=== PATIENT | male | born 1985 | race Caucasian/White ===

== ENCOUNTER 2016-10-21 22:57 | Emergency (ER) | payer OTHER ==
[~2016-10-21] VITALS: Ht 193 cm; Wt 176.5 kg
[~2016-10-21 22:57] MED LIST: GLIP10TA3 PO; IBUP-1050 PO; INSDGIPEN SQ; LISI-461 PO; METF1TAB53 PO; OXYC-57 PO
[2016-10-21 22:59] VITALS: TEMP 36.7; Ht 193 cm; Wt 176.5 kg
[2016-10-21] MEDS ORDERED: LIDOCAINE/EPINEPHRINE 1% 20 ML VIAL INFIL ONE (23:30)
[2016-10-22 00:13] VITALS: BP 140/70; PULSE 105; O2SAT 95
[2016-10-22] MEDS ORDERED: PERCOCET HOME PACK PO ONE (00:15)
[2016-10-22] MEDS ORDERED: CLINDAMYCIN HCL 150 MG CAP PO ONE (00:15)
[2016-10-22] MEDS ORDERED: CLIN300C2 PO (00:20)
[2016-10-22] MEDS ORDERED: HYDR-5688 PO (00:20)
--- NOTE | 2016-10-22 00:21 | EMERGENCY ROOM VISIT NOTE ---
ED Visit Note First contact with patient: 23:10 CHIEF COMPLAINT: Infection of the tailbone HISTORY OF PRESENT ILLNESS: This 31-year-old male patient presents to the emergency department ambulatory complaining of pain in the tailbone. The patient reports that he has swelling and redness in the area as well and is concerned he may have an infection. He states his symptoms started 3 days ago and became much worse yesterday. He reports pain when sitting which she rates a 6/10. He denies any history of abscesses in that area, but does state that he has had a prior abscess on his leg. The patient is a diabetic. He denies any fevers/chills. REVIEW OF SYSTEMS: A review of systems was performed with positives and pertinent negatives listed in the history of present illness. All other systems were reviewed and are negative. ALLERGIES: Cephalosporins MEDICATIONS: See med list PMH: Diabetes SOCIAL HISTORY: The patient was locally with family. He is a smoker. PHYSICAL EXAM: Vital Signs: Reviewed Nurse's notes, vital signs stable. GENERAL : This is a 31-year-old male, no acute distress, non toxic in appearance, well- developed well-nourished. SKIN: There is an erythematous indurated area in the right gluteal cleft which measures about to cm in diameter. It is fluctuant but there is no pointing or drainage. There is minimal surrounding cellulitis. Capillary refill less than 2 seconds. EMERGENCY DEPARTMENT COURSE: I examined the patient. Verbal consent was obtained to perform the procedure. After saline and Betadine cleansing and 4 mL of 1% buffered lidocaine with epinephrine anesthesia, the abscess was incised with a number 11 scalpel blade. A large amount of purulent material was released with more expressed by pressure. A swab was obtained for culture. The abscess cavity was further probed with a needle motorcoach driver and the deep pocket expressed. The abscess cavity was then copiously irrigated with sterile saline under pressure. The area was then packed with bacitracin soaked packing. The area was cleaned with sterile saline and dressed with bacitracin and a bulky bandage. The patient tolerated the procedure well. The patient will be placed on clindamycin due to medication interactions with Bactrim. He will return for packing removal. He was given a home pack and prescription of [employer]. The [place] prescription drug monitoring program was queried and no red flags were identified. The patient was discharged home in stable condition. DIAGNOSIS: Pilonidal abscess Problem List Medical Problems: (1) Abdominal pain Status: Resolved (2) Abdominal pain Status: Resolved (3) Abscess of left thigh Status: Resolved (4) Acute bronchitis Status: Resolved (5) Asthma Status: Chronic (6) Back pain Status: Resolved (7) Back strain Status: Resolved (8) Calculus Of Ureter Status: Chronic (9) Cellulitis of left thigh Status: Resolved (10) Cellulitis of thigh Status: Resolved (11) Cellulitis, leg Status: Resolved (12) Depressive Disorder Nec Status: Chronic (13) Diverticulitis Status: Resolved (14) Diverticulitis Status: Resolved (15) Diverticulosis Status: Chronic (16) Flank pain Status: Resolved (17) Foot pain Status: Resolved (18) Headache Status: Resolved (19) Hyperglycemia Status: Chronic (20) Hypertension Status: Chronic (21) Hypertension Status: Chronic (22) Joint pain in the shoulder/clavicle region Status: Resolved (23) Kidney stone on left side Status: Resolved (24) Left ureteral calculus Status: Resolved (25) Leg abscess Status: Resolved (26) Migraine Status: Resolved (27) Migraine Status: Resolved (28) Morbid Obesity Status: Chronic (29) Neck pain on right side Status: Resolved (30) Renal colic Status: Resolved (31) Renal colic on left side Status: Resolved (32) Repetitive strain injury of right foot Status: Resolved (33) Tobacco Use Disorder Status: Chronic Surgical Problems: (1) S/P PICC central line placement Status: Resolved Current/Historical Medications Scheduled Glipizide (Glucotrol), 20 MG PO QAM Insulin Glargine (Lantus Solostar), 25 UNITS SQ QPM Lisinopril (Lisinopril), 20 MG PO DAILY Metformin Hcl (Glucophage Ext Rel), 1,000 MG PO BID Ranitidine (Zantac), 300 MG PO DAILY/PRN Scheduled PRN Ibuprofen (Advil), 200-600 MG PO Q4H PRN for Pain or Fever Allergies Coded Allergies: Cefaclor (Verified Allergy, Unknown, HAD REACTION BABY - DOES NOT REMEMBER EXACT REACTION, 08/05/16) Cephalosporins (Verified Allergy, Unknown, 08/05/16) Vital Signs Date Time Temp Pulse Resp B/P Pulse Ox O2 Delivery O2 Flow Rate FiO2 10/21/16 22:59 36.7 121 20 149/81 96 Room Air Departure Information Impression Primary Impression: Pilonidal abscess Dispostion Home / Self-Care Condition GOOD Prescriptions Hydrocodone/Acetaminophen 5MG/325MG ([place] 5MG/325MG) Tab 1-2 TABLET PO Q4H Y for Pain, #10 TAB For Initial Treatment Prov: Lissa Michael PA-C 10/22/16 Clindamycin Hcl (CLEOCIN) 300 Mg Cap 300 MG PO QID for 7 Days, #28 CAP Prov: Lissa Michael PA-C 10/22/16 Referrals No Doctor, Assigned (PCP) Patient Instructions A Signature Page, [facility] Additional Instructions You were seen in the Emergency Department for Incision and Drainage of pilonidal abscess. You will NEED to return to the Emergency Department to have the packing removed/changed in 48 hours. This packing is NOT dissolvable and WILL need to be removed by a health care provider. Try to leave the packing in place until you return to the Emergency Department. You have been prescribed [place] to be used for pain control. This is a narcotic medication. You cannot drive or consume alcohol while on this medicine. This medicine should only be used for pain that cannot be controlled with over-the- counter pain medicines. You were prescribed clindamycin to be taken as prescribed. This is an antibiotic. All antibiotics have the potential to cause diarrhea. Stop this medication and contact a medical provider if you were to develop any significant adverse side effects including: wheezing, shortness of breath, passing out, vomiting, or a diffuse rash. Always take antibiotics as directed and COMPLETE the ENTIRE course regardless of the improvement of your symptoms. Proper wound care is essential for adequate wound healing and infection prevention. You can shower and clean the wound with soap and water. Do not scour over the wound. Pat dry with a towel. Do not submerse the wound (i.e. bathe or dish wash) until the sutures have been removed. You can use an antibiotic ointment with a dressing over the wound for the next 3-4 days. After this time you may leave the wound dry and open to the air. If crust develops over the wound you can use a Q-tip to apply a 1:1 peroxide:water solution to clean the wound. Look for signs of infection of the wound including: increased pain, swelling, foul discharge, streaking, or increased temperature. If any of these are noticed you should return to the Emergency Department for further assessment and treatment. As with any laceration you may have received nerve damage to the surrounding tissues. This damage may or may not be permanent. For pain control, you can use the following [id number] medicines (if >12 yo): - Regular strength (325mg/tab) Tylenol (acetaminophen) 2 tabs every 4-6 hours as needed. Do not exceed 12 tablets in a 24 hour period. Avoid taking more than 4 grams (4000 mg) of Tylenol per day. This includes any other sources of acetaminophen you may take on a regular basis. - Regular strength (200 mg/tab) Advil (ibuprofen) 1-2 tabs every 4-6 hours as needed. Do not exceed a dose of 3200 mg per day. You may need to follow-up with a general surgeon for definitive removal of your pilonidal cyst. Return to the emergency department if your symptoms worsen despite treatment course outlined above.
--- NOTE | 2016-10-25 15:33 | Pharmacy Progress Note ---
ED Pharmacist Culture FollowUp Date of Service: Oct 25, 2016. Pilonidal abscess cx from 10/22/16 growing 3 organisms, none of which will have sensitivities reported per our lab's policies/procedures. Organisms = 1) CoN staph 2) Diptheroids 3) Peptostreptococcus sp The patient had I&D performed on 10/22. He was discharged on Clindamycin 300mg PO QID x 7 days. He returned to the ED today for removal of packing. He denied pain, swelling, redness or drainage from wound. Packing was removed and he was encouraged to continue with the current abx therapy and to f/u with PCP after abx therapy completed. Current abx therapy likely appropriate, however without sensitivities it is difficult to know for sure. CoN Staph likely covered by clinda in ~75% of cases per local antibiogram. Diptheroids has highly variable susceptibilities and is unpredictable - clinical response needed to guide abx therapy. Peptostreptococcus sp likely covered by clinda. No action to be taken at this time as pt appears to be better from a clinical standpoint based on today's evaluation in the ER.
[2017-04-10] MEDS ORDERED: RANI300T2 PO (16:22)
== END 2016-10-22 00:30 | disposition home or self-care (01) ==
LOC: C.EDB 22:59 → C.EDC 10-22 00:30
DX: L05.01 Pilonidal cyst with abscess (principal); E11.9 Type 2 diabetes mellitus without complications; J45.909 Unspecified asthma, uncomplicated; I10 Essential (primary) hypertension; E66.01 Morbid (severe) obesity due to excess calories; Z79.4 Long term (current) use of insulin; Z79.84 Long term (current) use of oral hypoglycemic drugs; Z79.899 Other long term (current) drug therapy

== ENCOUNTER 2016-10-24 13:46 | Emergency (ER) | payer OTHER ==
[~2016-10-24] VITALS: Ht 193 cm; Wt 176.2 kg
[~2016-10-24 13:46] MED LIST changes: +CLIN300C2 PO; +HYDR-5688 PO; -OXYC-57 PO
[2016-10-24 13:54] VITALS: BP 153/96; PULSE 121; TEMP 36.6; O2SAT 95; Ht 193 cm; Wt 176.2 kg
--- NOTE | 2016-10-24 14:57 | EMERGENCY ROOM VISIT NOTE ---
ED Visit Note First contact with patient: 13:59 CHIEF COMPLAINT: Packing removal. HISTORY OF PRESENT ILLNESS: Mr. Crandall is a 31-year-old male who ambulates into the ED requesting packing removal for a pilonidal abscess he had an I&D procedure performed on 3 days ago. He reports since that time he has been feeling well and feels the abscess has been healing well. He denies pain, swelling, redness, or drainage from the wound. PHYSICAL EXAM: Vital Signs: Date Time Temp Pulse Resp B/P Pulse Ox O2 Delivery O2 Flow Rate FiO2 10/24/16 13:54 36.6 121 18 153/96 95 Room Air General: 31 year-old white male in no acute distress, nontoxic-appearing, afebrile and hemodynamically stable. Gluteal Fold: The incision is clean and dry. There are no signs of infection ( erythema, swelling, tenderness, purulent drainage). There is a small area of erythema over the top of the right and left gluteal region. This area is nontender, not fluctuant or indurated. ED COURSE: Patient is assessed as noted above. Packing was removed. I was not able to express any additional purulent drainage from the wound. Patient was educated about tonight's findings and instructed on his treatment plan; he verbalized understanding and agreement with this plan. DISPOSITION: Patient discharged home in stable condition. CLINICAL IMPRESSION: Packing removal; Well healing abscess. PLAN: Patient was encouraged to continue antibiotics until complete. Patient was encouraged to continue his other medications. Patient was encouraged to continue to watch the area for signs of infection. Patient was encouraged to follow-up with his PCP at the end of his antibiotics for reevaluation. Patient was encouraged return ED for any additional signs of infection or any new/concerning symptoms.
[2017-04-10] MEDS ORDERED: RANI300T2 PO (16:22)
== END 2016-10-24 14:14 | disposition home or self-care (01) ==
LOC: C.EDB 13:48 → C.EDD 14:14
DX: Z09 Encounter for follow-up examination after completed treatment for conditions other than malignant neoplasm (principal); L05.01 Pilonidal cyst with abscess

== ENCOUNTER 2016-11-02 14:00 | Emergency (ER) | payer OTHER ==
[~2016-11-02] VITALS: Ht 193 cm; Wt 161.8 kg
[~2016-11-02 14:00] MED LIST changes: -CLIN300C2 PO; -IBUP-1050 PO
[2016-11-02 14:13] VITALS: BP 186/103; TEMP 36.9; Ht 193 cm; Wt 161.8 kg
[2016-11-02] MEDS ORDERED: OXYC1TAB3 PO (15:14)
[2016-11-02] MEDS ORDERED: AMOX875T PO (15:14)
[2016-11-02] MEDS ORDERED: DOXY100C PO (15:14)
--- NOTE | 2016-11-02 15:15 | Pharmacy Progress Note ---
ED Pharmacist Culture FollowUp Date of Service: Nov 02, 2016. Assessment Patient returned to ER today for worsening pilondial abscess. The patient had I &D performed on 10/22. He was discharged on Clindamycin 300mg PO QID x 7 days. Pilonidal abscess cx from 10/22/16 growing 3 organisms, none of which will have sensitivities reported per our lab's policies/procedures. Organisms = 1) coag-negative Staph 2) Diptheroids 3) Peptostreptococcus sp. Failure of clindamycin likely due to inadequate coverage of coag-negative Staph (25% treatment failure per local antibiogram). May also be due to Peptostreptococcos sp resistance. Recommend doxycycline (86% coverage of coag-negative Staph), plus Augmentin ( very likely to cover Peptostreptococcus, ~50% coverage of coag-negative Staph). Selected beta-lactam/beta-lactamase inhibitor combination despite likely sensitivity of Peptostreptococcus to beta-lactam alone 2nd polymicrobial infection with risk of at least one of the isolated pathogens to produce a beta- lactamase. Patient with listed allergy to cephalosporins (reaction as a baby). Has received multiple doses of Zosyn per EMR history - OK to proceed cautiously with Augmentin despite allergy Recommend slightly longer duration of therapy 2nd treatment failure with no sensitivities to guide therapy decisions. Recommend Doxycycline 100 mg po BID x10 days Augmentin 875/125 mg po BID x10 days T[address] Machine [address] Forms patient to monitor for drug allergy reaction .
--- NOTE | 2016-11-02 15:22 | EMERGENCY ROOM VISIT NOTE ---
History First contact with patient: 14:32 Chief Complaint: INFECTION Stated Complaint: INFECTION Nursing Triage Summary: Dmitri on biggbone drained, was referred to surgeon for appt on nov 15. "Was pretty much healed up and then last night it became hard, swollen, and red. It burst last night when I was sleeping and the surgeons office told me to come here." History of Present Illness The patient is a 31 year old male who presents to the Emergency Room with complaints of persistent drainage and infection of a pilonidal cyst that was drained here approximately 10 days ago. The patient reports that he had an I&D procedure performed, and was treated with clindamycin antibiotics because of a history of cephalosporin allergy. The patient reports that his symptoms continued to improve until 2 days ago when he started to notice swelling, pain and redness to the area. He reports that the wound drained again last night. He reports bloody and purulent drainage. He is scheduled to see general surgeon on 11/15/2016. He call the office, but they could not get him in sooner, and told him to come to the emergency department for further evaluation. The patient rates his discomfort a 9 out of 10. He has run out of his pain medications from his last visit. He did recently complete all clindamycin antibiotics. Review of Systems 10 system review was performed and was negative except for pertinent positives and negatives as indicated in history of present illness Past Medical/Surgical History Medical Problems: (1) Abdominal pain (2) Abdominal pain (3) Abscess of left thigh (4) Acute bronchitis (5) Asthma (6) Back pain (7) Back strain (8) Calculus Of Ureter (9) Cellulitis of left thigh (10) Cellulitis of thigh (11) Cellulitis, leg (12) Depressive Disorder Nec (13) Diverticulitis (14) Diverticulitis (15) Diverticulosis (16) Flank pain (17) Foot pain (18) Headache (19) Hyperglycemia (20) Hypertension (21) Hypertension (22) Joint pain in the shoulder/clavicle region (23) Kidney stone on left side (24) Left ureteral calculus (25) Leg abscess (26) Migraine (27) Migraine (28) Morbid Obesity (29) Neck pain on right side (30) No significant active problems (31) Renal colic (32) Renal colic on left side (33) Repetitive strain injury of right foot (34) Tobacco Use Disorder Surgical Problems: (1) S/P PICC central line placement Family History FH: diabetes mellitus FH: hypertension FH: kidney disease Social History Smoking Status: Current Every Day Smoker Alcohol Use: none Marital Status: Housing Status: lives with family Occupation Status: employed Current/Historical Medications Scheduled Amoxicillin & Pot Clavulanate (Augmentin 875-125 mg), 1 TAB PO BID Doxycycline Hyclate (Vibramycin), 100 MG PO BID Glipizide (Glucotrol), 20 MG PO QAM Insulin Glargine (Lantus Solostar), 25 UNITS SQ QPM Lisinopril (Lisinopril), 20 MG PO DAILY Metformin Hcl (Glucophage Ext Rel), 1,000 MG PO BID Ranitidine (Zantac), 300 MG PO DAILY/PRN Scheduled PRN Oxycodone Ir (Roxicodone Ir), 1-2 TAB PO Q4H PRN for Pain Allergies Coded Allergies: Cefaclor (Verified Allergy, Unknown, HAD REACTION BABY - DOES NOT REMEMBER EXACT REACTION, 10/24/16) Cephalosporins (Verified Allergy, Unknown, 10/24/16) Physical Exam Vital Signs Date Time Temp Pulse Resp B/P Pulse Ox O2 Delivery O2 Flow Rate FiO2 11/02/16 14:13 36.9 113 18 186/103 97 Room Air Physical Exam CONSTITUTIONAL: Morbidly obese male, alert and oriented X 3 with positive affect. Patient does not appear acutely ill or toxic. HEENT: Normocephalic, atraumatic. Pupils equal, round and reactive. NECK: Full active range of motion without discomfort. GASTROINTESTINAL: Bowel sounds present in all quadrants. Soft and nontender to palpation. MUSCULOSKELETAL: Full range of motion of all joints without discomfort. INTEGUMENTARY: Examination shows an opened I&D site at the pilonidal region. He has otherwise generalized underlying induration without any further purulent drainage. NEUROLOGIC: No focal neurologic deficits noted. Medical Decision & Procedures ED Course Patient history and physical exam were performed. Nurse's notes were reviewed. Vital signs were reviewed and were normal, except that the patient is hypertensive. He is afebrile. I speak without clinical pharmacist, who performed a history and saw that the patient has received Zosyn IV in the past without any adverse reaction. She has suggested that the patient be treated with Augmentin and doxycycline. The patient was provided prescriptions for both , along with OxyIR 5 mg for pain. No drinking or driving while taking OxyIR. The patient was instructed to continue with warm soaks, and follow-up with his surgeon for further management. Certainly return to the emergency department for any significantly worsening swelling, pain or developing fever. The patient voiced understanding of all discharge instructions, and rated his pain a 6 out of 10 at the time of discharge. Medical Decision Impression Primary Impression: Pilonidal abscess Departure Information Dispostion Home / Self-Care Prescriptions Oxycodone Ir (Roxicodone Ir) 5 Mg Tab 1-2 TAB PO Q4H Y for Pain, #15 TAB For Initial Treatment Prov: Tomi Buckner PA 11/02/16 Amoxicillin & Pot Clavulanate (Augmentin 875-125 mg) 1 Tab Tab 1 TAB PO BID, #20 TAB Prov: Tomi Buckner PA 11/02/16 Doxycycline Hyclate (VIBRAMYCIN) 100 Mg Cap 100 MG PO BID for 10 Days, #20 CAP Prov: Tomi Buckner PA 11/02/16 Forms HOME CARE DOCUMENTATION FORM, IMPORTANT VISIT INFORMATION Patient Instructions My [facility] Additional Instructions Complete all doxycycline and Augmentin antibiotics as prescribed. Keep wound covered with an antibiotic ointment and dressing. Also suggest performing warm soaks to help promote drainage. Ibuprofen 800 mg and/or Tylenol 1000 mg every 8 hours. You may also alternate these medications for more effective pain relief: Ibuprofen --4 HRS--> Tylenol --4 HRS--> ibuprofen --4 HRS--> Tylenol .... OxyIR if needed for worse pain. Do not drink or drive while taking OxyIR. Continue follow-up with your general surgeon for further reevaluation and management. Return to the emergency department for any progressively worsening infection.
[2016-11-02 15:30] VITALS: PULSE 86; O2SAT 97
[2017-04-10] MEDS ORDERED: RANI300T2 PO (16:22)
== END 2016-11-02 15:30 | disposition home or self-care (01) ==
LOC: C.EDB 14:02 → C.EDD 15:30
DX: L05.91 Pilonidal cyst without abscess (principal); I10 Essential (primary) hypertension; F17.200 Nicotine dependence, unspecified, uncomplicated

== ENCOUNTER 2016-11-26 01:12 | Emergency (ER) | payer OTHER ==
[~2016-11-26] VITALS: Ht 193 cm; Wt 175.0 kg
[~2016-11-26 01:12] MED LIST changes: -HYDR-5688 PO; +OXYC1TAB3 PO
[2016-11-26 01:18] VITALS: Ht 193 cm; Wt 175.0 kg
[2016-11-26] MEDS ORDERED: DOXYCYCLINE HYCLATE 100 MG CAP PO STA ×2 (01:47→01:58)
[2016-11-26] MEDS ORDERED: AMOX875T PO (01:50)
[2016-11-26] MEDS ORDERED: DOXY100C PO (01:50)
[2016-11-26] MEDS ORDERED: NORCO 5/325MG HOME PACK PO ONE (02:00)
[2016-11-26] MEDS ORDERED: AMOXICILLIN/CLAVULANATE TAB 875 MG TAB PO ONE ×2 (02:00)
[2016-11-26 02:03] VITALS: BP 148/114; PULSE 99; TEMP 36.5; O2SAT 96
--- NOTE | 2016-11-26 07:26 | EMERGENCY ROOM VISIT NOTE ---
History First contact with patient: 01:27 Chief Complaint: WOUND INFECTION Stated Complaint: ABCESS Nursing Triage Summary: pt has geovany on [facility], seen on nov 15 and it was ok and told that if it got worse to come in here to have it drained. has had it drained 2 times prior History of Present Illness The patient is a 31 year old male who presents to the Emergency Room with complaints of a pilonidal abscess that began worsening over the past 2 days. The patient has a history of ongoing issues with a pilonidal abscess. He has had 2 in the past month, and did follow with a general surgeon about one week ago. The patient was asymptomatic at the time of his surgical evaluation, and because of this elected to defer any definitive measures. The patient noticed that he was having difficulty with sitting yesterday, and now he is with significant increase in pain. He is diabetic. The patient has not had fever or chills. He does not have a history of inflammatory bowel disease. He has not had difficulty using the bathroom but does rate his pain a 9/10. Review of Systems More than 10 systems were reviewed and otherwise negative with the exception of history of present illness. Past Medical/Surgical History Medical Problems: (1) Abdominal pain (2) Abdominal pain (3) Abscess of left thigh (4) Acute bronchitis (5) Asthma (6) Back pain (7) Back strain (8) Calculus Of Ureter (9) Cellulitis of left thigh (10) Cellulitis of thigh (11) Cellulitis, leg (12) Depressive Disorder Nec (13) Diverticulitis (14) Diverticulitis (15) Diverticulosis (16) Flank pain (17) Foot pain (18) Headache (19) Hyperglycemia (20) Hypertension (21) Hypertension (22) Joint pain in the shoulder/clavicle region (23) Kidney stone on left side (24) Left ureteral calculus (25) Leg abscess (26) Migraine (27) Migraine (28) Morbid Obesity (29) Neck pain on right side (30) No significant active problems (31) Renal colic (32) Renal colic on left side (33) Repetitive strain injury of right foot (34) Tobacco Use Disorder Surgical Problems: (1) S/P PICC central line placement Family History FH: diabetes mellitus FH: hypertension FH: kidney disease Social History Smoking Status: Current Every Day Smoker Alcohol Use: none Marital Status: Housing Status: lives with family Occupation Status: employed Current/Historical Medications Scheduled Amoxicillin & Pot Clavulanate (Augmentin 875-125 mg), 1 TAB PO BID Doxycycline Hyclate (Vibramycin), 100 MG PO BID Glipizide (Glucotrol), 20 MG PO QAM Insulin Glargine (Lantus Solostar), 25 UNITS SQ QPM Lisinopril (Lisinopril), 20 MG PO DAILY Metformin Hcl (Glucophage Ext Rel), 1,000 MG PO BID Ranitidine (Zantac), 300 MG PO DAILY/PRN Scheduled PRN Oxycodone Ir (Roxicodone Ir), 1-2 TAB PO Q4H PRN for Pain Allergies Coded Allergies: Cefaclor (Verified Allergy, Unknown, HAD REACTION BABY - DOES NOT REMEMBER EXACT REACTION, 11/26/16) Cephalosporins (Verified Allergy, Unknown, 11/26/16) Physical Exam Vital Signs Date Time Temp Pulse Resp B/P Pulse Ox O2 Delivery O2 Flow Rate FiO2 11/26/16 02:03 36.5 99 18 148/114 96 11/26/16 01:18 36.5 104 18 160/88 96 Room Air Pain Rating (0-10): 0 Physical Exam VITALS: Vitals are noted on the nurse's note and reviewed by myself. Vital signs stable. GENERAL: Well-developed, well-nourished, white male, who is mildly uncomfortable laying in his emergency department bed. Patient is cooperative with the examination. HEAD: Normocephalic atraumatic. HEART: Regular rate and rhythm without murmurs gallops or rubs. LUNGS: Clear to auscultation bilaterally without wheezes, rales or rhonchi. No retractions or accessory muscle use. RECTAL: The patient is with a 3 x 3 cm abscess consistent with a pilonidal abscess at the superior aspect of the gluteal cleft. This area is quite fluctuant without significant surrounding erythema or edema. This area is very tender on light palpation. Medical Decision & Procedures Medications Administered Medications (Trade) Dose Ordered Sig/Tip Route Start Time Stop Time Status Last Admin Dose Admin Doxycycline Hyclate (Vibramycin Cap) 100 mg NOW STAT PO 11/26/16 01:47 11/26/16 01:49 DC 11/26/16 01:56 100 MG Amoxicillin/ Clavulanate Potassium (Augmentin Tab) 875 mg NOW ONCE PO 11/26/16 02:00 11/26/16 02:01 DC 11/26/16 01:56 875 MG Acetaminophen/ Hydrocodone Bitart (Rudyard 5/325mg Home Pack) 1 homepack UD ONCE PO 11/26/16 02:00 11/26/16 02:01 DC 11/26/16 01:57 1 HOMEPACK Doxycycline Hyclate (Vibramycin Cap) 100 mg NOW STAT PO 11/26/16 01:58 11/26/16 01:59 DC 11/26/16 02:02 100 MG Amoxicillin/ Clavulanate Potassium (Augmentin Tab) 875 mg NOW ONCE PO 11/26/16 02:00 11/26/16 02:01 DC 11/26/16 02:03 875 MG Procedure I examined the patient. Verbal consent was obtained to perform the procedure. After saline and Betadine cleansing ethyl chloride anesthesia, the abscess was incised with a number 11 scalpel blade. A large amount of purulent material was released with more expressed by pressure. A swab was obtained for culture. The abscess cavity was further probed with a needle utility driver and the deep pocket expressed. The abscess cavity was then copiously irrigated with sterile saline under pressure. The area was then packed with bacitracin soaked packing. The area was cleaned with sterile saline and dressed with bacitracin and a bulky bandage. The patient tolerated the procedure well. ED Course Physical exam and history were performed. Nursing notes and EMR were reviewed. Patient appears to have a pilonidal abscess. He has had several of these over the past month. I discussed options of care with the patient, and we elected to perform incision and drainage as above. The patient tolerated the procedure well. His wound was packed and he will need to follow-up with his PCP or back in the ER in 48 hours for recheck. I did review his past wound cultures, and we 'll start him on Augmentin and doxycycline as this seems to have improved his symptoms in the past. The patient is a good candidate for surgical intervention as he has had several of these recur. I recommended that he contact his surgeon to make these arrangements. The patient was otherwise invited back to the ER with any new, worsening, or concerning symptoms. The chart was completed utilizing Dragon Speech Voice Recognition Software. Grammatical errors, random word insertions, pronoun errors, and incomplete sentences are an occasional consequence of this system due to software limitations, ambient noise, and hardware issues. Any formal questions or concerns about the content, text, or information contained within the body of this dictation should be directly addressed to the provider for clarification. . Medical Decision Differential diagnosis: Etiologies such as cellulitis, abscess, MRSA infection, DVT, necrotizing fasciitis, dermatitis, drug eruption, as well as others were entertained.. Impression Primary Impression: Pilonidal abscess Departure Information Dispostion Home / Self-Care Condition GOOD Prescriptions Amoxicillin & Pot Clavulanate (Augmentin 875-125 mg) 1 Tab Tab 1 TAB PO BID for 10 Days, #20 TAB Prov: Dalton Love PA-C 11/26/16 Doxycycline Hyclate (VIBRAMYCIN) 100 Mg Cap 100 MG PO BID for 10 Days, #20 CAP Prov: Dalton Love PA-C 11/26/16 Forms HOME CARE DOCUMENTATION FORM, IMPORTANT VISIT INFORMATION Patient Instructions [facility] Additional Instructions You were seen and evaluated today on an emergency basis only. This is not a substitute for, or an effort to provide, complete comprehensive medical care. It is not possible to recognize and treat all injuries or illnesses in a single emergency department visit. For this reason it is recommended that you followup with your primary care physician in 48 hours for packing removal. Please contact your surgeon. Doxycycline 100 mg twice daily for the next 10 days. For baseline pain relief you may alternate ibuprofen and acetaminophen every 4 hours for pain control. Take 600 mg ibuprofen (Advil) and then 4 hours later take 1000 mg acetaminophen (Tylenol). Do not take more than 3000 mg acetaminophen in a single day. Rudyard (hydrocodone/acetaminophen) 5/325 mg (homepack) ONE tab every 6 hours as needed for worsening breakthrough pain. Do not drink or drive on Rudyard. This medication will likely make you tired. Do not take Rudyard and Tylenol at the same time as both contain acetaminophen. Rudyard may cause constipation. You may wish to take an [id number] stool softener like Colace if this occurs. Amoxicillin Clavulanate (Augmentin) 875mg: Take one pill twice daily for 10 days for your infection. All antibiotics can cause diarrhea. If this occurs and you feel worse or it does not resolve in 1-2 days follow up with your doctor or return to the Emergency Department as this could be signs of serious underlying problems. Any medication can cause an allergic reaction, stop the pills immediately and return to the ER for rash, hives, breathing difficulties, or swelling. You are welcome to return to the emergency department anytime with new, worsening, or concerning symptoms.
[2017-04-10] MEDS ORDERED: RANI300T2 PO (16:22)
== END 2016-11-26 02:04 | disposition home or self-care (01) ==
LOC: C.EDB 01:14 → C.EDC 02:04
DX: L05.01 Pilonidal cyst with abscess (principal); I10 Essential (primary) hypertension; J45.909 Unspecified asthma, uncomplicated; F17.200 Nicotine dependence, unspecified, uncomplicated; F32.9 Major depressive disorder, single episode, unspecified

== ENCOUNTER 2016-11-27 23:39 | Emergency (ER) | payer OTHER ==
[~2016-11-27] VITALS: Ht 193 cm; Wt 180.2 kg
[~2016-11-27 23:39] MED LIST changes: +AMOX875T PO; +DOXY100C PO
[2016-11-27 23:47] VITALS: TEMP 36.9; Ht 193 cm; Wt 180.2 kg
[2016-11-28 00:12] VITALS: BP 147/89; PULSE 110; O2SAT 95
--- NOTE | 2016-12-01 22:47 | EMERGENCY ROOM VISIT NOTE ---
History First contact with patient: 23:56 Chief Complaint: PACKING REMOVAL Stated Complaint: PACKING CHECK/REMOVAL Nursing Triage Summary: pt had packing placed 48 hours ago to wound in coccyx. pt here for wound eval and packing removal/change. History of Present Illness The patient is a 31 year old male who presents to the Emergency Room for a wound recheck. The patient was seen about 2 days ago for incision and drainage of a pilonidal abscess which was performed by myself. Packing was placed at that visit and culture was performed. 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 He states that his discomfort has improved, and he is feeling better. He does not have further complaints at this time and rates his discomfort a 2/10. Review of Systems More than 10 systems were reviewed and otherwise negative with the exception of history of present illness. Past Medical/Surgical History Medical Problems: (1) Abdominal pain (2) Abdominal pain (3) Abscess of left thigh (4) Acute bronchitis (5) Asthma (6) Back pain (7) Back strain (8) Calculus Of Ureter (9) Cellulitis of left thigh (10) Cellulitis of thigh (11) Cellulitis, leg (12) Depressive Disorder Nec (13) Diverticulitis (14) Diverticulitis (15) Diverticulosis (16) Flank pain (17) Foot pain (18) Headache (19) Hyperglycemia (20) Hypertension (21) Hypertension (22) Joint pain in the shoulder/clavicle region (23) Kidney stone on left side (24) Left ureteral calculus (25) Leg abscess (26) Migraine (27) Migraine (28) Morbid Obesity (29) Neck pain on right side (30) No significant active problems (31) Renal colic (32) Renal colic on left side (33) Repetitive strain injury of right foot (34) Tobacco Use Disorder Surgical Problems: (1) S/P PICC central line placement Family History FH: diabetes mellitus FH: hypertension FH: kidney disease Social History Smoking Status: Current Every Day Smoker Alcohol Use: none Marital Status: Housing Status: lives with family Occupation Status: employed Current/Historical Medications Scheduled Amoxicillin & Pot Clavulanate (Augmentin 875-125 mg), 1 TAB PO BID Doxycycline Hyclate (Vibramycin), 100 MG PO BID Glipizide (Glucotrol), 20 MG PO QAM Insulin Glargine (Lantus Solostar), 25 UNITS SQ QPM Lisinopril (Lisinopril), 20 MG PO DAILY Metformin Hcl (Glucophage Ext Rel), 1,000 MG PO BID Ranitidine (Zantac), 300 MG PO DAILY/PRN Scheduled PRN Oxycodone Ir (Roxicodone Ir), 1-2 TAB PO Q4H PRN for Pain Allergies Coded Allergies: Cefaclor (Verified Allergy, Unknown, HAD REACTION BABY - DOES NOT REMEMBER EXACT REACTION, 11/28/16) Cephalosporins (Verified Allergy, Unknown, 11/28/16) Physical Exam Vital Signs Date Time Temp Pulse Resp B/P Pulse Ox O2 Delivery O2 Flow Rate FiO2 11/28/16 00:12 110 20 147/89 95 11/27/16 23:47 36.9 113 20 150/87 97 Pain Rating (0-10): 0 Physical Exam VITALS: Vitals are noted on the nurse's note and reviewed by myself. Vital signs stable. GENERAL: Well-developed, well-nourished, obese white male, who is in no acute distress and resting comfortably. Patient is cooperative with the examination. HEAD: Normocephalic atraumatic. HEART: Regular rate and rhythm without murmurs gallops or rubs. LUNGS: Clear to auscultation bilaterally without wheezes, rales or rhonchi. No retractions or accessory muscle use. SKIN: The skin was with a well-healing pilonidal abscess. No surrounding erythema noted. No fluctuance noted. Packing had already fallen out without intervention. Medical Decision & Procedures ED Course Physical exam and history were performed. Nursing notes and EMR were reviewed. Patient appears to have a well-healing pilonidal abscess. Evidently he is waiting for a callback from his surgeon. After the drainage and initiation of antibiotics the patient is feeling well. I did check the culture, and no specific sensitivities were performed. The patient will remain on his current antibiotics. He was otherwise invited back to the ER with any new, worsening, or concerning symptoms. The chart was completed utilizing [employer] Voice Recognition Software. Grammatical errors, random word insertions, pronoun errors, and incomplete sentences are an occasional consequence of this system due to software limitations, ambient noise, and hardware issues. Any formal questions or concerns about the content, text, or information contained within the body of this dictation should be directly addressed to the provider for clarification. . Medical Decision Differential diagnosis: Etiologies such as cellulitis, abscess, MRSA infection, DVT, necrotizing fasciitis, dermatitis, drug eruption, as well as others were entertained.. Impression Primary Impression: Encounter for wound re-check Departure Information Dispostion Home / Self-Care Condition GOOD Referrals Doreen Clark M.D. (PCP) No Doctor, Assigned Forms HOME CARE DOCUMENTATION FORM, IMPORTANT VISIT INFORMATION Patient Instructions [facility] Additional Instructions You were seen and evaluated today on an emergency basis only. This is not a substitute for, or an effort to provide, complete comprehensive medical care. It is not possible to recognize and treat all injuries or illnesses in a single emergency department visit. For this reason it is recommended that you followup with your surgeon as soon as possible for definitive care. Continue your antibiotics as prescribed You are welcome to return to the emergency department anytime with new, worsening, or concerning symptoms.
[2017-04-10] MEDS ORDERED: RANI300T2 PO (16:22)
== END 2016-11-28 00:10 | disposition home or self-care (01) ==
LOC: C.EDB 23:40 → C.EDC 11-28 00:10
DX: Z48.00 Encounter for change or removal of nonsurgical wound dressing (principal); L05.01 Pilonidal cyst with abscess; F32.9 Major depressive disorder, single episode, unspecified; I10 Essential (primary) hypertension; F17.200 Nicotine dependence, unspecified, uncomplicated; Z79.4 Long term (current) use of insulin

== ENCOUNTER 2016-12-02 21:40 | Emergency (ER) | payer OTHER ==
[~2016-12-02] VITALS: Ht 193 cm; Wt 181.5 kg
[2016-12-02 21:41] VITALS: Ht 193 cm; Wt 181.5 kg
[2016-12-02] MEDS ORDERED: KETOROLAC TROMETHAMINE 30 MG/ML VIAL IV STA (21:50)
[2016-12-02] MEDS ORDERED: ONDANSETRON INJ 2 MG/ML 2 ML VIAL IV STA (21:50)
[2016-12-02] MEDS ORDERED: MoRPHine SULFATE 4 MG/ML 1 ML CARP\\VIAL IV STA (21:50)
[2016-12-02] MEDS ORDERED: SODIUM CHLORIDE 0.9% 1000ML 1,000 ML IV STA ×3 (21:50→23:37)
[2016-12-02 22:09] VITALS: O2SAT 95
[2016-12-02 22:26] LABS: URINE APPEARANCE CLEAR (CLEAR); URINE BILIRUBIN NEG (NEG); URINE COLOR YELLOW; URINE NITRITE NEG (NEG); UROBILINOGEN NEG (NEG); ZZUR CULT IF INDIC CLEAN CATCH NO
[2016-12-02 22:30] LABS: MANUAL MICROSCOPIC REQUIRED? NO; REVIEW REQ? NO
[2016-12-02 22:36] LABS: BASO % 0.3 %; BASO ABS # 0.02 K/uL (0-0.2); COMPLETE YES; EOS % 1.3 %; HEMATOCRIT 43.5 % (42-52); IG% 0.1 %; LYMPH % 26.8 %; MEAN CELL VOLUME 87.3 fL (80-100); MEAN CORPUSCULAR HEMOGLOBIN 29.7 pg (25-34); MEAN PLATELET VOLUME 12.4 fL (7.4-10.4); MONO % 7.4 %; NEUT % 64.1 %; PLATELET COUNT 178 K/uL (130-400); RED BLOOD COUNT 4.98 M/uL (4.7-6.1); WHITE BLOOD COUNT 7.83 K/uL (4.8-10.8)
[2016-12-02 23:20] LABS: CALCIUM 8.5 mg/dl (8.5-10.1); CREATININE 1.1 mg/dl (0.60-1.40)
[2016-12-02 23:21] LABS: ALB/GLOB RATIO 0.7 (0.9-2); BETA-HYDROXYBUTYRATE 2.29 mg/dL (0.2-2.81); BUN/CREATININE RATIO 13.1 (10-20); POTASSIUM 4.2 mmol/L (3.5-5.1)
--- NOTE | 2016-12-02 23:27 | DIAGNOSTIC IMAGING REPORT ---
ABDOMEN AND PELVIS CT WITHOUT CONTRAST CT DOSE: 2390.57 mGy.cm HISTORY: right flank pain TECHNIQUE: Multiaxial CT images of the abdomen and pelvis were performed without the use of intravenous and oral contrast according to the standard department stone protocol. COMPARISON STUDY: Abdomen and pelvis CT 06/19/2016. FINDINGS: The lung bases are clear. No pneumoperitoneum. No pneumatosis. Hepatomegaly demonstrating fatty change. The gallbladder is decompressed but likely unremarkable. The unenhanced pancreas, spleen, and adrenal glands are unremarkable. No renal stones or hydronephrosis. No retroperitoneal lymphadenopathy. Normal bladder. Suboptimal evaluation for bowel pathology due to the lack of intravenous and oral contrast. However, there is no definite bowel wall thickening or obstruction. Normal appendix. A few colonic diverticula. IMPRESSION: 1. No renal stones or hydronephrosis. 2. Normal appendix. 3. Colonic diverticulosis. 4. No definite bowel wall thickening or obstruction. 5. Hepatomegaly with associated steatosis. Electronically signed by: Jermaine Bustos M.D. 12/02/2016 11:25 PM Dictated Date/Time: 12/02/2016 11:16 PM
[2016-12-02] MEDS ORDERED: NovoLIN-R INSULIN PER UNIT CHARGE IV STA (23:37)
[2016-12-03 00:11] LABS: VEN BLD GAS O2 SATURATION < 60.0 %; VEN BLOOD GAS BASE EXCESS 1.7 mmol/L; VENOUS BLOOD GAS PCO2 47 mmHg (38.0-50.0); VENOUS BLOOD GAS PO2 29 mmHg
[2016-12-03] MEDS ORDERED: NovoLIN-R INSULIN PER UNIT CHARGE IV STA (00:31)
[2016-12-03 02:27] VITALS: BP 146/94; PULSE 96; TEMP 36.6; O2SAT 95
--- NOTE | 2016-12-03 05:02 | EMERGENCY ROOM VISIT NOTE ---
History First contact with patient: 21:47 Chief Complaint: KIDNEY STONE Stated Complaint: KIDNEY STONES History of Present Illness The patient is a 31 year old male who presents to the Emergency Room with complaints of right flank pain for the past few hours it as aching, ranging in severity currently 8 out of 10. Patient had kidney stones before and states symptoms feel similar. Patient denies chest pain, dyspnea, fever, chills, vomiting, diarrhea, penile pain, testicular pain, epigastric pain. He is tolerate by mouth fluids and food. He has not taken his evening blood pressure or diabetes medicines. Review of Systems See HPI for pertinent positives & negatives. A total of 10 systems reviewed and were otherwise negative. Past Medical/Surgical History Medical Problems: (1) Abdominal pain (2) Abdominal pain (3) Abscess of left thigh (4) Acute bronchitis (5) Asthma (6) Back pain (7) Back strain (8) Calculus Of Ureter (9) Cellulitis of left thigh (10) Cellulitis of thigh (11) Cellulitis, leg (12) Depressive Disorder Nec (13) Diverticulitis (14) Diverticulitis (15) Diverticulosis (16) Flank pain (17) Foot pain (18) Headache (19) Hyperglycemia (20) Hypertension (21) Hypertension (22) Joint pain in the shoulder/clavicle region (23) Kidney stone on left side (24) Left ureteral calculus (25) Leg abscess (26) Migraine (27) Migraine (28) Morbid Obesity (29) Neck pain on right side (30) No significant active problems (31) Renal colic (32) Renal colic on left side (33) Repetitive strain injury of right foot (34) Tobacco Use Disorder Surgical Problems: (1) S/P PICC central line placement Family History FH: diabetes mellitus FH: hypertension FH: kidney disease Social History Smoking Status: Current Every Day Smoker Alcohol Use: none Marital Status: Housing Status: lives with family Occupation Status: employed Current/Historical Medications Scheduled Glipizide (Glucotrol), 20 MG PO QAM Insulin Glargine (Lantus Solostar), 25 UNITS SQ QPM Lisinopril (Lisinopril), 20 MG PO DAILY Metformin Hcl (Glucophage Ext Rel), 1,000 MG PO BID Ranitidine (Zantac), 300 MG PO DAILY/PRN Allergies Coded Allergies: Cefaclor (Verified Allergy, Unknown, HAD REACTION BABY - DOES NOT REMEMBER EXACT REACTION, 12/02/16) Cephalosporins (Verified Allergy, Unknown, 12/02/16) Physical Exam Vital Signs Date Time Temp Pulse Resp B/P Pulse Ox O2 Delivery O2 Flow Rate FiO2 12/03/16 02:27 36.6 96 20 146/94 95 12/03/16 02:26 96 20 146/94 95 Room Air 12/03/16 02:04 101 20 146/96 95 Room Air 12/03/16 01:39 101 20 155/107 95 Room Air 12/03/16 01:03 107 20 170/101 94 Room Air 12/03/16 00:08 109 20 176/101 94 Room Air 12/02/16 22:59 107 20 169/107 94 Room Air 12/02/16 22:09 95 Room Air 12/02/16 22:09 95 Room Air 12/02/16 21:41 36.6 124 20 161/90 95 Room Air Pain Rating (0-10): 2.0 Physical Exam VITALS: Vitals are noted on the nurse's note and reviewed by myself. Vital signs hypertensive GENERAL: White male, in no acute distress, nondiaphoretic, well-developed well- nourished. SKIN: The skin was without rashes, erythema, edema, or bruising. There is no tenting of the skin. Capillary reflex less than 2 seconds. HEAD: Normocephalic atraumatic. EARS: External auditory canals clear, tympanic membranes pearly munoz without erythema or effusion bilaterally. EYES: Pupils equal round and reactive to light and accommodation. Conjunctivae without injection, sclerae without icterus. Extraocular movements intact. NOSE: Patent, turbinates without inflammation or discharge. MOUTH: Mucous membranes moist. Pharynx without erythema or exudate. Uvula midline. Airway patent. Tongue does not deviate. NECK: Supple without nuchal rigidity. No lymphadenopathy. No thyromegaly. Cervical spine is nontender. No JVD. HEART: Regular rate and rhythm without murmurs gallops or rubs. LUNGS: Clear to auscultation bilaterally without wheezes, rales or rhonchi. No dullness to percussion. No retractions or accessory muscle use. ABDOMEN: Positive bowel sounds x 4. Normal tympanic percussion. Soft, protuberant, obese, nontender, without masses or organomegaly. Max sign negative. No guarding or rebound tenderness. No CVA tenderness MUSCULOSKELETAL: No muscle atrophy, erythema, noted. NEURO: Patient was alert and oriented to person place and time. Normal sensation to light and sharp touch. No focal neurological deficits. Medical Decision & Procedures Laboratory Results 12/02/16 22:09 Red Blood Count 4.98, Mean Corpuscular Volume 87.3, Mean Corpuscular Hemoglobin 29.7, Mean Corpuscular Hemoglobin Concent 34.0, Mean Platelet Volume 12.4, Neutrophils (%) (Auto) 64.1, Lymphocytes (%) (Auto) 26.8, Monocytes (%) (Auto) 7.4, Eosinophils (%) (Auto) 1.3, Basophils (%) (Auto) 0.3, Neutrophils # (Auto) 5.02, Lymphocytes # (Auto) 2.10, Monocytes # (Auto) 0.58, Eosinophils # (Auto) 0.10, Basophils # (Auto) 0.02 12/02/16 22:09 Test 12/02/16 22:09 12/03/16 00:01 12/03/16 02:02 White Blood Count 7.83 K/uL (4.8-10.8) Red Blood Count 4.98 M/uL (4.7-6.1) Hemoglobin 14.8 g/dL (14.0-18.0) Hematocrit 43.5 % (42-52) Mean Corpuscular Volume 87.3 fL (80-100) Mean Corpuscular Hemoglobin 29.7 pg (25-34) Mean Corpuscular Hemoglobin Concent 34.0 g/dl (32-36) Platelet Count 178 K/uL (130-400) Mean Platelet Volume 12.4 fL (7.4-10.4) Neutrophils (%) (Auto) 64.1 % Lymphocytes (%) (Auto) 26.8 % Monocytes (%) (Auto) 7.4 % Eosinophils (%) (Auto) 1.3 % Basophils (%) (Auto) 0.3 % Neutrophils # (Auto) 5.02 K/uL (1.4-6.5) Lymphocytes # (Auto) 2.10 K/uL (1.2-3.4) Monocytes # (Auto) 0.58 K/uL (0.11-0.59) Eosinophils # (Auto) 0.10 K/uL (0-0.5) Basophils # (Auto) 0.02 K/uL (0-0.2) RDW Standard Deviation 40.1 fL (36.4-46.3) RDW Coefficient of Variation 12.6 % (11.5-14.5) Immature Granulocyte % (Auto) 0.1 % Immature Granulocyte # (Auto) 0.01 K/uL (0.00-0.02) Urine Color YELLOW Urine Appearance CLEAR (CLEAR) Urine pH 6.0 (4.5-7.5) Urine Specific [place] 1.040 (1.000-1.030) Urine Protein NEG (NEG) Urine Glucose (UA) 3+ (NEG) Urine Ketones TRACE (NEG) Urine Occult Blood NEG (NEG) Urine Nitrite NEG (NEG) Urine Bilirubin NEG (NEG) Urine Urobilinogen NEG (NEG) Urine Leukocyte Esterase NEG (NEG) Anion Gap 17.0 mmol/L (3-11) Est Creatinine Clear Calc Drug Dose 174.7 ml/min Estimated GFR () 104.6 Estimated GFR (Non- 90.2 BUN/Creatinine Ratio 13.1 (10-20) Calcium Level 8.5 mg/dl (8.5-10.1) Total Bilirubin 0.4 mg/dl (0.2-1) Direct Bilirubin 0.1 mg/dl (0-0.2) Aspartate Amino Transf (AST/SGOT) 32 U/L (15-37) Alanine Aminotransferase (ALT/SGPT) 74 U/L (12-78) Alkaline Phosphatase 102 U/L (45-117) Total Protein 7.5 gm/dl (6.4-8.2) Albumin 3.1 gm/dl (3.4-5.0) Globulin 4.4 gm/dl (2.5-4.0) Albumin/Globulin Ratio 0.7 (0.9-2) Lipase 891 U/L (73-393) Beta-Hydroxybutyric Acid 2.29 mg/dL (0.2-2.81) Venous Blood pH 7.38 (7.36-7.41) Venous Blood Partial Pressure CO2 47 mmHg (38.0-50.0) Venous Blood Partial Pressure O2 29 mmHg Venous Blood HCO3 27 mmol/L Venous Blood Oxygen Saturation < 60.0 % Venous Blood Base Excess 1.7 mmol/L Bedside Glucose 283 mg/dl (70-99) Medications Administered Medications (Trade) Dose Ordered Sig/Tip Route Start Time Stop Time Status Last Admin Dose Admin Ketorolac Tromethamine (Toradol Inj) 30 mg NOW STAT IV 12/02/16 21:50 12/02/16 21:52 DC 12/02/16 22:14 30 MG Morphine Sulfate (MoRPHine SULFATE INJ) 4 mg NOW STAT IV 12/02/16 21:50 12/02/16 21:52 DC 12/02/16 22:15 4 MG Ondansetron HCl 4 mg 4 mg NOW STAT IV 12/02/16 21:50 12/02/16 21:52 DC 12/02/16 22:12 4 MG Sodium Chloride 1,000 ml @ 999 mls/hr Q1H1M STAT IV 12/02/16 21:50 12/02/16 22:50 DC 12/02/16 22:11 999 MLS/HR Sodium Chloride (Nss 1000ml) 1,000 ml @ 125 mls/hr Q8H STAT IV 12/02/16 21:50 12/03/16 02:41 DC 12/02/16 22:12 125 MLS/HR Insulin Human Regular 10 units 10 units NOW STAT IV 12/02/16 23:37 12/02/16 23:39 DC 12/02/16 23:59 10 UNITS Sodium Chloride (Nss 1000ml) 1,000 ml @ 999 mls/hr Q1H1M STAT IV 12/02/16 23:37 12/03/16 00:37 DC 12/02/16 23:57 999 MLS/HR Insulin Human Regular (novoLIN-R U-100 PER UNIT) 10 units NOW STAT IV 12/03/16 00:31 12/03/16 00:32 DC 12/03/16 00:54 10 UNITS ED Course Prior records/ancillary studies reviewed. Triage Nursing notes reviewed. The patient's history was concerning for right flank pain. Differential diagnosis: Etiologies such as appendicitis, diverticulitis, PUD, biliary pathology, UTI, pancreatitis, obstruction, mesenteric ischemia, aortic pathology, infections, inflammatory bowel disease, renal colic, as well as others were entertained. Physical examination findings: As above. ER treatment provided: Morphine, Zofran, IV fluids, insulin On reassessment the patient felt better. Diagnostics interpreted by me: The labs revealed hyperglycemia without DKA Imaging studies: ABDOMEN AND PELVIS CT WITHOUT CONTRAST CT DOSE: 2390.57 mGy.cm HISTORY: right flank pain TECHNIQUE: Multiaxial CT images of the abdomen and pelvis were performed without the use of intravenous and oral contrast according to the standard department stone protocol. COMPARISON STUDY: Abdomen and pelvis CT 06/19/2016. FINDINGS: The lung bases are clear. No pneumoperitoneum. No pneumatosis. Hepatomegaly demonstrating fatty change. The gallbladder is decompressed but likely unremarkable. The unenhanced pancreas, spleen, and adrenal glands are unremarkable. No renal stones or hydronephrosis. No retroperitoneal lymphadenopathy. Normal bladder. Suboptimal evaluation for bowel pathology due to the lack of intravenous and oral contrast. However, there is no definite bowel wall thickening or obstruction. Normal appendix. A few colonic diverticula. IMPRESSION: 1. No renal stones or hydronephrosis. 2. Normal appendix. 3. Colonic diverticulosis. 4. No definite bowel wall thickening or obstruction. 5. Hepatomegaly with associated steatosis. Electronically signed by: Jermaine Bustos M.D. Exam and history seems consistent with hyperglycemia with DKA and right flank pain. Patient did not have an acute abdomen on exam. Blood sugar came down. His blood pressure improved also. He was strongly encouraged to closely monitor his blood pressure and blood sugar. He is advised to see his family care doctor on Sunday for further evaluation and workup or here in the ER sooner for chest pain, difficulty breathing, abdominal pain, worsening signs or symptoms or as needed. Patient had a mildly elevated lipase but had no epigastric pain or CT evidence of pancreatitis. Patient did request to leave and I felt this is reasonable. By the evaluation outlined above emergent etiologies such as appendicitis, diverticulitis, PUD, biliary pathology, UTI, pancreatitis, obstruction, mesenteric ischemia, aortic pathology, infections, inflammatory bowel disease, renal colic, as well as others were deemed relatively unlikely. The pt informed about the findings as listed above. All questions were answered and pleased with the treatment. Return instructions were outlined and the patient was discharged in stable condition. Referral: The patient was referred back to their primary care physician for follow-up in 2 to 3 days for a recheck of the current condition. case reviewed with my Attending Medical Decision As above Impression Primary Impression: Right flank pain Additional Impression: Diabetes mellitus with hyperglycemia Departure Information Dispostion Home / Self-Care Condition GOOD Forms HOME CARE DOCUMENTATION FORM, Work Instructions, Return To Work: 1 day IMPORTANT VISIT INFORMATION Patient Instructions Hyperglycemia, My [facility] [employer] Additional Instructions Monitor your blood sugars. It was high today. Ibuprofen(Motrin, Advil) may be used for fever or pain. Use 600mg every six hours as needed. Take with food. Avoid using more than 2400mg in a 24 hour period. Do not use 2400mg per day for more than three consecutive days without physician direction. Prolonged inappropriate use can lead to stomach upset or ulcers. (AND/OR) Acetaminophen(Tylenol) may be used for fever or pain. Use 1000mg every six hours as needed. Avoid using more than 3000mg in a 24 hour period. Rest and drink plenty of fluids as tolerated. Continue current medications. Avoid strenuous activities and anything that worsens your pain. Resume normal activities once your symptoms resolve. Return to the ER immediately for worsening or persistent flank pain, abdominal pain, vomiting, fevers, chest pains, difficulty breathing, worsening of your condition, or as needed. Follow up with your primary physician in 2-3 days for a recheck of your current condition. Work Instructions Return To Work: 1 day Problem Qualifiers
[2017-04-10] MEDS ORDERED: RANI300T2 PO (16:22)
== END 2016-12-03 02:28 | disposition home or self-care (01) ==
LOC: C.EDB 21:40 → C.EDC 12-03 02:28
DX: R10.30 Lower abdominal pain, unspecified (principal); E11.65 Type 2 diabetes mellitus with hyperglycemia; Z87.442 Personal history of urinary calculi; J45.909 Unspecified asthma, uncomplicated; F32.9 Major depressive disorder, single episode, unspecified; I10 Essential (primary) hypertension; E66.01 Morbid (severe) obesity due to excess calories; Z68.42 Body mass index [BMI] 45.0-49.9, adult; F17.210 Nicotine dependence, cigarettes, uncomplicated; Z79.899 Other long term (current) drug therapy; Z79.4 Long term (current) use of insulin

== ENCOUNTER → 2016-12-11 | Outpatient (CLI) | payer OTHER ==
[~2016-12-11] MED LIST changes: +ATOR10TA88 PO; +CLIN300C2 PO; +CYCL10TA6 PO; +DICY20TA35 PO; +DOXY100C76 PO; +HYDR-5688 PO; +IBUP-1050 PO; +INSU1.2I SC; +LEVO1TAB33 PO; +LIRA18IN SQ; +LISI-725 PO; +LPT/20 PO; +METF1TAB85 PO; +OMEP40CA41 PO; +ONDA4TAB10 SL; +PRED10TA PO; +RANI300T2 PO
[2016-12-11 13:48] LABS: ESTIMATED AVERAGE GLUCOSE 263 mg/dl; HA1C FLAG Normal (Normal)
== END | disposition home or self-care (01) ==
LOC: C.LABPVFM 10:34
PROVIDERS: ATTEND Family Medicine
DX: E11.65 Type 2 diabetes mellitus with hyperglycemia (principal); E78.1 Pure hyperglyceridemia; R74.8 Abnormal levels of other serum enzymes

== ENCOUNTER → 2016-12-18 | Outpatient (CLI) | payer OTHER | END | disposition home or self-care (01) | LOC: C.LABPVFM 14:09 | PROVIDERS: ATTEND Nurse Practitioner Family | DX: L05.01 Pilonidal cyst with abscess (principal) ==

== ENCOUNTER 2016-12-31 21:14 | Emergency (ER) | payer OTHER ==
[~2016-12-31] VITALS: Ht 193 cm; Wt 180.1 kg
[~2016-12-31 21:14] MED LIST changes: -AMOX875T PO; -ATOR10TA88 PO; -CLIN300C2 PO; -CYCL10TA6 PO; -DICY20TA35 PO; -DOXY100C PO; -DOXY100C76 PO; -HYDR-5688 PO; -IBUP-1050 PO; -INSU1.2I SC; -LEVO1TAB33 PO; -LIRA18IN SQ; -LISI-725 PO; -LPT/20 PO; -METF1TAB85 PO; -OMEP40CA41 PO; -ONDA4TAB10 SL; -OXYC1TAB3 PO; -PRED10TA PO; -RANI300T2 PO
[2016-12-31 21:19] VITALS: TEMP 36.4; Ht 193 cm; Wt 180.1 kg
[2016-12-31] MEDS ORDERED: ATOR10TA88 PO (22:36)
[2016-12-31] MEDS ORDERED: XYLOCAINE 1%/SOD BICARB 20 ML VIAL INFIL ONE (23:30)
[2017-01-01] MEDS ORDERED: AMOXICIL/CLAVU 875MG HOME PACK PO ONE
[2017-01-01] MEDS ORDERED: OXYCODONE IR HOME PACK PO ONE
[2017-01-01] MEDS ORDERED: AMOX875T PO (00:01)
[2017-01-01] MEDS ORDERED: OXYC1TAB3 PO (00:01)
[2017-01-01 00:16] VITALS: BP 149/83; PULSE 91; O2SAT 98
--- NOTE | 2017-01-01 05:30 | EMERGENCY ROOM VISIT NOTE ---
ED Visit Note First contact with patient: 23:13 CHIEF COMPLAINT: Infection of the tailbone HISTORY OF PRESENT ILLNESS: This 31-year-old patient presents to the emergency department after they noticed a hard, red, tender area tailbone. It is slowly getting larger, more painful and tender. No fever, chills, or loss of appetite. There has been no drainage from the area. There was no injury to the area preceding the infection. They rate the pain as throbbing and 5/10. Tetanus shot is up to date. They have tried prior I&D to the area. The patient is diabetic. The patient has history of subcutaneous abscesses. Patient has seen Dr. Murcia in the past REVIEW OF SYSTEMS: A review of systems was performed with positives and pertinent negatives listed in the history of present illness. All other systems were reviewed and are negative. ALLERGIES: Cephalosporins MEDICATIONS: Reviewed PMH: Medical Problems: (1) Abdominal pain Status: Resolved (2) Abdominal pain Status: Resolved (3) Abscess of left thigh Status: Resolved (4) Acute bronchitis Status: Resolved (5) Asthma Status: Chronic (6) Back pain Status: Resolved (7) Back strain Status: Resolved (8) Calculus Of Ureter Status: Chronic (9) Cellulitis of left thigh Status: Resolved (10) Cellulitis of thigh Status: Resolved (11) Cellulitis, leg Status: Resolved (12) Depressive Disorder Nec Status: Chronic (13) Diverticulitis Status: Resolved (14) Diverticulitis Status: Resolved (15) Diverticulosis Status: Chronic (16) Flank pain Status: Resolved (17) Foot pain Status: Resolved (18) Headache Status: Resolved (19) Hyperglycemia Status: Chronic (20) Hypertension Status: Chronic (21) Hypertension Status: Chronic (22) Joint pain in the shoulder/clavicle region Status: Resolved (23) Kidney stone on left side Status: Resolved (24) Left ureteral calculus Status: Resolved (25) Leg abscess Status: Resolved (26) Migraine Status: Resolved (27) Migraine Status: Resolved (28) Morbid Obesity Status: Chronic (29) Neck pain on right side Status: Resolved (30) Renal colic Status: Resolved (31) Renal colic on left side Status: Resolved (32) Repetitive strain injury of right foot Status: Resolved (33) Tobacco Use Disorder Status: Chronic Surgical Problems: (1) S/P PICC central line placement Status: Resolved SOCIAL HISTORY: No drug use PHYSICAL EXAM: Vital Signs: Reviewed Nurse's notes, vital signs pretensive. GENERAL: Positive male, no acute distress, non toxic in appearance, well- developed well-nourished. SKIN: There is an erythematous indurated area overlying the pilonidal tract concerning for abscess which measures about 4 cm in diameter. It is fluctuant but there is no pointing or drainage. There is a zone of inflammation around it but no lymphangitis. Capillary refill less than 2 seconds. MUSCULOSKELETAL: There is no limitation of the range of motion of the legs. EMERGENCY DEPARTMENT COURSE: I examined the patient. After saline and Betadine cleansing and 8 mL of 1% buffered lidocaine anesthesia, the abscess was incised with a number 11 scalpel blade. A large amount of purulent material was released with more expressed by pressure. A swab was obtained for culture. The abscess cavity was further probed with a needle transporter driver and the deep pocket expressed. The abscess cavity was then copiously irrigated with sterile saline under pressure. The area was then packed with bacitracin soaked packing. The area was cleaned with sterile saline and dressed with bacitracin and a bulky bandage. The patient tolerated the procedure well. The patient was discharged home in stable condition. DIAGNOSIS: Pilonidal abscess DISCHARGE INSTRUCTIONS & TREATMENT: as below Problem List Medical Problems: (1) Abdominal pain Status: Resolved (2) Abdominal pain Status: Resolved (3) Abscess of left thigh Status: Resolved (4) Acute bronchitis Status: Resolved (5) Asthma Status: Chronic (6) Back pain Status: Resolved (7) Back strain Status: Resolved (8) Calculus Of Ureter Status: Chronic (9) Cellulitis of left thigh Status: Resolved (10) Cellulitis of thigh Status: Resolved (11) Cellulitis, leg Status: Resolved (12) Depressive Disorder Nec Status: Chronic (13) Diverticulitis Status: Resolved (14) Diverticulitis Status: Resolved (15) Diverticulosis Status: Chronic (16) Flank pain Status: Resolved (17) Foot pain Status: Resolved (18) Headache Status: Resolved (19) Hyperglycemia Status: Chronic (20) Hypertension Status: Chronic (21) Hypertension Status: Chronic (22) Joint pain in the shoulder/clavicle region Status: Resolved (23) Kidney stone on left side Status: Resolved (24) Left ureteral calculus Status: Resolved (25) Leg abscess Status: Resolved (26) Migraine Status: Resolved (27) Migraine Status: Resolved (28) Morbid Obesity Status: Chronic (29) Neck pain on right side Status: Resolved (30) Renal colic Status: Resolved (31) Renal colic on left side Status: Resolved (32) Repetitive strain injury of right foot Status: Resolved (33) Tobacco Use Disorder Status: Chronic Surgical Problems: (1) S/P PICC central line placement Status: Resolved Current/Historical Medications Scheduled Amoxicillin & Pot Clavulanate (Augmentin 875-125 mg), 1 TAB PO BID Atorvastatin (Lipitor), 10 MG PO DAILY Glipizide (Glucotrol), 20 MG PO QAM Insulin Glargine (Lantus Solostar), 35 UNITS SQ QPM Lisinopril (Lisinopril), 20 MG PO DAILY Metformin Hcl (Glucophage Ext Rel), 1,000 MG PO BID Scheduled PRN Oxycodone Immediate Rel Tab (Roxicodone Ir), 1-2 TAB PO Q4H PRN for Severe Pain Ranitidine (Zantac), 300 MG PO DAILY PRN for HEARTBURN/INDIGESTION Allergies Coded Allergies: Cefaclor (Verified Allergy, Unknown, HAD REACTION BABY - DOES NOT REMEMBER EXACT REACTION, 12/31/16) Cephalosporins (Verified Allergy, Unknown, 12/31/16) Vital Signs Date Time Temp Pulse Resp B/P Pulse Ox O2 Delivery O2 Flow Rate FiO2 01/01/17 00:16 91 20 149/83 98 12/31/16 23:35 95 18 149/83 97 Room Air 12/31/16 21:19 36.4 111 18 163/105 94 Room Air Medications Administered Medications (Trade) Dose Ordered Sig/Tip Route Start Time Stop Time Status Last Admin Dose Admin Amoxicillin/ Clavulanate Potassium (Augmentin 875MG Home Pack) 1 homepack UD ONCE PO 01/01/17 00:00 01/01/17 00:01 DC 01/01/17 00:16 1 HOMEPACK Oxycodone HCl (Roxicodone Immediate Rel 5MG Home Pack) 1 homepack UD ONCE PO 01/01/17 00:00 01/01/17 00:01 DC 01/01/17 00:16 1 HOMEPACK Departure Information Impression Primary Impression: Pilonidal abscess Dispostion Home / Self-Care Condition GOOD Prescriptions Oxycodone Immediate Rel Tab (ROXICODONE IR) 5 Mg Tab 1-2 TAB PO Q4H Y for Severe Pain, #10 TAB Prov: Ladonna Ness PA-C 01/01/17 Amoxicillin & Pot Clavulanate (Augmentin 875-125 mg) 1 Tab Tab 1 TAB PO BID for 9 Days, #18 TAB Prov: Ladonna Ness .SOWMYA 01/01/17 Forms WORK / SCHOOL INSTRUCTIONS, HOME CARE DOCUMENTATION FORM, IMPORTANT VISIT INFORMATION Patient Instructions My [facility], ED Abscess IandD Additional Instructions DO NOT drive, drink alcohol, operate machinery, or perform dangerous activities today. You were given medications in the ER that can affect your ability to safely function or operate a vehicle. Oxycodone (OxyIR) 5mg: Take 1-2 pills every four hours for breakthrough pain. Avoid alcohol, operating machinery or dangerous equipment, working on ladders or roofs, DRIVING, or situations where being under the influence may be dangerous. It is recommended to use an [id number] stool softener such as Colace, 100mg twice daily while taking this medication to avoid constipation. Amoxicillin Clavulanate (Augmentin) 875mg: Take one pill twice daily for 10 days for your infection. All antibiotics can cause diarrhea. If this occurs and you feel worse or it does not resolve in 1-2 days follow up with your doctor or return to the Emergency Department as this could be signs of serious underlying problems. Any medication can cause an allergic reaction, stop the pills immediately and return to the ER for rash, hives, breathing difficulties, or swelling. Ibuprofen(Motrin, Advil) may be used for fever or pain. Use 600mg every six hours as needed. Take with food. Avoid using more than 2400mg in a 24 hour period. Do not use 2400mg per day for more than three consecutive days without physician direction. Prolonged inappropriate use can lead to stomach upset or ulcers. (AND/OR) Acetaminophen(Tylenol) may be used for fever or pain. Use 1000mg every six hours as needed. Avoid using more than 3000mg in a 24 hour period. Frequently remove the outer dressing as needed. Leave in a dressing in place. Recommend seeing surgery for pilonidal cyst removal. Rest and drink plenty of fluids. Continue current medications. Return to the ER for severe pain, persistent fevers, spreading redness, or any worsening of your condition. Follow up with your primary physician within 2-3 days for a recheck of the current condition and wound repacking.
--- NOTE | 2017-01-01 15:21 | Pharmacy Progress Note ---
ED Pharmacist Progress Note Date of Service: Jan 01, 2017. Patient called stating Rx for pain medication was not received at [facility] because the pharmacy does not have e-prescribing set-up for C2 Rx's. Rx was for Oxycodone IR 5mg tabs 1-2 tabs Q 4 hrs prn severe pain # 10 was e- prescribed by Charis JOSHAU. I contacted [facility] to confirm the Rx was not received there. I spoke with pharmacy staff who confirmed the Rx was not received on their end. I explained situation to Leoncio JOSHUA who agreed to provide a written Rx for same dose/directions. The written Rx was placed in an envelope in the central command office. I notified the patient he will need to return to the hospital for the written Rx.
[2017-04-10] MEDS ORDERED: RANI300T2 PO (16:22)
== END 2017-01-01 00:17 | disposition home or self-care (01) ==
LOC: C.EDB 21:15 → C.EDD 01-01 00:17
DX: L05.01 Pilonidal cyst with abscess (principal); E66.01 Morbid (severe) obesity due to excess calories; I10 Essential (primary) hypertension; R73.9 Hyperglycemia, unspecified

== ENCOUNTER 2017-01-07 10:54 | Emergency (ER) | payer OTHER ==
[~2017-01-07] VITALS: Ht 193 cm; Wt 177.0 kg
[~2017-01-07 10:54] MED LIST changes: +AMOX875T PO; +ATOR10TA88 PO; +OXYC1TAB3 PO
[2017-01-07 11:01] VITALS: TEMP 36.4; Ht 193 cm; Wt 177.0 kg
[2017-01-07 11:53] VITALS: BP 179/110; PULSE 98; O2SAT 96
--- NOTE | 2017-01-07 12:49 | EMERGENCY ROOM VISIT NOTE ---
ED Visit Note First contact with patient: 11:07 CHIEF COMPLAINT: Packing removal Patient is a 31-year-old white male who returns the emergency department for packing removal of a pilonidal cyst abscess that was drained here one week ago. He reports the wound was packed here, then he had a recheck at his doctor's office on Sunday, the , at which point he had the abscess cavity repacked. He states that he tried to remove the packing on his own but he could not find it, and thus presented to the emergency department for evaluation. He states that the area is no longer painful. Drainage has been minimal. He reports he still has a few days of antibiotics left. REVIEW OF SYSTEMS: Review of systems as per HPI. All other systems reviewed were negative. At least 6 systems reviewed. PMH: Reviewed and unchanged from prior visit. SOCIAL HISTORY: Patient lives at home. PHYSICAL EXAM: Vital Signs: Reviewed Nurse's notes. Examination of the gluteal cleft show the prior I&D site, with granulation tissue present. There is no packing present. There is no erythema, swelling, or tenderness. EMERGENCY DEPARTMENT COURSE: The patient was reassured. The area appears to be healing well and infection is resolving. There is no packing, and may have become inadvertently dislodged during bathing or dressing changes. He was encouraged to finish the antibiotics as previously prescribed. He does report that he is in the process of being evaluated by general surgery for definitive care. Patient was discharged home in good condition. Problem List Medical Problems: (1) Abdominal pain Status: Resolved (2) Abdominal pain Status: Resolved (3) Abscess of left thigh Status: Resolved (4) Acute bronchitis Status: Resolved (5) Asthma Status: Chronic (6) Back pain Status: Resolved (7) Back strain Status: Resolved (8) Calculus Of Ureter Status: Chronic (9) Cellulitis of left thigh Status: Resolved (10) Cellulitis of thigh Status: Resolved (11) Cellulitis, leg Status: Resolved (12) Depressive Disorder Nec Status: Chronic (13) Diverticulitis Status: Resolved (14) Diverticulitis Status: Resolved (15) Diverticulosis Status: Chronic (16) Flank pain Status: Resolved (17) Foot pain Status: Resolved (18) Headache Status: Resolved (19) Hyperglycemia Status: Chronic (20) Hypertension Status: Chronic (21) Hypertension Status: Chronic (22) Joint pain in the shoulder/clavicle region Status: Resolved (23) Kidney stone on left side Status: Resolved (24) Left ureteral calculus Status: Resolved (25) Leg abscess Status: Resolved (26) Migraine Status: Resolved (27) Migraine Status: Resolved (28) Morbid Obesity Status: Chronic (29) Neck pain on right side Status: Resolved (30) Renal colic Status: Resolved (31) Renal colic on left side Status: Resolved (32) Repetitive strain injury of right foot Status: Resolved (33) Tobacco Use Disorder Status: Chronic Surgical Problems: (1) S/P PICC central line placement Status: Resolved Current/Historical Medications Scheduled Amoxicillin & Pot Clavulanate (Augmentin 875-125 mg), 1 TAB PO BID Atorvastatin (Lipitor), 10 MG PO DAILY Glipizide (Glucotrol), 20 MG PO QAM Insulin Glargine (Lantus Solostar), 35 UNITS SQ QPM Lisinopril (Lisinopril), 20 MG PO DAILY Metformin Hcl (Glucophage Ext Rel), 1,000 MG PO BID Scheduled PRN Oxycodone Immediate Rel Tab (Roxicodone Ir), 1-2 TAB PO Q4H PRN for Severe Pain Ranitidine (Zantac), 300 MG PO DAILY PRN for HEARTBURN/INDIGESTION Allergies Coded Allergies: Cefaclor (Verified Allergy, Unknown, HAD REACTION BABY - DOES NOT REMEMBER EXACT REACTION, 01/07/17) Cephalosporins (Verified Allergy, Unknown, 01/07/17) Vital Signs Date Time Temp Pulse Resp B/P Pulse Ox O2 Delivery O2 Flow Rate FiO2 01/07/17 11:53 98 16 179/110 96 01/07/17 11:01 36.4 112 16 152/96 94 Room Air Departure Information Impression Primary Impression: Encounter for wound re-check Dispostion Home / Self-Care Condition GOOD Patient Instructions My [facility] Additional Instructions Follow up with your surgeon as scheduled. Return to the ED as needed.
[2017-04-10] MEDS ORDERED: RANI300T2 PO (16:22)
== END 2017-01-07 11:53 | disposition home or self-care (01) ==
LOC: C.EDB 10:55 → C.EDD 11:53
DX: Z09 Encounter for follow-up examination after completed treatment for conditions other than malignant neoplasm (principal); L05.01 Pilonidal cyst with abscess; J45.909 Unspecified asthma, uncomplicated; F32.9 Major depressive disorder, single episode, unspecified; I10 Essential (primary) hypertension; Z87.442 Personal history of urinary calculi; E66.01 Morbid (severe) obesity due to excess calories; Z68.42 Body mass index [BMI] 45.0-49.9, adult; F17.200 Nicotine dependence, unspecified, uncomplicated; Z79.899 Other long term (current) drug therapy; Z79.4 Long term (current) use of insulin

== ENCOUNTER → 2017-01-23 | Outpatient (CLI) | payer OTHER ==
[~2017-01-23] MED LIST changes: -AMOX875T PO; +ATOR10TA82 PO; -ATOR10TA88 PO; +CLIN300C2 PO; +CYCL10TA6 PO; +DICY20TA35 PO; +DOXY100C PO; +DOXY100C76 PO; +HYDR-5688 PO; +IBUP-1050 PO; +INSU1.2I SC; +LEVO1TAB33 PO; +LIRA18IN SQ; +LISI-725 PO; +LPT/20 PO; +METF1TAB85 PO; +OMEP40CA41 PO; +ONDA4TAB10 SL; +PRED10TA PO; +PRLSR20 PO; +RANI300T2 PO; +TRAM-10 PO
[2017-01-23 13:35] LABS: URINE EPITHELIAL CELL AUTO 0-5 /lpf (0-5); ZZInitiateTest Complete
[2017-01-23 13:38] LABS: MANUAL MICROSCOPIC REQUIRED? NO; REVIEW REQ? NO
== END | disposition home or self-care (01) ==
LOC: C.LABPVFM 16:17
PROVIDERS: ATTEND Family Medicine
DX: R10.9 Unspecified abdominal pain (principal)

== ENCOUNTER 2017-02-02 09:19 | Emergency (ER) | payer OTHER ==
[~2017-02-02] VITALS: Ht 193 cm; Wt 172.4 kg
[~2017-02-02 09:19] MED LIST changes: -CLIN300C2 PO; -CYCL10TA6 PO; -DICY20TA35 PO; -DOXY100C PO; -DOXY100C76 PO; -HYDR-5688 PO; -IBUP-1050 PO; -INSU1.2I SC; -LEVO1TAB33 PO; -LIRA18IN SQ; -LISI-725 PO; -LPT/20 PO; -METF1TAB85 PO; -OMEP40CA41 PO; -ONDA4TAB10 SL; -PRED10TA PO; -PRLSR20 PO; -RANI300T2 PO; -TRAM-10 PO
[2017-02-02 09:22] VITALS: TEMP 36.8; Ht 193 cm; Wt 172.4 kg
[2017-02-02] MEDS ORDERED: ONDANSETRON INJ 2 MG/ML 2 ML VIAL IV STA (09:39)
[2017-02-02] MEDS ORDERED: SODIUM CHLORIDE 0.9% 1000ML 1,000 ML IV STA ×2 (09:39)
--- NOTE | 2017-02-02 09:43 | EMERGENCY ROOM VISIT NOTE ---
History Report prepared by Madhu: Zoë Mccarthy Under the Supervision of: Dr. Joseph Hoyos M.D. First contact with patient: 09:33 Chief Complaint: VOMITING Stated Complaint: BLOOD IN VOMIT Nursing Triage Summary: Triage note: pt reports yesterday he felt nauseaed and "fatigued like somethign was wrong." pt reports today he vomitted x 1 "and there was blood in it." History of Present Illness The patient is a 31 year old male who presents to the Emergency Room with complaints of persistent vomiting that began today. The patient states that yesterday he was feeling fatigued, achy, and nauseous. He states that when he woke this morning he noticed blood to his emesis. The patient additionally notes that yesterday he had diarrhea, and still notes some today. The patient states that he called his PCP today and was instructed to come to the emergency department for further evaluation. He denies any sick contacts with similar symptoms. The patient stats that he got a flu shot this year. He notes a decrease in appetite yesterday. The patient notes abdominal pain that he describes as a cramping pain. The patient denies any abdominal surgeries, but notes that he has had a kidney stent placed in the past for kidney stones. He notes that he takes Zantac for heart burn 2-3 times per week. He denies being on any blood thinners. The patient denies using any Advil or Aleve on a regular basis. Source of History: patient Onset: today Position: other (global) Quality: other (vomiting) Timing: other (persistent) Associated Symptoms: + abdominal pain (cramping), + fatigue, + nausea Note: Associated Symptoms: decrease in appetite, achy Review of Systems See HPI for pertinent positives & negatives. A total of 10 systems reviewed and were otherwise negative. Past Medical & Surgical Medical Problems: (1) Abdominal pain (2) Abdominal pain (3) Abscess of left thigh (4) Acute bronchitis (5) Asthma (6) Back pain (7) Back strain (8) Calculus Of Ureter (9) Cellulitis of left thigh (10) Cellulitis of thigh (11) Cellulitis, leg (12) Depressive Disorder Nec (13) Diverticulitis (14) Diverticulitis (15) Diverticulosis (16) Flank pain (17) Foot pain (18) Headache (19) Hyperglycemia (20) Hypertension (21) Hypertension (22) Joint pain in the shoulder/clavicle region (23) Kidney stone on left side (24) Left ureteral calculus (25) Leg abscess (26) Migraine (27) Migraine (28) Morbid Obesity (29) Neck pain on right side (30) No significant active problems (31) Renal colic (32) Renal colic on left side (33) Repetitive strain injury of right foot (34) Tobacco Use Disorder Surgical Problems: (1) S/P PICC central line placement Family History FH: diabetes mellitus FH: hypertension FH: kidney disease Social History Smoking Status: Current Every Day Smoker Alcohol Use: none Marital Status: Housing Status: lives with family Occupation Status: employed Current/Historical Medications Scheduled Atorvastatin (Lipitor), 10 MG PO DAILY Glipizide (Glucotrol), 20 MG PO QAM Insulin Glargine (Lantus Solostar), 35 UNITS SQ QPM Lisinopril (Lisinopril), 20 MG PO DAILY Metformin Hcl (Glucophage Ext Rel), 1,000 MG PO BID Ondasetron Odt (Zofran Odt), 4-8 MG SL Q6H Scheduled PRN Dicyclomine Hcl (Bentyl), 20 MG PO Q6 PRN for Pain Ranitidine (Zantac), 300 MG PO DAILY PRN for HEARTBURN/INDIGESTION Allergies Coded Allergies: Cefaclor (Verified Allergy, Unknown, HAD REACTION BABY - DOES NOT REMEMBER EXACT REACTION, 02/02/17) Cephalosporins (Verified Allergy, Unknown, 02/02/17) Physical Exam Vital Signs Date Time Temp Pulse Resp B/P Pulse Ox O2 Delivery O2 Flow Rate FiO2 02/02/17 12:35 88 16 145/86 98 02/02/17 11:20 96 16 135/82 97 Room Air 02/02/17 09:22 36.8 102 18 159/96 97 Room Air Physical Exam GENERAL: Patient is in no acute distress. HEENT: No acute trauma, normocephalic atraumatic, mucous membranes moist, no nasal congestion, no scleral icterus. NECK: No stridor, no adenopathy, no meningismus, trachea is midline. LUNGS: Clear to auscultation bilaterally, no wheeze, no rhonchi, breath sounds equal. HEART: Without murmurs gallops or rubs, regular rate and rhythm. ABDOMEN: Soft, nontender, bowel sounds positive, no hernias, no peritonitis. EXTREMITIES: No cyanosis or edema, full range of motion of all the joints without pain or difficulty, no signs for acute trauma. NEUROLOGIC: Oriented x 3, no acute motor or sensory deficits, no focal weakness. SKIN: No rash, no jaundice, no diaphoresis. Medical Decision & Procedures ER Provider Diagnostic Interpretation: X-ray results as stated below per interpretation by me and the radiologist: ABDOMEN 2VIEW W/PA CHEST RTN CLINICAL HISTORY: Abdominal pain and vomiting COMPARISON STUDY: KUB dated 10/12/2015, CT scan dated 12/02/2016 FINDINGS: The erect chest reveals no free intraperitoneal air. There is no focal pulmonary consolidation.] Supine views the abdomen reveal no abnormally dilated loops of large or small bowel. There are no transition zones indicate bowel obstruction. IMPRESSION: No evidence of bowel obstruction. No evidence of free air. Electronically signed by: Indra Haley M.D. 02/02/2017 11:06 AM Dictated Date/Time: 02/02/2017 11:05 AM Laboratory Results 02/02/17 10:00 Red Blood Count 5.15, Mean Corpuscular Volume 86.6, Mean Corpuscular Hemoglobin 29.3, Mean Corpuscular Hemoglobin Concent 33.9, Mean Platelet Volume 11.6, Neutrophils (%) (Auto) 64.2, Lymphocytes (%) (Auto) 27.3, Monocytes (%) (Auto) 6.4, Eosinophils (%) (Auto) 1.7, Basophils (%) (Auto) 0.3, Neutrophils # (Auto) 4.62, Lymphocytes # (Auto) 1.96, Monocytes # (Auto) 0.46, Eosinophils # (Auto) 0.12, Basophils # (Auto) 0.02 02/02/17 10:00 Test 02/02/17 10:00 02/02/17 11:28 White Blood Count 7.19 K/uL (4.8-10.8) Red Blood Count 5.15 M/uL (4.7-6.1) Hemoglobin 15.1 g/dL (14.0-18.0) Hematocrit 44.6 % (42-52) Mean Corpuscular Volume 86.6 fL (80-100) Mean Corpuscular Hemoglobin 29.3 pg (25-34) Mean Corpuscular Hemoglobin Concent 33.9 g/dl (32-36) Platelet Count 213 K/uL (130-400) Mean Platelet Volume 11.6 fL (7.4-10.4) Neutrophils (%) (Auto) 64.2 % Lymphocytes (%) (Auto) 27.3 % Monocytes (%) (Auto) 6.4 % Eosinophils (%) (Auto) 1.7 % Basophils (%) (Auto) 0.3 % Neutrophils # (Auto) 4.62 K/uL (1.4-6.5) Lymphocytes # (Auto) 1.96 K/uL (1.2-3.4) Monocytes # (Auto) 0.46 K/uL (0.11-0.59) Eosinophils # (Auto) 0.12 K/uL (0-0.5) Basophils # (Auto) 0.02 K/uL (0-0.2) RDW Standard Deviation 39.5 fL (36.4-46.3) RDW Coefficient of Variation 12.4 % (11.5-14.5) Immature Granulocyte % (Auto) 0.1 % Immature Granulocyte # (Auto) 0.01 K/uL (0.00-0.02) Anion Gap 12.0 mmol/L (3-11) Est Creatinine Clear Calc Drug Dose 222.1 ml/min Estimated GFR () 137.1 Estimated GFR (Non- 118.3 BUN/Creatinine Ratio 13.2 (10-20) Calcium Level 9.0 mg/dl (8.5-10.1) Total Bilirubin 0.5 mg/dl (0.2-1) Aspartate Amino Transf (AST/SGOT) 22 U/L (15-37) Alanine Aminotransferase (ALT/SGPT) 54 U/L (12-78) Alkaline Phosphatase 101 U/L (45-117) Total Protein 7.4 gm/dl (6.4-8.2) Albumin 3.4 gm/dl (3.4-5.0) Globulin 4.0 gm/dl (2.5-4.0) Albumin/Globulin Ratio 0.9 (0.9-2) Lipase 209 U/L (73-393) Beta-Hydroxybutyric Acid 3.94 mg/dL (0.2-2.81) Chemistry Specimen Hemolysis Bedside Glucose 250 mg/dl (70-99) Laboratory results reviewed by me. Medications Administered Medications (Trade) Dose Ordered Sig/Tip Route Start Time Stop Time Status Last Admin Dose Admin Ondansetron HCl 4 mg 4 mg NOW STAT IV 02/02/17 09:39 02/02/17 09:41 DC 02/02/17 10:34 4 MG Sodium Chloride 1,000 ml @ 200 mls/hr Q5H STAT IV 02/02/17 09:39 02/02/17 12:43 DC 02/02/17 11:52 200 MLS/HR Sodium Chloride (Nss 1000ml) 1,000 ml @ 999 mls/hr Q1H1M STAT IV 02/02/17 09:39 02/02/17 10:39 DC 02/02/17 10:34 999 MLS/HR Insulin Human Regular (novoLIN-R U-100 PER UNIT) 10 units NOW STAT IV 02/02/17 10:15 02/02/17 10:16 DC 02/02/17 10:35 10 UNITS Dicyclomine HCl (Bentyl Inj) 20 mg NOW ONCE IM 02/02/17 12:30 02/02/17 12:31 DC 02/02/17 12:31 20 MG ED Course 0934: The patient was evaluated in room B6. A complete history and physical exam was performed. 0939: Ordered Sodium Chloride 1000 ml @ 999 mls/hr IV, Sodium Chloride 1000 ml @ 200 mls/hr IV, Zofran Inj 4 mg IV. 1015: Ordered Insulin Human Regular 10 units IV. 1215: I reevaluated the patient and he is feeling better. I discussed the exam findings with him and I discussed the treatment plan. He verbalized complete understanding and agreement. He is ready to go home. 1230: Ordered Bentyl Inj 20 mg IM. Medical Decision The patient is a 31 year old male who presents to the ED with complaints of vomiting. Differential diagnoses considered include food borne illness, viral illness, esophageal tear, gastritis or ulcer, anemia, electrolyte imbalance, dehydration. There is no leukocytosis or worrisome anemia. Renal panel testing shows hyperglycemia with a sugar over 300. No renal failure. No hepatitis. Obstruction series shows no pneumonia, free air or bowel obstruction. The patient received IV saline, IV Zofran, IM Bentyl. He was given IV insulin. Sugar is now in the mid 200s which is a typical value for him. The patient is doing well. He is not toxic. His illness is likely viral. He does use Zantac and he will continue to use this. I will add some Bentyl for abdominal cramping. Zofran for nausea. Hydration and a bland diet were suggested. If worsening, he can return. Of note, the somewhat bloody vomitus was likely just from the vomiting itself. Impression Primary Impression: Nausea, vomiting, and diarrhea Additional Impression: Hyperglycemia Scribe Attestation The scribe's documentation has been prepared under my direction and personally reviewed by me in its entirety. I confirm that the note above accurately reflects all work, treatment, procedures, and medical decision making performed by me. Departure Information Dispostion Home / Self-Care Prescriptions Dicyclomine Hcl (BENTYL) 20 Mg Tab 20 MG PO Q6 Y for Pain, #15 TAB Prov: Joseph Hoyos M.D. 02/02/17 Ondasetron Odt (ZOFRAN ODT) 4 Mg Tab 4-8 MG SL Q6H for Nausea, #10 TAB Prov: Joseph Hoyos M.D. 02/02/17 Referrals Shantelle Sharpe (PCP) Forms HOME CARE DOCUMENTATION FORM, IMPORTANT VISIT INFORMATION, Work Instructions Patient Instructions My [facility] Additional Instructions bland diet---crackers, soup, toast, fluids keep a watch on your blood sugar bentyl 1 tab every 6 hours for cramps zofran 1-2 tab every 6 hours for nausea tylenol for aches and fever return for fever, vomiting, or worsening symptoms Problem Qualifiers
[2017-02-02 10:05] LABS: BASO % 0.3 %; BASO ABS # 0.02 K/uL (0-0.2); COMPLETE YES; EOS % 1.7 %; HEMATOCRIT 44.6 % (42-52); IG% 0.1 %; LYMPH % 27.3 %; LYMPH ABS # 1.96 K/uL (1.2-3.4); MEAN CELL VOLUME 86.6 fL (80-100); MEAN CORPUSCULAR HEMOGLOBIN 29.3 pg (25-34); MEAN CORPUSCULAR HGB CONC 33.9 g/dl (32-36); MEAN PLATELET VOLUME 11.6 fL (7.4-10.4); MONO % 6.4 %; NEUT % 64.2 %; PLATELET COUNT 213 K/uL (130-400); RED BLOOD COUNT 5.15 M/uL (4.7-6.1); WHITE BLOOD COUNT 7.19 K/uL (4.8-10.8)
[2017-02-02] MEDS ORDERED: NovoLIN-R INSULIN PER UNIT CHARGE IV STA (10:15)
[2017-02-02 10:34] LABS: ALB/GLOB RATIO 0.9 (0.9-2); BUN/CREATININE RATIO 13.2 (10-20); CREATININE 0.84 mg/dl (0.60-1.40); POTASSIUM 4.2 mmol/L (3.5-5.1)
[2017-02-02 10:48] LABS: BETA-HYDROXYBUTYRATE 3.94 mg/dL (0.2-2.81)
--- NOTE | 2017-02-02 11:08 | DIAGNOSTIC IMAGING REPORT ---
ABDOMEN 2VIEW W/PA CHEST RTN CLINICAL HISTORY: Abdominal pain and vomiting COMPARISON STUDY: KUB dated 10/12/2015, CT scan dated 12/02/2016 FINDINGS: The erect chest reveals no free intraperitoneal air. There is no focal pulmonary consolidation.] Supine views the abdomen reveal no abnormally dilated loops of large or small bowel. There are no transition zones indicate bowel obstruction. IMPRESSION: No evidence of bowel obstruction. No evidence of free air. Electronically signed by: Indra Haley M.D. 02/02/2017 11:06 AM Dictated Date/Time: 02/02/2017 11:05 AM
[2017-02-02] MEDS ORDERED: ONDA4TAB10 SL (12:21)
[2017-02-02] MEDS ORDERED: DICY20TA35 PO (12:21)
[2017-02-02] MEDS ORDERED: DICYCLOMINE HCL 10 MG/ML 2 ML AMP IM ONE (12:30)
[2017-02-02 12:35] VITALS: BP 145/86; PULSE 88; O2SAT 98
[2017-04-10] MEDS ORDERED: RANI300T2 PO (16:22)
== END 2017-02-02 12:36 | disposition home or self-care (01) ==
LOC: C.EDB 09:21
DX: R11.2 Nausea with vomiting, unspecified (principal); R19.7 Diarrhea, unspecified; R73.9 Hyperglycemia, unspecified; Z87.442 Personal history of urinary calculi; Z79.4 Long term (current) use of insulin; Z79.899 Other long term (current) drug therapy; J45.909 Unspecified asthma, uncomplicated; F32.9 Major depressive disorder, single episode, unspecified; I10 Essential (primary) hypertension; E66.01 Morbid (severe) obesity due to excess calories; Z68.42 Body mass index [BMI] 45.0-49.9, adult; F17.210 Nicotine dependence, cigarettes, uncomplicated; Z83.3 Family history of diabetes mellitus; Z82.49 Family history of ischemic heart disease and other diseases of the circulatory system

== ENCOUNTER 2017-02-12 00:26 | Emergency (ER) | payer OTHER ==
[~2017-02-12] VITALS: Ht 193 cm; Wt 171.5 kg
[~2017-02-12 00:26] MED LIST changes: +DICY20TA35 PO; +ONDA4TAB10 SL; -OXYC1TAB3 PO
[2017-02-12 00:30] VITALS: BP 160/95; PULSE 108; TEMP 36.6; O2SAT 95; Ht 193 cm; Wt 171.5 kg
--- NOTE | 2017-02-12 00:44 | EMERGENCY ROOM VISIT NOTE ---
History Report prepared by Madhu: Benoit Barker Under the Supervision of: Dr. Joseph Hoyos M.D. First contact with patient: 00:37 Chief Complaint: INFECTION Stated Complaint: INFECTION IN UPPER THIGH History of Present Illness The patient is a 32 year old male who presents to the Emergency Room with complaints of an infection on his right upper thigh that began 3 days ago. He thinks that it may be an ingrow hair, but it started hurting yesterday. He has had something similar on his other leg in the past that required a lancing procedure. He has type 2 diabetes. He states that his sugars have not been above 300 for awhile. His normal sugar levels are between 200 and 300. Source of History: patient Onset: three days ago Position: leg (right) Symptom Intensity: mild Quality: other (Infection) Timing: worsening Note: He has some leg pain. He denies any other abnormal symptoms. Review of Systems See HPI for pertinent positives & negatives. A total of 6 systems reviewed and were otherwise negative. Past Medical & Surgical Medical Problems: (1) Abdominal pain (2) Abdominal pain (3) Abscess of left thigh (4) Acute bronchitis (5) Asthma (6) Back pain (7) Back strain (8) Calculus Of Ureter (9) Cellulitis of left thigh (10) Cellulitis of thigh (11) Cellulitis, leg (12) Depressive Disorder Nec (13) Diverticulitis (14) Diverticulitis (15) Diverticulosis (16) Flank pain (17) Foot pain (18) Headache (19) Hyperglycemia (20) Hypertension (21) Hypertension (22) Joint pain in the shoulder/clavicle region (23) Kidney stone on left side (24) Left ureteral calculus (25) Leg abscess (26) Migraine (27) Migraine (28) Morbid Obesity (29) Neck pain on right side (30) No significant active problems (31) Renal colic (32) Renal colic on left side (33) Repetitive strain injury of right foot (34) Tobacco Use Disorder Surgical Problems: (1) S/P PICC central line placement Family History FH: diabetes mellitus FH: hypertension FH: kidney disease Social History Smoking Status: Current Every Day Smoker Alcohol Use: none Marital Status: Housing Status: lives with family Occupation Status: employed Current/Historical Medications Scheduled Atorvastatin (Lipitor), 10 MG PO DAILY Clindamycin Hcl (Cleocin), 300 MG PO TID Glipizide (Glucotrol), 20 MG PO QAM Insulin Glargine (Lantus Solostar), 35 UNITS SQ QPM Lisinopril (Lisinopril), 20 MG PO DAILY Metformin Hcl (Glucophage Ext Rel), 1,000 MG PO BID Ondasetron Odt (Zofran Odt), 4-8 MG SL Q6H Scheduled PRN Dicyclomine Hcl (Bentyl), 20 MG PO Q6 PRN for Pain Ranitidine (Zantac), 300 MG PO DAILY PRN for HEARTBURN/INDIGESTION Allergies Coded Allergies: Cefaclor (Verified Allergy, Unknown, HAD REACTION BABY - DOES NOT REMEMBER EXACT REACTION, 02/12/17) Cephalosporins (Verified Allergy, Unknown, 02/12/17) Physical Exam Vital Signs Date Time Temp Pulse Resp B/P Pulse Ox O2 Delivery O2 Flow Rate FiO2 02/12/17 00:30 36.6 108 18 160/95 95 Room Air Physical Exam GENERAL: Patient is lying on the stretcher in no acute distress. NEURO: Awake, alert, and oriented x3. No focal motor deficits. SKIN: There is a 2 cm right inner proximal thigh erythematous raised lesion, firm to touch, no true fluctuance, no drainage. Medical Decision & Procedures Medications Administered Medications (Trade) Dose Ordered Sig/Tip Route Start Time Stop Time Status Last Admin Dose Admin Clindamycin HCl (Cleocin Cap) 300 mg ONE ONCE PO 02/12/17 00:45 02/12/17 00:47 DC 02/12/17 00:57 300 MG Procedure Incision & Drainage Indication: Abscess. Location: Right, inner, proximal thigh Verbal consent was obtained after the risks and benefits were explained, including but not limited to bleeding, scarring, infection, pain, and bone/joint /nerve damage. At this time, the risks of the procedure are less than the risks of NOT performing the procedure. A time out was taken and the correct patient and site identified. The skin was prepped with alcohol and sterile technique was employed. The abscess cavity was entered with an 18 gauge needle and blood with scant amount of white material expressed. Debridement was not performed. Detailed wound care instructions and signs and symptoms of worsening infection reviewed with the patient. No complications and the patient tolerated the procedure well. ED Course 0037: The patient was evaluated in room B2. A complete history and physical exam was performed. 0040: I performed an incision/drainage procedure at this time. Please see the procedure note for further detail. 0045: Ordered Cleocin Cap 300 mg PO 0100: Reevaluated the patient. Discussed results and discharge instructions: He verbalized understanding and agreement. The patient is ready for discharge. Medical Decision Differential diagnosis includes but is not limited to abscess, ingrown hair, and cellulitis. The patient presents with a potential abscess in the right inner proximal thigh. He has had similar lesions. He has not had a fever, his sugars have not been out of the norm. On exam, there was no true fluctuance for which scalpel opening was needed. I did employ sterile technique and used an 18- gauge needle to enter the potential abscess cavity. A very small amount of white material and some blood was expressed. A culture was sent. A dressing was applied. The patient is being discharged on clindamycin 3 times a day for a week. He was given a dose here orally. The culture is pending. The patient was encouraged to return for fever or worsening redness. Impression Primary Impression: Abscess of right thigh Scribe Attestation The scribe's documentation has been prepared under my direction and personally reviewed by me in its entirety. I confirm that the note above accurately reflects all work, treatment, procedures, and medical decision making performed by me. Departure Information Dispostion Home / Self-Care Prescriptions Clindamycin Hcl (CLEOCIN) 300 Mg Cap 300 MG PO TID for 7 Days, #21 CAP Prov: Joseph Hoyos M.D. 02/12/17 Referrals No Doctor, Assigned (PCP) Doreen Clark M.D. Forms HOME CARE DOCUMENTATION FORM, IMPORTANT VISIT INFORMATION, WORK / SCHOOL INSTRUCTIONS Patient Instructions My [facility] [employer] Additional Instructions clindamycin 3x per day for 1 week clean with soap and water 2x per day return for fever or worsening symptoms, wosening redness keep covered to prevent rubbing
[2017-02-12] MEDS ORDERED: CLINDAMYCIN HCL 150 MG CAP PO ONE (00:45)
[2017-02-12] MEDS ORDERED: CLIN300C2 PO (00:52)
--- NOTE | 2017-02-14 15:42 | Pharmacy Progress Note ---
ED Pharmacist Culture FollowUp Date of Service: February 14, 2017. Patient's R upper thigh abscess cx is growing Grp B strep and corynebacterium sp. I&D of abscess was performed in the ER and he was discharged on Clindamycin 300mg PO TID x 7 days. The Grp B strep is resistant to clindamycin. Reviewed case w/ Dr Neves. Will d/c clindamycin and begin Amoxicillin 500mg PO TID x 7 days. Of note, the patient has a h/o cephalosporin allergy, rxn unknown as it happened while he was a child. He has however tolerated Augmentin in Nov 2016. Attempted to contact the patient w/ the phone # provided: [phone]; however there was no answer. I did leave a message asking him to return my call.
[2017-04-10] MEDS ORDERED: RANI300T2 PO (16:22)
== END 2017-02-12 01:00 | disposition home or self-care (01) ==
LOC: C.EDB 00:27
DX: L02.415 Cutaneous abscess of right lower limb (principal); E11.9 Type 2 diabetes mellitus without complications; J45.909 Unspecified asthma, uncomplicated; F32.9 Major depressive disorder, single episode, unspecified; I10 Essential (primary) hypertension; Z87.442 Personal history of urinary calculi; E66.01 Morbid (severe) obesity due to excess calories; F17.210 Nicotine dependence, cigarettes, uncomplicated; Z68.42 Body mass index [BMI] 45.0-49.9, adult; Z83.3 Family history of diabetes mellitus; Z82.49 Family history of ischemic heart disease and other diseases of the circulatory system; Z84.1 Family history of disorders of kidney and ureter; Z79.4 Long term (current) use of insulin; Z79.899 Other long term (current) drug therapy

== ENCOUNTER 2017-04-10 19:26 | Emergency (ER) | payer OTHER ==
[~2017-04-10] VITALS: Ht 193 cm; Wt 174.0 kg
[~2017-04-10 19:26] MED LIST changes: -DICY20TA35 PO; +RANI300T2 PO
[2017-04-10 19:38] VITALS: TEMP 36.8; Ht 193 cm; Wt 174.0 kg
[2017-04-10] MEDS ORDERED: METF1TAB85 PO (20:09)
[2017-04-10] MEDS ORDERED: LISI-725 PO (20:10)
[2017-04-10] MEDS ORDERED: DOXY100C76 PO (20:10)
[2017-04-10] MEDS ORDERED: IBUP-1050 PO (20:10)
[2017-04-10] MEDS ORDERED: LPT/20 PO (20:10)
[2017-04-10] MEDS ORDERED: INSU1.2I SC (20:13)
[2017-04-10] MEDS ORDERED: LIRA18IN SQ (20:13)
[2017-04-10 20:14] LABS: BASO % 0.2 %; BASO ABS # 0.03 K/uL (0-0.2); COMPLETE YES; EOS % 1.5 %; HEMATOCRIT 43.9 % (42-52); IG% 0.3 %; LYMPH % 28.1 %; LYMPH ABS # 3.62 K/uL (1.2-3.4); MEAN CELL VOLUME 85.9 fL (80-100); MEAN CORPUSCULAR HEMOGLOBIN 29.4 pg (25-34); MEAN CORPUSCULAR HGB CONC 34.2 g/dl (32-36); MEAN PLATELET VOLUME 11.7 fL (7.4-10.4); MONO % 4.8 %; NEUT % 65.1 %; PLATELET COUNT 220 K/uL (130-400); RED BLOOD COUNT 5.11 M/uL (4.7-6.1); WHITE BLOOD COUNT 12.86 K/uL (4.8-10.8)
[2017-04-10] MEDS ORDERED: PRED10TA PO (20:17)
[2017-04-10 20:39] LABS: ALB/GLOB RATIO 0.8 (0.9-2); BUN/CREATININE RATIO 16.5 (10-20); CALCIUM 8.7 mg/dl (8.5-10.1); CREATININE 0.94 mg/dl (0.60-1.40); POTASSIUM 3.7 mmol/L (3.5-5.1)
[2017-04-10] MEDS ORDERED: ONDANSETRON 8 MG/54 ML D5W IV STA (21:23)
[2017-04-10] MEDS ORDERED: MoRPHine SULFATE 10 MG/ML CARP/VIAL IV STA (21:23)
[2017-04-10 21:57] LABS: URINE APPEARANCE CLEAR (CLEAR); URINE BILIRUBIN NEG (NEG); URINE COLOR YELLOW; URINE NITRITE NEG (NEG); URINE SPECIFIC GRAVITY 1.039 (1.000-1.030); UROBILINOGEN NEG (NEG); ZZUR CULT IF INDIC CLEAN CATCH NO
[2017-04-10 22:02] LABS: MANUAL MICROSCOPIC REQUIRED? NO; REVIEW REQ? NO
[2017-04-10] MEDS ORDERED: OPTIRAY 320 IV PRN (22:45)
[2017-04-10] MEDS ORDERED: SODIUM CHLORIDE 0.9% 1000ML 1,000 ML IV STA (22:50)
--- NOTE | 2017-04-10 22:55 | DIAGNOSTIC IMAGING REPORT ---
ABDOMEN AND PELVIS CT WITH IV AND ORAL CONTRAST CT DOSE: 2501.88 mGy.cm HISTORY: Pain left abd pain, hx of complicated diverticulitis TECHNIQUE: Multiaxial CT images of the abdomen and pelvis were performed following the use of intravenous and oral contrast. COMPARISON STUDY: 12/02/2016 FINDINGS: Lung bases are clear. Liver spleen and pancreas are unremarkable. The kidneys are negative for hydronephrosis. There is unchanging right renal cortical cyst. Mild chronic sigmoid diverticulosis. No evidence for acute diverticulitis. Nonobstructive bowel pattern IMPRESSION: 1. Mild chronic sigmoid diverticulosis. 2. No evidence for acute diverticulitis. 3. Study is otherwise negative Electronically signed by: Peter Thomason M.D. 04/10/2017 10:54 PM Dictated Date/Time: 04/10/2017 10:51 PM
[2017-04-10] MEDS ORDERED: DICYCLOMINE HCL 20 MG TAB PO STA (23:11)
[2017-04-10] MEDS ORDERED: KETOROLAC TROMETHAMINE 30 MG/ML VIAL IV STA (23:11)
[2017-04-10] MEDS ORDERED: DICYCLOMINE HCL 10 MG CAP ONE ×2 (23:23)
--- NOTE | 2017-04-10 23:24 | EMERGENCY ROOM VISIT NOTE ---
History Report prepared by Madhu: Alka Klein Under the Supervision of: Dr. Shantelle Wiley D.O. First contact with patient: 19:48 Chief Complaint: ABDOMINAL PAIN Stated Complaint: LEFT ABDOMINAL PAIN Nursing Triage Summary: pt reports pain in L abdomen that radiates into back , reports hx of diverticulitis, denies NV History of Present Illness The patient is a 32 year old male who presents to the Emergency Room with complaints of worsening left abdominal pain starting 1899 yesterday. The pain goes from his upper abdomen to the lower abdomen on the left side. The pain radiates into his side, but not into his back. At onset the pain was a 2/10 in severity. Currently he rates his discomfort as a 7/10 in severity. The pain worsens with movement. He reports some nausea, difficulty having bowel movements , and occasional black stool. None recently, no tiff blood. He denies any fever, chills, vomiting, urinary symptoms, or right sided abdominal pain. He has a history of diverticulitis several years ago which required a 21 day hospital admission. His symptoms feel similar to his previous diverticulitis. They did a colonoscopy and determined he did not require surgery. He admits to smoking. He recently had bronchitis. He has a history of diabetes and abscesses. He has a history of heartburn which occurs about 1 time every 2 weeks. He recently has been eating healthily and losing weight which has decreased the frequency of his heartburn. Source of History: patient Onset: 1899 yesterday Position: abdomen (right sided) Symptom Intensity: 7/10 Timing: worsening Modifying Factors (Worsening): movement Associated Symptoms: + nausea, + melena, No fevers, No chills, No vomiting, No urinary symptoms Note: Pt reports difficulty having bowel movement. Pt denies right sided abdominal pain. Review of Systems See HPI for pertinent positives & negatives. A total of 10 systems reviewed and were otherwise negative. Past Medical & Surgical Medical Problems: (1) Abdominal pain (2) Abdominal pain (3) Abscess of left thigh (4) Acute bronchitis (5) Asthma (6) Back pain (7) Back strain (8) Calculus Of Ureter (9) Cellulitis of left thigh (10) Cellulitis of thigh (11) Cellulitis, leg (12) Depressive Disorder Nec (13) Diverticulitis (14) Diverticulitis (15) Diverticulosis (16) Flank pain (17) Foot pain (18) Headache (19) Hyperglycemia (20) Hypertension (21) Hypertension (22) Joint pain in the shoulder/clavicle region (23) Kidney stone on left side (24) Left ureteral calculus (25) Leg abscess (26) Migraine (27) Migraine (28) Morbid Obesity (29) Neck pain on right side (30) No significant active problems (31) Renal colic (32) Renal colic on left side (33) Repetitive strain injury of right foot (34) Tobacco Use Disorder Surgical Problems: (1) S/P PICC central line placement Family History FH: diabetes mellitus FH: hypertension FH: kidney disease Social History Smoking Status: Current Every Day Smoker Alcohol Use: none Marital Status: Housing Status: lives with family Occupation Status: employed Current/Historical Medications Scheduled Atorvastatin (Atorvastatin Calcium), 20 MG PO HS Dicyclomine Hcl (Bentyl), 20 MG PO Q8 Doxycycline Monohydrate (Monodox), 100 MG PO BID Insulin Glargine (Toujeo Solostar), 70 UNITS SC HS Liraglutide (Victoza), 1.8 MG SC HS Lisinopril (Zestril), 20 MG PO DAILY Metformin Hcl (Metformin Hcl Er), 1,000 MG PO QPM Prednisone Tab (Prednisone), 10 MG PO UD Scheduled PRN Hydrocodone/Acetaminophen 5MG/325MG ([place] 5MG/325MG), 1 TABLET PO Q6 PRN for Pain Ibuprofen (Advil), 200 MG PO TID PRN for Pain or Fever Ranitidine (Zantac), 300 MG PO BID PRN for Heartburn Allergies Coded Allergies: Cefaclor (Verified Allergy, Unknown, HAD REACTION BABY - DOES NOT REMEMBER EXACT REACTION, 02/14/17) has tolerated Augmentin in 2017 Cephalosporins (Verified Allergy, Unknown, rxn as baby; has tolerated Augmentin 2017, 02/14/17) Physical Exam Vital Signs Date Time Temp Pulse Resp B/P (MAP) Pulse Ox O2 Delivery O2 Flow Rate FiO2 04/11/17 00:36 93 19 143/72 96 Room Air 04/10/17 23:30 100 20 142/77 97 Room Air 04/10/17 21:32 109 20 150/112 96 Room Air 04/10/17 19:38 36.8 121 18 126/83 95 Room Air Physical Exam GENERAL: alert, well appearing, well nourished, no distress, non-toxic EYE EXAM: normal conjunctiva, PERRL and EOM's grossly intact OROPHARYNX: evidence of chewing tobacco, no exudate, no erythema, lips, buccal mucosa, and tongue normal and mucous membranes are moist NECK: supple, no nuchal rigidity, no adenopathy, non-tender LUNGS: Slight scattered expiratory wheezes, no rhonchi or rales. Normal chest wall mechanics HEART: no murmurs, S1 normal and S2 normal ABDOMEN: abdomen soft, tenderness to the left lateral abdomen into the left flank, normo-active bowel sounds, no masses, no rebound or guarding. RECTAL: no stool in vault, heme negative on guaiac testing, , no obvious fissues or hemorrhoids, witnessed by nurse Margareth BACK: Back is symmetrical on inspection and there is no deformity, no midline tenderness, no CVA tenderness. SKIN: no rashes and no bruising UPPER EXTREMITIES: upper extremities are grossly normal. LOWER EXTREMITIES: No pitting edema. NEURO EXAM: Normal sensorium, cranial nerves II-XII grossly intact, normal speech, no gross weakness of arms, no gross weakness of legs. Medical Decision & Procedures ER Provider Diagnostic Interpretation: Radiology results have been interpreted by the radiologist and reviewed by me. ABDOMEN AND PELVIS CT WITH IV AND ORAL CONTRAST CT DOSE: 2501.88 mGy.cm HISTORY: Pain left abd pain, hx of complicated diverticulitis TECHNIQUE: Multiaxial CT images of the abdomen and pelvis were performed following the use of intravenous and oral contrast. COMPARISON STUDY: 12/02/2016 FINDINGS: Lung bases are clear. Liver spleen and pancreas are unremarkable. The kidneys are negative for hydronephrosis. There is unchanging right renal cortical cyst. Mild chronic sigmoid diverticulosis. No evidence for acute diverticulitis. Nonobstructive bowel pattern IMPRESSION: 1. Mild chronic sigmoid diverticulosis. 2. No evidence for acute diverticulitis. 3. Study is otherwise negative Electronically signed by: Peter Thomason M.D. 04/10/2017 10:54 PM Dictated Date/Time: 04/10/2017 10:51 PM Laboratory Results 04/10/17 20:00 Red Blood Count 5.11, Mean Corpuscular Volume 85.9, Mean Corpuscular Hemoglobin 29.4, Mean Corpuscular Hemoglobin Concent 34.2, Mean Platelet Volume 11.7, Neutrophils (%) (Auto) 65.1, Lymphocytes (%) (Auto) 28.1, Monocytes (%) (Auto) 4.8, Eosinophils (%) (Auto) 1.5, Basophils (%) (Auto) 0.2, Neutrophils # (Auto) 8.36, Lymphocytes # (Auto) 3.62, Monocytes # (Auto) 0.62, Eosinophils # (Auto) 0.19, Basophils # (Auto) 0.03 04/10/17 20:00 Test 04/10/17 20:00 04/10/17 20:13 04/10/17 21:22 04/11/17 00:00 White Blood Count 12.86 K/uL (4.8-10.8) Red Blood Count 5.11 M/uL (4.7-6.1) Hemoglobin 15.0 g/dL (14.0-18.0) Hematocrit 43.9 % (42-52) Mean Corpuscular Volume 85.9 fL (80-100) Mean Corpuscular Hemoglobin 29.4 pg (25-34) Mean Corpuscular Hemoglobin Concent 34.2 g/dl (32-36) Platelet Count 220 K/uL (130-400) Mean Platelet Volume 11.7 fL (7.4-10.4) Neutrophils (%) (Auto) 65.1 % Lymphocytes (%) (Auto) 28.1 % Monocytes (%) (Auto) 4.8 % Eosinophils (%) (Auto) 1.5 % Basophils (%) (Auto) 0.2 % Neutrophils # (Auto) 8.36 K/uL (1.4-6.5) Lymphocytes # (Auto) 3.62 K/uL (1.2-3.4) Monocytes # (Auto) 0.62 K/uL (0.11-0.59) Eosinophils # (Auto) 0.19 K/uL (0-0.5) Basophils # (Auto) 0.03 K/uL (0-0.2) RDW Standard Deviation 39.2 fL (36.4-46.3) RDW Coefficient of Variation 12.4 % (11.5-14.5) Immature Granulocyte % (Auto) 0.3 % Immature Granulocyte # (Auto) 0.04 K/uL (0.00-0.02) Anion Gap 10.0 mmol/L (3-11) Est Creatinine Clear Calc Drug Dose 197.7 ml/min Estimated GFR () 125.6 Estimated GFR (Non- 108.4 BUN/Creatinine Ratio 16.5 (10-20) Calcium Level 8.7 mg/dl (8.5-10.1) Total Bilirubin 0.2 mg/dl (0.2-1) Aspartate Amino Transf (AST/SGOT) 20 U/L (15-37) Alanine Aminotransferase (ALT/SGPT) 42 U/L (12-78) Alkaline Phosphatase 81 U/L (45-117) Total Protein 7.1 gm/dl (6.4-8.2) Albumin 3.1 gm/dl (3.4-5.0) Globulin 4.0 gm/dl (2.5-4.0) Albumin/Globulin Ratio 0.8 (0.9-2) Lipase 321 U/L (73-393) Chemistry Specimen Hemolysis Lactic Acid Level 3.1 mmol/L (0.4-2.0) Urine Color YELLOW Urine Appearance CLEAR (CLEAR) Urine pH 6.0 (4.5-7.5) Urine Specific [place] 1.039 (1.000-1.030) Urine Protein NEG (NEG) Urine Glucose (UA) 3+ (NEG) Urine Ketones 1+ (NEG) Urine Occult Blood NEG (NEG) Urine Nitrite NEG (NEG) Urine Bilirubin NEG (NEG) Urine Urobilinogen NEG (NEG) Urine Leukocyte Esterase NEG (NEG) Bedside Glucose 169 mg/dl (70-99) Test 04/11/17 00:05 Bedside Lactic Acid Venous 2.12 mmol/L (0.90-1.70) Laboratory results per my review. Medications Administered Medications (Trade) Dose Ordered Sig/Tip Route Start Time Stop Time Status Last Admin Dose Admin Morphine Sulfate (MoRPHine SULFATE INJ) 6 mg NOW STAT IV 04/10/17 21:23 04/10/17 21:24 DC 04/10/17 21:34 6 MG Ondansetron HCl (Zofran 8mg Iv) 8 mg NOW STAT IV 04/10/17 21:23 04/10/17 21:24 DC 04/10/17 21:34 8 MG Sodium Chloride 1,000 ml @ 999 mls/hr Q1H1M STAT IV 04/10/17 22:50 04/10/17 23:50 DC 04/10/17 22:59 999 MLS/HR Ketorolac Tromethamine (Toradol Inj) 30 mg NOW STAT IV 04/10/17 23:11 04/10/17 23:13 DC 04/10/17 23:26 30 MG Dicyclomine HCl (Bentyl Cap) 10 mg STK-MED ONCE .ROUTE 04/10/17 23:23 04/10/17 23:24 DC 04/10/17 23:26 10 MG Dicyclomine HCl (Bentyl Cap) 10 mg STK-MED ONCE .ROUTE 04/10/17 23:23 04/10/17 23:24 DC 04/10/17 23:26 10 MG Acetaminophen/ Hydrocodone Bitart ([place] 5/325 Tab) 1 tab NOW STAT PO 04/11/17 00:10 04/11/17 00:11 DC 04/11/17 00:10 1 TAB ED Course 1950: The patient was evaluated in room C10. A complete history and physical exam was performed. 2123: Zofran 8 mg IV, Morphine Sulfate 6 mg IV. 2250: NSS 1000 ml @ 999 mls/hr IV. 2311: Bentyl tab 20 mg PO, Toradol Inj 30 mg IV. 2315: Upon reevaluation, the patient is feeling better. I discussed the findings and the treatment plan with the patient. He verbalizes agreement and understanding. He was discharged home. Medical Decision Differential diagnosis: Etiologies such as appendicitis, diverticulitis, PUD, biliary pathology, UTI, pancreatitis, obstruction, volvulus, perforation, mesenteric ischemia, aortic pathology, infections, inflammatory bowel disease, renal colic, as well as others were entertained. Medication Reconciliation: I attest that I have personally reviewed the patient' s current medication list. Blood pressure screening: Patient was found to have an elevated blood pressure and was referred to their primary doctor for recheck and further treatment. No clear etiology of pain, discussed with pt possible viral syndrome, colonic spasm, gastroparesis. Discussed with pt f/u with PCP, continued glucose monitoring, sx to watch/return for, he verbalized understanding and was agreeable with plan. Lactate and hyperglycemia improved following tx, likely related to dehydration. Mild leukocytosis discussed with pt, may be reactive vs early inflammatory/infectious process. Doubt bacteremia/sepsis. Impression Primary Impression: Left sided abdominal pain Additional Impression: Hyperglycemia Scribe Attestation The scribe's documentation has been prepared under my direction and personally reviewed by me in its entirety. I confirm that the note above accurately reflects all work, treatment, procedures, and medical decision making performed by me. Departure Information Dispostion Home / Self-Care Prescriptions Hydrocodone/Acetaminophen 5MG/325MG ([place] 5MG/325MG) Tab 1 TABLET PO Q6 Y for Pain, #7 TAB PRN PAIN Prov: Shantelle Wiley, DO 04/11/17 Dicyclomine Hcl (BENTYL) 20 Mg Tab 20 MG PO Q8 for Pain, #20 TAB Prov: Shantelle Wiley, DO 04/11/17 Referrals Doreen Clark M.D. (PCP) Patient Instructions My [facility] Additional Instructions Please continue regular medications as prescribed and adhere to a diabetic diet. Please check your blood sugar frequently. Please make sure you're drinking plenty of water and stay well-hydrated. Please call and follow up with her family doctor regarding her pain and have them recheck you. If you develop any worsening pain, develop vomiting, fevers, black or bloody stools, or you have any other new or concerning symptoms, please return to the emergency room. Problem Qualifiers
[2017-04-11] MEDS ORDERED: HYDROCODONE/ACETAMOPHEN 5/325MG TAB PO STA (00:10)
[2017-04-11] MEDS ORDERED: DICY20TA35 PO (00:13)
[2017-04-11] MEDS ORDERED: HYDR-5688 PO (00:13)
[2017-04-11 00:36] VITALS: BP 143/72; PULSE 93; O2SAT 96
[2017-04-12] MEDS ORDERED: LEVO1TAB33 PO (15:09)
[2017-04-12] MEDS ORDERED: OMEP40CA41 PO (16:33)
== END 2017-04-11 00:48 | disposition home or self-care (01) ==
LOC: C.EDB 19:27 → C.EDC 04-11 00:48
DX: R10.84 Generalized abdominal pain (principal); E11.65 Type 2 diabetes mellitus with hyperglycemia; J45.909 Unspecified asthma, uncomplicated; I10 Essential (primary) hypertension; F17.200 Nicotine dependence, unspecified, uncomplicated; Z87.442 Personal history of urinary calculi; Z98.890 Other specified postprocedural states; Z83.3 Family history of diabetes mellitus; Z82.49 Family history of ischemic heart disease and other diseases of the circulatory system; Z79.4 Long term (current) use of insulin; Z79.84 Long term (current) use of oral hypoglycemic drugs; Z79.899 Other long term (current) drug therapy

== ENCOUNTER → 2017-04-11 | Outpatient (CLI) | payer OTHER ==
[~2017-04-11] MED LIST changes: -ATOR10TA82 PO; +CYCL10TA6 PO; +DICY20TA35 PO; +DOXY100C PO; +DOXY100C76 PO; -GLIP10TA3 PO; +HYDR-5688 PO; +IBUP-1050 PO; -INSDGIPEN SQ; +INSU1.2I SC; +LEVO1TAB33 PO; +LIRA18IN SQ; -LISI-461 PO; +LISI-725 PO; +LPT/20 PO; -METF1TAB53 PO; +METF1TAB85 PO; +OMEP40CA41 PO; -ONDA4TAB10 SL; +PRED10TA PO
[2017-04-11 18:29] LABS: ALT/SGPT 42 U/L (12-78); AST/SGOT 19 U/L (15-37); BLOOD UREA NITROGEN 10 mg/dl (7-18); BUN/CREATININE RATIO 13.7 (10-20); CALCIUM 8.8 mg/dl (8.5-10.1); CARBON DIOXIDE 26 mmol/L (21-32); CHLORIDE 107 mmol/L (98-107); CHOLESTEROL 141 mg/dl (0-200); CREATININE 0.73 mg/dl (0.60-1.40); GLUCOSE 173 mg/dl (70-99); SODIUM 139 mmol/L (136-145); TRIGLYCERIDES 373 mg/dl (0-150); VERY LOW DENSITY LIPOPROT CALC 75 mg/dl
[2017-04-11 18:41] LABS: ALB/GLOB RATIO 0.8 (0.9-2); ALKALINE PHOSPHATASE 79 U/L (45-117); CHOLESTEROL/HDL RATIO 4.4; HDL CHOLESTEROL 32 mg/dl; LDL CHOLESTEROL CALCULATED 34 mg/dl
[2017-04-12 06:58] LABS: ESTIMATED AVERAGE GLUCOSE 237 mg/dl; HA1C FLAG Normal (Normal)
== END | disposition home or self-care (01) ==
LOC: C.LABPVFM 13:02
PROVIDERS: ATTEND Family Medicine
DX: E11.65 Type 2 diabetes mellitus with hyperglycemia (principal); R74.8 Abnormal levels of other serum enzymes; E78.00 Pure hypercholesterolemia, unspecified

== ENCOUNTER 2017-04-12 14:04 | Emergency (ER) | payer OTHER ==
[~2017-04-12] VITALS: Ht 190.5 cm; Wt 174.4 kg
[~2017-04-12 14:04] MED LIST changes: -CYCL10TA6 PO; -DOXY100C PO; -LEVO1TAB33 PO; -OMEP40CA41 PO
[2017-04-12 14:07] VITALS: Ht 190.5 cm; Wt 174.4 kg
[2017-04-12] MEDS ORDERED: SODIUM CHLORIDE 0.9% 1000ML 1,000 ML IV STA ×2 (14:35→16:03)
[2017-04-12] MEDS ORDERED: FAMOTIDINE 20MG/102 ML D5W IV STA (14:35)
[2017-04-12] MEDS ORDERED: ONDANSETRON INJ 2 MG/ML 2 ML VIAL IV STA (14:35)
[2017-04-12] MEDS ORDERED: PANTOprazole INJ 40 MG in SYRINGE 0 ML IV ONE (14:45)
[2017-04-12 14:49] LABS: BASO % 0.2 %; BASO ABS # 0.02 K/uL (0-0.2); COMPLETE YES; EOS % 1.8 %; HEMATOCRIT 40.2 % (42-52); IG% 0.2 %; LYMPH % 20.7 %; LYMPH ABS # 1.84 K/uL (1.2-3.4); MEAN CELL VOLUME 86.3 fL (80-100); MEAN CORPUSCULAR HEMOGLOBIN 29.6 pg (25-34); MEAN CORPUSCULAR HGB CONC 34.3 g/dl (32-36); MEAN PLATELET VOLUME 11.5 fL (7.4-10.4); MONO % 6.5 %; NEUT % 70.6 %; PLATELET COUNT 177 K/uL (130-400); RED BLOOD COUNT 4.66 M/uL (4.7-6.1); WHITE BLOOD COUNT 8.89 K/uL (4.8-10.8)
[2017-04-12] MEDS: FENTANYL CITRATE INJ 50 MCG/1 ML 2 ML VIAL IV PRN ×2 (14:55→16:42)
[2017-04-12 15:03] LABS: INR 0.9 (0.9-1.1)
[2017-04-12] MEDS ORDERED: LEVO1TAB33 PO (15:09)
[2017-04-12 15:18] LABS: ALKALINE PHOSPHATASE 73 U/L (45-117); ALT/SGPT 43 U/L (12-78); AST/SGOT 18 U/L (15-37); BLOOD UREA NITROGEN 9 mg/dl (7-18); BUN/CREATININE RATIO 10.6 (10-20); CALCIUM 8.3 mg/dl (8.5-10.1); CARBON DIOXIDE 23 mmol/L (21-32); CHLORIDE 105 mmol/L (98-107); CREATININE 0.85 mg/dl (0.60-1.40); GLUCOSE 369 mg/dl (70-99); POTASSIUM 4.1 mmol/L (3.5-5.1); SODIUM 136 mmol/L (136-145)
[2017-04-12 15:37] LABS: BETA-HYDROXYBUTYRATE 1.31 mg/dL (0.2-2.81)
[2017-04-12 15:55] LABS: URINE APPEARANCE CLEAR (CLEAR); URINE BILIRUBIN NEG (NEG); URINE COLOR YELLOW; URINE NITRITE NEG (NEG); URINE SPECIFIC GRAVITY 1.038 (1.000-1.030); UROBILINOGEN NEG (NEG)
[2017-04-12 15:56] LABS: MANUAL MICROSCOPIC REQUIRED? NO; REVIEW REQ? NO
--- NOTE | 2017-04-12 15:57 | DIAGNOSTIC IMAGING REPORT ---
Right upper quadrant ultrasound GALLBLADDER-ABD LIMITED CLINICAL HISTORY: ABDOMINAL PAIN/GI pain. Nausea. TECHNIQUE: Ultrasound COMPARISON STUDY: 10/12/2015 FINDINGS: Fatty infiltration of liver. Normal gallbladder. Pancreas poorly seen due to overlying bowel content. Common bile duct 5 mm. Right kidney is negative for hydronephrosis or mass. IMPRESSION: Fatty infiltration of liver. Otherwise negative study Electronically signed by: Peter Thomason M.D. 04/12/2017 3:56 PM Dictated Date/Time: 04/12/2017 3:54 PM
--- NOTE | 2017-04-12 16:18 | DIAGNOSTIC IMAGING REPORT ---
CHEST AND ABDOMEN 2 VIEWS HISTORY: Generalized abdominal pain. COMPARISON: Chest and abdominal series 02/02/2017. FINDINGS: The lungs are clear. The cardiomediastinal silhouette is within normal limits. There is no pneumoperitoneum or pneumatosis. The bowel gas pattern is unremarkable. No evidence for bowel obstruction. No renal or ureteral calculi. Mild dextroscoliosis of the lumbar spine. IMPRESSION: No acute cardiopulmonary process. No evidence for bowel obstruction. Electronically signed by: Jermaine Bustos M.D. 04/12/2017 4:17 PM Dictated Date/Time: 04/12/2017 4:15 PM
[2017-04-12] MEDS ORDERED: OMEP40CA41 PO (16:33)
[2017-04-12] MEDS ORDERED: OXYCODONE IR HOME PACK PO ONE (17:30)
[2017-04-12 17:45] VITALS: BP 138/94; PULSE 100; TEMP 36.5; O2SAT 98
--- NOTE | 2017-04-12 17:49 | EMERGENCY ROOM VISIT NOTE ---
History Report prepared by Madhu: [place] Under the Supervision of: Dr. Robert Neves D.O. First contact with patient: 14:30 Chief Complaint: ABDOMINAL PAIN Stated Complaint: LEFT ABD. PAIN History of Present Illness The patient is a 32 year old male who presents to the Emergency Room with complaints of constant abdominal pain starting a few days ago. The patient currently rates his pain as a 7/10 in severity. The patient states that he was at the ED a few days ago for the same pain. He states after he was discharged that he went to his PCP who ordered blood work. The patient reports that when his PCP got the results back that his Lipase was elevated compared to his time when he was in the ED. He states that he was told to come to the ED. The patient states that when his pain is at its worst he is nauseous. The patient denies chest pain, shortness of breath, and vomiting. He notes a history of diverticulitis and being diabetic. Source of History: patient Onset: few days ago Position: abdomen Symptom Intensity: 7/10 Timing: constant Associated Symptoms: + nausea, No chest pain, No SOB, No vomiting Review of Systems See HPI for pertinent positives & negatives. A total of 10 systems reviewed and were otherwise negative. Past Medical & Surgical Medical Problems: (1) Abdominal pain (2) Abdominal pain (3) Abscess of left thigh (4) Acute bronchitis (5) Asthma (6) Back pain (7) Back strain (8) Calculus Of Ureter (9) Cellulitis of left thigh (10) Cellulitis of thigh (11) Cellulitis, leg (12) Depressive Disorder Nec (13) Diverticulitis (14) Diverticulitis (15) Diverticulosis (16) Flank pain (17) Foot pain (18) Headache (19) Hyperglycemia (20) Hypertension (21) Hypertension (22) Joint pain in the shoulder/clavicle region (23) Kidney stone on left side (24) Left ureteral calculus (25) Leg abscess (26) Migraine (27) Migraine (28) Morbid Obesity (29) Neck pain on right side (30) No significant active problems (31) Renal colic (32) Renal colic on left side (33) Repetitive strain injury of right foot (34) Tobacco Use Disorder Surgical Problems: (1) S/P PICC central line placement Family History FH: diabetes mellitus FH: hypertension FH: kidney disease Social History Smoking Status: Current Every Day Smoker Alcohol Use: none Marital Status: Housing Status: lives with family Occupation Status: employed Current/Historical Medications Scheduled Atorvastatin (Atorvastatin Calcium), 20 MG PO HS Dicyclomine Hcl (Bentyl), 20 MG PO Q8 Insulin Glargine (Toujeo Solostar), 70 UNITS SC HS Levofloxacin (Levaquin), 500 MG PO HS Liraglutide (Victoza), 1.8 MG SC HS Lisinopril (Zestril), 20 MG PO HS Metformin Hcl (Metformin Hcl Er), 1,000 MG PO BID Omeprazole (Prilosec), 1 CAP PO DAILY Scheduled PRN Hydrocodone/Acetaminophen 5MG/325MG ([place] 5MG/325MG), 1 TABLET PO Q6 PRN for Pain Ibuprofen (Advil), 200 MG PO TID PRN for Pain or Fever Ranitidine (Zantac), 300 MG PO BID PRN for Heartburn Allergies Coded Allergies: Cefaclor (Verified Allergy, Unknown, HAD REACTION BABY - DOES NOT REMEMBER EXACT REACTION, 04/12/17) has tolerated Augmentin in 2017 Cephalosporins (Verified Allergy, Unknown, rxn as baby; has tolerated Augmentin 2017, 04/12/17) Physical Exam Vital Signs Date Time Temp Pulse Resp B/P (MAP) Pulse Ox O2 Delivery O2 Flow Rate FiO2 04/12/17 17:45 36.5 100 16 138/94 98 Room Air 04/12/17 16:43 97 16 154/100 98 04/12/17 14:07 36.5 113 18 136/85 95 Room Air Physical Exam GENERAL: Patient is awake, alert, and in no acute distress. Patient is resting comfortably and showing no signs of anxiety EYES: The conjunctivae are clear. The pupils are round and reactive. EARS, NOSE, MOUTH AND THROAT: The nose is without any evidence of any deformity. Mucous membranes are moist tongue is midline NECK: The neck is nontender and supple. RESPIRATORY: Normal respiratory effort is noted there is no evidence of wheezing rhonchi or rales CARDIOVASCULAR: Regular rate and rhythm noted there no murmurs rubs or gallops normal S1 normal S2 GASTROINTESTINAL: The abdomen is mildly distended, but soft. Left upper and lower quadrant tenderness, no guarding or rigidity. Bowel sounds are present in all quadrants. PELVIS: The Pelvis is stable. No tenderness to palpation is noted. BACK: No midline tenderness or or step-off noted range of motion in flexion extension as well as rotation no signs of muscle spasm noted MUSCULOSKELETAL/EXTREMITIES: There is no evidence of gross deformity full range of motion is noted in the hips and shoulders SKIN: There is no obvious evidence of any rash. There are no petechiae, pallor or cyanosis noted. NEUROLOGIC: Patient is awake alert and oriented x3 strength is symmetric patellar reflexes are 2+ bilaterally Medical Decision & Procedures ER Provider Diagnostic Interpretation: Radiology results as stated below per my review and radiologist interpretation: Right upper quadrant ultrasound GALLBLADDER-ABD LIMITED CLINICAL HISTORY: ABDOMINAL PAIN/GI pain. Nausea. TECHNIQUE: Ultrasound COMPARISON STUDY: 10/12/2015 FINDINGS: Fatty infiltration of liver. Normal gallbladder. Pancreas poorly seen due to overlying bowel content. Common bile duct 5 mm. Right kidney is negative for hydronephrosis or mass. IMPRESSION: Fatty infiltration of liver. Otherwise negative study Electronically signed by: Peter Thomason M.D. 04/12/2017 3:56 PM Dictated Date/Time: 04/12/2017 3:54 PM CHEST AND ABDOMEN 2 VIEWS HISTORY: Generalized abdominal pain. COMPARISON: Chest and abdominal series 02/02/2017. FINDINGS: The lungs are clear. The cardiomediastinal silhouette is within normal limits. There is no pneumoperitoneum or pneumatosis. The bowel gas pattern is unremarkable. No evidence for bowel obstruction. No renal or ureteral calculi. Mild dextroscoliosis of the lumbar spine. IMPRESSION: No acute cardiopulmonary process. No evidence for bowel obstruction. Electronically signed by: Jermaine Bustos M.D. 04/12/2017 4:17 PM Dictated Date/Time: 04/12/2017 4:15 PM Laboratory Results 04/12/17 14:36 Red Blood Count 4.66, Mean Corpuscular Volume 86.3, Mean Corpuscular Hemoglobin 29.6, Mean Corpuscular Hemoglobin Concent 34.3, Mean Platelet Volume 11.5, Neutrophils (%) (Auto) 70.6, Lymphocytes (%) (Auto) 20.7, Monocytes (%) (Auto) 6.5, Eosinophils (%) (Auto) 1.8, Basophils (%) (Auto) 0.2, Neutrophils # (Auto) 6.27, Lymphocytes # (Auto) 1.84, Monocytes # (Auto) 0.58, Eosinophils # (Auto) 0.16, Basophils # (Auto) 0.02 04/12/17 14:36 Test 04/12/17 14:36 04/12/17 15:27 White Blood Count 8.89 K/uL (4.8-10.8) Red Blood Count 4.66 M/uL (4.7-6.1) Hemoglobin 13.8 g/dL (14.0-18.0) Hematocrit 40.2 % (42-52) Mean Corpuscular Volume 86.3 fL (80-100) Mean Corpuscular Hemoglobin 29.6 pg (25-34) Mean Corpuscular Hemoglobin Concent 34.3 g/dl (32-36) Platelet Count 177 K/uL (130-400) Mean Platelet Volume 11.5 fL (7.4-10.4) Neutrophils (%) (Auto) 70.6 % Lymphocytes (%) (Auto) 20.7 % Monocytes (%) (Auto) 6.5 % Eosinophils (%) (Auto) 1.8 % Basophils (%) (Auto) 0.2 % Neutrophils # (Auto) 6.27 K/uL (1.4-6.5) Lymphocytes # (Auto) 1.84 K/uL (1.2-3.4) Monocytes # (Auto) 0.58 K/uL (0.11-0.59) Eosinophils # (Auto) 0.16 K/uL (0-0.5) Basophils # (Auto) 0.02 K/uL (0-0.2) RDW Standard Deviation 38.5 fL (36.4-46.3) RDW Coefficient of Variation 12.3 % (11.5-14.5) Immature Granulocyte % (Auto) 0.2 % Immature Granulocyte # (Auto) 0.02 K/uL (0.00-0.02) Prothrombin Time 10.0 SECONDS (9.0-12.0) Prothromb Time International Ratio 0.9 (0.9-1.1) Activated Partial Thromboplast Time 26.2 SECONDS (21.0-31.0) Partial Thromboplastin Ratio 1.0 Anion Gap 8.0 mmol/L (3-11) Est Creatinine Clear Calc Drug Dose 216.5 ml/min Estimated GFR () 135.5 Estimated GFR (Non- 116.9 BUN/Creatinine Ratio 10.6 (10-20) Calcium Level 8.3 mg/dl (8.5-10.1) Total Bilirubin 0.2 mg/dl (0.2-1) Direct Bilirubin mg/dl (0-0.2) Aspartate Amino Transf (AST/SGOT) 18 U/L (15-37) Alanine Aminotransferase (ALT/SGPT) 43 U/L (12-78) Alkaline Phosphatase 73 U/L (45-117) Total Creatine Kinase 57 U/L (39-308) Creatine Kinase MB < 0.5 ng/ml (0.5-3.6) Creatine Kinase MB Ratio (0-3.0) Troponin I < 0.015 ng/ml (0-0.045) Total Protein 6.4 gm/dl (6.4-8.2) Albumin 2.8 gm/dl (3.4-5.0) Lipase 240 U/L (73-393) Beta-Hydroxybutyric Acid 1.31 mg/dL (0.2-2.81) Chemistry Specimen Hemolysis Urine Color YELLOW Urine Appearance CLEAR (CLEAR) Urine pH 7.0 (4.5-7.5) Urine Specific [place] 1.038 (1.000-1.030) Urine Protein NEG (NEG) Urine Glucose (UA) 3+ (NEG) Urine Ketones TRACE (NEG) Urine Occult Blood NEG (NEG) Urine Nitrite NEG (NEG) Urine Bilirubin NEG (NEG) Urine Urobilinogen NEG (NEG) Urine Leukocyte Esterase NEG (NEG) Laboratory results per my review. Medications Administered Medications (Trade) Dose Ordered Sig/Tip Route Start Time Stop Time Status Last Admin Dose Admin Fentanyl Citrate (Fentanyl Inj) 100 mcg Q20M PRN IV 04/12/17 14:45 04/26/17 14:44 04/12/17 14:55 100 MCG Sodium Chloride 1,000 ml @ 999 mls/hr Q1H1M STAT IV 04/12/17 14:35 04/12/17 15:35 DC 04/12/17 14:55 999 MLS/HR Ondansetron HCl (Zofran Inj) 4 mg NOW STAT IV 04/12/17 14:35 04/12/17 14:37 DC 04/12/17 14:55 4 MG Pantoprazole Sodium 40 mg/ Syringe 10 ml @ 5 mls/min NOW ONCE IV 04/12/17 14:45 04/12/17 14:46 DC 04/12/17 14:56 5 MLS/MIN Famotidine (Pepcid 20mg/100 ml) 20 mg ONE STAT IV 04/12/17 14:35 04/12/17 14:37 DC 04/12/17 14:56 20 MG Sodium Chloride 1,000 ml @ 999 mls/hr Q1H1M STAT IV 04/12/17 16:03 04/12/17 17:03 DC 04/12/17 16:43 999 MLS/HR Oxycodone HCl (Roxicodone Immediate Rel 5MG Home Pack) 1 homepack UD ONCE PO 04/12/17 17:30 04/12/17 17:31 DC 04/12/17 17:32 1 HOMEPACK ECG Indication: abdominal pain Rate (beats per minute): 107 Rhythm: sinus tachycardia Findings: no ectopy, other (No acute ST abnormalities) Comparison ECG Date: 01/28/2016 Change: no significant change ED Course 1430: The patient was evaluated in room B5. A complete history and physical examination were performed. 1435: Ordered Famotidine 20 mg IV, Zofran Inj 4 mg IV, NSS 1000 ml @ 999 mls/hr IV. 1445: Ordered Pantoprazole Sodium 40 mg/ Syringe 10 ml @ 5 mls/ min IV, Fentanyl Inj 100 mcg PRN IV pain. 1603: Ordered NSS 1000 ml @ 999 mls/hr IV. 1656: Upon reevaluation, the patient is resting comfortably. I discussed the results and treatment plan with him. The patient verbalized agreement of the treatment plan. The patient was discharged home. 1730: Ordered Oxycodone HCl 1 homepack PO. Medical Decision Medication Reconciliation: I attest that I have personally reviewed the patient' s current medications list. Patient was found to have a slightly elevated blood pressure due to circumstances. I do not believe that the patient requires hypertension monitoring. Differential diagnosis: Etiologies such as appendicitis, diverticulitis, PUD, biliary pathology, UTI, pancreatitis, obstruction, mesenteric ischemia, aortic pathology, infections, inflammatory bowel disease, renal colic, as well as others were entertained. The patient is a 32-year-old male who presented to the emergency department for an evaluation of abdominal pain. The patient had seen our emergency department recently and had a complete workup including a CT the abdomen and pelvis. I reviewed the patient's previous laboratory and radiographic studies. He had laboratory studies obtained by his primary care physician which revealed an elevated lipase of he was sent back to the emergency department. He did not have epigastric pain or back pain. A repeat of the patient's laboratory studies revealed normalization of his lipase. He was treated with IV fluids in the emergency department. He was also given IV pain medication. On subsequent reevaluation he was feeling much better. He was encouraged to rest and avoid any strenuous activity. He was encouraged to continue all medications as prescribed and follow-up with his primary care physician as soon as possible. He was also encouraged return to emergency department immediately if symptoms change worsen or the need arises. Impression Primary Impression: Abdominal pain Additional Impressions: Pancreatitis Hypoglycemia Scribe Attestation The scribe's documentation has been prepared under my direction and personally reviewed by me in its entirety. I confirm that the note above accurately reflects all work, treatment, procedures, and medical decision making performed by me. Departure Information Dispostion Home / Self-Care Prescriptions Omeprazole (PRILOSEC) 40 Mg Cap 1 CAP PO DAILY for 30 Days, #30 CAP Prov: Robert Neves, DO 04/12/17 Referrals No Doctor, Assigned (PCP) Forms HOME CARE DOCUMENTATION FORM, IMPORTANT VISIT INFORMATION Patient Instructions My [facility] Additional Instructions Follow-up with your family for reevaluation. Drink plenty clear liquids. Continue all medications as prescribed. Avoid any alcoholic beverages. I would recommend a bland diet avoiding any fatty spicy or fried foods. Problem Qualifiers Primary Impression: Abdominal pain Abdominal location: left upper quadrant Qualified Codes: R10.12 - Left upper quadrant pain Additional Impressions: Pancreatitis Chronicity: acute Pancreatitis type: unspecified pancreatitis type Acute pancreatitis complication: unspecified Qualified Codes: K85.90 - Acute pancreatitis without necrosis or infection, unspecified
== END 2017-04-12 17:47 | disposition home or self-care (01) ==
LOC: C.EDB 14:05
DX: R10.12 Left upper quadrant pain (principal); K85.90 Acute pancreatitis without necrosis or infection, unspecified; E16.2 Hypoglycemia, unspecified; J45.909 Unspecified asthma, uncomplicated; K57.92 Diverticulitis of intestine, part unspecified, without perforation or abscess without bleeding; R73.9 Hyperglycemia, unspecified; I10 Essential (primary) hypertension; E66.01 Morbid (severe) obesity due to excess calories; Z83.3 Family history of diabetes mellitus; Z82.49 Family history of ischemic heart disease and other diseases of the circulatory system; F17.200 Nicotine dependence, unspecified, uncomplicated; Z79.4 Long term (current) use of insulin

== ENCOUNTER → 2017-04-18 | Outpatient (CLI) | payer OTHER ==
[~2017-04-18] MED LIST changes: +CYCL10TA6 PO; +DOXY100C PO; -DOXY100C76 PO; +LEVO1TAB33 PO; +OMEP40CA41 PO; -PRED10TA PO
== END | disposition home or self-care (01) ==
LOC: C.LABPVFM 15:16
PROVIDERS: ATTEND Family Medicine
DX: L02.419 Cutaneous abscess of limb, unspecified (principal)

== ENCOUNTER 2017-04-30 10:24 | Emergency (ER) | payer OTHER ==
[~2017-04-30] VITALS: Ht 193 cm; Wt 175.6 kg
[~2017-04-30 10:24] MED LIST changes: -CYCL10TA6 PO; -DICY20TA35 PO; -DOXY100C PO
[2017-04-30 10:26] VITALS: BP 163/111; PULSE 122; TEMP 36.5; O2SAT 95; Ht 193 cm; Wt 175.6 kg
[2017-04-30] MEDS ORDERED: DOXYCYCLINE HYCLATE 100 MG CAP PO ONE (10:45)
[2017-04-30] MEDS ORDERED: DOXY100C PO (10:49)
--- NOTE | 2017-04-30 11:25 | EMERGENCY ROOM VISIT NOTE ---
History Report prepared by Madhu: [place] Under the Supervision of: Dr. Joseph Hoyos M.D. First contact with patient: 10:33 Chief Complaint: WOUND INFECTION Stated Complaint: CYST ON RT LEG Nursing Triage Summary: pt c/o cyst on back of right thigh started 2 days ago called pcp told to come to ed, they could not get him in . pt reports size of golf ball History of Present Illness The patient is a 32 year old male who presents to the Emergency Room with complaints of a worsening posterior right thigh infection beginning two days ago. He states "I have a cyst". He states that he frequently gets similar cysts with the most recent cyst occurring about two months ago. The patient states that the cyst is roughly the size of a golf-ball. He has a history of type II diabetes. Source of History: patient Onset: Two days ago Position: leg (right posterior thigh) Quality: other (infection ) Timing: worsening Review of Systems See HPI for pertinent positives & negatives. A total of 6 systems reviewed and were otherwise negative. Past Medical & Surgical Medical Problems: (1) Abdominal pain (2) Abdominal pain (3) Abscess of left thigh (4) Acute bronchitis (5) Asthma (6) Back pain (7) Back strain (8) Calculus Of Ureter (9) Cellulitis of left thigh (10) Cellulitis of thigh (11) Cellulitis, leg (12) Depressive Disorder Nec (13) Diverticulitis (14) Diverticulitis (15) Diverticulosis (16) Flank pain (17) Foot pain (18) Headache (19) Hyperglycemia (20) Hypertension (21) Hypertension (22) Joint pain in the shoulder/clavicle region (23) Kidney stone on left side (24) Left ureteral calculus (25) Leg abscess (26) Migraine (27) Migraine (28) Morbid Obesity (29) Neck pain on right side (30) No significant active problems (31) Renal colic (32) Renal colic on left side (33) Repetitive strain injury of right foot (34) Tobacco Use Disorder Surgical Problems: (1) S/P PICC central line placement Family History FH: diabetes mellitus FH: hypertension FH: kidney disease Social History Smoking Status: Current Every Day Smoker Alcohol Use: none Marital Status: Housing Status: lives with family Occupation Status: employed Current/Historical Medications Scheduled Atorvastatin (Atorvastatin Calcium), 20 MG PO HS Doxycycline Hyclate (Vibramycin), 100 MG PO BID Insulin Glargine (Toujeo Solostar), 70 UNITS SC HS Liraglutide (Victoza), 1.8 MG SC HS Lisinopril (Zestril), 20 MG PO HS Metformin Hcl (Metformin Hcl Er), 1,000 MG PO BID Omeprazole (Prilosec), 1 CAP PO DAILY Scheduled PRN Ibuprofen (Advil), 200 MG PO TID PRN for Pain or Fever Allergies Coded Allergies: Cefaclor (Verified Allergy, Unknown, HAD REACTION BABY - DOES NOT REMEMBER EXACT REACTION, 04/12/17) has tolerated Augmentin in 2017 Cephalosporins (Verified Allergy, Unknown, rxn as baby; has tolerated Augmentin 2017, 04/12/17) Physical Exam Vital Signs Date Time Temp Pulse Resp B/P (MAP) Pulse Ox O2 Delivery O2 Flow Rate FiO2 04/30/17 10:26 36.5 122 22 163/111 95 Room Air Physical Exam GENERAL: Awake, in no distress, sitting on stretcher. NEURO: Awake and alert. Oriented x3. No focal motor deficits. SKIN: Firm, erythematous, somewhat tender and raised 1 cm lesion to the right proximal medial thigh posteriorly. Minimal surrounding cellulitis. No palpable abscess. Induration present. Medical Decision & Procedures Medications Administered Medications (Trade) Dose Ordered Sig/Tip Route Start Time Stop Time Status Last Admin Dose Admin Doxycycline Hyclate (Vibramycin Cap) 100 mg ONE ONCE PO 04/30/17 10:45 04/30/17 10:46 DC 04/30/17 10:58 100 MG Procedure Incision & Drainage Indication: Infection Location: right posterior proximal thigh Size: 1 cm Verbal consent was obtained after the risks and benefits were explained, including but not limited to bleeding, scarring, infection, pain, and bone/joint /nerve damage. At this time, the risks of the procedure are less than the risks of NOT performing the procedure. A time out was taken and the correct patient and site identified. A sterile field set. The cavity was entered with a 18 gauge needle and bloody material expressed. No pus-like discharge was visualized. The wound was explored for foreign bodies and none found. Debridement was not performed. A sterile dressing was applied. Detailed wound care instructions and signs and symptoms of worsening infection reviewed with the patient. No complications and the patient tolerated the procedure well. ED Course 1033: The patient was evaluated in room A12B. A complete history and physical exam was performed. 1036: I conducted the incision and drainage of the patient;s infection. See the procedure note for details. 1045: Ordered Vibramycin Cap 100 mg PO. 1050: Reevaluated the patient. Discussed results and discharge instructions: he verbalized understanding and agreement. The patient is ready for discharge. Medical Decision The patient is a 32 year old male who presents to the ED with complaints of posterior right thigh infection. Differential diagnoses considered include abscess, cellulitis, and MRSA. The patient presents with 2 days of irritation, redness and swelling to the right posterior thigh. He has had areas of cellulitis and abscess formation before. On exam, there is a right posterior thigh lesion. It is erythematous, indurated and firm. No drainable abscess felt. I did unroof a very small area that seemed to be coming to a head-there was no puslike drainage. A dressing was applied. The patient has done well on oral antibiotics in the past. He has shown resistance to clindamycin. He has done well with doxycycline. The patient was given oral doxycycline, a prescription was written. He will follow with his doctor and return here for worsening swelling, fever or increasing infection. Impression Primary Impression: Cellulitis of right thigh Scribe Attestation The scribe's documentation has been prepared under my direction and personally reviewed by me in its entirety. I confirm that the note above accurately reflects all work, treatment, procedures, and medical decision making performed by me. Departure Information Dispostion Home / Self-Care Prescriptions Doxycycline Hyclate (VIBRAMYCIN) 100 Mg Cap 100 MG PO BID for 10 Days, #20 CAP Prov: Joseph Hoyos M.D. 04/30/17 Referrals No Doctor, Assigned (PCP) Forms HOME CARE DOCUMENTATION FORM, IMPORTANT VISIT INFORMATION, WORK / SCHOOL INSTRUCTIONS Patient Instructions My [facility] Additional Instructions doxycycline 2x per day for 10 days follow with [facility] this week return for fever or worsening symptoms, return for the need for drainage clean with soap and water 2x per day and keep it covered
== END 2017-04-30 10:59 | disposition home or self-care (01) ==
LOC: C.EDB 10:27 → C.EDA 10:59
DX: L03.115 Cellulitis of right lower limb (principal); J45.909 Unspecified asthma, uncomplicated; K57.92 Diverticulitis of intestine, part unspecified, without perforation or abscess without bleeding; R73.9 Hyperglycemia, unspecified; I10 Essential (primary) hypertension; E66.01 Morbid (severe) obesity due to excess calories; Z83.3 Family history of diabetes mellitus; Z82.49 Family history of ischemic heart disease and other diseases of the circulatory system; F17.200 Nicotine dependence, unspecified, uncomplicated; Z79.4 Long term (current) use of insulin

== ENCOUNTER 2017-05-06 01:32 | Emergency (ER) | payer OTHER ==
[~2017-05-06] VITALS: Ht 193 cm; Wt 176.0 kg
[~2017-05-06 01:32] MED LIST changes: +DOXY100C PO; -HYDR-5688 PO; -LEVO1TAB33 PO; -RANI300T2 PO
[2017-05-06 01:35] VITALS: BP 176/97; PULSE 120; TEMP 36.8; O2SAT 95; Ht 193 cm; Wt 176.0 kg
[2017-05-06] MEDS ORDERED: OMEP40CA41 PO (02:28)
[2017-05-06] MEDS ORDERED: DOXY100C PO (02:31)
--- NOTE | 2017-05-06 22:52 | EMERGENCY ROOM VISIT NOTE ---
History First contact with patient: :58 Chief Complaint: WOUND INFECTION Stated Complaint: CYST ON UPPER RIGHT THIGH Nursing Triage Summary: Pt reports he was treated here on Sunday for cyst on right thigh. Pt reports the cyst has doubled in size and is more painful. History of Present Illness The patient is a 32 year old male who presents to the Emergency Room with complaints of painful cyst on his right posterior thigh. The patient was seen here earlier this week with his complaint for incision and drainage was attempted. Incision and drainage was not successful at that time as the infection had not). The patient was placed on doxycycline, and he has reportedly been taking the medication as prescribed. The patient states that for the first 2 days he did have improvement of his discomfort while on the doxycycline. Over the past one to 2 days ago his pain has worsened and it feels more soft. The patient does not have fever or chills. He is a well- known diabetic who is uncontrolled. He rates his discomfort an 8/10. Review of Systems More than 10 systems were reviewed and otherwise negative with the exception of history of present illness. Past Medical/Surgical History Medical Problems: (1) Abdominal pain (2) Abdominal pain (3) Abscess of left thigh (4) Acute bronchitis (5) Asthma (6) Back pain (7) Back strain (8) Calculus Of Ureter (9) Cellulitis of left thigh (10) Cellulitis of thigh (11) Cellulitis, leg (12) Depressive Disorder Nec (13) Diverticulitis (14) Diverticulitis (15) Diverticulosis (16) Flank pain (17) Foot pain (18) Headache (19) Hyperglycemia (20) Hypertension (21) Hypertension (22) Joint pain in the shoulder/clavicle region (23) Kidney stone on left side (24) Left ureteral calculus (25) Leg abscess (26) Migraine (27) Migraine (28) Morbid Obesity (29) Neck pain on right side (30) No significant active problems (31) Renal colic (32) Renal colic on left side (33) Repetitive strain injury of right foot (34) Tobacco Use Disorder Surgical Problems: (1) S/P PICC central line placement Family History FH: diabetes mellitus FH: hypertension FH: kidney disease Social History Smoking Status: Current Every Day Smoker Alcohol Use: none Marital Status: Housing Status: lives with family Occupation Status: employed Current/Historical Medications Scheduled Atorvastatin (Atorvastatin Calcium), 20 MG PO HS Doxycycline Hyclate (Vibramycin), 100 MG PO BID Insulin Glargine (Toujeo Solostar), 70 UNITS SC HS Liraglutide (Victoza), 1.8 MG SQ HS Lisinopril (Zestril), 20 MG PO HS Metformin Hcl (Metformin Hcl Er), 1,000 MG PO BID Omeprazole (Prilosec), 40 MG PO DAILY Scheduled PRN Ibuprofen (Advil), 200 MG PO TID PRN for Pain or Fever Physical Exam Vital Signs Date Time Temp Pulse Resp B/P (MAP) Pulse Ox O2 Delivery O2 Flow Rate FiO2 05/06/17 01:35 36.8 120 24 176/97 95 Room Air Pain Rating (0-10): 8.0 Physical Exam VITALS: Vitals are noted on the nurse's note and reviewed by myself. Vital signs stable. GENERAL: Well-developed, well-nourished, white male, who is in no acute distress and resting comfortably. Patient is cooperative with the examination. HEART: Regular rate and rhythm without murmurs gallops or rubs. LUNGS: Clear to auscultation bilaterally without wheezes, rales or rhonchi. No retractions or accessory muscle use. SKIN: The skin was with a fairly large abscess appreciated along the posterior medial proximal right thigh. There is fluctuance inferiorly. This area is tender on palpation. Medical Decision & Procedures Procedure I examined the patient. Verbal consent was obtained to perform the procedure. After saline and Betadine cleansing, ethyl chloride anesthesia, the abscess was incised with a number 11 scalpel blade. A large amount of purulent material was released with more expressed by pressure. A swab was obtained for culture. 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 The abscess cavity was then copiously irrigated with sterile saline under pressure. The area was then packed with bacitracin soaked packing. The area was cleaned with sterile saline and dressed with bacitracin and a bulky bandage. The patient tolerated the procedure well. ED Course Physical exam and history were performed. Nursing notes, EMR, and Medication List were personally reviewed. Patient appears to have an abscess of his right posterior thigh. He is on antibiotics currently. His infection was fluctuant and incision and drainage was performed with good results. Culture was sent to the lab. The patient is to continue the doxycycline as previously prescribed. He is to follow-up with his primary care physician or back in the emergency department a 48 hours for recheck of his condition. He is otherwise welcome back to ER with any new, worsening, or concerning symptoms. The chart was completed utilizing [employer]. Speech Voice Recognition Software. Grammatical errors, random word insertions, pronoun errors, and incomplete sentences are an occasional consequence of this system due to software limitations, ambient noise, and hardware issues. Any formal questions or concerns about the content, text, or information contained within the body of this dictation should be directly addressed to the provider for clarification. Medical Decision Differential diagnosis: Etiologies such as cellulitis, abscess, MRSA infection, DVT, necrotizing fasciitis, dermatitis, drug eruption, as well as others were entertained.. Impression Primary Impression: Abscess of right leg Departure Information Dispostion Home / Self-Care Condition GOOD Forms HOME CARE DOCUMENTATION FORM, IMPORTANT VISIT INFORMATION Patient Instructions My [facility] Additional Instructions You were seen and evaluated today on an emergency basis only. This is not a substitute for, or an effort to provide, complete comprehensive medical care. It is not possible to recognize and treat all injuries or illnesses in a single emergency department visit. For this reason it is recommended that you followup with your primary care physician or back in the emergency department in the next 2-3 days for recheck of your condition. Continue antibiotics as prescribed. You are welcome to return to the emergency department anytime with new, worsening, or concerning symptoms.
== END 2017-05-06 02:35 | disposition home or self-care (01) ==
LOC: C.EDB 01:33 → C.EDA 02:35
DX: L02.415 Cutaneous abscess of right lower limb (principal); F32.9 Major depressive disorder, single episode, unspecified; I10 Essential (primary) hypertension; Z87.442 Personal history of urinary calculi; E66.01 Morbid (severe) obesity due to excess calories; Z68.42 Body mass index [BMI] 45.0-49.9, adult; F17.210 Nicotine dependence, cigarettes, uncomplicated; Z83.3 Family history of diabetes mellitus; Z82.49 Family history of ischemic heart disease and other diseases of the circulatory system; Z84.1 Family history of disorders of kidney and ureter; Z79.4 Long term (current) use of insulin; Z79.899 Other long term (current) drug therapy

== ENCOUNTER 2017-05-20 16:11 | Emergency (ER) | payer OTHER ==
[~2017-05-20] VITALS: Ht 193 cm; Wt 174.4 kg
[2017-05-20 16:22] VITALS: TEMP 36.7
[2017-05-20] MEDS ORDERED: SODIUM CHLORIDE 0.9% 1000ML 1,000 ML IV STA ×3 (16:38→17:31)
[2017-05-20 16:51] VITALS: O2SAT 96; Ht 193 cm; Wt 174.4 kg
[2017-05-20 17:09] LABS: PROTHROMBIN TIME (PATIENT) 10.2 SECONDS (9.0-12.0)
[2017-05-20 17:18] LABS: BASO % 0.3 %; BASO ABS # 0.03 K/uL (0-0.2); COMPLETE YES; EOS % 1.2 %; HEMATOCRIT 41.5 % (42-52); IG% 0.1 %; LYMPH % 16.7 %; LYMPH ABS # 1.61 K/uL (1.2-3.4); MEAN CELL VOLUME 86.3 fL (80-100); MEAN CORPUSCULAR HEMOGLOBIN 29.5 pg (25-34); MEAN CORPUSCULAR HGB CONC 34.2 g/dl (32-36); MONO % 7.4 %; NEUT % 74.3 %; PLATELET COUNT 229 K/uL (130-400); RED BLOOD COUNT 4.81 M/uL (4.7-6.1); WHITE BLOOD COUNT 9.63 K/uL (4.8-10.8)
[2017-05-20 17:29] LABS: ALT/SGPT 37 U/L (12-78); AST/SGOT 20 U/L (15-37); BETA-HYDROXYBUTYRATE 1.38 mg/dL (0.2-2.81); BLOOD UREA NITROGEN 13 mg/dl (7-18); BUN/CREATININE RATIO 11.8 (10-20); CALCIUM 8.6 mg/dl (8.5-10.1); CARBON DIOXIDE 23 mmol/L (21-32); CHLORIDE 102 mmol/L (98-107); GLUCOSE 354 mg/dl (70-99); MAGNESIUM 1.8 mg/dl (1.8-2.4); POTASSIUM 3.9 mmol/L (3.5-5.1); SODIUM 136 mmol/L (136-145)
[2017-05-20 17:31] LABS: ALKALINE PHOSPHATASE 85 U/L (45-117); THYROID STIMULATING HORMONE 0.498 uIu/ml (0.300-4.500)
[2017-05-20] MEDS ORDERED: NovoLIN-R INSULIN PER UNIT CHARGE IV STA ×2 (17:31→19:40)
--- NOTE | 2017-05-20 17:48 | DIAGNOSTIC IMAGING REPORT ---
CHEST ONE VIEW PORTABLE HISTORY: EVALUATE WEAKNESS COMPARISON: Chest 04/12/2017. FINDINGS: The lungs are clear. Cardiac silhouette is normal in size. No pleural effusions. No pneumothorax. IMPRESSION: No acute process. Electronically signed by: Jermaine Bustos M.D. 05/20/2017 5:47 PM Dictated Date/Time: 05/20/2017 5:46 PM
[2017-05-20 19:23] LABS: URINE APPEARANCE CLEAR (CLEAR); URINE BILIRUBIN NEG (NEG); URINE COLOR YELLOW; URINE NITRITE NEG (NEG); URINE PH 5.5 (4.5-7.5); URINE SPECIFIC GRAVITY 1.036 (1.000-1.030); UROBILINOGEN NEG (NEG)
[2017-05-20 19:26] LABS: MANUAL MICROSCOPIC REQUIRED? NO; REVIEW REQ? NO
[2017-05-20 20:25] VITALS: BP 152/78; PULSE 101; O2SAT 96
--- NOTE | 2017-05-20 20:31 | EMERGENCY ROOM VISIT NOTE ---
History Report prepared by Madhu: Vinod Aquino Under the Supervision of: Dr. Jerrod Garcia M.D. First contact with patient: 16:33 Chief Complaint: HYPERGLYCEMIA Stated Complaint: HIGH BLOOD SUGAR History of Present Illness The patient is a 32 year old male diabetic who presents to the Emergency Room with complaints of persistent hyperglycemia that started this morning. He says that his sugars were good for a while, but went on vacation recently and ran out of his medications (Metformin, Toujeo, and Victoza), and was not able to take his medications for a couple days. The patient notes that he started taking his medications again last night. He says that he woke up this morning, and his sugars were at 250. The patient states that he was at work earlier today , and started feeling lightheaded when getting up or moving around, as well as weak and a bit short of breath on exertion. The patient adds that he has had an increased urinary frequency recently and has been feeling more thirsty than normal. He states that he had a headache yesterday, but not today. The patient says that his sugars normally run around 120-150, and they are managed here by Jonatan Escobedo. Pt denies LOC, headache (today), fevers, chills, diaphoresis, visual changes, neck pain, chest pain, nausea, vomiting, abdominal pain, back pain, melena, hematochezia, numbness, lymphadenopathy, rash, or other complaints. Source of History: patient Onset: This morning Position: other (global - hyperglycemia) Symptom Intensity: sugars at 250 Timing: other (persistent) Associated Symptoms: + SOB (on exertion), + urinary symptoms, + weakness Note: Associated symptoms: Lightheadedness. Increased thirst. Review of Systems See HPI for pertinent positives and negatives. A total of ten systems were reviewed and were otherwise negative. Past Medical & Surgical Medical Problems: (1) Abdominal pain (2) Abdominal pain (3) Abscess of left thigh (4) Acute bronchitis (5) Asthma (6) Back pain (7) Back strain (8) Calculus Of Ureter (9) Cellulitis of left thigh (10) Cellulitis of thigh (11) Cellulitis, leg (12) Depressive Disorder Nec (13) Diverticulitis (14) Diverticulitis (15) Diverticulosis (16) Flank pain (17) Foot pain (18) Headache (19) Hyperglycemia (20) Hypertension (21) Hypertension (22) Joint pain in the shoulder/clavicle region (23) Kidney stone on left side (24) Left ureteral calculus (25) Leg abscess (26) Migraine (27) Migraine (28) Morbid Obesity (29) Neck pain on right side (30) No significant active problems (31) Renal colic (32) Renal colic on left side (33) Repetitive strain injury of right foot (34) Tobacco Use Disorder Surgical Problems: (1) S/P PICC central line placement Family History FH: diabetes mellitus FH: hypertension FH: kidney disease Social History Smoking Status: Current Every Day Smoker Alcohol Use: none Marital Status: Housing Status: lives with family Occupation Status: employed Current/Historical Medications Scheduled Atorvastatin (Atorvastatin Calcium), 20 MG PO HS Insulin Glargine (Toujeo Solostar), 70 UNITS SC HS Liraglutide (Victoza), 1.8 MG SQ HS Lisinopril (Zestril), 20 MG PO HS Metformin Hcl (Metformin Hcl Er), 1,000 MG PO BID Omeprazole (Prilosec), 40 MG PO DAILY Scheduled PRN Ibuprofen (Advil), 200 MG PO TID PRN for Pain or Fever Allergies Coded Allergies: Cefaclor (Verified Allergy, Unknown, HAD REACTION BABY - DOES NOT REMEMBER EXACT REACTION, 05/20/17) has tolerated Augmentin in 2017 Cephalosporins (Verified Allergy, Unknown, rxn as baby; has tolerated Augmentin 2017, 05/20/17) Physical Exam Vital Signs Date Time Temp Pulse Resp B/P (MAP) Pulse Ox O2 Delivery O2 Flow Rate FiO2 05/20/17 18:10 99 18 108/75 96 Room Air 05/20/17 17:20 106 05/20/17 16:52 107 25 132/83 95 Room Air 05/20/17 16:51 96 Room Air 05/20/17 16:22 36.7 112 20 148/83 95 Room Air Physical Exam GENERAL: Awake, alert, well-appearing, in no distress HENT: Normocephalic, atraumatic. Oropharynx unremarkable. EYES: Normal conjunctiva. Sclera non-icteric. NECK: Supple. No nuchal rigidity. FROM. No JVD. RESPIRATORY: Clear to auscultation. CARDIAC: Regular rate, normal rhythm. Extremities warm and well perfused. Pulses equal. ABDOMEN: Soft, non-distended. No tenderness to palpation. No rebound or guarding. No masses. RECTAL: Deferred. MUSCULOSKELETAL: Chest examination reveals no tenderness. The back is symmetrical on inspection without obvious abnormality. There is no CVA tenderness to palpation. No joint edema. LOWER EXTREMITIES: Calves are equal size bilaterally and non-tender. No edema. No discoloration. NEURO: Normal sensorium. No sensory or motor deficits noted. SKIN: No rash or jaundice noted. Medical Decision & Procedures ER Provider Diagnostic Interpretation: X-ray: Per my interpretation, radiologist review. CHEST ONE VIEW PORTABLE HISTORY: EVALUATE WEAKNESS COMPARISON: Chest 04/12/2017. FINDINGS: The lungs are clear. Cardiac silhouette is normal in size. No pleural effusions. No pneumothorax. IMPRESSION: No acute process. Electronically signed by: Jermaine Bustos M.D. 05/20/2017 5:47 PM Dictated Date/Time: 05/20/2017 5:46 PM Laboratory Results 05/20/17 16:45 Red Blood Count 4.81, Mean Corpuscular Volume 86.3, Mean Corpuscular Hemoglobin 29.5, Mean Corpuscular Hemoglobin Concent 34.2, Mean Platelet Volume 12.0, Neutrophils (%) (Auto) 74.3, Lymphocytes (%) (Auto) 16.7, Monocytes (%) (Auto) 7.4, Eosinophils (%) (Auto) 1.2, Basophils (%) (Auto) 0.3, Neutrophils # (Auto) 7.15, Lymphocytes # (Auto) 1.61, Monocytes # (Auto) 0.71, Eosinophils # (Auto) 0.12, Basophils # (Auto) 0.03 05/20/17 16:45 Test 05/20/17 16:45 05/20/17 19:05 05/20/17 19:26 White Blood Count 9.63 K/uL (4.8-10.8) Red Blood Count 4.81 M/uL (4.7-6.1) Hemoglobin 14.2 g/dL (14.0-18.0) Hematocrit 41.5 % (42-52) Mean Corpuscular Volume 86.3 fL (80-100) Mean Corpuscular Hemoglobin 29.5 pg (25-34) Mean Corpuscular Hemoglobin Concent 34.2 g/dl (32-36) Platelet Count 229 K/uL (130-400) Mean Platelet Volume 12.0 fL (7.4-10.4) Neutrophils (%) (Auto) 74.3 % Lymphocytes (%) (Auto) 16.7 % Monocytes (%) (Auto) 7.4 % Eosinophils (%) (Auto) 1.2 % Basophils (%) (Auto) 0.3 % Neutrophils # (Auto) 7.15 K/uL (1.4-6.5) Lymphocytes # (Auto) 1.61 K/uL (1.2-3.4) Monocytes # (Auto) 0.71 K/uL (0.11-0.59) Eosinophils # (Auto) 0.12 K/uL (0-0.5) Basophils # (Auto) 0.03 K/uL (0-0.2) RDW Standard Deviation 39.1 fL (36.4-46.3) RDW Coefficient of Variation 12.4 % (11.5-14.5) Immature Granulocyte % (Auto) 0.1 % Immature Granulocyte # (Auto) 0.01 K/uL (0.00-0.02) Prothrombin Time 10.2 SECONDS (9.0-12.0) Prothromb Time International Ratio 1.0 (0.9-1.1) Activated Partial Thromboplast Time 26.1 SECONDS (21.0-31.0) Partial Thromboplastin Ratio 1.0 Anion Gap 11.0 mmol/L (3-11) Est Creatinine Clear Calc Drug Dose 169.2 ml/min Estimated GFR () 103.9 Estimated GFR (Non- 89.6 BUN/Creatinine Ratio 11.8 (10-20) Calcium Level 8.6 mg/dl (8.5-10.1) Magnesium Level 1.8 mg/dl (1.8-2.4) Total Bilirubin 0.3 mg/dl (0.2-1) Direct Bilirubin < 0.1 mg/dl (0-0.2) Aspartate Amino Transf (AST/SGOT) 20 U/L (15-37) Alanine Aminotransferase (ALT/SGPT) 37 U/L (12-78) Alkaline Phosphatase 85 U/L (45-117) Troponin I < 0.015 ng/ml (0-0.045) Total Protein 7.0 gm/dl (6.4-8.2) Albumin 3.1 gm/dl (3.4-5.0) Lipase 273 U/L (73-393) Beta-Hydroxybutyric Acid 1.38 mg/dL (0.2-2.81) Thyroid Stimulating Hormone (TSH) 0.498 uIu/ml (0.300-4.500) Urine Color YELLOW Urine Appearance CLEAR (CLEAR) Urine pH 5.5 (4.5-7.5) Urine Specific Greig 1.036 (1.000-1.030) Urine Protein NEG (NEG) Urine Glucose (UA) 3+ (NEG) Urine Ketones TRACE (NEG) Urine Occult Blood NEG (NEG) Urine Nitrite NEG (NEG) Urine Bilirubin NEG (NEG) Urine Urobilinogen NEG (NEG) Urine Leukocyte Esterase NEG (NEG) Bedside Glucose 236 mg/dl (70-99) Laboratory results reviewed by me Medications Administered Medications (Trade) Dose Ordered Sig/Tip Route Start Time Stop Time Status Last Admin Dose Admin Sodium Chloride 1,000 ml @ 125 mls/hr Q8H STAT IV 05/20/17 16:38 05/21/17 00:37 05/20/17 16:55 125 MLS/HR Sodium Chloride 1,000 ml @ 999 mls/hr Q1H1M STAT IV 05/20/17 16:38 05/20/17 17:38 DC 05/20/17 16:55 999 MLS/HR Sodium Chloride 1,000 ml @ 999 mls/hr Q1H1M STAT IV 05/20/17 17:31 05/20/17 18:31 DC 05/20/17 17:44 999 MLS/HR Insulin Human Regular (novoLIN-R U-100 PER UNIT) 10 units NOW STAT IV 05/20/17 17:31 05/20/17 17:32 DC 05/20/17 17:45 10 UNITS Insulin Human Regular (novoLIN-R U-100 PER UNIT) 4 units NOW STAT IV 05/20/17 19:40 05/20/17 19:41 DC 05/20/17 19:40 4 UNITS ECG Indication: weakness Rate (beats per minute): 108 Rhythm: sinus tachycardia Findings: no acute ischemic change, no ectopy, other (incomplete RBBB) ED Course 1633: The patient was evaluated in room A4B. A complete history and physical exam was performed. 1637: Ordered NSS 1000 ml @ 999 mls/hr IV, NSS 1000 ml @ 125 mls/hr IV. 1730: Ordered Novolin-R U-100 PER UNIT 10 units IV. 1734: I reevaluated and updated the patient. 1939: The patient's repeat blood sugar was 236. Ordered Novolin-R U-100 PER UNIT 4 units IV. 1948: I reevaluated the patient and he is feeling better. Discussed results and discharge instructions: he verbalized understanding and agreement. The patient is ready for discharge. Medical Decision Triage Nursing notes reviewed. The patient's presentation and history were concerning for hyperglycemia. Etiologies such as metabolic, infection, hypo/hyperglycemia, electrolyte abnormalities, cardiac sources, intracerebral event, toxicologic, neurologic, as well as others were entertained. The patient was examined. ECG non-ischemic. He was hydrated. The patient was found to be hyperglycemic but not in DKA. His electronic for unremarkable. He was given 10 units of IV insulin. He received a total of 2 L normal saline. His blood sugar began to drop. His glucose plateaued around 230. He was given a second dose of insulin IV, 4 units. The patient is very well. I believe that he ran out of his medication and his blood sugar was out of control. He noted increased urination and I believe was slightly volume depleted. He is doing well at this time and will continue his current regimen. He'll follow-up as an outpatient. If he worsens in any way he will be back. I gave my usual and customary discussion regarding this issue. By the evaluation outlined above other emergent etiologies such as those listed in the differential, as well as others, were deemed relatively unlikely. The patient was educated about the findings as listed above. All questions were answered and the patient was pleased with the treatment. Return instructions were outlined and the patient was discharged in stable condition. The patient was referred to his PCP this week for follow-up for a recheck of the current condition. Medication Reconcilliation Current Medication List: was personally reviewed by me Blood Pressure Screening Patient's blood pressure: Elevated blood pressure Blood pressure disposition: Referred to PCP Impression Primary Impression: Diabetes mellitus with hyperglycemia Scribe Attestation The scribe's documentation has been prepared under my direction and personally reviewed by me in its entirety. I confirm that the note above accurately reflects all work, treatment, procedures, and medical decision making performed by me. Departure Information Dispostion Home / Self-Care Referrals Doreen Clark M.D. (PCP) Patient Instructions My [facility] Additional Instructions Continue current medications as prescribed. Rest and drink plenty of fluids. Monitor blood sugar at least 4 times a day for the next week. Follow-up with your primary clinic this week. Return to the ER for chest pain, abdominal pain, vomiting, persistently elevated blood sugars over 300, headache, passing out, difficulty breathing, fevers, numbness, tingling, worsening of your condition, or as needed.
== END 2017-05-20 20:25 | disposition home or self-care (01) ==
LOC: C.EDB 16:12 → C.EDA 20:25
DX: E11.65 Type 2 diabetes mellitus with hyperglycemia (principal); J45.909 Unspecified asthma, uncomplicated; Z87.442 Personal history of urinary calculi; F32.9 Major depressive disorder, single episode, unspecified; K57.92 Diverticulitis of intestine, part unspecified, without perforation or abscess without bleeding; K57.90 Diverticulosis of intestine, part unspecified, without perforation or abscess without bleeding; I10 Essential (primary) hypertension; G43.909 Migraine, unspecified, not intractable, without status migrainosus; E66.01 Morbid (severe) obesity due to excess calories; Z83.3 Family history of diabetes mellitus; Z82.49 Family history of ischemic heart disease and other diseases of the circulatory system; Z84.1 Family history of disorders of kidney and ureter; F17.210 Nicotine dependence, cigarettes, uncomplicated; Z79.899 Other long term (current) drug therapy

== ENCOUNTER 2017-05-23 14:44 | Emergency (ER) | payer OTHER ==
[~2017-05-23] VITALS: Ht 193 cm; Wt 169.0 kg
[~2017-05-23 14:44] MED LIST changes: -DOXY100C PO
[2017-05-23 14:48] VITALS: TEMP 36.7; Ht 193 cm; Wt 169.0 kg
[2017-05-23] MEDS ORDERED: KETOROLAC TROMETHAMINE 60 MG/2 ML VIAL IM STA (15:26)
[2017-05-23] MEDS ORDERED: HYDR-5688 PO (15:32)
[2017-05-23] MEDS ORDERED: CYCL10TA6 PO (15:32)
--- NOTE | 2017-05-23 15:32 | EMERGENCY ROOM VISIT NOTE ---
ED Visit Note First contact with patient: 14:56 CHIEF COMPLAINT: Left low back pain after a lifting injury last night HISTORY OF PRESENT ILLNESS: Patient is a 32-year-old white male who presents the emergency department for evaluation of left low back pain after lifting injury yesterday. He was moving his mattress/bed frame. He lifted and twisted to the left common states that he felt the acute onset of pain in the left low back, along with spine. He states that he thought the pain would go away so he went to bed, but the pain has persisted today. He took ibuprofen, took a hot shower and tried stretching the area. He states the pain is still located in the left low back, radiates down into his buttocks and the posterior aspect of his thigh and slightly up his spine. It is worse with movement, and he has difficulty finding comfortable positions including sitting, standing or laying. He denies any prior history of back issues. He denies any numbness, tickling or weakness or paresthesias into the lower extremities. No bowel or bladder incontinence. No direct trauma to the back. He rates his pain an 8/10. REVIEW OF SYSTEMS: Review of systems as per HPI. All other systems reviewed were negative. 10 systems reviewed. PMH: Electronic medical records are reviewed and summarized as above/below. See Problem List. SOCIAL HISTORY: Patient lives at home with his and children. PHYSICAL EXAM: Vital Signs: Reviewed Nurse's notes. CONSTITUTIONAL: Patient is a morbidly obsese 32-year-old male who is awake and alert and laying supine on the gurney in mild distress due to their back pain. There is significant discomfort with position changes. CARDIOVASCULAR: Regular rate and rhythm. Peripheral pulses easily palpable. RESPIRATORY: Breath sounds equal and clear to auscultation. Full and equal chest expansion without accessory muscle use or retractions. ABDOMEN: Bowel sounds are present. Abdomen is soft, nontender and nondistended. INTEGUMENTARY: No lesions or rash, normal skin turgor. LYMPH: No lymphadenopathy. SPINE: Examination of the patient's back does not demonstrate any ecchymosis, abrasions or outward signs of trauma. No erythema, increased warmth or induration. Patient has midline discomfort to palpation over the low lumbar spine, primarily on the left. There is no pain over the SI joint or the sciatic notch. He has increased pain with range of motion including flexion. EXTREMITIES: Leg lengths are symmetrical. Negative logroll bilaterally. Normal strength including dorsi-flexion and plantar flexion of the great toes and ankles and flexion and extension of the knees and flexion of the hips. Negative bilateral straight leg raise testing. Lower extremity DTRs are equal and symmetrical bilaterally. Distal pulses are easily palpable. Sensation light touch is intact over the lower extremities bilaterally. EMERGENCY DEPARTMENT COURSE: The patient was seen and assessed as above. Old records were reviewed. He had driven himself to the emergency department. He does not have any direct trauma to the back to suspect fracture and therefore was not felt that radiographs were indicated. He has pain after a lifting injury and I suspect muscle or ligamentous etiology. He does not have any physical exam findings to indicate acute cord compression or cauda equina syndrome. Patient was medicated with Toradol 60mg IM. He'll be placed on a short course of Flexeril and [place], in addition to ibuprofen and heat. He was encouraged to follow-up with his PCP if his symptoms are not improving. Patient rated his pain an 8/10 at discharge. Patient was reviewed in the [facility] Prescription Drug Monitoring Program, and there were no red flags noted. Medication reconciliation: I attest that I have personally reviewed the patient' s current medication list. Blood pressure screening: Patient was found to have a slightly elevated blood pressure likely due to a combination of underlying hypertension and due to circumstances. He is actively being followed by his PCP for his hypertension. Problem List Medical Problems: (1) Abdominal pain Status: Resolved (2) Abdominal pain Status: Resolved (3) Abscess Status: Resolved (4) Abscess of left thigh Status: Resolved (5) Abscess of right leg Status: Resolved (6) Abscess of right leg Status: Resolved (7) Abscess of right thigh Status: Resolved (8) Acute bronchitis Status: Resolved (9) Asthma Status: Chronic (10) Back pain Status: Resolved (11) Back strain Status: Resolved (12) Calculus Of Ureter Status: Chronic (13) Cellulitis of left thigh Status: Resolved (14) Cellulitis of right thigh Status: Resolved (15) Cellulitis of right thigh Status: Resolved (16) Cellulitis of thigh Status: Resolved (17) Cellulitis, leg Status: Resolved (18) Dental caries Status: Resolved (19) Depressive Disorder Nec Status: Chronic (20) Diabetes mellitus with hyperglycemia Status: Chronic (21) Diverticulitis Status: Resolved (22) Diverticulitis Status: Resolved (23) Diverticulosis Status: Chronic (24) Encounter for wound re-check Status: Resolved (25) Flank pain Status: Resolved (26) Foot pain Status: Resolved (27) Headache Status: Resolved (28) Hyperglycemia Status: Chronic (29) Hypertension Status: Chronic (30) Hypertension Status: Chronic (31) Joint pain in the shoulder/clavicle region Status: Resolved (32) Kidney stone on left side Status: Resolved (33) Left ureteral calculus Status: Resolved (34) Leg abscess Status: Resolved (35) Migraine Status: Resolved (36) Migraine Status: Resolved (37) Morbid Obesity Status: Chronic (38) Neck pain on right side Status: Resolved (39) Pilonidal abscess Status: Resolved (40) Renal colic Status: Resolved (41) Renal colic on left side Status: Resolved (42) Repetitive strain injury of right foot Status: Resolved (43) Right flank pain Status: Resolved (44) Tobacco Use Disorder Status: Chronic (45) Tooth pain with chewing Status: Resolved Surgical Problems: (1) S/P PICC central line placement Status: Resolved Current/Historical Medications Scheduled Atorvastatin (Atorvastatin Calcium), 20 MG PO HS Insulin Glargine (Toujeo Solostar), 70 UNITS SC HS Liraglutide (Victoza), 1.8 MG SQ HS Lisinopril (Zestril), 20 MG PO HS Metformin Hcl (Metformin Hcl Er), 1,000 MG PO BID Omeprazole (Prilosec), 40 MG PO DAILY Scheduled PRN Cyclobenzaprine Hcl (Flexeril), 10 MG PO TID PRN for Muscle Spasms Hydrocodone/Acetaminophen 5MG/325MG ([place] 5MG/325MG), 1-2 TABLETS PO Q4 PRN for Pain Ibuprofen (Advil), 200 MG PO TID PRN for Pain or Fever Allergies Coded Allergies: Cefaclor (Verified Allergy, Unknown, HAD REACTION BABY - DOES NOT REMEMBER EXACT REACTION, 05/23/17) has tolerated Augmentin in 2017 Cephalosporins (Verified Allergy, Unknown, rxn as baby; has tolerated Augmentin 2017, 05/23/17) Vital Signs Date Time Temp Pulse Resp B/P (MAP) Pulse Ox O2 Delivery O2 Flow Rate FiO2 05/23/17 15:41 119 18 171/126 97 05/23/17 14:48 36.7 117 16 148/98 95 Room Air Medications Administered Medications (Trade) Dose Ordered Sig/Tip Route Start Time Stop Time Status Last Admin Dose Admin Ketorolac Tromethamine (Toradol Inj) 60 mg NOW STAT IM 05/23/17 15:26 05/23/17 15:27 DC 05/23/17 15:37 60 MG Departure Information Impression Primary Impression: Acute lumbar myofascial strain Prescriptions Cyclobenzaprine Hcl (FLEXERIL) 10 Mg Tab 10 MG PO TID Y for Muscle Spasms, #30 TAB Prov: Cecelia Santos PA 05/23/17 Hydrocodone/Acetaminophen 5MG/325MG ([place] 5MG/325MG) Tab 1-2 TABLETS PO Q4 Y for Pain, #20 TAB For Initial Treatment Prov: Cecelia Santos PA 05/23/17 Referrals Doreen Clark M.D. (PCP) Patient Instructions [facility] Additional Instructions Hydrocodone/Acetaminophen ([place]) 5/325 mg: Take 1-2 pills every four hours for breakthrough pain. Avoid alcohol, operating machinery or dangerous equipment, working on ladders or roofs, DRIVING, or situations where being under the influence may be dangerous. It is recommended to use an [id number] stool softener such as Colace, 100mg twice daily while taking this medication to avoid constipation. Cyclobenzaprine (Flexeril) 10 mg: Take 1 pills 3 times daily as needed for muscle spasms.. Avoid alcohol, operating machinery or dangerous equipment, working on ladders or roofs, DRIVING, or situations where being under the influence may be dangerous. Ibuprofen(Motrin, Advil) may be used for fever or pain. Use 600mg every six hours as needed. Take with food. Avoid using more than 2400mg in a 24 hour period. Do not use 2400mg per day for more than three consecutive days without physician direction. Prolonged inappropriate use can lead to stomach upset or ulcers. This medication can be taken if you need to drive, work, or perform activities which may be dangerous when taking narcotic pain medication. Rest and avoid heavy lifting until your symptoms resolve and then gradually return to full activity. A good rule of thumb is if it hurts your back to perform a certain activity, then it should be avoided until you are healthy again. A heating pad, warm compresses, or a hot shower may help with tight muscles and can be done several times a day as needed. Continue current medications. Return to the ER immediately for any numbness, tingling, severe pain, loss of control of your bowels or bladder, inability to walk, or as needed. Follow up with your primary care physician within 3-5 days for a recheck of your current condition. Problem Qualifiers Primary Impression: Acute lumbar myofascial strain Encounter type: initial encounter Qualified Codes: S39.012A - Strain of muscle, fascia and tendon of lower back, initial encounter
[2017-05-23 15:41] VITALS: BP 171/126; PULSE 119; O2SAT 97
== END 2017-05-23 15:42 | disposition home or self-care (01) ==
LOC: C.EDB 14:45 → C.EDD 15:42
DX: S39.012A Strain of muscle, fascia and tendon of lower back, initial encounter (principal); X50.0XXA Overexertion from strenuous movement or load, initial encounter; E66.01 Morbid (severe) obesity due to excess calories; Z68.42 Body mass index [BMI] 45.0-49.9, adult; J45.909 Unspecified asthma, uncomplicated; Z87.442 Personal history of urinary calculi; F32.9 Major depressive disorder, single episode, unspecified; E11.9 Type 2 diabetes mellitus without complications; I10 Essential (primary) hypertension; Z72.0 Tobacco use; Z79.899 Other long term (current) drug therapy

== ENCOUNTER 2017-06-29 06:21 | Day surgery (SDC) | payer OTHER ==
[2017-06-05 15:07] VITALS: BMI 46.0
[~2017-06-29] VITALS: Ht 193 cm; Wt 175.0 kg
[~2017-06-29 06:21] MED LIST changes: +LACTATED RINGER'S 1000ML 1,000 ML IV SCH; -OMEP40CA41 PO
[2017-06-29 06:45] VITALS: BP 143/84; PULSE 93; TEMP 36.6; O2SAT 97; Ht 193 cm; Wt 175.0 kg
[2017-06-29] MEDS ORDERED: ONDANSETRON INJ 2 MG/ML 2 ML VIAL IV PRN ×2 (06:45→09:00)
[2017-06-29] MEDS ORDERED: ATROPINE SULFATE 0.1 MG/ML 5ML SYR IV PRN (06:45)
[2017-06-29] MEDS ORDERED: EpHEDrine SULFATE INJ 50 MG/ML AMP IV PRN (06:45)
[2017-06-29] MEDS ORDERED: FENTANYL CITRATE INJ 50 MCG/1 ML 2 ML VIAL IV PRN (06:45)
[2017-06-29] MEDS ORDERED: LACTATED RINGER'S 1000ML 1,000 ML IV ONE (07:00)
[2017-06-29] MEDS ORDERED: MIDAZOLAM HCL 1 MG/ML 2ML VIAL ONE (07:20)
[2017-06-29] MEDS ORDERED: FENTANYL CITRATE INJ 50 MCG/1 ML 2 ML VIAL ONE (07:21)
[2017-06-29] MEDS ORDERED: SUCCINYLCHOLINE CHLORIDE 20 MG/ML 10 ML VIAL IV ONE (07:47)
[2017-06-29] MEDS ORDERED: PROPOFOL IV EMULSION 10 MG/ML 20 ML VIAL IV ONE ×2 (07:47→08:26)
[2017-06-29] MEDS ORDERED: LIDOCAINE HCL 2% 2 ML VIAL (20MG/ML) ONE (07:47)
--- NOTE | 2017-06-29 07:53 | Endo History and Physical ---
History & Physical Date of Service: Jun 29, 2017. Chief Complaint: HISTORY OF PANCREATITIS Referring Physician: History of Present Illness 32-year-old male with a history of diabetes presenting for evaluation of acute pancreatitis. The patient had intermittent abdominal discomfort and was found to have an elevation of his lipase about 3 months ago. The enzyme elevation has since normalized. He presents today for upper endoscopy for further evaluation. Past Medical History Diabetes, Fractures, Asthma, Gastrointestinal Disorder, Reflux Past Surgical History Hx Cardiac Surgery: No Hx Internal Defibrillator: No Hx Pacemaker: No Hx Abdominal Surgery: No Hx Post-Op Nausea and Vomiting: No Hx Cancer Surgery: No Hx Thoracic Surgery: No Hx Orthopedic: Yes (RIGHT CLOSED REDUCTION OF ANKLE) Hx Urinary Tract Surgery: Yes (LITHOTRIPSY WITH STENT PLACEMENT (2011); REMOVAL OF STENT (2011)) Social History Smoking Status: Current Every Day Smoker Hx Substance Use: No Hx Alcohol Use: No Allergies Coded Allergies: Cefaclor (Verified Allergy, Unknown, HAD REACTION BABY - DOES NOT REMEMBER EXACT REACTION, 06/29/17) has tolerated Augmentin in 2017 Cephalosporins (Verified Allergy, Unknown, rxn as baby; has tolerated Augmentin 2017, 06/29/17) PT STATES HE HAS ONLY EVER HAD RXN TO [facility], NO OTHER HISTORY OF RXN'S TO OTHER MEDS Current Medications Reported Home Medications Medications Dose Route/Sig Max Daily Dose Days Date Category Toujeo Solostar (Insulin Glargine) 300 Unit/Ml Inj 70 Units SC HS 04/10/17 Reported Victoza (Liraglutide) 18 Mg/3 Ml Inj 1.8 Mg SQ HS 04/10/17 Reported Advil (Ibuprofen) 200 Mg Tab 200 Mg PO TID PRN 04/10/17 Reported Atorvastatin Calcium (Atorvastatin) 20 Mg Tab 20 Mg PO HS 04/10/17 Reported Zestril (Lisinopril) 20 Mg Tab 20 Mg PO HS 04/10/17 Reported Metformin Hcl Er (Metformin Hcl) 500 Mg Tab 1,000 Mg PO BID 04/10/17 Reported Vital Signs Weight (Kilograms): 175.00 Height (Feet): 6 Height (Inches): 4 Date Time Temp Pulse Resp B/P (MAP) Pulse Ox O2 Delivery O2 Flow Rate FiO2 06/29/17 06:45 36.6 93 18 143/84 (103) 97 Room Air Physical Exam General Appearance: no apparent distress Respiratory/Chest: Auscultation: breath sounds normal Cardiovascular: Heart Auscultation: RRR Abdomen: Inspection & Palpation: soft, non-distended Assessment and Plan 32-year-old male with a history of pancreatitis. We will proceed with upper endoscopy and endoscopic ultrasound to evaluate for evidence of colelithiasis. The patient could potentially have autoimmune pancreatitis however he is only had 1 episode and I'm reluctant to offer a pancreatic biopsy without positive autoimmune markers. We have discussed the risks and benefits of endoscopic ultrasound to include bleeding, infection, perforation and pancreatitis.
[2017-06-29] MEDS ORDERED: ONDANSETRON INJ 2 MG/ML 2 ML VIAL ONE (08:27)
[2017-06-29] MEDS ORDERED: ROCURONIUM BROMIDE 10 MG/ML 5 ML VIAL IV ONE (08:27)
[2017-06-29] MEDS ORDERED: DEXAMETHASONE SOD INJ 4 MG/ML VIAL ONE (08:27)
--- NOTE | 2017-06-29 09:02 | [facility] Post Operative Brief Note ---
Immediate Operative Summary Operative Date Jun 29, 2017. Pre-Operative Diagnosis pancreatitis Post-Operative Diagnosis Mild gastritis Normal gallbladder Normal common bile duct Several pancreatic cysts Procedure(s) Performed Upper Endoscopic Ultrasonography Surgeon Dr. Chow Commissions Specialist Surgeon(s) none Estimated Blood Loss 0 ml Findings Mild gastritis Normal gallbladder Normal common bile duct Several pancreatic cyst Specimens 1) gastric biopsies Drains none Anesthesia general Complication(s) None Disposition Recovery Room / PACU
--- NOTE | 2017-06-29 09:04 | Discharge Instructions ---
Endoscopy Patient Instructions Date / Procedure(s) Performed Jun 29, 2017. EGD, Other (endoscopic ultrasound) Allergy Information Coded Allergies: Cefaclor (Verified Allergy, Unknown, HAD REACTION BABY - DOES NOT REMEMBER EXACT REACTION, 06/29/17) has tolerated Augmentin in 2017 Cephalosporins (Verified Allergy, Unknown, rxn as baby; has tolerated Augmentin 2017, 06/29/17) PT STATES HE HAS ONLY EVER HAD RXN TO [facility], NO OTHER HISTORY OF RXN'S TO OTHER MEDS Discharge Date / Findings Jun 29, 2017. Normal gallbladder and bile duct Fatty infiltration of the liver Several small pancreatic cysts (likely pseudocysts) Medication Instructions Reported Home Medications Medications Dose Route/Sig Max Daily Dose Days Date Category Toujeo Solostar (Insulin Glargine) 300 Unit/Ml Inj 70 Units SC HS 04/10/17 Reported Victoza (Liraglutide) 18 Mg/3 Ml Inj 1.8 Mg SQ HS 04/10/17 Reported Advil (Ibuprofen) 200 Mg Tab 200 Mg PO TID PRN 04/10/17 Reported Atorvastatin Calcium (Atorvastatin) 20 Mg Tab 20 Mg PO HS 04/10/17 Reported Zestril (Lisinopril) 20 Mg Tab 20 Mg PO HS 04/10/17 Reported Metformin Hcl Er (Metformin Hcl) 500 Mg Tab 1,000 Mg PO BID 04/10/17 Reported Provider Instructions Activity Restrictions - No exercising or heavy lifting for 24 hours. - Do not drink alcohol the day of the procedure. - Do not drive a car or operate machinery until the day after the procedure. - Do not make any important decisions or sign important papers in 24 hours after the procedure. Following Day: - Return to full activity which may include returning to work/school. Diet Start your diet with liquids and light foods (jello, soup, juice, toast). Then eat your usual diet if not nauseated. Treatment For Common After Affects For mild abdominal pain, bloating, or excessive gas: - Rest - Eat lightly - Lie on right side Follow-Up Information Follow-up with ms. Holguin as scheduled MRI of pancreas in about 6 months the would Anesthesia Information What You Should Know You have had a procedure that required some medicine to reduce anxiety and discomfort. This treatment is called moderate sedation. After receiving the treatment, you may be sleepy, but you will be able to breathe on your own. The effects of the treatment may last for several hours. Follow these instructions along with Activity/Diet recommendations noted above: * Do NOT do anything where dizziness or clumsiness would be dangerous. * Rest quietly at home today, then you can be up and about tomorrow. * Have a responsible person stay with you the rest of today. * You may have had an I.V. today. If so, you may take the dressing off later today. Recommendations Call your doctor if: * Trouble breathing * Continuous vomiting for more than 24 hours * Temperature above 101 degrees * Severe abdominal pain or bloating * Pain not relieved by pain medicine ordered * There is increased drainage or redness from any incision * A large amount of rectal bleeding greater than 2-3 tablespoons. (If you had a polyp/s removed or have hemorrhoids, a small amount of blood - from the rectum is to be expected.) * You have any unanswered questions or concerns. IN THE EVENT OF A SERIOUS EMERGENCY, GO TO THE NEAREST EMERGENCY ROOM Your discharge instructions were prepared by provider Ion Chow. Patient Instructions Signature Page Annalee Crandall Patient (or Guardian) Signature/Date: I have read and understand the instructions given to me by my caregivers. Caregiver/RN/Doctor Signature/Date: The above-named patient and/or guardian has received patient instructions on this date. + Original Patient Signature Page (only) stays with chart. Please make copy for patient.
[2017-06-29] MEDS ORDERED: LABETALOL HCL IV 5 MG/ML 20ML IV ONE (09:15)
[2017-06-29] MEDS ORDERED: NURSING VERBAL MED ORDER ONE (09:30)
--- NOTE | 2017-06-29 09:37 | GI REPORT ---
Procedure Date: 06/29/2017 8:11 AM Procedure: Upper GI endoscopy Indications: Epigastric abdominal pain Medicines: General Anesthesia Complications: No immediate complications. Estimated blood loss: Minimal. Estimated Blood Loss: Estimated blood loss was minimal. Procedure: Pre-Anesthesia Assessment: - Prior to the procedure, a History and Physical was performed, and patient medications, allergies and sensitivities were reviewed. The patient's tolerance of previous anesthesia was reviewed. - The risks and benefits of the procedure and the sedation options and risks were discussed with the patient. All questions were answered and informed consent was obtained. - Patient identification and proposed procedure were verified prior to the procedure by the physician, the nurse and the darkroom technician. The procedure was verified in the procedure room. - Pre-procedure physical examination revealed no contraindications to sedation. - ASA Grade Assessment: III - A patient with severe systemic disease. - After reviewing the risks and benefits, the patient was deemed in satisfactory condition to undergo the procedure. - The anesthesia plan was to use general anesthesia. - Immediately prior to administration of medications, the patient was re-assessed for adequacy to receive sedatives. - The heart rate, respiratory rate, oxygen saturations, blood pressure, adequacy of pulmonary ventilation, and response to care were monitored throughout the procedure. - The physical status of the patient was re-assessed after the procedure. After obtaining informed consent, the endoscope was passed under direct vision. Throughout the procedure, the patient's blood pressure, pulse, and oxygen saturations were monitored continuously. The Scope was introduced through the mouth, and advanced to the second part of duodenum. The upper GI endoscopy was accomplished without difficulty. The patient tolerated the procedure well. Findings: The examined esophagus was normal. The Z-line was regular and was found 42 cm from the incisors. Diffuse mild inflammation characterized by erythema and granularity was found in the gastric antrum. Biopsies were taken with a cold forceps. Estimated blood loss was minimal. The cardia, gastric fundus and gastric body were normal. The examined duodenum was normal. Biopsies for histology were taken with a cold forceps for for evaluation of celiac disease. Estimated blood loss was minimal. Impression: - Normal esophagus. - Z-line regular, 42 cm from the incisors. - Chronic gastritis. Biopsied. - Normal cardia, gastric fundus and gastric body. - Normal examined duodenum. Biopsied. Recommendation: - Perform an upper endoscopic ultrasound (UEUS) today. - Await pathology results. - Return to referring physician as previously scheduled. Ion Chow D.O. Ion Chow, 06/29/2017 8:22:29 AM This report has been signed electronically. Note Initiated On: 06/29/2017 8:11 AM I attest to the content of the Intraoperative Record and orders documented therein, exceptions below
--- NOTE | 2017-06-29 09:37 | GI REPORT ---
Procedure Date: 06/29/2017 8:22 AM Procedure: Upper EUS Indications: Acute pancreatitis Medicines: General Anesthesia Complications: No immediate complications. Estimated blood loss: Minimal. Estimated Blood Loss: Estimated blood loss was minimal. Procedure: Pre-Anesthesia Assessment: - Prior to the procedure, a History and Physical was performed, and patient medications, allergies and sensitivities were reviewed. The patient's tolerance of previous anesthesia was reviewed. - The risks and benefits of the procedure and the sedation options and risks were discussed with the patient. All questions were answered and informed consent was obtained. - Patient identification and proposed procedure were verified prior to the procedure by the physician, the nurse and the front office supervisor. The procedure was verified in the procedure room. - Pre-procedure physical examination revealed no contraindications to sedation. - ASA Grade Assessment: III - A patient with severe systemic disease. - After reviewing the risks and benefits, the patient was deemed in satisfactory condition to undergo the procedure. - The anesthesia plan was to use general anesthesia. - Immediately prior to administration of medications, the patient was re-assessed for adequacy to receive sedatives. - The heart rate, respiratory rate, oxygen saturations, blood pressure, adequacy of pulmonary ventilation, and response to care were monitored throughout the procedure. - The physical status of the patient was re-assessed after the procedure. After obtaining informed consent, the endoscope was passed under direct vision. Throughout the procedure, the patient's blood pressure, pulse, and oxygen saturations were monitored continuously. The Endosonoscope was introduced through the mouth, and advanced to the second part of duodenum. The upper EUS was accomplished without difficulty. The patient tolerated the procedure well. Findings: Endosonographic Finding : There was no sign of significant endosonographic abnormality in the ampulla. No masses were identified. There was no sign of significant endosonographic abnormality in the gallbladder. No stones and no biliary sludge were identified. There was no sign of significant endosonographic abnormality in the common bile duct. The maximum diameter of the duct was 5.9 mm. No stones, no biliary sludge and ducts of normal caliber were identified. There was abnormal echogenicity in the visualized portion of the liver. This area was hyperechoic. No lymphadenopathy seen. There was no sign of significant endosonographic abnormality in the left adrenal gland. No adrenal gland enlargement was identified. There was no sign of significant endosonographic abnormality in the pancreatic head, in the pancreatic neck and in the main pancreatic duct. The pancreatic duct measured up to 3 mm in diameter. The pancreatic duct was thin in caliber. Hypoechoic lesions suggestive of three cysts were identified in the pancreatic body. The largest lesion measured 9 mm by 7 mm in maximal cross-sectional diameter (two others measured 4x4 and 4x2). There was no associated mass. These appeared too small for aspiration. A hypoechoic lesion suggestive of a cyst was identified in the pancreatic tail. It does not communicate with the pancreatic duct. The lesion measured 5 mm by 5 mm in maximal cross-sectional diameter. There was a single compartment without septae. The outer wall of the lesion was not seen. There was no associated mass. There was no internal debris within the fluid-filled cavity. This appeared too small for aspiration. Impression: - Normal ampulla. - Normal gallbladder. - Normal common bile duct. - There was abnormal echogenicity in the visualized portion of the liver. This was hyperechoic. Tissue has not been obtained. However, the endosonographic appearance is suggestive of fatty infiltration. - Normal left adrenal. - There was no sign of significant pathology in the pancreatic head, in the pancreatic neck and in the main pancreatic duct. - Three cystic lesions were seen in the pancreatic body. - A cystic lesion was seen in the pancreatic tail. Recommendation: - Discharge patient to home (ambulatory). - Advance diet as tolerated today. - Given the patient's age, the pancreatic cysts are likely pseudocysts. I would suggest that we do imaging follow-up in about 6 months. If there is enlargement of the cysts we could repeat endoscopic ultrasound at that time for aspiration to further clarify the etiology. - Perform magnetic resonance imaging (MRI) with gadolinium in 6 months. Ion Chow D.O. Ion Chow DO 06/29/2017 8:48:54 AM This report has been signed electronically. Note Initiated On: 06/29/2017 8:22 AM I attest to the content of the Intraoperative Record and orders documented therein, exceptions below
--- NOTE | 2017-06-29 09:43 | Anesthesiology Progress Note ---
Anesthesia Post Op Note Date & Time Jun 29, 2017 at 09:43 Vital Signs Pain Intensity: 0 Vital Signs Past 12 Hours Date Time Temp Pulse Resp B/P (MAP) Pulse Ox O2 Delivery O2 Flow Rate FiO2 06/29/17 09:25 87 16 115/63 92 Room Air 06/29/17 09:15 87 16 127/57 94 Room Air 06/29/17 09:05 90 16 175/98 96 Oxymask 10 06/29/17 08:55 92 16 145/100 99 Oxymask 10 06/29/17 08:48 36.3 90 16 167/99 99 Oxyhood 10 06/29/17 06:45 36.6 93 18 143/84 (103) 97 Room Air Notes Mental Status: alert / awake / arousable, participated in evaluation Pt Amnestic to Procedure: Yes Nausea / Vomiting: adequately controlled Pain: adequately controlled Airway Patency, RR, SpO2: stable & adequate BP & HR: stable & adequate Hydration State: stable & adequate Anesthetic Complications: no major complications apparent
[2017-06-29 10:05] VITALS: BP 168/77; PULSE 90; TEMP 36.5; O2SAT 96
[2017-06-29 10:35] VITALS: BP 168/77; PULSE 90; TEMP 36.5; O2SAT 96
[2017-06-29 11:15] VITALS: BP 143/70; PULSE 87; TEMP 37; O2SAT 96
--- NOTE | 2017-06-29 11:20 | DIAGNOSTIC IMAGING REPORT ---
RIGHT ART DOP DUPLEX LW EXT UNI CLINICAL HISTORY: R calf discomfort Right pain. Edema. Claudication. TECHNIQUE: Arterial Doppler COMPARISON STUDY: None FINDINGS: Vascular flow characteristics are unremarkable. Waveforms are triphasic throughout. No abnormal velocity increase or decrease. Posterior tibial ankle brachial index is 1.05. Dorsalis pedis index is 1.03 IMPRESSION: Normal study The above report was generated using voice recognition software. It may contain grammatical, syntax or spelling errors. Electronically signed by: Peter Thomason M.D. 06/29/2017 11:19 AM Dictated Date/Time: 06/29/2017 11:17 AM
--- NOTE | 2017-06-29 11:54 | Anesthesiology Progress Note ---
Anesthesia Progress Note Date of Service Jun 29, 2017. Progress Notes Pt noted R calf pain/strain when returning to [facility]. I spoke with the pt, and he denied radiation of the pain or numbness in his R foot. The calf was mildly tender to palpation. There was no gross abnormality noticeable. A RLE doppler was ordered, and there was no blood clot appreciated. I spoke with the patient after his doppler, and he stated that his R calf was feeling much better after he was able to ambulate. I instructed the patient to return to the hospital if the R calf pain worsened. He was understanding. The pt was otherwise stable to be discharged home.
== END 2017-06-29 11:53 | disposition home or self-care (01) ==
LOC: C.ACU 06:21
PROVIDERS: ATTEND Internal Medicine Gastroenterology
DX: K29.50 Unspecified chronic gastritis without bleeding (principal); R10.13 Epigastric pain; E11.9 Type 2 diabetes mellitus without complications; F17.210 Nicotine dependence, cigarettes, uncomplicated; Z79.4 Long term (current) use of insulin; Z79.899 Other long term (current) drug therapy; Z87.19 Personal history of other diseases of the digestive system

== ENCOUNTER 2017-09-02 23:29 | Emergency (ER) | payer OTHER ==
[~2017-09-02] VITALS: Ht 193 cm; Wt 171.8 kg
[~2017-09-02 23:29] MED LIST changes: -LACTATED RINGER'S 1000ML 1,000 ML IV SCH
[2017-09-02 23:34] VITALS: TEMP 36.5; Ht 193 cm; Wt 171.8 kg
[2017-09-02] MEDS ORDERED: METOCLOPRAMIDE HCL INJ 5 MG/ML 2 ML VIAL IV STA (23:49)
[2017-09-02] MEDS ORDERED: KETOROLAC TROMETHAMINE 30 MG/ML VIAL IV STA (23:49)
[2017-09-02] MEDS ORDERED: DiphenhydrAMINE HCL 50 MG/ML VIAL IV STA (23:49)
--- NOTE | 2017-09-02 23:49 | EMERGENCY ROOM VISIT NOTE ---
History Report prepared by Madhu: Venkatesh Austin Under the Supervision of: Dr. Ada De Souza D.O. First contact with patient: 23:36 Chief Complaint: HEADACHE Stated Complaint: MIGRAINE, NAUSEA History of Present Illness The patient is a 32 year old male who presents to the Emergency Room with complaints of a worsening migraine headache that began yesterday at 1900, 28.5 hours prior to arrival. The patient states that he took Ibuprofen and went to sleep after his migraine began. When he woke up this morning his symptoms were still present and began to gradually worsen throughout the day. The patient described the headache today as "pounding." He vomited once this morning, and once while working today. He left work early secondary to his pain and currently he has associated photophobia. The patient denies any associated fevers or chills. He has a history of migraines, but has not had an episode in the past 6-8 months. He notes being diabetic and being hypertensive at baseline. He does take medication for these chronic conditions. 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 A total of 10 systems reviewed and were otherwise negative. Past Medical & Surgical Medical Problems: (1) Abdominal pain (2) Abdominal pain (3) Abscess (4) Abscess of left thigh (5) Abscess of right leg (6) Abscess of right leg (7) Abscess of right thigh (8) Acute bronchitis (9) Asthma (10) Back pain (11) Back strain (12) Calculus Of Ureter (13) Cellulitis of left thigh (14) Cellulitis of right thigh (15) Cellulitis of right thigh (16) Cellulitis of thigh (17) Cellulitis, leg (18) Dental caries (19) Depressive Disorder Nec (20) Diabetes mellitus with hyperglycemia (21) Diverticulitis (22) Diverticulitis (23) Diverticulosis (24) Encounter for wound re-check (25) Flank pain (26) Foot pain (27) Headache (28) Hyperglycemia (29) Hypertension (30) Hypertension (31) Joint pain in the shoulder/clavicle region (32) Kidney stone on left side (33) Left ureteral calculus (34) Leg abscess (35) Migraine (36) Migraine (37) Morbid Obesity (38) Neck pain on right side (39) No significant active problems (40) Pilonidal abscess (41) Renal colic (42) Renal colic on left side (43) Repetitive strain injury of right foot (44) Right flank pain (45) Tobacco Use Disorder (46) Tooth pain with chewing Surgical Problems: (1) S/P PICC central line placement Family History FH: diabetes mellitus FH: hypertension FH: kidney disease Social History Smoking Status: Current Every Day Smoker Alcohol Use: none Marital Status: Housing Status: lives with family Occupation Status: employed Current/Historical Medications Scheduled Atorvastatin (Atorvastatin Calcium), 20 MG PO HS Insulin Glargine (Toujeo Solostar), 70 UNITS SC HS Liraglutide (Victoza), 1.8 MG SQ HS Lisinopril (Zestril), 20 MG PO HS Metformin Hcl (Metformin Hcl Er), 1,000 MG PO BID Omeprazole (Prilosec), 20 MG PO DAILY Scheduled PRN Ibuprofen (Advil), 200 MG PO TID PRN for Pain or Fever Allergies Coded Allergies: Cefaclor (Verified Allergy, Unknown, HAD REACTION BABY - DOES NOT REMEMBER EXACT REACTION, 09/03/17) has tolerated Augmentin in 2017 Cephalosporins (Verified Allergy, Unknown, rxn as baby; has tolerated Augmentin 2017, 09/03/17) PT STATES HE HAS ONLY EVER HAD RXN TO [facility], NO OTHER HISTORY OF RXN'S TO OTHER MEDS Physical Exam Vital Signs Date Time Temp Pulse Resp B/P (MAP) Pulse Ox O2 Delivery O2 Flow Rate FiO2 09/03/17 01:09 110 22 158/89 96 09/02/17 23:34 36.5 121 18 166/107 95 Room Air Physical Exam HEENT: Head - normocephalic and atraumatic Pupils are equal, round, and reactive to light. Extraocular eye muscles are intact, and sclera are anicteric. Nose - moist nasal mucosa without discharge. Mouth - moist buccal mucosa. Oropharynx is nonerythematous and there is no tonsillar exudate or edema noted. Neck: Supple; no JVD, nuchal rigidity, cervical lymphadenopathy. Heart: Regular rate and rhythm. There is a normal S1 and S2 with no murmurs, clicks, or gallops appreciated. Lungs: Clear to auscultation bilaterally with no rales or rhonchi. There are bilateral expiratory wheezing. Abdomen: Soft, completely nontender, nondistended, with good bowel sounds. There are no palpable pulsatile masses or hepatosplenomegaly. There is no guarding, rigidity, or rebound noted. Extremities: No evidence of cyanosis, clubbing, or edema. There are easily palpable peripheral pulses. Skin: warm and dry with good turgor and no rashes. Neuro: Nonfocal Medical Decision & Procedures Medications Administered Medications (Trade) Dose Ordered Sig/Tip Route Start Time Stop Time Status Last Admin Dose Admin Ketorolac Tromethamine (Toradol Inj) 30 mg NOW STAT IV 09/02/17 23:49 09/02/17 23:52 DC 09/02/17 23:57 30 MG Metoclopramide HCl (Reglan Inj) 10 mg NOW STAT IV 09/02/17 23:49 09/02/17 23:52 DC 09/02/17 23:57 10 MG Diphenhydramine HCl (Benadryl Inj) 50 mg NOW STAT IV 09/02/17 23:49 09/02/17 23:52 DC 09/02/17 23:56 50 MG Dexamethasone Sodium Phosphate (Dexamethasone Inj Pf) 10 mg NOW ONCE IV 09/03/17 00:00 09/03/17 00:01 DC 09/02/17 23:56 10 MG Ketorolac Tromethamine (Toradol Inj) 30 mg NOW STAT IV 09/03/17 00:39 09/03/17 00:41 DC 09/03/17 00:59 30 MG Procedure Medications Ordered: Benadryl, Reglan, Toradol, Dexamethasone, Toradol. ED Course 2339: Past medical records reviewed. The patient was evaluated in room B10. A complete history and physical exam was performed. 2349: Ordered Benadryl 50 mg IV, Reglan 10 mg IV, Toradol 30 mg IV. 0000: Ordered Dexamethasone Sodium Phosphate 10 mg IV. 0037: I reevaluated the patient at this time. He is feeling better and notes that his migraine is "mostly gone." I will order more Toradol. 0039: Ordered Toradol 30 mg IV. 0117: Upon reevaluation, the patient was feeling improved. I discussed findings and results with him. He verbalized agreement of the treatment plan. The patient was discharged home. Medical Decision The patient is a 32 year old male who presents to the Emergency Department for a migraine headache. Differential Diagnosis includes; dehydration, migraine, tension headache, and viral illness. The patient does have a history of migraines. Typically he gets 1 or 2 migraines a year. They seem to be less frequent as of lately. The patient had moderate relief of his symptoms with the above IV medications. I've encouraged the patient to keep himself well-hydrated and go home to sleep. He should follow-up with his PCP if the migraines are becoming more frequent. Because the patient had IV Benadryl, he was encouraged not to drive. He did have her friend pick him up. Medication Reconcilliation Current Medication List: was personally reviewed by me Blood Pressure Screening Patient's blood pressure: Elevated blood pressure Pt notes hx of Hypertension, will follow with PCP. Impression Primary Impression: Migraine Scribe Attestation The scribe's documentation has been prepared under my direction and personally reviewed by me in its entirety. I confirm that the note above accurately reflects all work, treatment, procedures, and medical decision making performed by me. Departure Information Dispostion Home / Self-Care Referrals Doreen Clark M.D. (PCP) Forms HOME CARE DOCUMENTATION FORM, IMPORTANT VISIT INFORMATION Patient Instructions My [facility] Additional Instructions Rest. take plenty of clear liquids Return to the ER if symptoms worsen. Problem Qualifiers Primary Impression: Migraine Migraine type: unspecified Status migrainosus presence: without status migrainosus Intractability: not intractable Qualified Codes: G43.909 - Migraine, unspecified, not intractable, without status migrainosus
[2017-09-03] MEDS ORDERED: DEXAMETHASONE **PF** INJ 10 MG/ML VIAL IV ONE
[2017-09-03] MEDS ORDERED: PRLSR20 PO (00:16)
[2017-09-03] MEDS ORDERED: KETOROLAC TROMETHAMINE 30 MG/ML VIAL IV STA (00:39)
[2017-09-03 01:09] VITALS: BP 158/89; PULSE 110; O2SAT 96
== END 2017-09-03 01:10 | disposition home or self-care (01) ==
LOC: C.EDB 23:31
DX: G43.909 Migraine, unspecified, not intractable, without status migrainosus (principal); E11.9 Type 2 diabetes mellitus without complications; I10 Essential (primary) hypertension; K57.90 Diverticulosis of intestine, part unspecified, without perforation or abscess without bleeding; F17.200 Nicotine dependence, unspecified, uncomplicated; Z79.4 Long term (current) use of insulin; Z79.84 Long term (current) use of oral hypoglycemic drugs; Z83.3 Family history of diabetes mellitus; Z82.49 Family history of ischemic heart disease and other diseases of the circulatory system; Z84.1 Family history of disorders of kidney and ureter

== ENCOUNTER 2017-09-19 15:16 | Emergency (ER) | payer OTHER ==
[~2017-09-19] VITALS: Ht 193 cm; Wt 170.0 kg
[~2017-09-19 15:16] MED LIST changes: +PRLSR20 PO
[2017-09-19 15:19] VITALS: TEMP 36.5; Ht 193 cm; Wt 170.0 kg
[2017-09-19] MEDS ORDERED: MoRPHine SULFATE 4 MG/ML 1 ML CARP\\VIAL IV STA (15:34)
[2017-09-19] MEDS ORDERED: KETOROLAC TROMETHAMINE 30 MG/ML VIAL IV STA (15:34)
[2017-09-19] MEDS ORDERED: ONDANSETRON INJ 2 MG/ML 2 ML VIAL IV STA (15:34)
[2017-09-19] MEDS ORDERED: SODIUM CHLORIDE 0.9% 1000ML 1,000 ML IV STA (15:34)
[2017-09-19 15:45] LABS: BASO % 0.4 %; BASO ABS # 0.03 K/uL (0-0.2); COMPLETE YES; EOS % 1.8 %; HEMATOCRIT 46.6 % (42-52); IG% 0.1 %; LYMPH % 30.6 %; LYMPH ABS # 2.61 K/uL (1.2-3.4); MEAN CELL VOLUME 85.5 fL (80-100); MEAN CORPUSCULAR HEMOGLOBIN 29.5 pg (25-34); MEAN CORPUSCULAR HGB CONC 34.5 g/dl (32-36); MEAN PLATELET VOLUME 11.8 fL (7.4-10.4); MONO % 4.5 %; NEUT % 62.6 %; PLATELET COUNT 211 K/uL (130-400); RED BLOOD COUNT 5.45 M/uL (4.7-6.1); WHITE BLOOD COUNT 8.53 K/uL (4.8-10.8)
[2017-09-19] MEDS ORDERED: OMEP40CA41 PO (15:58)
[2017-09-19 16:26] LABS: ALT/SGPT 56 U/L (12-78); AST/SGOT 29 U/L (15-37); BLOOD UREA NITROGEN 14 mg/dl (7-18); BUN/CREATININE RATIO 16.3 (10-20); CALCIUM 9.3 mg/dl (8.5-10.1); CARBON DIOXIDE 24 mmol/L (21-32); CHLORIDE 103 mmol/L (98-107); CREATININE 0.84 mg/dl (0.60-1.40); GLUCOSE 274 mg/dl (70-99); POTASSIUM 4.5 mmol/L (3.5-5.1); SODIUM 134 mmol/L (136-145)
[2017-09-19 16:34] LABS: ALKALINE PHOSPHATASE 101 U/L (45-117)
--- NOTE | 2017-09-19 16:34 | DIAGNOSTIC IMAGING REPORT ---
CT SCAN OF THE ABDOMEN AND PELVIS WITHOUT IV CONTRAST CLINICAL HISTORY: Left flank pain. COMPARISON STUDY: Abdominal CT dated 04/10/2017. TECHNIQUE: CT scan of the abdomen and pelvis is performed from the lung bases to the proximal femora. Images are reviewed in the axial, sagittal, and coronal planes. IV contrast was not administered for this examination as per the referring clinician. A dose lowering technique was utilized adhering to the principles of ALARA. The examination is degraded by large body habitus, and by streak artifact from the body wall abutting the CT gantry. The patient was scanned twice in an effort to improve image quality. CT DOSE: 4078.30 mGy.cm FINDINGS: Lung bases: The heart is normal in size and without pericardial effusion. The lung bases are clear. There is a tiny hiatal hernia. Liver: The unenhanced liver is enlarged, measuring 23.3 cm in length. The liver demonstrates diffusely diminished attenuation consistent with severe hepatic steatosis. There is no intrahepatic biliary ductal dilatation. Gallbladder: Unremarkable. Spleen: The spleen is enlarged, measuring 15.9 cm in length. Pancreas: There are scattered parenchymal calcifications. The unenhanced pancreas is otherwise grossly unremarkable. Adrenal glands: Unremarkable. Kidneys: The unenhanced kidneys are normal in size and without hydronephrosis. There are no renal calculi identified. There is no evidence of contour deforming renal mass lesion. Abdominal vasculature: The abdominal aorta is normal in course and caliber. Bowel: There is mild colonic diverticulosis without CT evidence of acute diverticulitis. No bowel obstruction is seen. The appendix is well-visualized and normal. Peritoneum: There is no intraperitoneal free air or abdominal ascites. Lymphadenopathy: None. Pelvic viscera: The bladder, prostate, and seminal vesicles are normal as visualized. Skeletal structures: No lytic or blastic lesions are seen. A large posterior disc osteophyte complex is seen at L5-S1. IMPRESSION: 1. There are no acute infectious or inflammatory findings in the abdomen or pelvis. 2. Hepatomegaly and severe hepatic steatosis. 3. Splenomegaly. 4. Mild colonic diverticulosis without CT evidence of acute diverticulitis. Electronically signed by: Joseph Ahmadi M.D. 09/19/2017 4:33 PM Dictated Date/Time: 09/19/2017 4:24 PM
[2017-09-19 17:06] LABS: URINE APPEARANCE CLEAR (CLEAR); URINE BILIRUBIN NEG (NEG); URINE COLOR YELLOW; URINE NITRITE NEG (NEG); UROBILINOGEN NEG (NEG)
[2017-09-19 17:08] LABS: MANUAL MICROSCOPIC REQUIRED? NO; REVIEW REQ? NO
--- NOTE | 2017-09-19 17:50 | EMERGENCY ROOM VISIT NOTE ---
History First contact with patient: 15:21 Chief Complaint: FLANK PAIN Stated Complaint: LEFT SIDE PAIN History of Present Illness The patient is a 32 year old male who presents to the Emergency Room with complaints of left flank and left lower quadrant abdominal pain. The patient reports that he has had intermittent discomfort for the past week, worsening over the past few days. The patient denies any alleviating or aggravating factors for his pain. The patient reports a prior history of kidney stones, diverticulitis and pancreatitis. He think that this pain is most consistent with pain that he has had with diverticulitis. The patient has not noticed any darkening urine or blood in his urine. He did have vomiting 1 this morning, and diarrhea 3 between 10 AM and 1:30 PM. The patient denies any recent upper respiratory infections. The patient is a type II diabetic, and takes Victoza which has caused pancreatitis in the past. The patient rates his discomfort a 5 out of 10. Review of Systems HEENT: Denies dizziness, visual problems, hearing loss, tinnitus. Denies difficulty swallowing or oral lesions. PULMONARY: Denies cough, shortness of breath, sputum production or hemoptysis. CARDIOVASCULAR: Denies chest pain, palpitations, dyspnea on exertion, orthopnea or peripheral edema. GASTROINTESTINAL: See history of present illness. GENITOURINARY: Denies dysuria, frequency, urgency or nocturia. NEUROLOGIC: Denies history of epilepsy, CVA, TIA or chronic headaches. MUSCULOSKELETAL: Denies history of joint tenderness/swelling. SKIN: Denies rashes or lesions. PSYCHIATRIC: Denies history of depression or mental illness. ENDOCRINE: History of diabetes. Past Medical/Surgical History Medical Problems: (1) Abdominal pain (2) Abdominal pain (3) Abscess (4) Abscess of left thigh (5) Abscess of right leg (6) Abscess of right leg (7) Abscess of right thigh (8) Acute bronchitis (9) Asthma (10) Back pain (11) Back strain (12) Calculus Of Ureter (13) Cellulitis of left thigh (14) Cellulitis of right thigh (15) Cellulitis of right thigh (16) Cellulitis of thigh (17) Cellulitis, leg (18) Dental caries (19) Depressive Disorder Nec (20) Diabetes mellitus with hyperglycemia (21) Diverticulitis (22) Diverticulitis (23) Diverticulosis (24) Encounter for wound re-check (25) Flank pain (26) Foot pain (27) Headache (28) Hyperglycemia (29) Hypertension (30) Hypertension (31) Joint pain in the shoulder/clavicle region (32) Kidney stone on left side (33) Left ureteral calculus (34) Leg abscess (35) Migraine (36) Migraine (37) Morbid Obesity (38) Neck pain on right side (39) No significant active problems (40) Pilonidal abscess (41) Renal colic (42) Renal colic on left side (43) Repetitive strain injury of right foot (44) Right flank pain (45) Tobacco Use Disorder (46) Tooth pain with chewing Surgical Problems: (1) S/P PICC central line placement Family History FH: diabetes mellitus FH: hypertension FH: kidney disease Social History Smoking Status: Current Every Day Smoker Alcohol Use: none Marital Status: Housing Status: lives with family Occupation Status: employed Current/Historical Medications Scheduled Atorvastatin (Atorvastatin Calcium), 20 MG PO HS Insulin Glargine (Toujeo Solostar), 70 UNITS SC HS Liraglutide (Victoza), 1.8 MG SQ HS Lisinopril (Zestril), 20 MG PO HS Metformin Hcl (Metformin Hcl Er), 1,000 MG PO BID Omeprazole (Prilosec), 40 MG PO DAILY Scheduled PRN Ibuprofen (Advil), 200 MG PO TID PRN for Pain or Fever Physical Exam Vital Signs Date Time Temp Pulse Resp B/P (MAP) Pulse Ox O2 Delivery O2 Flow Rate FiO2 09/19/17 16:55 102 18 145/93 95 Room Air 09/19/17 15:19 36.5 123 18 151/94 94 Room Air Physical Exam CONSTITUTIONAL: Healthy and well nourished. Alert and oriented X 3 with positive affect. Patient does not appear in any acute distress on exam. HEENT: Normocephalic, atraumatic. Pupils equal, round and reactive. Ears and nares are clear. No scar icterus or conjunctival injection/pallor. NECK: Full active range of motion without discomfort. RESPIRATORY: Clear to auscultation bilaterally with no wheezing, crackles, rhonchi or stridor. CARDIOVASCULAR: Regular rate and rhythm with no murmurs, rubs or gallops. GASTROINTESTINAL: Bowel sounds present in all quadrants. His emanation shows mild left lower quadrant tenderness to palpation without rigidity, guarding or rebound. Negative CVA tenderness. McBurney's point tenderness. MUSCULOSKELETAL: Full range of motion of all joints without discomfort. INTEGUMENTARY: No rash or other significant dermatologic conditions noted. NEUROLOGIC: No focal neurologic deficits noted. Medical Decision & Procedures ER Provider Diagnostic Interpretation: Noncontrast CT of the abdomen and pelvis does not show any evidence for ureteral calculi, diverticulitis or other acute findings. Radiologist report is as follows: CT SCAN OF THE ABDOMEN AND PELVIS WITHOUT IV CONTRAST CLINICAL HISTORY: Left flank pain. COMPARISON STUDY: Abdominal CT dated 04/10/2017. TECHNIQUE: CT scan of the abdomen and pelvis is performed from the lung bases to the proximal femora. Images are reviewed in the axial, sagittal, and coronal planes. IV contrast was not administered for this examination as per the referring clinician. A dose lowering technique was utilized adhering to the principles of ALARA. The examination is degraded by large body habitus, and by streak artifact from the body wall abutting the CT gantry. The patient was scanned twice in an effort to improve image quality. CT DOSE: 4078.30 mGy.cm FINDINGS: Lung bases: The heart is normal in size and without pericardial effusion. The lung bases are clear. There is a tiny hiatal hernia. Liver: The unenhanced liver is enlarged, measuring 23.3 cm in length. The liver demonstrates diffusely diminished attenuation consistent with severe hepatic steatosis. There is no intrahepatic biliary ductal dilatation. Gallbladder: Unremarkable. Spleen: The spleen is enlarged, measuring 15.9 cm in length. Pancreas: There are scattered parenchymal calcifications. The unenhanced pancreas is otherwise grossly unremarkable. Adrenal glands: Unremarkable. Kidneys: The unenhanced kidneys are normal in size and without hydronephrosis. There are no renal calculi identified. There is no evidence of contour deforming renal mass lesion. Abdominal vasculature: The abdominal aorta is normal in course and caliber. Bowel: There is mild colonic diverticulosis without CT evidence of acute diverticulitis. No bowel obstruction is seen. The appendix is well-visualized and normal. Peritoneum: There is no intraperitoneal free air or abdominal ascites. Lymphadenopathy: None. Pelvic viscera: The bladder, prostate, and seminal vesicles are normal as visualized. Skeletal structures: No lytic or blastic lesions are seen. A large posterior disc osteophyte complex is seen at L5-S1. IMPRESSION: 1. There are no acute infectious or inflammatory findings in the abdomen or pelvis. 2. Hepatomegaly and severe hepatic steatosis. 3. Splenomegaly. 4. Mild colonic diverticulosis without CT evidence of acute diverticulitis. Laboratory Results 09/19/17 15:36 Red Blood Count 5.45, Mean Corpuscular Volume 85.5, Mean Corpuscular Hemoglobin 29.5, Mean Corpuscular Hemoglobin Concent 34.5, Mean Platelet Volume 11.8, Neutrophils (%) (Auto) 62.6, Lymphocytes (%) (Auto) 30.6, Monocytes (%) (Auto) 4.5, Eosinophils (%) (Auto) 1.8, Basophils (%) (Auto) 0.4, Neutrophils # (Auto) 5.35, Lymphocytes # (Auto) 2.61, Monocytes # (Auto) 0.38, Eosinophils # (Auto) 0.15, Basophils # (Auto) 0.03 09/19/17 15:36 Test 09/19/17 15:36 09/19/17 16:40 White Blood Count 8.53 K/uL (4.8-10.8) Red Blood Count 5.45 M/uL (4.7-6.1) Hemoglobin 16.1 g/dL (14.0-18.0) Hematocrit 46.6 % (42-52) Mean Corpuscular Volume 85.5 fL (80-100) Mean Corpuscular Hemoglobin 29.5 pg (25-34) Mean Corpuscular Hemoglobin Concent 34.5 g/dl (32-36) Platelet Count 211 K/uL (130-400) Mean Platelet Volume 11.8 fL (7.4-10.4) Neutrophils (%) (Auto) 62.6 % Lymphocytes (%) (Auto) 30.6 % Monocytes (%) (Auto) 4.5 % Eosinophils (%) (Auto) 1.8 % Basophils (%) (Auto) 0.4 % Neutrophils # (Auto) 5.35 K/uL (1.4-6.5) Lymphocytes # (Auto) 2.61 K/uL (1.2-3.4) Monocytes # (Auto) 0.38 K/uL (0.11-0.59) Eosinophils # (Auto) 0.15 K/uL (0-0.5) Basophils # (Auto) 0.03 K/uL (0-0.2) RDW Standard Deviation 39.8 fL (36.4-46.3) RDW Coefficient of Variation 12.8 % (11.5-14.5) Immature Granulocyte % (Auto) 0.1 % Immature Granulocyte # (Auto) 0.01 K/uL (0.00-0.02) Anion Gap 7.0 mmol/L (3-11) Est Creatinine Clear Calc Drug Dose 218.4 ml/min Estimated GFR () 136.2 Estimated GFR (Non- 117.5 BUN/Creatinine Ratio 16.3 (10-20) Calcium Level 9.3 mg/dl (8.5-10.1) Total Bilirubin 0.3 mg/dl (0.2-1) Direct Bilirubin < 0.1 mg/dl (0-0.2) Aspartate Amino Transf (AST/SGOT) 29 U/L (15-37) Alanine Aminotransferase (ALT/SGPT) 56 U/L (12-78) Alkaline Phosphatase 101 U/L (45-117) Total Protein 7.7 gm/dl (6.4-8.2) Albumin 3.8 gm/dl (3.4-5.0) Lipase 764 U/L (73-393) Urine Color YELLOW Urine Appearance CLEAR (CLEAR) Urine pH 5.0 (4.5-7.5) Urine Specific [place] 1.040 (1.000-1.030) Urine Protein NEG (NEG) Urine Glucose (UA) 3+ (NEG) Urine Ketones TRACE (NEG) Urine Occult Blood NEG (NEG) Urine Nitrite NEG (NEG) Urine Bilirubin NEG (NEG) Urine Urobilinogen NEG (NEG) Urine Leukocyte Esterase NEG (NEG) The above labs were reviewed. Lipase is elevated at 764. The patient otherwise does not have any leukocytosis or other significant electrolyte abnormality. Random glucose is 274. Urinalysis is unremarkable. Medications Administered Medications (Trade) Dose Ordered Sig/Tip Route Start Time Stop Time Status Last Admin Dose Admin Ketorolac Tromethamine (Toradol Inj) 30 mg NOW STAT IV 09/19/17 15:34 09/19/17 15:37 DC 09/19/17 15:49 30 MG Sodium Chloride 1,000 ml @ 999 mls/hr Q1H1M STAT IV 09/19/17 15:34 12/6/17 16:34 DC 09/19/17 15:49 999 MLS/HR Ondansetron HCl (Zofran Inj) 4 mg NOW STAT IV 09/19/17 15:34 09/19/17 15:37 DC 09/19/17 15:49 4 MG Morphine Sulfate (MoRPHine SULFATE INJ) 4 mg NOW STAT IV 09/19/17 15:34 09/19/17 15:37 DC 09/19/17 15:50 4 MG Procedure 1. IV hydration: The patient was administered a normal saline 1 L bolus 2. IV medications: Toradol 30 mg, morphine 4 mg and Zofran 4 mg IVP ED Course Patient history and physical exam were performed. Nurse's notes were reviewed. Vital signs were reviewed, showing an elevated blood pressure of 151/94. The patient is also tachycardic at 123 bpm. Patient is afebrile. The patient does not appear acutely ill or toxic on initial exam. IV access was established, and labs were drawn. The patient was hydrated with normal saline because of his tachycardia and history of kidney stones. He was administered IV analgesics and antiemetics as discussed in the previous Procedure section. Review of labs shows an elevated lipase without any leukocytosis or other significant electrolyte abnormality. I did elect to also order an amylase, CRP and sedimentation rate which was pending at the time of patient discharge. Noncontrast CT of the abdomen and pelvis did not show any acute findings. The patient was advised of his findings, especially his elevated lipase. The patient reports that he has had an elevated lipase in the past. He has had an upper endoscopy and colonoscopy that have been grossly normal. At this point, he was encouraged to contact his expressive therapist for further reevaluation. He was encouraged to take Tylenol as needed for pain. The patient refused any additional prescription analgesics or antiemetics. He was instructed to return to the emergency department for any progressively worsening pain, developing fever, persistent vomiting, rectal bleeding or other concerning symptoms. The patient was happy with plan of care, voiced understanding of all discharge instructions, and denied any significant pain or nausea at the time of discharge. Medical Decision As indicated in the previous section, the patient does not have any workup findings today to suggest acute diverticulitis, bowel obstruction, appendicitis or ureteral calculi. He does have an elevated lipase which could be secondary to chronic pancreatitis. At this point the patient is afebrile and does not have a leukocytosis or physical exam findings to suggest a surgical abdomen. Urinalysis does not suggest infection. Medication Reconcilliation Current Medication List: was personally reviewed by me Blood Pressure Screening Patient's blood pressure: Normal blood pressure Impression Primary Impression: Left flank pain Additional Impression: Acute left lower quadrant pain Departure Information Referrals Doreen Clark M.D. (PCP) Patient Instructions My [facility] Problem Qualifiers
[2017-09-19 17:57] VITALS: BP 157/93; PULSE 107; O2SAT 97
[2017-09-19] MEDS ORDERED: TRAM-10 PO (17:57)
[2017-09-19 18:18] LABS: C-REACTIVE PROTEIN 0.47 mg/dl (0-0.29)
== END 2017-09-19 18:10 | disposition home or self-care (01) ==
LOC: C.EDB 15:17 → C.EDC 18:10
DX: R10.32 Left lower quadrant pain (principal); I10 Essential (primary) hypertension; E11.9 Type 2 diabetes mellitus without complications; K57.90 Diverticulosis of intestine, part unspecified, without perforation or abscess without bleeding; K57.92 Diverticulitis of intestine, part unspecified, without perforation or abscess without bleeding; J45.909 Unspecified asthma, uncomplicated; F32.9 Major depressive disorder, single episode, unspecified; F17.200 Nicotine dependence, unspecified, uncomplicated; Z86.19 Personal history of other infectious and parasitic diseases; Z87.442 Personal history of urinary calculi; Z79.4 Long term (current) use of insulin; Z79.84 Long term (current) use of oral hypoglycemic drugs; Z79.899 Other long term (current) drug therapy; Z83.3 Family history of diabetes mellitus; Z82.49 Family history of ischemic heart disease and other diseases of the circulatory system; Z84.1 Family history of disorders of kidney and ureter

== ENCOUNTER → 2017-09-27 | Outpatient (CLI) | payer OTHER ==
[~2017-09-27] MED LIST changes: +OMEP40CA41 PO; -PRLSR20 PO; +TRAM-10 PO
[2017-09-27 13:17] LABS: ESTIMATED AVERAGE GLUCOSE 272 mg/dl; HA1C FLAG Normal (Normal)
[2017-09-27 14:07] LABS: ALKALINE PHOSPHATASE 91 U/L (45-117); AST/SGOT 15 U/L (15-37); BLOOD UREA NITROGEN 15 mg/dl (7-18); CALCIUM 8.6 mg/dl (8.5-10.1); CARBON DIOXIDE 20 mmol/L (21-32); CHLORIDE 104 mmol/L (98-107); CHOLESTEROL 283 mg/dl (0-200); CREATININE 0.88 mg/dl (0.60-1.40); GLUCOSE 253 mg/dl (70-99); HDL CHOLESTEROL 27 mg/dl; POTASSIUM 4.2 mmol/L (3.5-5.1); SODIUM 135 mmol/L (136-145)
[2017-09-27 14:08] LABS: ALB/GLOB RATIO 0.8 (0.9-2); ALT/SGPT 51 U/L (12-78); BUN/CREATININE RATIO 16.5 (10-20); CHOLESTEROL/HDL RATIO 10.5; TRIGLYCERIDES 1483 mg/dl (0-150)
== END | disposition home or self-care (01) ==
LOC: C.LABPVFM 11:15
PROVIDERS: ATTEND Family Medicine
DX: I10 Essential (primary) hypertension (principal); E11.69 Type 2 diabetes mellitus with other specified complication; R74.8 Abnormal levels of other serum enzymes; E78.1 Pure hyperglyceridemia; E78.00 Pure hypercholesterolemia, unspecified

== ENCOUNTER → 2017-10-10 | Outpatient (CLI) | payer OTHER ==
[~2017-10-10] MED LIST changes: +DICL1GEL34 TOP; +GEMF600T5 PO; +HYDR-5688 PO; +IBUP200C80 PO; +INSU70IN2 SC; +LISI-726 PO; +LPD600 PO; -LPT/20 PO; +LPT20 PO; +METF500T5 PO; +NRN100 PO; +NVLGI/PEN SQ; +NVLGI7030 SC; +SIMV40TA2 PO; +SULF800T23 PO; +VNTHFA/IN INH; +ZCR40 PO
--- NOTE | 2017-10-10 13:47 | DIAGNOSTIC IMAGING REPORT ---
GASTRIC EMPTYING CLINICAL HISTORY: 32 years-old Male presenting with E11.65 Diabetes mellitus type 2, [id number]. TECHNIQUE: Following the oral administration of 1 mCi of technetium 99m sulfur colloid in egg sandwich and 8 ounces of water, static abdominal images are obtained anteriorly and posteriorly at 0 minutes, 1 hour, 2 hour, and 4 hour time intervals. Gastric emptying was calculated utilizing the geometric mean method. COMPARISON: CT of the abdomen and pelvis from 09/19/2017. FINDINGS: There is approximately 32% activity remaining at the 1 hour time interval, 1% remaining at the 2 hour time interval (normal is less than 60%), and 0% activity remaining at the 4 hour time interval (normal is less than 10%). IMPRESSION: Findings are consistent with normal gastric emptying. Electronically signed by: Tommy Grimes M.D. 10/10/2017 1:45 PM Dictated Date/Time: 10/10/2017 1:44 PM
== END | disposition home or self-care (01) ==
LOC: C.NUCL 08:37
PROVIDERS: ATTEND Physician Assistant
DX: E11.65 Type 2 diabetes mellitus with hyperglycemia (principal); R10.11 Right upper quadrant pain; R74.8 Abnormal levels of other serum enzymes; R10.13 Epigastric pain

== ENCOUNTER → 2017-10-11 | Outpatient (CLI) | payer OTHER ==
[~2017-10-11] MED LIST changes: -DICL1GEL34 TOP; -GEMF600T5 PO; -HYDR-5688 PO; -IBUP200C80 PO; -INSU70IN2 SC; -LISI-726 PO; -LPD600 PO; +LPT/20 PO; -LPT20 PO; -METF500T5 PO; -NRN100 PO; -NVLGI/PEN SQ; -NVLGI7030 SC; -SIMV40TA2 PO; +SINCALIDE IV ONE; +SODIUM CHLORIDE 0.9% IV ONE; -SULF800T23 PO; -VNTHFA/IN INH; -ZCR40 PO
--- NOTE | 2017-10-11 15:20 | DIAGNOSTIC IMAGING REPORT ---
HEPATOBILIARY EF IMAGING HISTORY: Pain. Nausea. R10.11 Abdominal pain, RUQ (right upper quadrant)[id number] COMPARISON: None. TECHNIQUE: Immediately following the intravenous administration of 5.0 mCi Tc-99m Choletec, dynamic anterior abdominal imaging pre/post 1.0 mcg of Kinevac was performed. FINDINGS: Uniform hepatic tracer accumulation is shown. Prompt intrahepatic biliary excretion is seen. The gallbladder, common bile duct, and small bowel are all visualized by 10 minutes. This appearance represents the normal sequence of biliary excretion. The gallbladder ejection fraction following administration of Kinevac was 41 % (normal >35%). IMPRESSION: 1. No evidence for cystic duct obstruction. 2. Gallbladder ejection fraction calculated to be 41 %. The above report was generated using voice recognition software. It may contain grammatical, syntax or spelling errors. Electronically signed by: Peter Thomason M.D. 10/11/2017 3:18 PM Dictated Date/Time: 10/11/2017 3:17 PM
== END | disposition home or self-care (01) ==
LOC: C.NUCL 12:43
PROVIDERS: ATTEND Physician Assistant
DX: R10.11 Right upper quadrant pain (principal)

== ENCOUNTER 2017-11-05 00:23 | Emergency (ER) | payer OTHER ==
[~2017-11-05] VITALS: Ht 193 cm; Wt 174.5 kg
[~2017-11-05 00:23] MED LIST changes: -LPT/20 PO; +LPT20 PO; -SINCALIDE IV ONE; -SODIUM CHLORIDE 0.9% IV ONE
[2017-11-05 00:25] VITALS: TEMP 36.8; Ht 193 cm; Wt 174.5 kg
[2017-11-05] MEDS ORDERED: KETOROLAC TROMETHAMINE 60 MG/2 ML VIAL IM STA (00:36)
[2017-11-05] MEDS ORDERED: OXYCODONE IR HOME PACK PO ONE (01:00)
[2017-11-05 01:16] VITALS: BP 158/97; PULSE 73; O2SAT 98
--- NOTE | 2017-11-05 01:34 | EMERGENCY ROOM VISIT NOTE ---
History First contact with patient: 00:30 Chief Complaint: BACK PAIN Stated Complaint: LOWER BACK PAIN History of Present Illness The patient is a 32 year old male who presents to the Emergency Room with complaints of low back pain that radiates down his left leg after lifting something heavy out of his car. Pain described as aching, ranging in severity 7 out of 10 worse with movement and better with rest. Patient denies loss of bowel or bladder control, abdominal pain, chest pain, dyspnea, saddle anesthesia , fever, chills, leg weakness, IV drug abuse. He has a history of back pain. No recent physical therapy. Review of Systems See HPI for pertinent positives & negatives. A total of 10 systems reviewed and were otherwise negative. Past Medical/Surgical History Medical Problems: (1) Abdominal pain (2) Abdominal pain (3) Abscess (4) Abscess of left thigh (5) Abscess of right leg (6) Abscess of right leg (7) Abscess of right thigh (8) Acute bronchitis (9) Asthma (10) Back pain (11) Back strain (12) Calculus Of Ureter (13) Cellulitis of left thigh (14) Cellulitis of right thigh (15) Cellulitis of right thigh (16) Cellulitis of thigh (17) Cellulitis, leg (18) Dental caries (19) Depressive Disorder Nec (20) Diabetes mellitus with hyperglycemia (21) Diverticulitis (22) Diverticulitis (23) Diverticulosis (24) Encounter for wound re-check (25) Flank pain (26) Foot pain (27) Headache (28) Hyperglycemia (29) Hypertension (30) Hypertension (31) Joint pain in the shoulder/clavicle region (32) Kidney stone on left side (33) Left ureteral calculus (34) Leg abscess (35) Migraine (36) Migraine (37) Morbid Obesity (38) Neck pain on right side (39) No significant active problems (40) Pilonidal abscess (41) Renal colic (42) Renal colic on left side (43) Repetitive strain injury of right foot (44) Right flank pain (45) Tobacco Use Disorder (46) Tooth pain with chewing Surgical Problems: (1) S/P PICC central line placement Family History FH: diabetes mellitus FH: hypertension FH: kidney disease Social History Smoking Status: Current Every Day Smoker Alcohol Use: none Marital Status: Housing Status: lives with family Occupation Status: employed Current/Historical Medications Scheduled Atorvastatin (Lipitor), 20 MG PO HS Insulin Glargine (Toujeo Solostar), 70 UNITS SC HS Liraglutide (Victoza), 1.8 MG SQ HS Lisinopril (Zestril), 20 MG PO HS Metformin Hcl (Metformin Hcl Er), 1,000 MG PO BID Omeprazole (Prilosec), 40 MG PO DAILY Scheduled PRN Ibuprofen (Advil), 200 MG PO TID PRN for Pain or Fever Physical Exam Vital Signs Date Time Temp Pulse Resp B/P (MAP) Pulse Ox O2 Delivery O2 Flow Rate FiO2 11/05/17 00:25 36.8 105 18 180/111 93 Room Air Physical Exam VITALS: Vitals are noted on the nurse's note and reviewed by myself. Vital signs hypertensive GENERAL: Pleasant male who appears in pain ambulating without difficulties, in no acute distress, nondiaphoretic, well-developed well-nourished. SKIN: Capillary reflex less than 2 seconds. HEENT: Normocephalic. PERRLA. EOMI. Nares patent. Mucous membranes moist. Neck is supple without nuchal rigidity. HEART: Regular rate and rhythm LUNGS: Clear to auscultation bilaterally without wheezes, rales or rhonchi. No retractions or accessory muscle use. ABDOMEN: Positive bowel sounds x 4. Normal tympanic percussion. Soft, nontender, without masses or organomegaly. Max sign negative. No guarding or rebound tenderness. No CVA tenderness MUSCULOSKELETAL: No gross musculoskeletal defects. No thoracic or lumbar tenderness on exam. Positive straight leg raise on the left. Patient can walk on toes and heels. 5 out of 5 strength lower extremities bilaterally. NEURO: Patient was alert and oriented to person place and time. Normal sensation to light and sharp touch. Deep tendon reflexes 2+ patella bilaterally. No focal neurological deficits. Medical Decision & Procedures Medications Administered Medications (Trade) Dose Ordered Sig/Tip Route Start Time Stop Time Status Last Admin Dose Admin Ketorolac Tromethamine (Toradol Inj) 60 mg NOW STAT IM 11/05/17 00:36 11/05/17 00:37 DC 11/05/17 00:46 60 MG ED Course Prior records/ancillary studies reviewed. Triage Nursing notes reviewed. The patient's history was concerning for back pain. Differential diagnosis: Etiologies such as musculoskeletal, disc herniation, fracture, aortic disease, metastatic disease, cord compression, discitis, infection, renal colic, gastrointestinal, acute exacerbation of chronic back pain, sciatica, cauda equina, as well as others were entertained. Physical findings: As above. No focal neurologic findings noted. ER treatment provided: Toradol On reassessment the patient felt better. Diagnostics interpreted by me: Deferred This appears to be consistent with lumbar radiculopathy. Patient was neurovascularly and neurologically intact. He was able to ambulate without difficulties. He was advised follow-up with family care for referral to physical therapy and to take NSAIDs as needed for pain. He is recommended to do core strengthening activities and to maintain a healthy weight. He is advised to return to the ER immediately for severe pain, inability to walk, worsening signs or symptoms or as needed. The patient's physical examination and detailed history did not reveal any red flags for back pain such as those listed in the differential diagnosis. Therefore advanced diagnostics and consultations were felt to be unwarranted. By the evaluation outlined above emergent etiologies such as fracture, aortic disease, metastatic disease, infection, renal colic, gastrointestinal, cord compression, cauda equina, as well as others were deemed relatively unlikely. The pt informed about the findings as listed above. All questions were answered and pleased with the treatment. Return instructions were outlined and the patient was discharged in stable condition. Referral: The patient was referred back to primary care physician for follow-up in 2 to 3 days for a recheck of the current condition. Medical Decision As above [place] Drug Monitoring Program Search Results: patient reviewed within database, no issues identified Medication Reconcilliation Current Medication List: was personally reviewed by me Blood Pressure Screening Patient's blood pressure: Elevated blood pressure Blood pressure disposition: Referred to PCP Impression Primary Impression: Lumbar radiculopathy Departure Information Dispostion Home / Self-Care Condition GOOD Forms HOME CARE DOCUMENTATION FORM, Work Instructions, Return To Work: 2 days IMPORTANT VISIT INFORMATION Patient Instructions My [facility], ED Sciatica Additional Instructions Your blood pressure is high, review this with the family care doctor. Oxycodone 5 mg: Take 1-2 pills every four hours for breakthrough pain. Avoid alcohol, operating machinery or dangerous equipment, working on ladders or roofs , DRIVING, or situations where being under the influence may be dangerous. It is recommended to use an awxm-aec-[id number] stool softener such as Colace, 100mg twice daily while taking this medication to avoid constipation. Ibuprofen(Motrin, Advil) may be used for fever or pain. Use 600mg every six hours as needed. Take with food. Avoid using more than 2400mg in a 24 hour period. Do not use 2400mg per day for more than three consecutive days without physician direction. Prolonged inappropriate use can lead to stomach upset or ulcers. This medication can be taken if you need to drive, work, or perform activities which may be dangerous when taking narcotic pain medication. (AND/OR) Acetaminophen(Tylenol) may be used for fever or pain. Use 1000mg every six hours as needed. Avoid using more than 3000mg in a 24 hour period. This medication can be taken if you need to drive, work, or perform activities which may be dangerous when taking narcotic pain medication. Rest and avoid heavy lifting until your symptoms resolve and then gradually return to full activity. A good rule of thumb is if it hurts your back to perform a certain activity, then it should be avoided until you are healthy again. A heating pad, warm compresses, or a hot shower may help with tight muscles and can be done several times a day as needed. Continue current medications. Return to the ER immediately for any numbness, tingling, severe pain, loss of control of your bowels or bladder, inability to walk, or as needed. Follow up with your primary care physician within 3-5 days for a recheck of your current condition. Work Instructions Return To Work: 2 days
== END 2017-11-05 01:39 | disposition home or self-care (01) ==
LOC: C.EDB 00:24 → C.EDA 01:39
DX: M54.16 Radiculopathy, lumbar region (principal); E11.9 Type 2 diabetes mellitus without complications; J45.909 Unspecified asthma, uncomplicated; Z79.4 Long term (current) use of insulin; Z79.899 Other long term (current) drug therapy; Z87.19 Personal history of other diseases of the digestive system; Z87.2 Personal history of diseases of the skin and subcutaneous tissue; Z87.448 Personal history of other diseases of urinary system; Z82.49 Family history of ischemic heart disease and other diseases of the circulatory system; Z83.3 Family history of diabetes mellitus; Z84.1 Family history of disorders of kidney and ureter; F17.200 Nicotine dependence, unspecified, uncomplicated

== ENCOUNTER → 2017-11-08 | Outpatient (CLI) | payer OTHER ==
[~2017-11-08] MED LIST changes: -TRAM-10 PO
--- NOTE | 2017-11-08 11:22 | DIAGNOSTIC IMAGING REPORT ---
L-SPINE MIN 4 VIEWS ROUTINE CLINICAL HISTORY: Back pain with radiation. COMPARISON: None FINDINGS: Minimal dextroscoliosis of the lumbar spine is noted. Vertebral body heights are maintained. There is no fracture or suspicious lesion. There is mild disc space narrowing at L5-S1. There is mild multilevel facet arthrosis. IMPRESSION: 1. No lumbar spine fracture. 2. Mild multilevel degenerative disc disease and facet arthrosis of the lumbar spine. 3. Minimal dextroscoliosis of the lumbar spine. Electronically signed by: Nagi Whiteside M.D. 11/08/2017 11:21 AM Dictated Date/Time: 11/08/2017 11:20 AM
== END | disposition home or self-care (01) ==
LOC: C.LABPVFM 10:20
PROVIDERS: ATTEND Family Medicine
DX: M54.9 Dorsalgia, unspecified (principal)

== ENCOUNTER → 2018-01-04 | Outpatient (CLI) | payer OTHER ==
--- NOTE | 2018-01-04 17:29 | DIAGNOSTIC IMAGING REPORT ---
LUMBAR SPINE W/O CONTRAST HISTORY: Back pain BACK PAIN TECHNIQUE: Multiplanar multisequence MRI of the lumbar spine was performed without the use of contrast. COMPARISON: None. FINDINGS: For the purpose of the report the L5-S1 disc space will be located on axial image 23 of 25. Normal signal characteristics the vertebral bodies. Considerable degenerative disc change at L1-L2 and to a lesser extent L5-S1. L1-L2: Mild broad-based disc herniation. Mild impact anterior thecal sac. Neuroforamina are patent bilaterally. L2-L3: Mild osteophytic narrowing right neuroforamina. L3-L4: No significant central canal or neural foraminal narrowing. L4-L5: Moderate left lateral disc herniation narrowing left neuroforamina. This is considered significant L5-S1: Broad-based central disc herniation. Moderate impact anterior thecal sac. Mild narrowing left and to lesser extent right neural foramina. Sagittal images suggest a soft tissue collection posterior to the right aspect of T12 vertebral body. This is not duplicated on any additional sequence. It potentially is artifactual although a specific MRI of the low thoracic region. Gadolinium enhancement is suggested. IMPRESSION: 1. Significant degenerative disc change L1-L2 and to lesser extent L5-S1. 2. Mild broad-based disc herniation L1-L2 3. Broad-based central disc herniation L5-S1 with moderate impact anterior thecal sac. Moderate narrowing of the neuroforamina bilaterally at L5-S1. 4. Mild/moderate osteophytic narrowing of the right neuroforamina at L2-L3. 5. Left lateral disc herniation L4-L5. Significant narrowing of the left neuroforamina.. 6. Artifact versus abnormal soft tissue posterior to the T12 vertebral body based on the sagittal images exclusively. An MRI of the low thoracic region with attention to this area with gadolinium enhancement is suggested as follow-up. The above report was generated using voice recognition software. It may contain grammatical, syntax or spelling errors. Electronically signed by: Peter Thomason M.D. 01/04/2018 5:27 PM Dictated Date/Time: 01/04/2018 5:20 PM
== END | disposition home or self-care (01) ==
PROVIDERS: ATTEND Orthopaedic Surgery Orthopaedic Surgery of the Spine
DX: M54.9 Dorsalgia, unspecified (principal); M51.26 Other intervertebral disc displacement, lumbar region

== ENCOUNTER 2018-02-26 00:14 | Emergency (ER) | payer OTHER ==
[~2018-02-26] VITALS: Ht 193 cm; Wt 170.3 kg
[2018-02-26 00:21] VITALS: TEMP 36.9; Ht 193 cm; Wt 170.3 kg
[2018-02-26] MEDS ORDERED: INSU70IN2 SC (00:45)
--- NOTE | 2018-02-26 02:02 | EMERGENCY ROOM VISIT NOTE ---
History First contact with patient: 00:34 Chief Complaint: PAIN (GENERALIZED) Stated Complaint: TAILBONE PAIN History of Present Illness The patient is a 33 year old male who presents to the Emergency Room with complaints of pain in his tailbone region. The patient reports that he has had pain in the area of the tailbone for the past 3 weeks. It is difficult for him to sit due to the pain. He states the pain is sharp and rates the discomfort as 7/10. He has not taken any medication for his pain. He states that he was initially seen by his PCP and they were not sure what is causing the pain. He does have a history of sciatica. He also has had pilonidal cysts in the past, but states that he has no swelling or redness to suggest this. He denies any numbness or weakness. He denies any radiation of pain into his legs. He has not had an injury to this area. Review of Systems A complete 10 point review of systems was reviewed with the patient with pertinent positives and negatives as per history of present illness. All else were negative. Past Medical/Surgical History Medical Problems: (1) Abdominal pain (2) Abdominal pain (3) Abscess (4) Abscess of left thigh (5) Abscess of right leg (6) Abscess of right leg (7) Abscess of right thigh (8) Acute bronchitis (9) Asthma (10) Back pain (11) Back strain (12) Calculus Of Ureter (13) Cellulitis of left thigh (14) Cellulitis of right thigh (15) Cellulitis of right thigh (16) Cellulitis of thigh (17) Cellulitis, leg (18) Dental caries (19) Depressive Disorder Nec (20) Diabetes mellitus with hyperglycemia (21) Diverticulitis (22) Diverticulitis (23) Diverticulosis (24) Encounter for wound re-check (25) Flank pain (26) Foot pain (27) Headache (28) Hyperglycemia (29) Hypertension (30) Hypertension (31) Joint pain in the shoulder/clavicle region (32) Kidney stone on left side (33) Left ureteral calculus (34) Leg abscess (35) Migraine (36) Migraine (37) Morbid Obesity (38) Neck pain on right side (39) No significant active problems (40) Pilonidal abscess (41) Renal colic (42) Renal colic on left side (43) Repetitive strain injury of right foot (44) Right flank pain (45) Tobacco Use Disorder (46) Tooth pain with chewing Surgical Problems: (1) S/P PICC central line placement Family History FH: diabetes mellitus FH: hypertension FH: kidney disease Social History Smoking Status: Current Every Day Smoker Alcohol Use: none Marital Status: Housing Status: lives with family Occupation Status: employed Current/Historical Medications Scheduled Insulin Glargine (Toujeo Solostar), 70 UNITS SC HS Insulin Isophan/Regular (Novolin 70/30), 0 SC QAM Lisinopril (Zestril), 20 MG PO HS Metformin Hcl (Metformin Hcl Er), 1,000 MG PO DAILY Omeprazole (Prilosec), 40 MG PO DAILY Physical Exam Vital Signs Date Time Temp Pulse Resp B/P (MAP) Pulse Ox O2 Delivery O2 Flow Rate FiO2 02/26/18 02:27 83 18 148/93 96 02/26/18 00:21 36.9 101 20 160/89 95 Room Air Physical Exam VITALS: Vitals are noted on the nurse's note and reviewed by myself. Vital signs stable. GENERAL: This is a 33-year-old male, in no acute distress, nondiaphoretic, well- developed well-nourished. SKIN: There is scarring to the gluteal cleft. There is no significant edema or erythema to suggest a pilonidal abscess. MUSCULOSKELETAL: Tenderness to palpation over the coccyx. NEURO: Patient was alert and oriented to person place and time. Medical Decision & Procedures ER Provider Diagnostic Interpretation: SACRUM/COCCYX: No obvious acute bony abnormalities. Per my interpretation. Medical Decision Differential diagnosis includes fracture, contusion, degenerative disc disease, pilonidal abscess, among others. The patient was evaluated as above. There is no evidence of pilonidal abscess. X-ray was reviewed by myself and does not show any obvious findings. Official radiology read pending. Patient was advised to use warm compresses over the area and take Tylenol Motrin as needed for pain. He was instructed to follow-up closely with his primary care provider for a recheck. He does have some scar tissue in the area from prior pilonidal cyst I&D, unsure if this could be contributing to pain. He may need follow-up with general surgery. He verbalized understanding of my assessment and treatment plan and was discharged home in good condition. Medication Reconcilliation Current Medication List: was personally reviewed by me Blood Pressure Screening Patient's blood pressure: Elevated blood pressure Blood pressure disposition: Elevated BP felt to be situational Impression Primary Impression: Coccygeal pain Departure Information Dispostion Home / Self-Care Condition GOOD Referrals Doreen Clark M.D. (PCP) Patient Instructions My [facility] Additional Instructions For pain control, you can use the following [id number] medicines (if >12 yo): - Regular strength (325mg/tab) Tylenol (acetaminophen) 2 tabs every 4-6 hours as needed. Do not exceed 12 tablets in a 24 hour period. Avoid taking more than 4 grams (4000 mg) of Tylenol per day. This includes any other sources of acetaminophen you may take on a regular basis. - Regular strength (200 mg/tab) Advil (ibuprofen) 1-2 tabs every 4-6 hours as needed. Do not exceed a dose of 3200 mg per day. Apply warm compresses to the tailbone as needed for pain. Contact your primary care provider to schedule follow-up. They may have you follow-up with a general surgeon. Return to the emergency department with worsening pain, fevers, swelling or other new/concerning symptoms.
[2018-02-26 02:27] VITALS: BP 148/93; PULSE 83; O2SAT 96
--- NOTE | 2018-02-26 07:44 | DIAGNOSTIC IMAGING REPORT ---
SACRUM AND COCCYX 3 VIEWS CLINICAL HISTORY: Coccygeal pain. FINDINGS: 3 views of the sacrum and coccyx are correlated with pelvic CT dated 09/19/2017. The skeletal structures are well mineralized. There is no radiographic evidence of sacrococcygeal fracture. Sclerotic degenerative change is noted in the sacroiliac joints. The pubic symphysis and hip joints are normal as imaged. The overlying soft tissues are normal as visualized. IMPRESSION: There is no radiographic evidence of sacrococcygeal fracture. Electronically signed by: Joseph Ahmadi M.D. 02/26/2018 7:43 AM Dictated Date/Time: 02/26/2018 7:42 AM
== END 2018-02-26 02:25 | disposition home or self-care (01) ==
LOC: C.EDB 00:15 → C.EDC 02:25
DX: M53.3 Sacrococcygeal disorders, not elsewhere classified (principal); E11.9 Type 2 diabetes mellitus without complications; J45.909 Unspecified asthma, uncomplicated; F32.9 Major depressive disorder, single episode, unspecified; I10 Essential (primary) hypertension; F17.210 Nicotine dependence, cigarettes, uncomplicated; Z79.4 Long term (current) use of insulin; Z79.899 Other long term (current) drug therapy

== ENCOUNTER → 2018-02-27 | Outpatient (CLI) | payer OTHER ==
[~2018-02-27] MED LIST changes: -IBUP-1050 PO; +INSU70IN2 SC; -LIRA18IN SQ; -LPT20 PO
[2018-02-27 18:21] LABS: ALBUMIN 3.3 gm/dl (3.4-5.0); ALKALINE PHOSPHATASE 104 U/L (45-117); ALT/SGPT 49 U/L (12-78); AST/SGOT 23 U/L (15-37); BLOOD UREA NITROGEN 12 mg/dl (7-18); CALCIUM 8.6 mg/dl (8.5-10.1); CARBON DIOXIDE 25 mmol/L (21-32); CREATININE 0.89 mg/dl (0.60-1.40); GLUCOSE 334 mg/dl (70-99); POTASSIUM 4.2 mmol/L (3.5-5.1); SODIUM 136 mmol/L (136-145); TOTAL PROTEIN 7.8 gm/dl (6.4-8.2)
== END | disposition home or self-care (01) ==
LOC: C.LAB1850 14:47
PROVIDERS: ATTEND Family Medicine
DX: E78.1 Pure hyperglyceridemia (principal); E78.00 Pure hypercholesterolemia, unspecified

== ENCOUNTER 2018-05-22 17:33 | Emergency (ER) | payer OTHER ==
[~2018-05-22] VITALS: Ht 193 cm; Wt 152.8 kg
[~2018-05-22 17:33] MED LIST changes: +GEMF600T5 PO; +IBUP200C80 PO; -INSU1.2I SC; -INSU70IN2 SC; +NVLGI7030 SC; +SIMV40TA2 PO; +VNTHFA/IN INH
[2018-05-22 17:37] VITALS: TEMP 36.7; Ht 193 cm; Wt 152.8 kg
[2018-05-22] MEDS ORDERED: NRN100 PO (18:19)
[2018-05-22] MEDS ORDERED: DICL1GEL34 TOP (18:19)
[2018-05-22] MEDS ORDERED: LPD600 PO (18:19)
[2018-05-22] MEDS ORDERED: ZCR40 PO (18:19)
[2018-05-22] MEDS ORDERED: METF500T5 PO (18:19)
[2018-05-22] MEDS ORDERED: LISI-726 PO (18:19)
--- NOTE | 2018-05-22 18:23 | EMERGENCY ROOM VISIT NOTE ---
History First contact with patient: 17:44 Chief Complaint: FOOT PAIN Stated Complaint: RIGHT FOOT SWELLING AND WARM TO TOUCH History of Present Illness The patient is a 33 year old male who presents to the Emergency Room with complaints of pain in his right foot. The patient reports a history of plantar fasciitis of his right foot. He also has neuropathy. He sees [facility]. He states that today when he woke up, his pain was an 8/10 and his toes were swollen. He states that his pain is normally a 5-6/10 on a daily basis. He has taken ibuprofen and Tylenol without relief. He feels like the foot is slightly warm to touch, but denies redness or fevers. He called the on- call nurse who told him to come here to be evaluated for possible infection. He denies any recent trauma to the foot. Review of Systems A complete 6 point review of systems was reviewed with the patient with pertinent positives and negatives as per history of present illness. All else were negative. Past Medical/Surgical History Medical Problems: (1) Abdominal pain (2) Abdominal pain (3) Abscess (4) Abscess of left thigh (5) Abscess of right leg (6) Abscess of right leg (7) Abscess of right thigh (8) Acute bronchitis (9) Asthma (10) Back pain (11) Back strain (12) Calculus Of Ureter (13) Cellulitis of left thigh (14) Cellulitis of right thigh (15) Cellulitis of right thigh (16) Cellulitis of thigh (17) Cellulitis, leg (18) Dental caries (19) Depressive Disorder Nec (20) Diabetes mellitus with hyperglycemia (21) Diverticulitis (22) Diverticulitis (23) Diverticulosis (24) Encounter for wound re-check (25) Flank pain (26) Foot pain (27) Headache (28) Hyperglycemia (29) Hypertension (30) Hypertension (31) Joint pain in the shoulder/clavicle region (32) Kidney stone on left side (33) Left ureteral calculus (34) Leg abscess (35) Migraine (36) Migraine (37) Morbid Obesity (38) Neck pain on right side (39) No significant active problems (40) Pilonidal abscess (41) Renal colic (42) Renal colic on left side (43) Repetitive strain injury of right foot (44) Right flank pain (45) Tobacco Use Disorder (46) Tooth pain with chewing Surgical Problems: (1) S/P PICC central line placement Family History FH: diabetes mellitus FH: hypertension FH: kidney disease Social History Smoking Status: Current Every Day Smoker Alcohol Use: none Marital Status: Housing Status: lives with family Occupation Status: employed Current/Historical Medications Scheduled Diclofenac Sodium (Topical) (Diclofenac Sodium), 2 GM TOP QID Gabapentin (Gabapentin), 100 MG PO TID Gemfibrozil (Gemfibrozil), 600 MG PO HS Insulin Aspart 70/30 (Novolog Mix 70/30), 60 UNITS SC QAM Insulin Aspart 70/30 (Novolog Mix 70/30), 70 UNITS SC QPM Lisinopril (Lisinopril), 20 MG PO HS Metformin Hcl Er (Glucophage Er), 500 MG PO AMPM Omeprazole (Prilosec), 40 MG PO HS Simvastatin (Simvastatin), 40 MG PO HS Scheduled PRN Albuterol Hfa (Ventolin Hfa), 2 PUFFS INH Q6H PRN for Shortness of Breath Ibuprofen (Ibuprofen), 200 MG PO UD PRN for Pain Physical Exam Vital Signs Date Time Temp Pulse Resp B/P (MAP) Pulse Ox O2 Delivery O2 Flow Rate FiO2 05/22/18 18:40 98 20 150/106 97 05/22/18 17:37 36.7 110 18 150/97 97 Room Air Physical Exam VITALS: Vitals are noted on the nurse's note and reviewed by myself. Vital signs stable. GENERAL: This is a 33-year-old male, in no acute distress, nondiaphoretic, well- developed well-nourished. SKIN: There is no erythema, no warmth or rashes. MUSCULOSKELETAL: The right foot is tender to palpation of the plantar aspect. Full range of motion of the ankle and all toes. Capillary refill within 2 seconds. No erythema or warmth to suggest cellulitic changes. NEURO: Patient was alert and oriented to person place and time. Distal sensation intact. Medical Decision & Procedures Medical Decision Differential diagnosis includes chronic foot pain, cellulitis, septic joint, gout, rheumatoid disorder, among others. The patient was evaluated as above. He is concerned for possible infection or gout. There is no erythema or warmth to suggest infection. He does not have any joint pain to suggest gout. The patient was reassured. He was advised to continue follow-up with orthopedics for his chronic foot pain. He verbalized understanding of my assessment and treatment plan and was discharged home in good condition. Impression Primary Impression: Right foot pain Departure Information Dispostion Home / Self-Care Condition GOOD Referrals Doreen Clark M.D. (PCP) Theodore Kwan D.O. Patient Instructions My [facility] Additional Instructions You have been treated in the Emergency Department for foot pain. For pain control, you can use the following [id number]-ersncfj medicines (if >12 yo): - Regular strength (325mg/tab) Tylenol (acetaminophen) 2 tabs every 4-6 hours as needed. Do not exceed 12 tablets in a 24 hour period. Avoid taking more than 4 grams (4000 mg) of Tylenol per day. This includes any other sources of acetaminophen you may take on a regular basis. - Regular strength (200 mg/tab) Advil (ibuprofen) 1-2 tabs every 4-6 hours as needed. Do not exceed a dose of 3200 mg per day. If this is a recent injury (<24 hrs), ice can be applied to the area of pain for the first 3 days to help decrease pain and inflammation. Follow-up with orthopedics as needed for any persistent pain. Return to the Emergency Department if your current symptoms worsen despite treatment course outlined above, or if you develop any of the following symptoms : intractable pain despite aforementioned treatment course or new onset of numbness or tingling of the foot.
[2018-05-22 18:40] VITALS: BP 150/106; PULSE 98; O2SAT 97
== END 2018-05-22 18:41 | disposition home or self-care (01) ==
LOC: C.EDB 17:34 → C.EDD 18:41
DX: M79.671 Pain in right foot (principal); J45.909 Unspecified asthma, uncomplicated; E11.65 Type 2 diabetes mellitus with hyperglycemia; I10 Essential (primary) hypertension; F17.200 Nicotine dependence, unspecified, uncomplicated; Z79.84 Long term (current) use of oral hypoglycemic drugs; Z79.4 Long term (current) use of insulin; Z79.899 Other long term (current) drug therapy

== ENCOUNTER → 2018-05-31 | Outpatient (CLI) | payer OTHER ==
[~2018-05-31] MED LIST changes: +DICL1GEL34 TOP; -GEMF600T5 PO; -LISI-725 PO; +LISI-726 PO; +LPD600 PO; -METF1TAB85 PO; +METF500T5 PO; +NRN100 PO; -SIMV40TA2 PO; +SULF800T23 PO; +ZCR40 PO
[2018-05-31 14:15] LABS: BASO % 0.4 %; BASO ABS # 0.03 K/uL (0-0.2); EOS % 2.1 %; EOS ABS # 0.17 K/uL (0-0.5); HEMATOCRIT 45.8 % (42-52); HEMOGLOBIN 15.6 g/dL (14.0-18.0); IG# 0.02 K/uL (0.00-0.02); LYMPH % 25.9 %; MEAN CELL VOLUME 83.7 fL (80-100); MEAN CORPUSCULAR HEMOGLOBIN 28.5 pg (25-34); MEAN CORPUSCULAR HGB CONC 34.1 g/dl (32-36); MEAN PLATELET VOLUME 11.9 fL (7.4-10.4); MONO % 7.7 %; MONO ABS # 0.62 K/uL (0.11-0.59); NEUT % 63.7 %; NEUT ABS # 5.16 K/uL (1.4-6.5); PLATELET COUNT 233 K/uL (130-400); RED CELL DISTRIBUTION WIDTH CV 12.7 % (11.5-14.5); RED CELL DISTRIBUTION WIDTH SD 38.1 fL (36.4-46.3)
== END | disposition home or self-care (01) ==
LOC: C.LAB1850 12:36
PROVIDERS: ATTEND Physician Assistant
DX: M77.41 Metatarsalgia, right foot (principal)

== ENCOUNTER 2018-06-06 02:25 | Emergency (ER) | payer OTHER ==
[~2018-06-06] VITALS: Ht 193 cm; Wt 165.0 kg
[~2018-06-06 02:25] MED LIST changes: -SULF800T23 PO
[2018-06-06 02:30] VITALS: TEMP 36.6; Ht 193 cm; Wt 165.0 kg
[2018-06-06] MEDS ORDERED: LIDOCAINE 1% BUFFERED INJ 20 ML VIAL INFIL ONE (02:45)
[2018-06-06 03:05] VITALS: BP 127/102; PULSE 115; O2SAT 96
[2018-06-06] MEDS ORDERED: SULF800T23 PO (03:07)
[2018-06-06] MEDS ORDERED: SEPTRA DS HOME PACK 1 EA VIAL PO ONE (03:15)
--- NOTE | 2018-06-07 01:53 | EMERGENCY ROOM VISIT NOTE ---
History First contact with patient: 02:29 Chief Complaint: WOUND INFECTION Stated Complaint: CYST ON LEFT LEG Nursing Triage Summary: redness and hard lump to posterior L leg. History of Present Illness The patient is a 33 year old male who presents to the Emergency Room with complaints of pain and redness to his left leg. The patient is diabetic and has had multiple abscesses in the past. He believes that he has another one. The patient states that his underwear and shorts rub on the area, which has been increasing in pain over the past 5 or 6 days. The patient has not had fever or chills. He has not taken anything xzah-xuf-ncogzus for his discomfort. His sugars have been reportedly in the mid 100s. He rates his discomfort a 6/10. Review of Systems More than 10 systems were reviewed and otherwise negative with the exception of history of present illness. Past Medical/Surgical History Medical Problems: (1) Abdominal pain (2) Abdominal pain (3) Abscess (4) Abscess of left thigh (5) Abscess of right leg (6) Abscess of right leg (7) Abscess of right thigh (8) Acute bronchitis (9) Asthma (10) Back pain (11) Back strain (12) Calculus Of Ureter (13) Cellulitis of left thigh (14) Cellulitis of right thigh (15) Cellulitis of right thigh (16) Cellulitis of thigh (17) Cellulitis, leg (18) Dental caries (19) Depressive Disorder Nec (20) Diabetes mellitus with hyperglycemia (21) Diverticulitis (22) Diverticulitis (23) Diverticulosis (24) Encounter for wound re-check (25) Flank pain (26) Foot pain (27) Headache (28) Hyperglycemia (29) Hypertension (30) Hypertension (31) Joint pain in the shoulder/clavicle region (32) Kidney stone on left side (33) Left ureteral calculus (34) Leg abscess (35) Migraine (36) Migraine (37) Morbid Obesity (38) Neck pain on right side (39) No significant active problems (40) Pilonidal abscess (41) Renal colic (42) Renal colic on left side (43) Repetitive strain injury of right foot (44) Right flank pain (45) Tobacco Use Disorder (46) Tooth pain with chewing Surgical Problems: (1) S/P PICC central line placement Family History FH: diabetes mellitus FH: hypertension FH: kidney disease Social History Smoking Status: Current Every Day Smoker Alcohol Use: none Marital Status: Housing Status: lives with family Occupation Status: employed Current/Historical Medications Scheduled Diclofenac Sodium (Topical) (Diclofenac Sodium), 2 GM TOP QID Gabapentin (Gabapentin), 100 MG PO TID Gemfibrozil (Gemfibrozil), 600 MG PO HS Insulin Aspart 70/30 (Novolog Mix 70/30), 60 UNITS SC QAM Insulin Aspart 70/30 (Novolog Mix 70/30), 70 UNITS SC QPM Lisinopril (Lisinopril), 20 MG PO HS Metformin Hcl Er (Glucophage Er), 500 MG PO AMPM Omeprazole (Prilosec), 40 MG PO HS Simvastatin (Simvastatin), 40 MG PO HS Sulfa/Trimethoprim (Bactrim Ds 800MG/160MG), 1 TAB PO BID Scheduled PRN Albuterol Hfa (Ventolin Hfa), 2 PUFFS INH Q6H PRN for Shortness of Breath Ibuprofen (Ibuprofen), 200 MG PO UD PRN for Pain Physical Exam Vital Signs Date Time Temp Pulse Resp B/P (MAP) Pulse Ox O2 Delivery O2 Flow Rate FiO2 06/06/18 03:05 115 16 127/102 96 Room Air 06/06/18 02:30 36.6 115 20 143/93 98 Room Air Physical Exam VITALS: Vitals are noted on the nurse's note and reviewed by myself. Vital signs stable. GENERAL: Well-developed, well-nourished, white male, who is in no acute distress and resting comfortably. Patient is cooperative with the examination. HEAD: Normocephalic atraumatic. HEART: Regular rate and rhythm without murmurs gallops or rubs. LUNGS: Clear to auscultation bilaterally without wheezes, rales or rhonchi. No retractions or accessory muscle use. SKIN: The skin was with a 2.0 cm abscess along the medial proximal left lower leg. This is with fluctuance. There is mild erythema surrounding this Medical Decision & Procedures Medications Administered Medications (Trade) Dose Ordered Sig/Tip Route Start Time Stop Time Status Last Admin Dose Admin Trimethoprim/ Sulfamethoxazole (Sulfameth/ Trimeth Ds 800/ 160MG Home Pack) 1 homepack UD ONCE PO 06/06/18 03:15 06/06/18 03:16 DC 06/06/18 03:13 1 HOMEPACK Procedure I examined the patient. Verbal consent was obtained to perform the procedure. After saline and Betadine cleansing and 4 mL of 1% buffered lidocaine anesthesia , the abscess was incised with a number 11 scalpel blade. A large amount of purulent material was released with more expressed by pressure. A swab was obtained for culture. The abscess cavity was further probed with a needle charter coach driver and the deep pocket expressed. The abscess cavity was then copiously irrigated with sterile saline under pressure. The area was then packed with bacitracin soaked packing. The area was cleaned with sterile saline and dressed with bacitracin and a bulky bandage. The patient tolerated the procedure well. ED Course Physical exam and history were performed. Nursing notes, EMR, and Medication List were personally reviewed. Patient appears to have an abscess on his left inner thigh. This was incised and drained as above. Culture was sent. The patient is diabetic and I will start him on a course of Bactrim pending the culture. The patient was given wound care instructions and asked to follow-up in the ER with his primary care physician in the next 2-3 days for recheck. The chart was completed utilizing [employer] Speech Voice Recognition Software. Grammatical errors, random word insertions, pronoun errors, and incomplete sentences are an occasional consequence of this system due to software limitations, ambient noise, and hardware issues. Any formal questions or concerns about the content, text, or information contained within the body of this dictation should be directly addressed to the provider for clarification. . Medical Decision Differential diagnosis: Etiologies such as cellulitis, abscess, MRSA infection, DVT, necrotizing fasciitis, dermatitis, drug eruption, as well as others were entertained.. Impression Primary Impression: Abscess of leg Departure Information Dispostion Home / Self-Care Condition GOOD Prescriptions Sulfa/Trimethoprim (Bactrim Ds 800MG/160MG) Tab 1 TAB PO BID for 9 Days, #18 TAB Prov: Dalton Love PA-C 06/06/18 Forms HOME CARE DOCUMENTATION FORM, IMPORTANT VISIT INFORMATION Patient Instructions My [facility] Additional Instructions You were seen and evaluated today on an emergency basis only. This is not a substitute for, or an effort to provide, complete comprehensive medical care. It is not possible to recognize and treat all injuries or illnesses in a single emergency department visit. For this reason it is recommended that you followup with your primary care physician or back in the emergency department in 2-3 days for recheck. Trimethoprim-Sulfamethoxazole(Bactrim DS): Take one pill twice daily for 10 days for your skin infection. All antibiotics can cause diarrhea. If this occurs and you feel worse or it does not resolve in 1-2 days follow up with your doctor or return to the Emergency Department as this could be signs of serious underlying problems. Any medication can cause an allergic reaction, stop the pills immediately and return to the ER for rash, hives, breathing difficulties, or swelling. You are welcome to return to the emergency department anytime with new, worsening, or concerning symptoms.
== END 2018-06-06 03:14 | disposition home or self-care (01) ==
LOC: C.EDB 02:26 → C.EDA 03:14
DX: L02.416 Cutaneous abscess of left lower limb (principal); E11.65 Type 2 diabetes mellitus with hyperglycemia; E11.628 Type 2 diabetes mellitus with other skin complications; Z79.3 Long term (current) use of hormonal contraceptives; I10 Essential (primary) hypertension; F17.200 Nicotine dependence, unspecified, uncomplicated; Z87.2 Personal history of diseases of the skin and subcutaneous tissue

== ENCOUNTER 2018-12-29 21:50 | Inpatient (IN) ==
[2018-12-29] MEDS ORDERED: SODIUM CHLORIDE 0.9% 1000ML 1,000 ML IV ONE ×2 (22:01→23:15)
[2018-12-29] MEDS ORDERED: PIPERACILLIN/TAZOBACTAM 4.5 GM/120 ML BAG IV ONE (22:01)
[2018-12-29] MEDS ORDERED: PIPERACILL/TAZOBAC CONSULT ACTIVE PRN (22:01)
--- NOTE | 2018-12-29 22:28 | XRay Report ---
XR chest 1V portable CLINICAL HISTORY: Sepsis COMPARISON STUDY: 08/18/2018 FINDINGS: The heart is at the upper limits of normal in size. There is no failure. There is no focal pulmonary consolidation. There are no pleural effusions.[ IMPRESSION: No active disease in the chest. Electronically signed by: Indra Haley M.D. 12/29/2018 10:26 PM
--- NOTE | 2018-12-29 22:37 | Emergency Department Note ---
History of Present Illness General Chief complaint: Groin Pain Stated complaint: INFECTION IN GROIN History of Present Illness Maximum Pain Intensity: 8 This 33-year-old diabetic with poorly controlled glucose presents to the ER complaining of left groin infection is getting progressively worse he was seen here yesterday Location: Left groin Quality: Throbbing Severity: Moderate Duration: Past few days Timing: Started a few days ago Context: Pain got worse and patient came in Modifying factors: better with nothing; worse with palpation Patient is been taking his Augmentin as directed. His blood sugars been over 400. Patient feels slightly achy and nauseous. Patient denies chest pain, dyspnea, abdominal pain, vomiting, diarrhea, back pain, testicular pain, penile pain. He does have a history of cellulitis to this region. No history of FG. Home Medications Home Medications Medication Instructions Recorded Confirmed Type albuterol sulfate [Proventil HFA] 2 inha INH Q6H PRN #8 gm 08/18/18 12/29/18 Rx lisinopril 20 mg PO HS 08/18/18 12/29/18 History metformin 1,000 mg PO QPM 08/18/18 12/29/18 History omeprazole 40 mg PO HS 08/18/18 12/29/18 History simvastatin 40 mg PO HS 08/18/18 12/29/18 History Medical Marijuana 1 applic TOPICAL DAILY 11/30/18 12/29/18 History insulin aspart U-100 [Novolog 0 unit SUBCUT TID 11/30/18 12/29/18 History Flexpen U-100 Insulin] insulin glargine U-300 conc 160 units SUBCUT BID 11/30/18 12/29/18 History [Toujeo Max U-300 SoloStar] amoxicillin-pot clavulanate 1 tab PO BID 14 Days #28 tab 12/28/18 12/29/18 Rx [Augmentin] Allergies Allergy/AdvReac Type Severity Reaction Status Date / Time cefaclor Allergy Unknown HAD Verified 12/29/18 22:39 REACTION BABY - DOES NOT REMEMBER EXACT REACTION Cephalosporins Allergy Unknown rxn as Verified 12/29/18 22:39 baby; has tolerated Augmentin 2016 Past Med/Surg History Medical History Diabetes Diverticulitis (Resolved) Migraine (Resolved) Renal colic (Resolved) Kidney stone on left side (Resolved) Abscess of leg (Acute) Abscess of right leg (Resolved) Cellulitis of right thigh (Resolved) Pilonidal abscess (Resolved) Surgical History History of ankle surgery History of lithotripsy History of renal stent Family History Other Diabetes Hypertension Social History Preferred Language: Kyrgyz Beliefs That Will Affect Care: None Current Living Situation: Family Current Living Situation Comment: AND KIDS Feels Safe at Home: Yes Smoking Status: Current every day smoker Hx Alcohol Use: Yes Hx Substance Use: Yes (marijuana) Review of Systems All systems reviewed & are unremarkable except as noted in HPI & below Physical Exam Vital Signs Vital Signs - 24 hr 12/29/18 21:52 12/29/18 22:01 12/29/18 23:50 Temperature 36.4 C L Temperature Source Oral Sepsis Recent Fever Within 48 Hours No Sepsis Action Taken by Nursing No Action Required Pulse Rate 118 H Pulse Rate [Left Finger] 96 H Pulse Rhythm Regular Pulse Strength Normal Respiratory Rate 18 18 Respiratory Effort / Characteristics Non-Labored Spontaneous Normal for Patient Respiratory Depth Normal Respiratory Pattern Regular Blood Pressure 181/114 H Blood Pressure [Left Arm] 128/69 Blood Pressure Mean 136 Blood Pressure Mean [Left Arm] 88 Blood Pressure Position Sitting Blood Pressure Position [Left Arm] Lying Pulse Oximetry 94 97 Oxygen Delivery Method Room Air Room Air Room Air VITALS: Vitals are noted on the nurse's note and reviewed by myself. Vital signs hypertensive and tachycardic. GENERAL: White male morbidly obese who smells of marijuana and tobacco, in no acute distress, nondiaphoretic, well-developed well-nourished. SKIN: The skin was without rashes, erythema, edema, or bruising. There is no tenting of the skin. Capillary reflex less than 2 seconds. HEAD: Normocephalic atraumatic. EARS: External auditory canals clear, tympanic membranes pearly munoz without erythema or effusion bilaterally. EYES: Pupils equal round and reactive to light and accommodation. Conjunctivae without injection, sclerae without icterus. Extraocular movements intact. NOSE: Patent, turbinates without inflammation or discharge. MOUTH: Mucous membranes moist. Pharynx without erythema or exudate. Uvula midline. Airway patent. Tongue does not deviate. NECK: Supple without nuchal rigidity. No lymphadenopathy. No thyromegaly. Cervical spine is nontender. No JVD. HEART: Regular rate and rhythm without murmurs gallops or rubs. LUNGS: Clear to auscultation bilaterally without wheezes, rales or rhonchi. No retractions or accessory muscle use. ABDOMEN: Positive bowel sounds x 4. Normal tympanic percussion. Soft, protuberant, obese, nontender, without masses or organomegaly. Max sign negative. No guarding or rebound tenderness. No CVA tenderness exam: Left groin region erythematous and edematous concerning for infection, no testicular pain or penile pain. Raised Printer present. Minimal tenderness in the perineum. MUSCULOSKELETAL: No muscle atrophy, erythema, or edema noted. NEURO: Patient was alert and oriented to person place and time. Normal sensation to light and sharp touch. No focal neurological deficits. Course Administered Medications Ioversol (Optiray 320 100ml) 93 ml IV ONCE PRN PRN Reason: Interaction Checking Stop: 01/03/19 00:12 Last Admin: 12/30/18 00:13 Dose: 1 ml Documented by: [id number] Discontinued Medications Sodium Chloride (Nss 1000ml) 1,000 mls @ 999 mls/hr IV .Q1H1M ONE Stop: 12/29/18 23:01 Last Infusion: 12/29/18 23:30 Dose: 0 mls/hr Documented by: [id number] Admin: 12/29/18 22:29 Dose: 999 mls/hr Documented by: [id number] Piperacillin Sod/Tazobactam Sod (Zosyn) 4.5 gm in 120 mls @ 240 mls/hr IV NOW ONE Stop: 12/29/18 22:30 Last Infusion: 12/29/18 23:00 Dose: 0 mls/hr Documented by: [id number] Admin: 12/29/18 22:29 Dose: 240 mls/hr Documented by: [id number] Sodium Chloride (Nss 1000ml) 1,000 mls @ 999 mls/hr IV .Q1H1M ONE Stop: 12/30/18 00:15 Last Infusion: 12/30/18 00:35 Dose: 0 mls/hr Documented by: [id number] Admin: 12/29/18 23:30 Dose: 999 mls/hr Documented by: [id number] Medical Decision Making Medical Records Attestation: I reviewed the patient's medical records. Home Medications Current Medication List: was personally reviewed by me Laboratory Data Attestation: I reviewed the patient's lab results. Result diagrams: 12/29/18 22:15 12/29/18 22:15 Lab Results 12/29/18 12/29/18 12/29/18 Range/Units 22:15 22:15 22:15 WBC 9.64 (4.8-10.8) K/uL RBC 4.91 (4.7-6.1) M/uL Hgb 14.6 (14.0-18.0) g/dL Hct 41.6 L (42-52) % MCV 84.7 (80-100) fL MCH 29.7 (25-34) pg MCHC 35.1 (32-36) g/dL RDW Std Deviation 37.7 (36.4-46.3) fL RDW Coeff of Gricel 12.3 (11.5-14.5) % Plt Count 190 (130-400) K/uL MPV 11.6 H (7.4-10.4) fL Immature Gran % (Auto) 0.2 % Neut % (Auto) 65.8 % Lymph % (Auto) 24.7 % [place] % (Auto) 7.4 % Eos % (Auto) 1.8 % Baso % (Auto) 0.1 % Immature Gran # (Auto) 0.02 (0.00-0.02) K/uL Neut # (Auto) 6.35 (1.4-6.5) K/uL Lymph # (Auto) 2.38 (1.2-3.4) K/uL [place] # (Auto) 0.71 H (0.11-0.59) K/uL Eos # (Auto) 0.17 (0-0.5) K/uL Baso # (Auto) 0.01 (0-0.2) K/uL PT 9.5 (9.0-12.0) Seconds INR 0.9 (0.9-1.1) APTT 24.2 (21.0-31.0) Seconds PTT Ratio 0.9 VBG pH (7.36-7.41) VBG pCO2 (38-50) mmHg VBG pO2 mmHg VBG HCO3 mmol/L VBG O2 Saturation % VBG Base Excess mEq/L Barometric Pressure mm/Hg Sodium 137 (136-145) mmol/L Potassium 4.1 (3.5-5.1) mmol/L Chloride 102 (98-107) mmol/L Carbon Dioxide 22 (21-32) mmol/L Anion Gap 12.0 H (3-11) BUN 13 (7-18) mg/dl Creatinine 0.97 (0.6-1.4) mg/dl Est Cr Clr Drug Dosing 186.2 ml/min Est GFR ( Amer) 120.1 Est GFR (Non-Af Amer) 103.6 BUN/Creatinine Ratio 13.8 (10-20) Glucose 401 H* (70-99) mg/dl POC Lactic Acid John (0.90-1.70) mmol/L Calcium 8.1 L (8.5-10.1) mg/dl Total Bilirubin 0.4 (0.2-1) mg/dl AST 19 (15-37) U/L ALT 51 (12-78) U/L Alkaline Phosphatase 91 (45-117) U/L Total Protein 7.3 (6.4-8.2) gm/dl Albumin 2.9 L (3.4-5.0) gm/dl Globulin 4.4 H (2.5-4.0) gm/dl Albumin/Globulin Ratio 0.7 L (0.9-2) Beta-Hydroxybutyric Acd 2.09 (0.2-2.81) mg/dl Procalcitonin (0-0.5) ng/ml Specimen Hemolysis Urine Color Urine Appearance (Clear) Urine pH (4.5-7.5) Ur Specific [place] (1.000-1.030) Urine Protein (Negative) Urine Glucose (UA) (Negative) Urine Ketones (Negative) Urine Blood (Negative) Urine Nitrite (Negative) Urine Bilirubin (Negative) Urine Urobilinogen (Negative) Ur Leukocyte Esterase (Negative) Urine Opiates Screen (Neg) Ur Methadone, Qual (Neg) Urine Barbiturates (Neg) Ur Phencyclidine (PCP) (Neg) U Amphetamin/Meth Scrn (Neg) MDMA (Ecstasy) Screen (Neg) U Benzodiazepines Scrn (Neg) Ur Cocaine Metabolite (Neg) U Marijuana (THC) Screen (Neg) 12/29/18 12/29/18 12/29/18 Range/Units 22:15 22:22 22:27 WBC (4.8-10.8) K/uL RBC (4.7-6.1) M/uL Hgb (14.0-18.0) g/dL Hct (42-52) % MCV (80-100) fL MCH (25-34) pg MCHC (32-36) g/dL RDW Std Deviation (36.4-46.3) fL RDW Coeff of Gricel (11.5-14.5) % Plt Count (130-400) K/uL MPV (7.4-10.4) fL Immature Gran % (Auto) % Neut % (Auto) % Lymph % (Auto) % [place] % (Auto) % Eos % (Auto) % Baso % (Auto) % Immature Gran # (Auto) (0.00-0.02) K/uL Neut # (Auto) (1.4-6.5) K/uL Lymph # (Auto) (1.2-3.4) K/uL [place] # (Auto) (0.11-0.59) K/uL Eos # (Auto) (0-0.5) K/uL Baso # (Auto) (0-0.2) K/uL PT (9.0-12.0) Seconds INR (0.9-1.1) APTT (21.0-31.0) Seconds PTT Ratio VBG pH 7.39 (7.36-7.41) VBG pCO2 44 (38-50) mmHg VBG pO2 35 mmHg VBG HCO3 27 mmol/L VBG O2 Saturation 71.5 % VBG Base Excess 1.2 mEq/L Barometric Pressure 736.1 mm/Hg Sodium (136-145) mmol/L Potassium (3.5-5.1) mmol/L Chloride (98-107) mmol/L Carbon Dioxide (21-32) mmol/L Anion Gap (3-11) BUN (7-18) mg/dl Creatinine (0.6-1.4) mg/dl Est Cr Clr Drug Dosing ml/min Est GFR ( Amer) Est GFR (Non-Af Amer) BUN/Creatinine Ratio (10-20) Glucose (70-99) mg/dl POC Lactic Acid John 2.78 H (0.90-1.70) mmol/L Calcium (8.5-10.1) mg/dl Total Bilirubin (0.2-1) mg/dl AST (15-37) U/L ALT (12-78) U/L Alkaline Phosphatase (45-117) U/L Total Protein (6.4-8.2) gm/dl Albumin (3.4-5.0) gm/dl Globulin (2.5-4.0) gm/dl Albumin/Globulin Ratio (0.9-2) Beta-Hydroxybutyric Acd (0.2-2.81) mg/dl Procalcitonin < 0.05 (0-0.5) ng/ml Specimen Hemolysis Urine Color Urine Appearance (Clear) Urine pH (4.5-7.5) Ur Specific [place] (1.000-1.030) Urine Protein (Negative) Urine Glucose (UA) (Negative) Urine Ketones (Negative) Urine Blood (Negative) Urine Nitrite (Negative) Urine Bilirubin (Negative) Urine Urobilinogen (Negative) Ur Leukocyte Esterase (Negative) Urine Opiates Screen (Neg) Ur Methadone, Qual (Neg) Urine Barbiturates (Neg) Ur Phencyclidine (PCP) (Neg) U Amphetamin/Meth Scrn (Neg) MDMA (Ecstasy) Screen (Neg) U Benzodiazepines Scrn (Neg) Ur Cocaine Metabolite (Neg) U Marijuana (THC) Screen (Neg) 12/29/18 12/29/18 Range/Units 23:40 23:40 WBC (4.8-10.8) K/uL RBC (4.7-6.1) M/uL Hgb (14.0-18.0) g/dL Hct (42-52) % MCV (80-100) fL MCH (25-34) pg MCHC (32-36) g/dL RDW Std Deviation (36.4-46.3) fL RDW Coeff of Gricel (11.5-14.5) % Plt Count (130-400) K/uL MPV (7.4-10.4) fL Immature Gran % (Auto) % Neut % (Auto) % Lymph % (Auto) % [place] % (Auto) % Eos % (Auto) % Baso % (Auto) % Immature Gran # (Auto) (0.00-0.02) K/uL Neut # (Auto) (1.4-6.5) K/uL Lymph # (Auto) (1.2-3.4) K/uL [place] # (Auto) (0.11-0.59) K/uL Eos # (Auto) (0-0.5) K/uL Baso # (Auto) (0-0.2) K/uL PT (9.0-12.0) Seconds INR (0.9-1.1) APTT (21.0-31.0) Seconds PTT Ratio VBG pH (7.36-7.41) VBG pCO2 (38-50) mmHg VBG pO2 mmHg VBG HCO3 mmol/L VBG O2 Saturation % VBG Base Excess mEq/L Barometric Pressure mm/Hg Sodium (136-145) mmol/L Potassium (3.5-5.1) mmol/L Chloride (98-107) mmol/L Carbon Dioxide (21-32) mmol/L Anion Gap (3-11) BUN (7-18) mg/dl Creatinine (0.6-1.4) mg/dl Est Cr Clr Drug Dosing ml/min Est GFR ( Amer) Est GFR (Non-Af Amer) BUN/Creatinine Ratio (10-20) Glucose (70-99) mg/dl POC Lactic Acid John (0.90-1.70) mmol/L Calcium (8.5-10.1) mg/dl Total Bilirubin (0.2-1) mg/dl AST (15-37) U/L ALT (12-78) U/L Alkaline Phosphatase (45-117) U/L Total Protein (6.4-8.2) gm/dl Albumin (3.4-5.0) gm/dl Globulin (2.5-4.0) gm/dl Albumin/Globulin Ratio (0.9-2) Beta-Hydroxybutyric Acd (0.2-2.81) mg/dl Procalcitonin (0-0.5) ng/ml Specimen Hemolysis Urine Color Yellow Urine Appearance Clear (Clear) Urine pH 6.0 (4.5-7.5) Ur Specific [place] 1.042 H (1.000-1.030) Urine Protein Negative (Negative) Urine Glucose (UA) 3+ H (Negative) Urine Ketones Trace H (Negative) Urine Blood Negative (Negative) Urine Nitrite Negative (Negative) Urine Bilirubin Negative (Negative) Urine Urobilinogen Negative (Negative) Ur Leukocyte Esterase Negative (Negative) Urine Opiates Screen Neg (Neg) Ur Methadone, Qual Neg (Neg) Urine Barbiturates Neg (Neg) Ur Phencyclidine (PCP) Neg (Neg) U Amphetamin/Meth Scrn Neg (Neg) MDMA (Ecstasy) Screen Neg (Neg) U Benzodiazepines Scrn Neg (Neg) Ur Cocaine Metabolite Neg (Neg) U Marijuana (THC) Screen Pos H (Neg) MDM Narrative Prior records reviewed and summarized as above. Triage Nursing notes reviewed. The patient's history was concerning for swelling and redness of the skin. Differential diagnosis: Etiologies such as FG, cellulitis, abscess, MRSA infection, DVT, necrotizing fasciitis, dermatitis, drug eruption, as well as others were entertained.. Physical examination: As above ER treatment provided: Zosyn IV, IV fluids On reassessment the patient felt better. Diagnostics interpreted by me: The labs revealed hyperglycemia without DKA. Elevated lactic acid Hyperglycemia Blood cultures pending Imaging studies: Preliminary Findings Only See Final Report For Complete Findings CT PELVIS: Small nodular lesion or collection the left perineum where marked. Soft tissue edema. No soft tissue gas. Small left hydrocele. Radiologist: Chuck Lan M.D. Ultrasound was reviewed from yesterday Consultation: A consultation was placed with Dr. Hopson, hospitalist. The case was discussed and diagnostics were reviewed. The patient was evaluated in the ER for further treatment. This appears to be groin cellulitis that is progressively getting worse. Patient will be evaluated by medicine for admission. He was seen yesterday and infection has progressed. Blood sugar is high. His lactic acid is high. He was given broad-spectrum antibiotics. No signs of FG. Patient is agreeable to treatment plan of admission. By the evaluation outlined above emergent etiologies such as necrotizing fasciitis, DVT, as well as others were deemed relatively unlikely. The pt informed about the findings as listed above. All questions were answered and pleased with the treatment. Case reviewed with my attending The chart was completed utilizing [employer] voice recognition software. Grammatical errors, random word insertions, pronoun errors, and incomplete sentences are an occassional consequence of this system due to software limitations, ambient noise, and hardware issues. Any formal questions or conc erns about the content, text, or information contained within the body of this dictation should be directly addressed to the physician engineer assistant for clarification. Impression & Plan Cellulitis of groin, left, Diabetes mellitus with hyperglycemia Discharge Plan Visit Data Chief Complaint: Groin Pain Stated Complaint: INFECTION IN GROIN ED Provider: Chuy Solomon ED Midlevel Provider: Ladonna Ness Discharge Problem: Cellulitis of groin, left, Diabetes mellitus with hyperglycemia Patient Disposition: Being Evaluated by Hospitalist Condition: Good Forms Stand Alone Forms: My [facility] [place] Prescriptions Prescriptions: No Action lisinopril 20 mg tablet 20 mg PO HS RF: 0 metformin 500 mg tablet extended release 24 hr 1,000 mg PO QPM RF: 0 omeprazole 40 mg capsule,delayed release(DR/EC) 40 mg PO HS RF: 0 simvastatin 40 mg tablet 40 mg PO HS RF: 0 albuterol sulfate [Proventil HFA] 90 mcg/actuation HFA aerosol inhaler 2 inha INH Q6H PRN (Reason: shortness of breath or wheezing) Qty: 8 RF: 0 Medical Marijuana 1 applic topical DAILY RF: 0 Novolog Flexpen U-100 Insulin 100 unit/mL insulin pen subcut TID RF: 0 Toujeo Max U-300 SoloStar 300 unit/mL (3 mL) insulin pen 160 units subcut BID RF: 0 amoxicillin-pot clavulanate [Augmentin] 875-125 mg tablet 1 tab PO BID 14 Days Qty: 28 RF: 0 Referrals Referrals: Doreen Clark MD [Primary Care Provider] -
[2018-12-29 22:41] LABS: Basophils # (auto) 0.01 K/uL (0-0.2); Basophils % (auto) 0.1 %; Eosinophils # (auto) 0.17 K/uL (0-0.5); Eosinophils % (auto) 1.8 %; Hematocrit (blood only) 41.6 % (42-52); Hemoglobin 14.6 g/dL (14.0-18.0); Immature Granulocytes # (auto) 0.02 K/uL (0.00-0.02); Immature Granulocytes % (auto) 0.2 %; Lymphocytes # (auto) 2.38 K/uL (1.2-3.4); Lymphocytes % (auto) 24.7 %; Mean Corpuscular Hgb Conc 35.1 g/dL (32-36); Mean Corpuscular Volume 84.7 fL (80-100); Mean Platelet Volume 11.6 fL (7.4-10.4); Monocytes # (auto) 0.71 K/uL (0.11-0.59); Monocytes % (auto) 7.4 %; Neutrophils # (auto) 6.35 K/uL (1.4-6.5); Neutrophils % (auto) 65.8 %; Platelet Count 190 K/uL (130-400); RDW Coefficient of Variation 12.3 % (11.5-14.5); RDW Standard Deviation 37.7 fL (36.4-46.3); Red Blood Count 4.91 M/uL (4.7-6.1); White Blood Count 9.64 K/uL (4.8-10.8)
[2018-12-29 22:41] LABS: Base Excess VBG 1.2 mEq/L; Oxygen Saturation VBG 71.5 %; pH VBG 7.39 (7.36-7.41)
[2018-12-29 22:42] LABS: INR 0.9 (0.9-1.1); Partial Thromboplastin Ratio 0.9; Partial Thromboplastin Time 24.2 Seconds (21.0-31.0); Prothrombin Time 9.5 Seconds (9.0-12.0)
[2018-12-29 23:10] LABS: Albumin Globulin Ratio 0.7 (0.9-2); Albumin Level 2.9 gm/dl (3.4-5.0); BUN Creatinine Ratio 13.8 (10-20); Bilirubin,Total 0.4 mg/dl (0.2-1); Calcium 8.1 mg/dl (8.5-10.1); Creatinine Clr Calc Pharmacy 186.2 ml/min; Est GFR (African American) 120.1; Est GFR (Non-African American) 103.6; Globulin 4.4 gm/dl (2.5-4.0); Potassium 4.1 mmol/L (3.5-5.1); Total Protein 7.3 gm/dl (6.4-8.2)
[2018-12-29 23:30] LABS: Beta-Hydroxybutyrate 2.09 mg/dl (0.2-2.81)
[2018-12-29 23:58] LABS: Appearance Urine Clear (Clear); Bilirubin Urine Negative (Negative); Blood Urine Negative (Negative); Color Urine Yellow; Glucose Urine UA 3+ (Negative); Ketones Urine Trace (Negative); Leukocyte Esterase Urine Negative (Negative); Nitrite Urine Negative (Negative); Protein Urine Negative (Negative); Specific Gravity Urine 1.042 (1.000-1.030); Urobilinogen Urine Negative (Negative)
[2018-12-30] MEDS ORDERED: IOVERSOL 100ml IV PRN (00:13)
[2018-12-30 00:16] LABS: Amphetamines+Metham, Urine Neg (Neg); Barbiturates, Urine Neg (Neg); Benzodiazepine, Urine Neg (Neg); Cocaine, Urine Neg (Neg); MDMA (Ecstacy), Urine Neg (Neg); Methadone, Urine Neg (Neg); Opiate, Urine Neg (Neg); Phencyclidine, Urine Neg (Neg)
--- NOTE | 2018-12-30 01:33 | History & Physical Report ---
Date of Service December 30, 2018 Assessment & Plan (1) Abscess or cellulitis of perineum: Presently afebrile, hemodynamically stable. Presented with tachycardia with HR 126 now improved with IVF. CT with possible fluid collection, soft tissue edema, no gas. No evidence of Fornier's * Admit to medical floor * Follow culture results * Broad spectrum antibiotics with Vancomycin, Zosyn and Clindamycin * Urology consultation - appreciate assistance with this case * Tylenol as needed for pain or fever\ Present on Admission?: Yes (2) Tachycardia: HR of 126 on arrival, now 93 s/p IVF. Sinus. * Continue IVF NSS at 125mL/hr x 2 liters Present on Admission?: Yes (3) Diabetes mellitus with hyperglycemia: Patient with Type II DM, on insulin therapy, Toujeo 160u BID and Novolog with meals. Poorly controlled with AIC 10.2 on 09/30/18. Blood sugar presently 401. Trace ketones on UA. No anion gap or acidemia on other labs. * Continue Toujeo 160u BID * ISS coverage * Repeat AIC * Consider diabetes education (4) Hypertension: Blood pressure stable at present. * Continue Lisinopril * COnitnue to monitor (5) Hyperlipidemia: Chronic * Continue Simvastatin F/E/N - NSS at 125mL/hr x 2 liters, monitor electrolytes and replete as needed, CC diet as tolerated Ppx - Lovenox for DVT prophylaxis, Omeprazole Code - Full Dispo -Med surge History of Present Illness Chief Complaint: Perineal pain Primary Care Provider: Doreen Clark MD Mr. Crandall is a 33yo C male with history of poorly controlled DM on insulin therapy presenting with perineal infection. Patient with history of the same and was admitted in August. He was treated with broad spectrum antibiotics. He was evaluated by Urology, no surgical intervention pursued. Thought to have perineal cellulitis rather than abscess. Patient was discharged home to complete a course of Augmentin. He reports that the lesion drained pus for 2-3 days after he returned home. He completed his prescribed antibiotics. He presents today with perineal pain that started on Sunday. Patient started having perineal itching, pain and noted a firm, tender lesion. This increased in size fairly quickly. He was evaluated in the ER yesterday and was discharged on Augmentin with instruction to return if the pain becomes worse or if the lesion increases in size. He reports that the lesion has increased in size and has become more tender since returning from the ER yesterday. He denies fevers/chills/nausea/vomiting/diarrhea or constipation. No additional complaints at this time. Reports compliance with his insulin regimen. He is to followup with Endocrine tomorrow. ER Course: Zosyn, NSS x 2 liters Allergies Allergy/AdvReac Type Severity Reaction Status Date / Time cefaclor Allergy Unknown HAD Verified 12/29/18 22:39 REACTION BABY - DOES NOT REMEMBER EXACT REACTION Cephalosporins Allergy Unknown rxn as Verified 12/29/18 22:39 baby; has tolerated Augmentin 2016 Home Medications Home Medications Medication Instructions Recorded Confirmed Type albuterol sulfate [Proventil HFA] 2 inha INH Q6H PRN #8 gm 08/18/18 12/29/18 Rx lisinopril 20 mg PO HS 08/18/18 12/29/18 History metformin 1,000 mg PO QPM 08/18/18 12/29/18 History omeprazole 40 mg PO HS 08/18/18 12/29/18 History simvastatin 40 mg PO HS 08/18/18 12/29/18 History Medical Marijuana 1 applic TOPICAL DAILY 11/30/18 12/29/18 History insulin aspart U-100 [Novolog 0 unit SUBCUT TID 11/30/18 12/29/18 History Flexpen U-100 Insulin] insulin glargine U-300 conc 160 units SUBCUT BID 11/30/18 12/29/18 History [Toujeo Max U-300 SoloStar] amoxicillin-pot clavulanate 1 tab PO BID 14 Days #28 tab 12/28/18 12/29/18 Rx [Augmentin] Past Med/Surg History Medical History Diabetes Diverticulitis (Resolved) Migraine (Resolved) Renal colic (Resolved) Kidney stone on left side (Resolved) Abscess of leg (Acute) Abscess of right leg (Resolved) Cellulitis of right thigh (Resolved) Pilonidal abscess (Resolved) Surgical History History of ankle surgery History of lithotripsy History of renal stent Family History Other Diabetes Hypertension Social History Preferred Language: Tajik Beliefs That Will Affect Care: None Current Living Situation: Family Current Living Situation Comment: AND KIDS Feels Safe at Home: Yes Smoking Status: Current every day smoker Hx Alcohol Use: Yes Hx Substance Use: Yes (marijuana) Review of Systems All systems reviewed & are unremarkable except as noted in HPI & below Physical Exam Vital Signs (Past 24 Hours): Last Vital Signs Temp 36.4 C L 12/29/18 21:52 Pulse 96 H 12/29/18 23:50 Resp 18 12/29/18 23:50 BP 128/69 12/29/18 23:50 Pulse Ox 97 12/29/18 23:50 Physical Exam: General: patient resting comfortably, NAD, non-toxic in appearance, AA&O x 4 Skin: warm, dry, intact, no rashes or lesions HEENT: NC/AT, PERRL, EOMI, anicteric sclera, conjunctiva without injection, external ear normal to inspection and nontender, nares patent, moist mucus membranes, poor dentition, no oropharyngeal lesions, neck supple, trachea midline, no LAD, no thyromegaly, no JVD Heart: +S1/S2, regular, no m/r/g Lungs: equal air entry bilaterally, no rales/rhonchi/wheezes Abd: +BS, soft, NT/ND, no masses/organomegaly/ascites Ext: warm, 2+ pulses in UE/LE bilaterally, no clubbing/cyanosis or edema, Firm area on perineum, tender to palpation, thickened skin, no appreciable fluctuance or fluid collection, no LAD. Old abscess in right groin. Neuro: nonfocal, patient AA&O x 4, speech intact, no facial droop, moving all extremities on command with equal strength 5/5 Results & Data Diagnostic Findings CT PELVIS: * Small nodular lesion or collection in the left perineum where marked. Soft tissue edema. No soft tissue gas. Small left hydrocele Code Status & VTE Plan Code Status FULL VTE Prophylaxis Plan VTE Prophylaxis will be ordered: Yes (1) Diabetes mellitus with hyperglycemia Diabetes mellitus type: type 2 Diabetes mellitus skilled nursing insulin use: with skilled nursing use Qualified Code(s): E11.65 - Type 2 diabetes mellitus with hyperglycemia; Z79.4 - penitentiary (current) use of insulin (2) Hypertension Hypertension type: essential hypertension Qualified Code(s): I10 - Essential (primary) hypertension (3) Hyperlipidemia Hyperlipidemia type: unspecified Qualified Code(s): E78.5 - Hyperlipidemia, unspecified
[2018-12-30] MEDS ORDERED: ONDANSETRON INJ 2 MG/ML 2 ML VIAL IV PRN (03:55)
[2018-12-30] MEDS ORDERED: GLUCOSE 10 TABS/TUBE PO PRN (03:55)
[2018-12-30] MEDS ORDERED: ACETAMINOPHEN 325 MG TAB PO PRN (03:55)
[2018-12-30] MEDS ORDERED: GLUCOSE 40% GEL 15 GM TUBE PO PRN (03:55)
[2018-12-30] MEDS ORDERED: GLUCAGON FOR INJ 1 MG VIAL SQ PRN (03:55)
[2018-12-30] MEDS ORDERED: PIPERACILL/TAZOBAC CONSULT ACTIVE PRN (03:55)
[2018-12-30] MEDS ORDERED: DEXTROSE 50% 50 ML SYRINGE IV PRN (03:55)
[2018-12-30] MEDS ORDERED: CARBOHYDRATES FOR HYPOGLYCEMIA PO PRN (03:55)
[2018-12-30] MEDS ORDERED: VANCOMYCIN HCL 2,750 MG in SODIUM CHLORIDE 0.9% 500 ML IV ONE (04:00)
[2018-12-30] MEDS: SODIUM CHLORIDE 0.9% 1000ML 1,000 ML IV SCH ×2 (04:27→14:22)
[2018-12-30] MEDS: LISINOPRIL 20 MG TAB PO SCH ×2 (04:35→21:22)
[2018-12-30] MEDS: PANTOprazole 40 MG TAB PO SCH ×2 (04:36→21:22)
[2018-12-30] MEDS: SIMVASTATIN 40 MG TAB PO SCH ×2 (04:36→21:22)
[2018-12-30] MEDS: CLINDAMYCIN 600 MG in DEXTROSE 5% 50 ML IV SCH ×3 (04:39→21:41)
[2018-12-30] MEDS: PIPERACILLIN/TAZOBACTAM 4.5 GM in DEXTROSE 5% 100 ML IV SCH ×3 (04:39→19:40)
[2018-12-30] MEDS ORDERED: VANCOMYCIN CONSULT ACTIVE PRN (07:11)
--- NOTE | 2018-12-30 07:38 | CT Scan Report ---
CT pelvis w/IV con only HISTORY: Left groin infection. TECHNIQUE: Multiaxial CT images of the pelvis are performed following the use of intravenous contrast . COMPARISON STUDY: Abdomen and pelvis CT 08/24/2018. FINDINGS: Subcutaneous edema and mild subcutaneous fat stranding within the left perineum adjacent to the scrotum. This is best seen on image 62 of 83. There is a 1.4 cm small subcutaneous nodular focus at this location which favors phlegmon. No definite peripheral enhancement to suggest an abscess. Mi ldly enlarged left inguinal lymph node which is likely reactive. No perirectal abscess identified. Th e visualized loops of bowel show no wall thickening or obstruction. No suspicious lytic or blastic os seous lesions. IMPRESSION: A small nodular focus within the left perineum adjacent to the scrotum with associated subcutaneous e dagmar and mild subcutaneous fat stranding. This favors phlegmon. No definite abscess at this time. Electronically signed by: Jermaine Bustos M.D. 12/30/2018 7:36 AM
[2018-12-30] MEDS: ENOXAPARIN INJ 40 MG/0.4 ML SYR SQ SCH (08:04)
[2018-12-30] MEDS: INSULIN ASPART 100 UNITS/ML 3 ML PEN SC SCH ×4 (08:06→21:25)
--- NOTE | 2018-12-30 08:49 | Pharmacy Report ---
Pharmacy Abx Dose Short Note - Date of Service December 30, 2018 - Assessment & Plan Assessment * 33 year old M with perineal cellulitis on Zosyn, clindamycin, and vancomycin * WBC wnl, afebrile, hemodynamically stable * SCr 0.97 mg/dL, CrCL >100 mL/min Vancomycin * 16 mg/kg loading dose administered early this AM (max dose 2750 mg received) * Will continue ongoing maintenance near max - 2000 mg IV q8h * Will obtain level prior to 4th dose - of note, if this is significantly subtherapeutic, may need to use alternative agent for MRSA coverage as vancomycin dose cannot be significantly increased due to risk of toxicity Plan * Vancomycin 2000 mg IV q8h * Trough 12/31 @ 0330 Pharmacy will continue to follow and will adjust dose/frequency as necessary. Thank you.
[2018-12-30] MEDS ORDERED: INSULIN GLARGINE 100 UNIT/ML VIAL SC ONE (09:00)
--- NOTE | 2018-12-30 09:26 | Urology Consultation ---
Date of Consultation December 30, 2018 Assessment & Plan (1) Abscess or cellulitis of perineum: L perineal cellulitis, poorly controlled DM. VS stable, afebrile Care discussed with patient and Dr. Vincent. Recommend General surgery evaluation to establish care and monitor for possible rectal source of recurrence of perineal abscesses. No obvious abscess, fluctuance or sign of FG - no indication for I&D or surgical intervention at this time. Continue broad spectrum abx. Thank you for the consultation, will continue to monitor with primary service. History of Present Illness Reason for Consultation: perineal infection Requesting Physician: Dr. Garcia Attending Physician: Dwayne Garcia MD History of Present Illness 33yo M with PMHx poorly controlled diabetes with chronically elevated bsg in 220-320 range was admitted for evaluation of left perineal lesion. Evaluated in ED on 12/28 after lesion "doubled in size" in 24hours, discharged home with augmentin. Presented back to [facility] ED on 12/29 with worsening pain and tenderness to the area. +lactic acid, and tachycardia upon admission - improved with IVF's and broad spectrum abx. CT imaging reviewed - soft tissue edema and mild subcutaneous fat stranding with L perineum adj to scrotum. No obvious abscess, no evidence of FG. BCx pending Hx multiple small abscesses that require antibiotics and lancing. Recently completed course of bactrim for R thigh abscess. Most recent hospitalization in August 2018for similar infection, resolved with IV abx and eventually drained spontaneously. Did not require surgical intervention. Pt was sleeping upon entering room for evaluation, quickly aroused to verbal stimulation. Eating regular diet. Denies fever/chills, n/v. Denies constipation or diarrhea. Denies dysuria or hematuria. Denies difficulty voiding. Rating pain from 8/10 in L perineal abscess. Hx stones - last episode >6 years ago which required URS, LL. Allergies Allergy/AdvReac Type Severity Reaction Status Date / Time cefaclor Allergy Unknown HAD Verified 12/29/18 22:39 REACTION BABY - DOES NOT REMEMBER EXACT REACTION Cephalosporins Allergy Unknown rxn as Verified 12/29/18 22:39 baby; has tolerated Augmentin 2016 Home Medications Home Medications Medication Instructions Recorded Confirmed Type albuterol sulfate [Proventil HFA] 2 inha INH Q6H PRN #8 gm 08/18/18 12/29/18 Rx lisinopril 20 mg PO HS 08/18/18 12/29/18 History metformin 1,000 mg PO QPM 08/18/18 12/29/18 History omeprazole 40 mg PO HS 08/18/18 12/29/18 History simvastatin 40 mg PO HS 08/18/18 12/29/18 History Medical Marijuana 1 applic TOPICAL DAILY 11/30/18 12/29/18 History insulin aspart U-100 [Novolog 0 unit SUBCUT TID 11/30/18 12/29/18 History Flexpen U-100 Insulin] insulin glargine U-300 conc 160 units SUBCUT BID 11/30/18 12/29/18 History [Toujeo Max U-300 SoloStar] amoxicillin-pot clavulanate 1 tab PO BID 14 Days #28 tab 12/28/18 12/29/18 Rx [Augmentin] Patient History Medical History Diabetes Diverticulitis (Resolved) Migraine (Resolved) Renal colic (Resolved) Kidney stone on left side (Resolved) Abscess of leg (Acute) Abscess of right leg (Resolved) Cellulitis of right thigh (Resolved) Pilonidal abscess (Resolved) Surgical History History of ankle surgery History of lithotripsy History of renal stent Family History Other Diabetes Hypertension Social History Preferred Language: O[place]i Communication Ability: Effective Public Address System Installer Required: No Beliefs That Will Affect Care: None Current Living Situation: Family Current Living Situation Comment: AND KIDS Feels Safe at Home: Yes Safety Concerns: Feels Safe At This Time Smoking Status: Current every day smoker Hx Alcohol Use: Yes Hx Substance Use: No Review of Systems Constitutional: + sweats; no fever, no chills and no weakness Eyes: no problem reported Ear, Nose, Mouth, Throat: no ear pain and no tinnitus Respiratory: no cough and no dyspnea Cardiovascular: no chest pain Gastrointestinal: no abdominal pain and no early satiety Genitourinary (Male): no dysuria, no urinary hesitancy, no hematuria, no flank pain and no penile discharge see integrumentary Musculoskeletal: no back pain Integumentary: + lesions; no acne Neurologic: no falls, no paralysis, no numbness and no paresthesia Psychiatric: no behavioral changes and no depression Endocrine: no fatigue Hematologic / Lymphatic: no easy bleeding Allergy / Immunological: no lip swelling and no tongue swelling Physical Exam Vital Signs (Past 24 Hours): Last Vital Signs Temp 36.4 C L 12/30/18 06:55 Pulse 86 12/30/18 06:55 Resp 18 12/30/18 06:55 BP 108/78 12/30/18 06:55 Pulse Ox 97 12/30/18 06:55 Constitutional: + obese; + not well nourished, no acute distress and not ill a ppearing Eyes: no nystagmus ENMT: Ears: no hearing impairment and no external ear abnormality Neck: trachea midline Respiratory: no respiratory distress, no labored breathing and does not use accessory muscles Cardiovascular: Rate/Rhythm: + abnormal rate Heart Sounds: no murmur Chest (Breasts): Chest: + abnormal inspection of chest and no mass Gastrointestinal (Abdomen): Inspection/Auscultation: abdomen not distended and no abdominal edema Musculoskeletal: Head/Neck/Chest: + abnormal head shape and + neck not supple Skin: no rashes, warm and dry + induration; no rashes L perineal lesion - discrete, indurated, warm, tender and erythematous area approximately 1in x 1.5in. No fluctuance or drainage. Neurologic: awake; not confused and not obtunded Motor/Sensory: no tremor Psychiatric: Orientation: alert and oriented x 3 Eye Contact: good eye contact Mood: no depressed mood Thought Process: goal directed thought process Thought Content: no worthlessness Genitourinary: no testicular masses, no penis abnormality Lymphatic: no cervical or axillary lymphadenopathy Results & Data Laboratory Results Laboratory Results - last 48 hr 12/29/18 12/29/18 12/29/18 22:15 22:15 22:15 WBC 9.64 RBC 4.91 Hgb 14.6 Hct 41.6 L MCV 84.7 MCH 29.7 MCHC 35.1 RDW Std Deviation 37.7 RDW Coeff of Gricel 12.3 Plt Count 190 MPV 11.6 H Immature Gran % (Auto) 0.2 Neut % (Auto) 65.8 Lymph % (Auto) 24.7 [place]led[place] % (Auto) 7.4 Eos % (Auto) 1.8 Baso % (Auto) 0.1 Immature Gran # (Auto) 0.02 Neut # (Auto) 6.35 Lymph # (Auto) 2.38 [place] # (Auto) 0.71 H Eos # (Auto) 0.17 Baso # (Auto) 0.01 PT 9.5 INR 0.9 APTT 24.2 PTT Ratio 0.9 VBG pH VBG pCO2 VBG pO2 VBG HCO3 VBG O2 Saturation VBG Base Excess Barometric Pressure Sodium 137 Potassium 4.1 Chloride 102 Carbon Dioxide 22 Anion Gap 12.0 H BUN 13 Creatinine 0.97 Est Cr Clr Drug Dosing 186.2 Est GFR ( Amer) 120.1 Est GFR (Non-Af Amer) 103.6 BUN/Creatinine Ratio 13.8 Glucose 401 H* POC Glucose POC Lactic Acid John Lactate Calcium 8.1 L Total Bilirubin 0.4 AST 19 ALT 51 Alkaline Phosphatase 91 Total Protein 7.3 Albumin 2.9 L Globulin 4.4 H Albumin/Globulin Ratio 0.7 L Beta-Hydroxybutyric Acd 2.09 Procalcitonin Specimen Hemolysis Urine Color Urine Appearance Urine pH Ur Specific [place] Urine Protein Urine Glucose (UA) Urine Ketones Urine Blood Urine Nitrite Urine Bilirubin Urine Urobilinogen Ur Leukocyte Esterase Urine Opiates Screen Ur Methadone, Qual Urine Barbiturates Ur Phencyclidine (PCP) U Amphetamin/Meth Scrn MDMA (Ecstasy) Screen U Benzodiazepines Scrn Ur Cocaine Metabolite U Marijuana (THC) Screen 12/29/18 12/29/18 12/29/18 22:15 22:22 22:27 WBC RBC Hgb Hct MCV MCH MCHC RDW Std Deviation RDW Coeff of Gricel Plt Count MPV Immature Gran % (Auto) Neut % (Auto) Lymph % (Auto) [place] % (Auto) Eos % (Auto) Baso % (Auto) Immature Gran # (Auto) Neut # (Auto) Lymph # (Auto) [place] # (Auto) Eos # (Auto) Baso # (Auto) PT INR APTT PTT Ratio VBG pH 7.39 VBG pCO2 44 VBG pO2 35 VBG HCO3 27 VBG O2 Saturation 71.5 VBG Base Excess 1.2 Barometric Pressure 736.1 Sodium Potassium Chloride Carbon Dioxide Anion Gap BUN Creatinine Est Cr Clr Drug Dosing Est GFR ( Amer) Est GFR (Non-Af Amer) BUN/Creatinine Ratio Glucose POC Glucose POC Lactic Acid John 2.78 H Lactate Calcium Total Bilirubin AST ALT Alkaline Phosphatase Total Protein Albumin Globulin Albumin/Globulin Ratio Beta-Hydroxybutyric Acd Procalcitonin < 0.05 Specimen Hemolysis Urine Color Urine Appearance Urine pH Ur Specific [place] Urine Protein Urine Glucose (UA) Urine Ketones Urine Blood Urine Nitrite Urine Bilirubin Urine Urobilinogen Ur Leukocyte Esterase Urine Opiates Screen Ur Methadone, Qual Urine Barbiturates Ur Phencyclidine (PCP) U Amphetamin/Meth Scrn MDMA (Ecstasy) Screen U Benzodiazepines Scrn Ur Cocaine Metabolite U Marijuana (THC) Screen 12/29/18 12/29/18 12/30/18 23:40 23:40 03:07 WBC RBC Hgb Hct MCV MCH MCHC RDW Std Deviation RDW Coeff of Gricel Plt Count MPV Immature Gran % (Auto) Neut % (Auto) Lymph % (Auto) [place] % (Auto) Eos % (Auto) Baso % (Auto) Immature Gran # (Auto) Neut # (Auto) Lymph # (Auto) [place] # (Auto) Eos # (Auto) Baso # (Auto) PT INR APTT PTT Ratio VBG pH VBG pCO2 VBG pO2 VBG HCO3 VBG O2 Saturation VBG Base Excess Barometric Pressure Sodium Potassium Chloride Carbon Dioxide Anion Gap BUN Creatinine Est Cr Clr Drug Dosing Est GFR ( Amer) Est GFR (Non-Af Amer) BUN/Creatinine Ratio Glucose POC Glucose 237 H POC Lactic Acid John Lactate Calcium Total Bilirubin AST ALT Alkaline Phosphatase Total Protein Albumin Globulin Albumin/Globulin Ratio Beta-Hydroxybutyric Acd Procalcitonin Specimen Hemolysis Urine Color Yellow Urine Appearance Clear Urine pH 6.0 Ur Specific [place] 1.042 H Urine Protein Negative Urine Glucose (UA) 3+ H Urine Ketones Trace H Urine Blood Negative Urine Nitrite Negative Urine Bilirubin Negative Urine Urobilinogen Negative Ur Leukocyte Esterase Negative Urine Opiates Screen Neg Ur Methadone, Qual Neg Urine Barbiturates Neg Ur Phencyclidine (PCP) Neg U Amphetamin/Meth Scrn Neg MDMA (Ecstasy) Screen Neg U Benzodiazepines Scrn Neg Ur Cocaine Metabolite Neg U Marijuana (THC) Screen Pos H 12/30/18 12/30/18 07:32 07:37 WBC RBC Hgb Hct MCV MCH MCHC RDW Std Deviation RDW Coeff of Gricel Plt Count MPV Immature Gran % (Auto) Neut % (Auto) Lymph % (Auto) [place]ledso[place] % (Auto) Eos % (Auto) Baso % (Auto) Immature Gran # (Auto) Neut # (Auto) Lymph # (Auto) [place] # (Auto) Eos # (Auto) Baso # (Auto) PT INR APTT PTT Ratio VBG pH VBG pCO2 VBG pO2 VBG HCO3 VBG O2 Saturation VBG Base Excess Barometric Pressure Sodium Potassium Chloride Carbon Dioxide Anion Gap BUN Creatinine Est Cr Clr Drug Dosing Est GFR ( Amer) Est GFR (Non-Af Amer) BUN/Creatinine Ratio Glucose POC Glucose 215 H POC Lactic Acid John Lactate 1.3 Calcium Total Bilirubin AST ALT Alkaline Phosphatase Total Protein Albumin Globulin Albumin/Globulin Ratio Beta-Hydroxybutyric Acd Procalcitonin Specimen Hemolysis Urine Color Urine Appearance Urine pH Ur Specific [place] Urine Protein Urine Glucose (UA) Urine Ketones Urine Blood Urine Nitrite Urine Bilirubin Urine Urobilinogen Ur Leukocyte Esterase Urine Opiates Screen Ur Methadone, Qual Urine Barbiturates Ur Phencyclidine (PCP) U Amphetamin/Meth Scrn MDMA (Ecstasy) Screen U Benzodiazepines Scrn Ur Cocaine Metabolite U Marijuana (THC) Screen
[2018-12-30 09:55] LABS: Estimated Average Glucose 275 mg/dl; Hemoglobin A1C 11.2 % (4.5-5.6)
--- NOTE | 2018-12-30 10:54 | Hospitalist Progress Note ---
Date of Service December 30, 2018 Assessment & Plan (1) Abscess or cellulitis of perineum: Presently afebrile, hemodynamically stable. Presented with tachycardia with HR 126 now improved with IVF. CT with likely phlegmon. No evidence of Fornier's * Follow culture results * Broad spectrum antibiotics with Vancomycin, Zosyn and Clindamycin * Urology consultation - no need for surgical intervention at this time * Will add [place] 5mg q6h prn for pain control (2) Tachycardia: Resolved * Continue IVF NSS at 125mL/hr x 2 liters (3) Diabetes mellitus with hyperglycemia: Patient with Type II DM, on insulin therapy, Toujeo 160u BID and Novolog with meals. Poorly controlled with AIC 10.2 on 09/30/18. Blood sugar presently 401. Trace ketones on UA. No anion gap or acidemia on other labs. 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 * Continue Lisinopril * COnitnue to monitor (5) Hyperlipidemia: Chronic * Continue Simvastatin (6) DVT prophylaxis: Lovenox full code Subjective Mr. Crandall is having 8/10 pain at infection site. No chills, aches, or fevers. No other complaints. Review of Systems All systems reviewed & are unremarkable except as noted in HPI & below Physical Exam Vital Signs (Past 24 Hours): Last Vital Signs Temp 36.4 C L 12/30/18 06:55 Pulse 86 12/30/18 06:55 Resp 18 12/30/18 06:55 BP 108/78 12/30/18 06:55 Pulse Ox 97 12/30/18 06:55 Physical Exam: General: diaphoretic, no distress Eyes: normal inspection, PERLL Respiratory: chest non tender, clear to auscultation, normal breath sounds, no respiratory distress, no accessory muscle use Cardiac: regular rate and rhythm, no rub or gallop, no murmur, no edema, no jvd GI/: active bowel sounds, no abd pain or tenderness, soft, non distended Extremities: normal range of motion, normal strength, non tender Neuro/Psych: alert and oriented x 3, normal mood and affect Skin: normal color, dry, left scrotal/groin induration and redness, no drainage Results & Data Laboratory Results Abnormal lab results 12/29/18 12/29/18 12/29/18 Range/Units 22:15 22:15 22:22 Hct 41.6 L (42-52) % MPV 11.6 H (7.4-10.4) fL [place] # (Auto) 0.71 H (0.11-0.59) K/uL Anion Gap 12.0 H (3-11) Glucose 401 H* (70-99) mg/dl POC Glucose (70-99) Hemoglobin A1c (4.5-5.6) % POC Lactic Acid John 2.78 H (0.90-1.70) mmol/L Calcium 8.1 L (8.5-10.1) mg/dl Albumin 2.9 L (3.4-5.0) gm/dl Globulin 4.4 H (2.5-4.0) gm/dl Albumin/Globulin Ratio 0.7 L (0.9-2) Ur Specific [place] (1.000-1.030) Urine Glucose (UA) (Negative) Urine Ketones (Negative) U Marijuana (THC) Screen (Neg) 12/29/18 12/29/18 12/30/18 Range/Units 23:40 23:40 03:07 Hct (42-52) % MPV (7.4-10.4) fL [place] # (Auto) (0.11-0.59) K/uL Anion Gap (3-11) Glucose (70-99) mg/dl POC Glucose 237 H (70-99) Hemoglobin A1c (4.5-5.6) % POC Lactic Acid John (0.90-1.70) mmol/L Calcium (8.5-10.1) mg/dl Albumin (3.4-5.0) gm/dl Globulin (2.5-4.0) gm/dl Albumin/Globulin Ratio (0.9-2) Ur Specific [place] 1.042 H (1.000-1.030) Urine Glucose (UA) 3+ H (Negative) Urine Ketones Trace H (Negative) U Marijuana (THC) Screen Pos H (Neg) 12/30/18 12/30/18 Range/Units 07:32 07:34 Hct (42-52) % MPV (7.4-10.4) fL [place] # (Auto) (0.11-0.59) K/uL Anion Gap (3-11) Glucose (70-99) mg/dl POC Glucose 215 H (70-99) Hemoglobin A1c 11.2 H (4.5-5.6) % POC Lactic Acid John (0.90-1.70) mmol/L Calcium (8.5-10.1) mg/dl Albumin (3.4-5.0) gm/dl Globulin (2.5-4.0) gm/dl Albumin/Globulin Ratio (0.9-2) Ur Specific [place] (1.000-1.030) Urine Glucose (UA) (Negative) Urine Ketones (Negative) U Marijuana (THC) Screen (Neg) (1) Hyperlipidemia Hyperlipidemia type: unspecified Qualified Code(s): E78.5 - Hyperlipidemia, unspecified (2) Diabetes mellitus with hyperglycemia 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
[2018-12-30] MEDS: HYDROCODONE/ACETAMOPHEN 5/325MG TAB PO PRN ×2 (11:40→19:20)
[2018-12-30] MEDS: VANCOMYCIN HCL 2,000 MG in SODIUM CHLORIDE 0.9% 500 ML IV SCH ×2 (11:40→19:40)
[2018-12-30] MEDS ORDERED: PHARMACY GLYCEMIC MGMT CONSULT PRN (12:01)
[2018-12-30] MEDS ORDERED: INSULIN ASPART 100 UNITS/ML 3 ML PEN SC ONE (12:30)
--- NOTE | 2018-12-30 13:59 | Pharmacy Report ---
Glycemic Control Consultation - Date of Service December 30, 2018 - Scope Scope: Glycemic Pharmacist consulted by Bethany Tirado on 12/30/18 for glycemic control and to write orders per [facility] inpatient glycemic control protocol - Objective Weight: 168.5 kg Accuchecks BSG (last 24hrs): 12/29/18 12/30/18 12/30/18 22:15 03:07 07:32 Glucose 401 H* POC Glucose 237 H 215 H 12/30/18 11:20 Glucose POC Glucose 227 H Laboratory Data (last 24hrs): 12/29/18 22:15 Potassium 4.1 Carbon Dioxide 22 Anion Gap 12.0 H Creatinine 0.97 Est Cr Clr Drug Dosing 186.2 Beta-Hydroxybutyric Acd 2.09 HbA1c: Hemoglobin A1c 11.2 % (4.5-5.6) H 12/30/18 07:34 - Recent Pertinent Medications Outpatient Anti-diabetic Regimen: * Toujeo 160 units SC BID * Novolog 20-60 units SC TIDM * Metformin 1000 mg po qPM * A1c = 11.2 % on 12/30/18 Risk Factors for Insulin Resistance: * Infection * Diet - Assessment & Plan Assessment & Plan: ASSESSMENT: * 33 yo M admitted 12/29 PM for perineal cellulitis. BSG on admission was 401 mg/dL * Spoke with patient * Reports good adherence to Toujeo 160 units SC BID, but very frequently misses Novolog (often more than one dose). * Reports improvement in HbA1c - prior to this visit he believes it was closer to 13% * Reports symptoms of hypoglycemia at euglycemic blood sugars - symptoms usually start at BSG's in the 130's * Reports no known hypoglycemic events recently * Basal insulin * Patient's Toujeo likely covers a significant amount of his outpatient CHO. While inpatient, will rely more heavily on Novolog to cover CHO and will therefore significantly decrease Lantus dose as compared to home Toujeo dose * Bolus insulin * Will estimate Novolog coverage weight-based severe stress. This may need to be tightened tomorrow. * Higher goal range selected 2nd patient reports of hypoglycemic symptoms with BSG's in the 130's * Overnight checks x2 PLAN FOR INPATIENT GLYCEMIC CONTROL: * Hold outpatient metformin * Basal insulin: Lantus SC BID based on BSG * 40 units for BSG less than 140 mg/dL * 100 units for BSG 140-200 mg/dL * 120 units for BSG greater than 200 mg/dL * Bolus insulin * NovoLog per scale ACHS or Q6hrs while NPO * Goal Range: Low 140 mg/dL - High 170 mg/dL * Correction Factor: 10 mg/dL/unit * Nutritional / Prandial insulin per carb ratio of 1 unit per 3 grams CHO consumed * Please note that the plan above was derived based on current level of insulin resistance and hospital stress. These recommendations are appropriate for inpatient admission only. Plan of care upon discharge will need to be reassessed to avoid potential outpatient hypo/hyperglycemia. Thank you.
[2018-12-30] MEDS ORDERED: INSULIN GLARGINE 100 UNIT/ML VIAL SC SCH (21:00)
[2018-12-30] MEDS: INSULIN GLARGINE 100 UNIT/ML VIAL SC SCH (21:23)
[2018-12-30] MEDS ORDERED: HYDROmorphone INJ 1 MG/ML SYRINGE IV PRN (21:47)
[2018-12-31] MEDS: INSULIN ASPART 100 UNITS/ML 3 ML PEN SC SCH ×5 (00:27→17:20)
[2018-12-31] MEDS ORDERED: VANCOMYCIN TROUGH ONE (03:30)
[2018-12-31 03:37] LABS: Basophils # (auto) 0.03 K/uL (0-0.2); Basophils % (auto) 0.4 %; Eosinophils # (auto) 0.21 K/uL (0-0.5); Eosinophils % (auto) 2.8 %; Hemoglobin 13.3 g/dL (14.0-18.0); Immature Granulocytes # (auto) 0.01 K/uL (0.00-0.02); Immature Granulocytes % (auto) 0.1 %; Lymphocytes # (auto) 1.93 K/uL (1.2-3.4); Lymphocytes % (auto) 26.1 %; Mean Corpuscular Hgb Conc 34.1 g/dL (32-36); Mean Corpuscular Volume 86.9 fL (80-100); Mean Platelet Volume 10.9 fL (7.4-10.4); Monocytes # (auto) 0.61 K/uL (0.11-0.59); Monocytes % (auto) 8.2 %; Neutrophils # (auto) 4.61 K/uL (1.4-6.5); Neutrophils % (auto) 62.4 %; Platelet Count 158 K/uL (130-400); RDW Coefficient of Variation 12.2 % (11.5-14.5); RDW Standard Deviation 39.1 fL (36.4-46.3); Red Blood Count 4.49 M/uL (4.7-6.1)
[2018-12-31 04:09] LABS: Calcium 7.4 mg/dl (8.5-10.1); Creatinine Clr Calc Pharmacy 254.8 ml/min; Est GFR (African American) 144.9; Potassium 3.8 mmol/L (3.5-5.1)
[2018-12-31] MEDS: VANCOMYCIN HCL 2,000 MG in SODIUM CHLORIDE 0.9% 500 ML IV SCH (04:17)
[2018-12-31] MEDS: PIPERACILLIN/TAZOBACTAM 4.5 GM in DEXTROSE 5% 100 ML IV SCH (04:17)
[2018-12-31] MEDS: CLINDAMYCIN 600 MG in DEXTROSE 5% 50 ML IV SCH (05:56)
[2018-12-31] MEDS: ENOXAPARIN INJ 40 MG/0.4 ML SYR SQ SCH (07:53)
[2018-12-31] MEDS: HYDROCODONE/ACETAMOPHEN 5/325MG TAB PO PRN (07:53)
[2018-12-31] MEDS: INSULIN GLARGINE 100 UNIT/ML VIAL SC SCH (07:55)
--- NOTE | 2018-12-31 10:57 | Discharge Summary ---
Date of Service December 31, 2018 Admission HPI Per Admitting Provider Mr. Crandall is a 33yo C male with history of poorly controlled DM on insulin therapy presenting with perineal infection. Patient with history of the same and was admitted in August. He was treated with broad spectrum antibiotics. He was evaluated by Urology, no surgical intervention pursued. Thought to have perineal cellulitis rather than abscess. Patient was discharged home to complete a course of Augmentin. He reports that the lesion drained pus for 2-3 days after he returned home. He completed his prescribed antibiotics. He presents today with perineal pain that started on Sunday. Patient started having perineal itching, pain and noted a firm, tender lesion. This increased in size fairly quickly. He was evaluated in the ER yesterday and was discharged on Augmentin with instruction to return if the pain becomes worse or if the lesion increases in size. He reports that the lesion has increased in size and has become more tender since returning from the ER yesterday. He denies fevers/chills/nausea/vomiting/diarrhea or constipation. No additional complaints at this time. Reports compliance with his insulin regimen. He is to followup with Endocrine tomorrow. ER Course: Zosyn, NSS x 2 liters Principal Diagnosis Perineal abscess Discharge Exam Constitutional WD/WN, vitals as above Respiratory normal respiratory effort, lungs clear to auscultation Cardiovascular RRR, no murmur, no edema Gastrointestinal (Abdomen) normal bowel sounds, soft, nontender, no hepatosplenomegaly Musculoskeletal no cyanosis or clubbing, extremities motor strength 5/5 Skin no rashes, warm and dry pre incision - area was erythematous with induration and draining small amount of blood/pus Neurologic moves all extremities and awake Psychiatric A+Ox3, euthymic affect Discharge Data Allergies Allergy/AdvReac Type Severity Reaction Status Date / Time cefaclor Allergy Unknown HAD Verified 12/29/18 22:39 REACTION BABY - DOES NOT REMEMBER EXACT REACTION Cephalosporins Allergy Unknown rxn as Verified 12/29/18 22:39 baby; has tolerated Augmentin 2016 Consultations 12/30/18 01:31 ED Decision to Admit Stat 12/30/18 03:55 Consult Urology Routine Ordered Studies 12/29/18 22:01 CT pelvis w/IV con only Urgent Hospital Course (1) Abscess or cellulitis of perineum: Presently afebrile, hemodynamically stable. Presented with tachycardia with HR 126 now improved with IVF. CT showed likely phlegmon * ngtd - wound I&D with Dr. King 12/31 - culture sent * Broad spectrum antibiotics with Vancomycin, Zosyn and Clindamycin while inpatient - will send patient home with Bactrim for 10 days - patient reports he had a similar abscess on the right groin and it cleared with Bactrim, likely a staph infection, will cover for MRSA * Urology consultation - no need for surgical intervention at this time * Will add Ware 5mg q6h prn for pain control - will avoid sending home narcotics for pain as iam takes medical marijuana and was positive for THC on his tox screen (2) Tachycardia: Resolved * Given IVF NSS at 125mL/hr x 2 liters (3) Diabetes mellitus with hyperglycemia: Patient with Type II DM, on insulin therapy, Toujeo 160u BID and Novolog with meals. Poorly controlled with AIC 11.2 on 09/30/18. Blood sugar on admission 401. Trace ketones on UA. No anion gap or acidemia on other labs. 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 * Continue Lisinopril * COnitnue to monitor (5) Hyperlipidemia: Chronic * Continue Simvastatin (6) DVT prophylaxis: Lovenox full code Additional note: Nursing noticed patient has apnea while sleeping - would suggest outpatient sleep study Total Time Total Time Spent Total Time Spent (In Minutes): >30 minutes Discharge Plan Discharge Items Patient Disposition: Home - Self-Care Reason For Visit: PERINEAL COLLECTION Discharge Diagnosis: Perineal abscess Condition: Good Discharge Goals: Decrease discomfort Activity: Resume your previous activity Activity Comment: gradually as tolerated Non-emergency contact: Primary Care Provider Call non-emergency contact if: you have any medication questions, your symptoms worsen, your pain is not controlled and you have a fever Follow-up/Referrals: [facility] [place] [facility] [Provider Group] - 01/06/19 7:30 am (Please, follow up at [facility] on SundayJanuary 06 at 7:30 am. This clinic is located at [address] in [place]. If you have any questions, call the office at [phone].) Kings King MD, FACS [Surgeon] - (Call to make an appt in 7-10 if your wound is not healing or in 3-4 weeks to have excision of the cyst) Dhiraj Small MD [Physician] - 01/03/19 10:00 am (Please, follow up at [facility] Endocrinology Office with Dr. Small on SundayJanuary 03 at 10:00 am. *If you need to change this appointment, call the office at [phone].) Doreen Clark MD [Primary Care Provider] - 01/08/19 10:00 am (Please, follow up at [facility] with Dr. Clark on SundayJanuary 08 at 10:00 am. *If you need to change this appointment, call the office at [phone].) Diet: Carb Consistent or DM2 Addtl Provider Instructions: Please hold your metformin until tomorrow to avoid interaction with the CT dye. Your A1c is 11.2 indicating poor control of your diabetes. Please make sure to check your blood sugar four times per day before meals and before bed and keep a log to take with you when you see your provider. Follow your insulin regimen as prescribed. You will follow up with Dr. Small next week. Please make sure to discuss any barriers you are having to successfully following your diabetic regimen. Well controlled blood sugars will encourage wound healing. Please finish your complete antibiotic regimen. Keep the surgical area clean, you can shower but no baths. Follow up with Dr. King in 7-10 days. Prescriptions: New sulfamethoxazole-trimethoprim [Bactrim DS] 800-160 mg tablet 1 tab PO Q12H Qty: 20 RF: 0 Continued lisinopril 20 mg tablet 20 mg PO HS RF: 0 metformin 500 mg tablet extended release 24 hr 1,000 mg PO QPM RF: 0 omeprazole 40 mg capsule,delayed release(DR/EC) 40 mg PO HS RF: 0 simvastatin 40 mg tablet 40 mg PO HS RF: 0 albuterol sulfate [Proventil HFA] 90 mcg/actuation HFA aerosol inhaler 2 inha INH Q6H PRN (Reason: shortness of breath or wheezing) Qty: 8 RF: 0 Medical Marijuana 1 applic topical DAILY RF: 0 Novolog Flexpen U-100 Insulin 100 unit/mL insulin pen subcut TID RF: 0 Toujeo Max U-300 SoloStar 300 unit/mL (3 mL) insulin pen 160 units subcut BID RF: 0 Discontinued amoxicillin-pot clavulanate [Augmentin] 875-125 mg tablet 1 tab PO BID 14 Days Qty: 28 RF: 0 Stand-Alone Forms: [facility] Discharge Orders: Discharge Order (Routine); Ordered 12/31/18 Ordered By: Bethany Tirado Admission Data Admit Date/Time: 12/30/18 02:35 Attending Provider: Dwayne Garcia Admit Provider: Zoë Hopson Primary Care Provider: Doreen Clark Other Providers: Zoë Hopson ; Ayden Pérez ; Isidro Keller ; Kiel Paz I. ; Ric Schmitz ; America Pruitt ; Chuy Vincent II ; Yary Brian ; Peter Frias Service: Medical
[2018-12-31] MEDS ORDERED: SULFAMETHOXAZOLE/TRIMETHOPRIM DS 800/160MG TAB PO SCH (11:00)
[2018-12-31] MEDS ORDERED: LIDOCAINE HCL 1% 20 ML VIAL ONE (14:03)
[2018-12-31] MEDS ORDERED: NURSING DECISION MEDICATION ONE (14:08)
--- NOTE | 2018-12-31 14:18 | Surgery Consultation ---
Date of Consultation December 31, 2018 Assessment & Plan (1) Abscess or cellulitis of perineum: I&D was performed by Dr. King at bedside ok for d/c on po abx f/u 7-10 days, consider eventual excision once acute process has resolved History of Present Illness Attending Physician: Dwayne Garcia MD History of Present Illness 33 y/o diabetic male admitted two days ago for left groin/scrotal cellulitis/abscess. Was seen in ED prior to that and discharged on Augmentin but was not improving. Had similar episode in August but waited longer and required several days of IV abx. Has improved now on IV abx and started draining last night, was seen by urology who recommended general surgery evaluation. Allergies Allergy/AdvReac Type Severity Reaction Status Date / Time cefaclor Allergy Unknown HAD Verified 12/29/18 22:39 REACTION BABY - DOES NOT REMEMBER EXACT REACTION Cephalosporins Allergy Unknown rxn as Verified 12/29/18 22:39 baby; has tolerated Augmentin 2016 Home Medications Home Medications Medication Instructions Recorded Confirmed Type albuterol sulfate [Proventil HFA] 2 inha INH Q6H PRN #8 gm 08/18/18 12/29/18 Rx lisinopril 20 mg PO HS 08/18/18 12/29/18 History metformin 1,000 mg PO QPM 08/18/18 12/29/18 History omeprazole 40 mg PO HS 08/18/18 12/29/18 History simvastatin 40 mg PO HS 08/18/18 12/29/18 History Medical Marijuana 1 applic TOPICAL DAILY 11/30/18 12/29/18 History insulin aspart U-100 [Novolog 0 unit SUBCUT TID 11/30/18 12/29/18 History Flexpen U-100 Insulin] insulin glargine U-300 conc 160 units SUBCUT BID 11/30/18 12/29/18 History [Toujeo Max U-300 SoloStar] amoxicillin-pot clavulanate 1 tab PO BID 14 Days #28 tab 12/28/18 12/29/18 Rx [Augmentin] hydrocodone-acetaminophen [[place]] 1 tab PO Q6H PRN #12 tab 12/31/18 Rx sulfamethoxazole-trimethoprim 1 tab PO Q12H #20 tab 12/31/18 Rx [Bactrim DS] Patient History Medical History Diabetes Diverticulitis (Resolved) Migraine (Resolved) Renal colic (Resolved) Kidney stone on left side (Resolved) Abscess of leg (Acute) Abscess of right leg (Resolved) Cellulitis of right thigh (Resolved) Pilonidal abscess (Resolved) Surgical History History of ankle surgery History of lithotripsy History of renal stent Family History Other Diabetes Hypertension Social History Preferred Language: Greenlandic Communication Ability: Effective Beliefs That Will Affect Care: None Current Living Situation: Family Current Living Situation Comment: AND KIDS Feels Safe at Home: Yes Smoking Status: Current every day smoker Hx Alcohol Use: Yes Hx Substance Use: No Review of Systems Constitutional: no fever and no chills Physical Exam Vital Signs (Past 24 Hours): Last Vital Signs Temp 36.8 C 12/31/18 11:48 Pulse 95 H 12/31/18 11:48 Resp 20 12/31/18 11:48 BP 126/69 12/31/18 11:48 Pulse Ox 95 12/31/18 11:48 Skin: left lower scrotal induration 2 cm, some purulent/bloody drainage
[2018-12-31] MEDS ORDERED: HYDROmorphone INJ 0.5 MG/0.5 ML SYR IV STA (14:20)
--- NOTE | 2018-12-31 14:20 | Operative Report ---
Post Operative Report Pre & Post Diagnosis Lt perineal abscess Procedure incision and drainage Lt perineal abscess- culture Surgeon Kings King MD, FACS [employer] Worker Radha Negrete Estimated Blood Loss 3 Findings Consistent with Post-Op Diagnosis Specimens fluid cultured Description of Procedure Incision and drainage Lt perineal abscess using 1 % plain lidocaine #11 blade scalpel cultured dressing placed I attest to the content of the Intraoperative Record and any orders documented therein. Any exceptions are noted below.
[2018-12-31 15:12] VITALS: PULSE 91; TEMP 98.8; O2SAT 97
--- NOTE | 2018-12-31 16:35 | Urology Progress Note ---
Date of Service December 31, 2018 Assessment & Plan (1) Abscess or cellulitis of perineum: L perineal abscess/cellulitis Pain improved s/p I&D. Follow recommendations and follow-up per General Surgery moving forward. Thank you for the consultation. No further intervention required. Please r econtact us with additional questions, concerns or changes in patient status. Subjective 33yo with L perineal cellulitis/abscess Evaluated by Dr. King and Walt from general surgery today, I&D performed at bedside with good results. Wound culture obtained, no packing necessary. I evaluated patient after procedure, patient appears much more comfortable. Lying on his side. He states pain has significantly improved. Tolerating PO. Voiding spontaneously. No further issues or complaints. Review of Systems All systems reviewed & are unremarkable except as noted in HPI & below Physical Exam Vital Signs (Past 24 Hours): Last Vital Signs Temp 37.1 C 12/31/18 15:12 Pulse 91 H 12/31/18 15:12 Resp 17 12/31/18 15:12 BP 152/92 H 12/31/18 15:12 Pulse Ox 97 12/31/18 15:12 Physical Exam: A&Ox3 RRR abd obese but soft, nontender Results & Data Laboratory Results Laboratory Results - last 48 hr 12/29/18 12/29/18 12/29/18 22:15 22:15 22:15 WBC 9.64 RBC 4.91 Hgb 14.6 Hct 41.6 L MCV 84.7 MCH 29.7 MCHC 35.1 RDW Std Deviation 37.7 RDW Coeff of Gricel 12.3 Plt Count 190 MPV 11.6 H Immature Gran % (Auto) 0.2 Neut % (Auto) 65.8 Lymph % (Auto) 24.7 Kinney % (Auto) 7.4 Eos % (Auto) 1.8 Baso % (Auto) 0.1 Immature Gran # (Auto) 0.02 Neut # (Auto) 6.35 Lymph # (Auto) 2.38 Kinney # (Auto) 0.71 H Eos # (Auto) 0.17 Baso # (Auto) 0.01 PT 9.5 INR 0.9 APTT 24.2 PTT Ratio 0.9 VBG pH VBG pCO2 VBG pO2 VBG HCO3 VBG O2 Saturation VBG Base Excess Barometric Pressure Sodium 137 Potassium 4.1 Chloride 102 Carbon Dioxide 22 Anion Gap 12.0 H BUN 13 Creatinine 0.97 Est Cr Clr Drug Dosing 186.2 Est GFR ( Amer) 120.1 Est GFR (Non-Af Amer) 103.6 BUN/Creatinine Ratio 13.8 Glucose 401 H* POC Glucose Estimat Average Glucose Hemoglobin A1c POC Lactic Acid John Lactate Calcium 8.1 L Total Bilirubin 0.4 AST 19 ALT 51 Alkaline Phosphatase 91 Total Protein 7.3 Albumin 2.9 L Globulin 4.4 H Albumin/Globulin Ratio 0.7 L Beta-Hydroxybutyric Acd 2.09 Procalcitonin Specimen Hemolysis Urine Color Urine Appearance Urine pH Ur Specific [place] Urine Protein Urine Glucose (UA) Urine Ketones Urine Blood Urine Nitrite Urine Bilirubin Urine Urobilinogen Ur Leukocyte Esterase Vancomycin Trough Urine Opiates Screen Ur Methadone, Qual Urine Barbiturates Ur Phencyclidine (PCP) U Amphetamin/Meth Scrn MDMA (Ecstasy) Screen U Benzodiazepines Scrn Ur Cocaine Metabolite U Marijuana (THC) Screen 12/29/18 12/29/18 12/29/18 22:15 22:22 22:27 WBC RBC Hgb Hct MCV MCH MCHC RDW Std Deviation RDW Coeff of Gricel Plt Count MPV Immature Gran % (Auto) Neut % (Auto) Lymph % (Auto) Kinney % (Auto) Eos % (Auto) Baso % (Auto) Immature Gran # (Auto) Neut # (Auto) Lymph # (Auto) Kinney # (Auto) Eos # (Auto) Baso # (Auto) PT INR APTT PTT Ratio VBG pH 7.39 VBG pCO2 44 VBG pO2 35 VBG HCO3 27 VBG O2 Saturation 71.5 VBG Base Excess 1.2 Barometric Pressure 736.1 Sodium Potassium Chloride Carbon Dioxide Anion Gap BUN Creatinine Est Cr Clr Drug Dosing Est GFR ( Amer) Est GFR (Non-Af Amer) BUN/Creatinine Ratio Glucose POC Glucose Estimat Average Glucose Hemoglobin A1c POC Lactic Acid John 2.78 H Lactate Calcium Total Bilirubin AST ALT Alkaline Phosphatase Total Protein Albumin Globulin Albumin/Globulin Ratio Beta-Hydroxybutyric Acd Procalcitonin < 0.05 Specimen Hemolysis Urine Color Urine Appearance Urine pH Ur Specific [place] Urine Protein Urine Glucose (UA) Urine Ketones Urine Blood Urine Nitrite Urine Bilirubin Urine Urobilinogen Ur Leukocyte Esterase Vancomycin Trough Urine Opiates Screen Ur Methadone, Qual Urine Barbiturates Ur Phencyclidine (PCP) U Amphetamin/Meth Scrn MDMA (Ecstasy) Screen U Benzodiazepines Scrn Ur Cocaine Metabolite U Marijuana (THC) Screen 12/29/18 12/29/18 12/30/18 23:40 23:40 03:07 WBC RBC Hgb Hct MCV MCH MCHC RDW Std Deviation RDW Coeff of Gricel Plt Count MPV Immature Gran % (Auto) Neut % (Auto) Lymph % (Auto) Kinney % (Auto) Eos % (Auto) Baso % (Auto) Immature Gran # (Auto) Neut # (Auto) Lymph # (Auto) Kinney # (Auto) Eos # (Auto) Baso # (Auto) PT INR APTT PTT Ratio VBG pH VBG pCO2 VBG pO2 VBG HCO3 VBG O2 Saturation VBG Base Excess Barometric Pressure Sodium Potassium Chloride Carbon Dioxide Anion Gap BUN Creatinine Est Cr Clr Drug Dosing Est GFR ( Amer) Est GFR (Non-Af Amer) BUN/Creatinine Ratio Glucose POC Glucose 237 H Estimat Average Glucose Hemoglobin A1c POC Lactic Acid John Lactate Calcium Total Bilirubin AST ALT Alkaline Phosphatase Total Protein Albumin Globulin Albumin/Globulin Ratio Beta-Hydroxybutyric Acd Procalcitonin Specimen Hemolysis Urine Color Yellow Urine Appearance Clear Urine pH 6.0 Ur Specific [place] 1.042 H Urine Protein Negative Urine Glucose (UA) 3+ H Urine Ketones Trace H Urine Blood Negative Urine Nitrite Negative Urine Bilirubin Negative Urine Urobilinogen Negative Ur Leukocyte Esterase Negative Vancomycin Trough Urine Opiates Screen Neg Ur Methadone, Qual Neg Urine Barbiturates Neg Ur Phencyclidine (PCP) Neg U Amphetamin/Meth Scrn Neg MDMA (Ecstasy) Screen Neg U Benzodiazepines Scrn Neg Ur Cocaine Metabolite Neg U Marijuana (THC) Screen Pos H 12/30/18 12/30/18 12/30/18 07:32 07:34 07:37 WBC RBC Hgb Hct MCV MCH MCHC RDW Std Deviation RDW Coeff of Gricel Plt Count MPV Immature Gran % (Auto) Neut % (Auto) Lymph % (Auto) Kinney % (Auto) Eos % (Auto) Baso % (Auto) Immature Gran # (Auto) Neut # (Auto) Lymph # (Auto) Kinney # (Auto) Eos # (Auto) Baso # (Auto) PT INR APTT PTT Ratio VBG pH VBG pCO2 VBG pO2 VBG HCO3 VBG O2 Saturation VBG Base Excess Barometric Pressure Sodium Potassium Chloride Carbon Dioxide Anion Gap BUN Creatinine Est Cr Clr Drug Dosing Est GFR ( Amer) Est GFR (Non-Af Amer) BUN/Creatinine Ratio Glucose POC Glucose 215 H Estimat Average Glucose 275 Hemoglobin A1c 11.2 H POC Lactic Acid John Lactate 1.3 Calcium Total Bilirubin AST ALT Alkaline Phosphatase Total Protein Albumin Globulin Albumin/Globulin Ratio Beta-Hydroxybutyric Acd Procalcitonin Specimen Hemolysis Urine Color Urine Appearance Urine pH Ur Specific [place] Urine Protein Urine Glucose (UA) Urine Ketones Urine Blood Urine Nitrite Urine Bilirubin Urine Urobilinogen Ur Leukocyte Esterase Vancomycin Trough Urine Opiates Screen Ur Methadone, Qual Urine Barbiturates Ur Phencyclidine (PCP) U Amphetamin/Meth Scrn MDMA (Ecstasy) Screen U Benzodiazepines Scrn Ur Cocaine Metabolite U Marijuana (THC) Screen 12/30/18 12/30/18 12/30/18 11:20 16:31 20:46 WBC RBC Hgb Hct MCV MCH MCHC RDW Std Deviation RDW Coeff of Gricel Plt Count MPV Immature Gran % (Auto) Neut % (Auto) Lymph % (Auto) Kinney % (Auto) Eos % (Auto) Baso % (Auto) Immature Gran # (Auto) Neut # (Auto) Lymph # (Auto) Kinney # (Auto) Eos # (Auto) Baso # (Auto) PT INR APTT PTT Ratio VBG pH VBG pCO2 VBG pO2 VBG HCO3 VBG O2 Saturation VBG Base Excess Barometric Pressure Sodium Potassium Chloride Carbon Dioxide Anion Gap BUN Creatinine Est Cr Clr Drug Dosing Est GFR ( Amer) Est GFR (Non-Af Amer) BUN/Creatinine Ratio Glucose POC Glucose 227 H 192 H 270 H Estimat Average Glucose Hemoglobin A1c POC Lactic Acid John Lactate Calcium Total Bilirubin AST ALT Alkaline Phosphatase Total Protein Albumin Globulin Albumin/Globulin Ratio Beta-Hydroxybutyric Acd Procalcitonin Specimen Hemolysis Urine Color Urine Appearance Urine pH Ur Specific [place] Urine Protein Urine Glucose (UA) Urine Ketones Urine Blood Urine Nitrite Urine Bilirubin Urine Urobilinogen Ur Leukocyte Esterase Vancomycin Trough Urine Opiates Screen Ur Methadone, Qual Urine Barbiturates Ur Phencyclidine (PCP) U Amphetamin/Meth Scrn MDMA (Ecstasy) Screen U Benzodiazepines Scrn Ur Cocaine Metabolite U Marijuana (THC) Screen 12/31/18 12/31/18 12/31/18 00:25 03:23 03:23 WBC 7.40 RBC 4.49 L Hgb 13.3 L Hct 39.0 L MCV 86.9 MCH 29.6 MCHC 34.1 RDW Std Deviation 39.1 RDW Coeff of Gricel 12.2 Plt Count 158 MPV 10.9 H Immature Gran % (Auto) 0.1 Neut % (Auto) 62.4 Lymph % (Auto) 26.1 Kinney % (Auto) 8.2 Eos % (Auto) 2.8 Baso % (Auto) 0.4 Immature Gran # (Auto) 0.01 Neut # (Auto) 4.61 Lymph # (Auto) 1.93 Kinney # (Auto) 0.61 H Eos # (Auto) 0.21 Baso # (Auto) 0.03 PT INR APTT PTT Ratio VBG pH VBG pCO2 VBG pO2 VBG HCO3 VBG O2 Saturation VBG Base Excess Barometric Pressure Sodium 136 Potassium 3.8 Chloride 105 Carbon Dioxide 27 Anion Gap 4.0 BUN 10 Creatinine 0.71 Est Cr Clr Drug Dosing 254.8 Est GFR ( Amer) 144.9 Est GFR (Non-Af Amer) 125.0 BUN/Creatinine Ratio 14.0 Glucose 233 H POC Glucose 183 H Estimat Average Glucose Hemoglobin A1c POC Lactic Acid John Lactate Calcium 7.4 L Total Bilirubin AST ALT Alkaline Phosphatase Total Protein Albumin Globulin Albumin/Globulin Ratio Beta-Hydroxybutyric Acd Procalcitonin Specimen Hemolysis Urine Color Urine Appearance Urine pH Ur Specific [place] Urine Protein Urine Glucose (UA) Urine Ketones Urine Blood Urine Nitrite Urine Bilirubin Urine Urobilinogen Ur Leukocyte Esterase Vancomycin Trough Urine Opiates Screen Ur Methadone, Qual Urine Barbiturates Ur Phencyclidine (PCP) U Amphetamin/Meth Scrn MDMA (Ecstasy) Screen U Benzodiazepines Scrn Ur Cocaine Metabolite U Marijuana (THC) Screen 12/31/18 12/31/18 12/31/18 03:23 04:28 07:17 WBC RBC Hgb Hct MCV MCH MCHC RDW Std Deviation RDW Coeff of Gricel Plt Count MPV Immature Gran % (Auto) Neut % (Auto) Lymph % (Auto) [place] % (Auto) Eos % (Auto) Baso % (Auto) Immature Gran # (Auto) Neut # (Auto) Lymph # (Auto) Kin[place] # (Auto) Eos # (Auto) Baso # (Auto) PT INR APTT PTT Ratio VBG pH VBG pCO2 VBG pO2 VBG HCO3 VBG O2 Saturation VBG Base Excess Barometric Pressure Sodium Potassium Chloride Carbon Dioxide Anion Gap BUN Creatinine Est Cr Clr Drug Dosing Est GFR ( Amer) Est GFR (Non-Af Amer) BUN/Creatinine Ratio Glucose POC Glucose 223 H 196 H Estimat Average Glucose Hemoglobin A1c POC Lactic Acid John Lactate Calcium Total Bilirubin AST ALT Alkaline Phosphatase Total Protein Albumin Globulin Albumin/Globulin Ratio Beta-Hydroxybutyric Acd Procalcitonin Specimen Hemolysis Urine Color Urine Appearance Urine pH Ur Specific [place] Urine Protein Urine Glucose (UA) Urine Ketones Urine Blood Urine Nitrite Urine Bilirubin Urine Urobilinogen Ur Leukocyte Esterase Vancomycin Trough 6.2 Urine Opiates Screen Ur Methadone, Qual Urine Barbiturates Ur Phencyclidine (PCP) U Amphetamin/Meth Scrn MDMA (Ecstasy) Screen U Benzodiazepines Scrn Ur Cocaine Metabolite U Marijuana (THC) Screen 12/31/18 12/31/18 11:26 16:26 WBC RBC Hgb Hct MCV MCH MCHC RDW Std Deviation RDW Coeff of Gricel Plt Count MPV Immature Gran % (Auto) Neut % (Auto) Lymph % (Auto) [place] % (Auto) Eos % (Auto) Baso % (Auto) Immature Gran # (Auto) Neut # (Auto) Lymph # (Auto) Kin[place] # (Auto) Eos # (Auto) Baso # (Auto) PT INR APTT PTT Ratio VBG pH VBG pCO2 VBG pO2 VBG HCO3 VBG O2 Saturation VBG Base Excess Barometric Pressure Sodium Potassium Chloride Carbon Dioxide Anion Gap BUN Creatinine Est Cr Clr Drug Dosing Est GFR ( Amer) Est GFR (Non-Af Amer) BUN/Creatinine Ratio Glucose POC Glucose 203 H 226 H Estimat Average Glucose Hemoglobin A1c POC Lactic Acid John Lactate Calcium Total Bilirubin AST ALT Alkaline Phosphatase Total Protein Albumin Globulin Albumin/Globulin Ratio Beta-Hydroxybutyric Acd Procalcitonin Specimen Hemolysis Urine Color Urine Appearance Urine pH Ur Specific [place] Urine Protein Urine Glucose (UA) Urine Ketones Urine Blood Urine Nitrite Urine Bilirubin Urine Urobilinogen Ur Leukocyte Esterase Vancomycin Trough Urine Opiates Screen Ur Methadone, Qual Urine Barbiturates Ur Phencyclidine (PCP) U Amphetamin/Meth Scrn MDMA (Ecstasy) Screen U Benzodiazepines Scrn Ur Cocaine Metabolite U Marijuana (THC) Screen
[2018-12-31 17:05] VITALS: BP 126/69
[2019-01-01] MEDS ORDERED: INSULIN ASPART 100 UNITS/ML 3 ML PEN SC SCH (02:00)
== END 2018-12-31 18:00 | disposition home or self-care (01) | DRG 581 ==
LOC: ED 21:50 → 2W 12-30 02:35 → SUATTDRO 12-30 02:35 → 2W 12-30 03:14

== ENCOUNTER 2020-02-08 22:46 | Inpatient (IN) ==
[2020-02-08] MEDS ORDERED: SODIUM CHLORIDE 0.9% 1000ML 1,000 ML IV SCH (23:30)
--- NOTE | 2020-02-08 23:32 | Emergency Department Note ---
History of Present Illness General Chief complaint: Infection Stated complaint: INFECTION ON GROIN Time Seen by Provider: 02/08/20 23:03 Source: patient Mode of arrival: ambulatory Limitations: no limitations History of Present Illness Provider complaint: Right groin/scrotal infection Onset (ago): week(s) 3 Location: genitals and right Radiation: non-radiation Severity: moderate Pain Consistency: + constant Maximum Pain Intensity: 8 Current Pain Intensity: 8 Quality: + aching and + dull Relieved By: + none Exacerbated By: + movement Associated symptoms: + denies other symptoms Treatments prior to arrival: none This is a 34-year-old male presenting to the ED complaining of right scrotal and inguinal infection. Patient states he has had multiple infections to his inguinal region and upper thighs previously. States he has needed surgery on several occasions in the past as well. Patient states he is a diabetic and he has noticed that he tends to get these infections when he is not taking his diabetic medications. Patient does admit to a history of intermittent noncompl iance. Patient denies abdominal pain, change in urine or bowel movements, denies fevers or chills. Patient states he first noticed an evolving recurrent infection approximately 3 weeks ago, but states he was not having accompanying pain. Patient states about 1 week ago or so he was able to squeeze the affected area and express drainage and for several days then it seemed slightly improved. Patient now notes that in the last 2 to 3 days the area was becoming larger again, with evolving pain. Patient states the right side of his scrotum does feel painful and swollen with pain extending to the right testicle. Patient states no recurrent drainage. Patient denies any history of MRSA. No known contact with any COVID positive individual. Pt seen during a time of high acuity and national emergency pandemic while wearing PPE. On review of EMR, there are surgical notes from both Dr. Perez as well as Dr. King regarding recent infections. They appeared to be an inguinal/perineal a bscess similar to tonight, and the other was due to a extensive pilonidal cyst. Home Medications Home Medications Medication Instructions Recorded Confirmed Type No Known Home Medications 02/09/20 02/09/20 History Allergies Allergy/AdvReac Type Severity Reaction Status Date / Time cefaclor Allergy Unknown HAD Verified 02/09/20 01:20 REACTION BABY - DOES NOT REMEMBER EXACT REACTION Cephalosporins Allergy Unknown rxn as Verified 02/09/20 01:20 baby; has tolerated Augmentin 2016 Past Med/Surg History Medical History Abscess of right leg (Resolved) H/O WITH DRAINAGE Asthma A CHILD, "NO PROBLEMS NOW" Cellulitis of right thigh (Resolved) COPD (chronic obstructive pulmonary disease) PT DENIES Depression (Acute) Diverticulitis (Resolved) Dyslipidemia (Acute) History of anesthesia reaction WOKE UP DURING THE LITHOTRIPSY ([facility]) Hypertension (Acute) Kidney stone on left side (Resolved) Migraine (Resolved) Morbid obesity Neuropathy BILATERAL FEET Obesity, Class III, BMI 40-49.9 (morbid obesity) (Acute) Otitis media Pancreatic cyst (Acute) Pilonidal abscess (Resolved) Renal colic (Resolved) Sciatica Sinus congestion Tobacco abuse Type 2 diabetes mellitus, with long-term current use of insulin (Acute) Vitamin D deficiency (Acute) Surgical History (Updated 02/03/20 @ 14:01 by LYNDA Adam) History of ankle surgery RIGHT History of colonoscopy (06/2014) History of esophagogastroduodenoscopy (EGD) (06/2017) History of lithotripsy History of renal stent WITH REMOVAL OF STENT S/P surgical removal of pilonidal cyst Social History (Updated 10/22/19 @ 18:14 by Vinod Kraus) Preferred Language: Syriac Communication Ability: Effective Visual Impairment: No Limitations Hearing Ability: Normal [place] Supervisor Required: No Beliefs That Will Affect Care: None marital status: Current Living Situation: Spouse Current Living Situation Comment: [facility] current occupational status: employed Other Information That Helps Us Care for You: No Feels Safe at Home: Yes Safety Concerns: Feels Safe At This Time Smoking Status: Current every day smoker Tobacco Type: cigarettes and smokeless tobacco ; Age Started Using Tobacco: 15 ; packs per day: 0.5 ; Cigarettes Per Day: 1/2 PPD X 15 YEARS ; Do You Dip or Chew Tobacco: Yes ; Second Hand Exposure: No ; Hx Alcohol Use: No Hx Substance Use: Yes substance use type: marijuana Substance Use Type Other:: medicinal Last Used Substance: Hours (ago) Childhood Exposure to Second-Hand Smoke: Yes (mother) Review of Systems See HPI for pertinent positives & negatives. and A total of 10 systems reviewed and were otherwise negative Physical Exam Vital Signs Vital Signs - 24 hr 02/08/20 22:51 02/08/20 23:36 02/09/20 00:00 Temperature 36.7 C Temperature Source Oral Pulse Rate 116 H 103 H 106 H Pulse Rate [Finger] Pulse Rate from SpO2 Sensor 105 H 107 H Respiratory Rate 18 23 24 Respiratory Effort / Characteristics Respiratory Depth Blood Pressure 167/108 H 153/100 H 146/97 H Blood Pressure [Right Arm] Blood Pressure Mean 127 116 111 Blood Pressure Mean [Right Arm] Pulse Oximetry 95 97 93 Oxygen Delivery Method Room Air Room Air Sepsis Recent Fever Within 48 Hours No Sepsis New/Unexplained Change in Mental Status No Sepsis Action Taken by Nursing No Action Required 02/09/20 00:30 02/09/20 01:03 02/09/20 01:06 Temperature Temperature Source Pulse Rate 105 H 101 H Pulse Rate [Finger] 100 H Pulse Rate from SpO2 Sensor 106 H 103 H Respiratory Rate 24 12 20 Respiratory Effort / Characteristics Non-Labored Spontaneous Respiratory Depth Normal Blood Pressure 150/98 H 174/104 H Blood Pressure [Right Arm] 174/104 H Blood Pressure Mean 131 111 Blood Pressure Mean [Right Arm] 127 Pulse Oximetry 94 96 95 Oxygen Delivery Method Room Air Room Air Room Air Sepsis Recent Fever Within 48 Hours Sepsis New/Unexplained Change in Mental Status Sepsis Action Taken by Nursing 02/09/20 02:00 02/09/20 02:30 Temperature Temperature Source Pulse Rate 100 H 105 H Pulse Rate [Finger] Pulse Rate from SpO2 Sensor 100 H 104 H Respiratory Rate 23 25 H Respiratory Effort / Characteristics Respiratory Depth Blood Pressure 161/109 H 161/115 H Blood Pressure [Right Arm] Blood Pressure Mean 120 130 Blood Pressure Mean [Right Arm] Pulse Oximetry 95 97 Oxygen Delivery Method Room Air Room Air Sepsis Recent Fever Within 48 Hours Sepsis New/Unexplained Change in Mental Status Sepsis Action Taken by Nursing GENERAL: alert, well appearing, well nourished, no distress, non-toxic, obese EYE EXAM: normal conjunctiva, PERRL and EOM's grossly intact OROPHARYNX: no exudate, no erythema, lips, buccal mucosa, and tongue normal and mucous membranes are moist NECK: supple, no nuchal rigidity, no adenopathy, non-tender LUNGS: Clear to auscultation. Normal chest wall mechanics, scattered expiratory wheeze, coarse breath sounds HEART: no murmurs, S1 normal and S2 normal ABDOMEN: abdomen soft, non-tender, normo-active bowel sounds, no masses, no rebound or guarding. : Bilaterally descended testicles noted, no inguinal lymphadenopathy, irritation noted to bilateral inguinal region consistent with likely yeast infection, no palpable mass noted to the testicles however tenderness noted along the posterolateral aspect of the right scrotum with a 4 cm area of palpable induration and increased tenderness to palpation, no area of central fluctuance noted, no obvious laceration, or maculopapular lesion, no overlying rash or crepitus no extension noted into the perineum posteriorly, no penile abnormality noted BACK: Back is symmetrical on inspection and there is no deformity, no midline tenderness, no CVA tenderness. SKIN: no rashes and no bruising UPPER EXTREMITIES: upper extremities are grossly normal. FROM, nml pulses b/l. LOWER EXTREMITIES: No pitting edema. FROM, nml pulses b/l. NEURO EXAM: Normal sensorium, cranial nerves II-XII grossly intact, normal speech, no gross weakness of arms, no gross weakness of legs. Gross sensation intact. Course Course 0055: Discussed additional orders including insulin drip and IV antibiotics with pharmacist. Call from lab that patient's blood is too lipemic to run a lactic acid. 0135: Pt updated on results and in agreement with plan. Pt requested pain medication. Pt still borderline tachycardia and hypertensive. 0145: Case discussed with Dr. Hopson. Administered Medications Insulin Human Regular 250 (units/ Sodium Chloride) 250 mls @ 6 mls/hr IV .Q24H [facility]; Protocol Stop: 03/10/20 00:59 Last Titration: 02/09/20 04:49 Dose: 6 units/hr, 6 mls/hr Documented by: [id number] Cosigned by: [id number] Titration: 02/09/20 04:17 Dose: 0 units/hr, 0 mls/hr Documented by: [id number] Cosigned by: [id number] Titration: 02/09/20 03:42 Dose: 10 units/hr, 10 mls/hr Documented by: [id number] Cosigned by: [id number] Titration: 02/09/20 03:24 Dose: 8 units/hr, 8 mls/hr Documented by: [id number] Cosigned by: [id number] Admin: 02/09/20 02:01 Dose: 10 units/hr, 10 mls/hr Documented by: [id number] Cosigned by: [id number] Discontinued Medications Fentanyl Citrate (Fentanyl Citrate) 50 mcg IV Q15M PRN PRN Reason: Pain Stop: 02/23/20 01:44 Last Admin: 02/09/20 02:02 Dose: 50 mcg Documented by: [id number] Sodium Chloride (Nss 1000ml) 1,000 mls @ 200 mls/hr IV .Q5H FELIC[facility] Stop: 03/09/20 23:29 Last Infusion: 02/09/20 02:12 Dose: 0 mls/hr Documented by: [id number] Admin: 02/08/20 23:45 Dose: 200 mls/hr Documented by: [id number] Vancomycin HCl 2,750 mg/ (Sodium Chloride) 555 mls @ 200 mls/hr IV NOW ONE Stop: 02/09/20 03:40 Last Admin: 02/09/20 02:43 Dose: 200 mls/hr Documented by: [id number] Piperacillin Sod/Tazobactam Sod (Zosyn) 4.5 gm in 120 mls @ 240 mls/hr IV NOW ONE Stop: 02/09/20 01:23 Last Infusion: 02/09/20 02:06 Dose: 0 mls/hr Documented by: [id number] Admin: 02/09/20 01:32 Dose: 240 mls/hr Documented by: [id number] Acetaminophen (Ofirmev) 1,000 mg in 100 mls @ 400 mls/hr IV NOW STA Stop: 02/09/20 01:59 Last Infusion: 02/09/20 02:35 Dose: 0 mls/hr Documented by: [id number] Admin: 02/09/20 02:17 Dose: 400 mls/hr Documented by: [id number] Sodium Chloride (1/2 Nss) 1,000 mls @ 125 mls/hr IV .Q8H FELIC[facility]O Stop: 03/10/20 03:54 Last Admin: 02/09/20 04:22 Dose: Not Given Documented by: [id number] Ioversol (Optiray 320 125ml) 125 ml IV ONCE PRN PRN Reason: Interaction Checking Stop: 02/13/20 00:51 Last Admin: 02/09/20 00:52 Dose: 118 ml Documented by: [id number] Miscellaneous (Insulin Protocol Dka Goal Range) 1 ea N/A ONE ONE Stop: 02/09/20 00:55 Last Admin: 02/09/20 02:03 Dose: Not Given Documented by: [id number] Critical Care Time Critical Care Time: Yes Total Critical Care Time: 45 Critical care of 45 min performed to assess and manage high likelihood of life- threatening DKA, involving labs and imaging as well as IV infusions performed with assessment to evaluate scrotal infection and DKA diagnosis with frequent re assessment. This time includes bedside time, treatment discussions with patient/family/consultants, documentation time and excludes procedure time. Medical Decision Making Differential Diagnosis Differential diagnosis includes testicular torsion, mass, infection, hernia, hydrocele, epididymitis, STI, trauma, intra-abdominal process, Sara's, abscess, as well as other pathologies. Medical Records Attestation: I reviewed the patient's medical records. Home Medications Current Medication List: was personally reviewed by me Laboratory Data Attestation: I reviewed the patient's lab results. Result diagrams: 02/08/20 23:30 02/08/20 23:30 Lab Results 02/08/20 02/08/20 02/08/20 Range/Units 23:30 23:30 23:30 WBC 8.94 (4.8-10.8) K/uL RBC 5.19 (4.7-6.1) M/uL Hgb 16.2 (14.0-18.0) g/dL Hct 45.4 (42-52) % MCV 87.5 (80-100) fL MCH 31.2 (25-34) pg MCHC 35.7 (32-36) g/dL RDW Std Deviation 40.2 (36.4-46.3) fL RDW Coeff of Gricel 12.6 (11.5-14.5) % Plt Count 207 (130-400) K/uL MPV 12.0 H (7.4-10.4) fL Immature Gran % (Auto) 0.2 % Neut % (Auto) 65.3 % Lymph % (Auto) 27.0 % [place] % (Auto) 5.7 % Eos % (Auto) 1.6 % Baso % (Auto) 0.2 % Immature Gran # (Auto) 0.02 (0.00-0.02) K/uL Neut # (Auto) 5.84 (1.4-6.5) K/uL Lymph # (Auto) 2.41 (1.2-3.4) K/uL [place] # (Auto) 0.51 (0.11-0.59) K/uL Eos # (Auto) 0.14 (0-0.5) K/uL Baso # (Auto) 0.02 (0-0.2) K/uL PT 9.7 (9.0-12.0) Seconds INR 0.9 (0.9-1.1) Sodium (136-145) mmol/L Potassium (3.5-5.1) mmol/L Chloride (98-107) mmol/L Carbon Dioxide (21-32) mmol/L Anion Gap (3-11) BUN (7-18) mg/dl Creatinine (0.6-1.4) mg/dl Est Cr Clr Drug Dosing ml/min Est GFR ( Amer) Est GFR (Non-Af Amer) BUN/Creatinine Ratio (10-20) Glucose (70-99) mg/dl Lactate Cancelled Calcium (8.5-10.1) mg/dl Phosphorus (2.5-4.9) mg/dl Magnesium (1.8-2.4) mg/dl Total Bilirubin (0.2-1) mg/dl AST (15-37) U/L ALT (12-78) U/L Alkaline Phosphatase (45-117) U/L Total Protein (6.4-8.2) gm/dl Albumin (3.4-5.0) gm/dl Globulin (2.5-4.0) gm/dl Albumin/Globulin Ratio (0.9-2) Lipase (73-393) U/L Beta-Hydroxybutyric Acd (0.2-2.81) mg/dl Procalcitonin (0-0.5) ng/ml Urine Color Urine Appearance (Clear) Urine pH (4.5-7.5) Ur Specific [place] (1.000-1.030) Urine Protein (Negative) Urine Glucose (UA) (Negative) Urine Ketones (Negative) Urine Blood (Negative) Urine Nitrite (Negative) Urine Bilirubin (Negative) Urine Urobilinogen (Negative) Ur Leukocyte Esterase (Negative) 02/08/20 02/08/20 02/09/20 Range/Units 23:30 23:30 00:28 WBC (4.8-10.8) K/uL RBC (4.7-6.1) M/uL Hgb (14.0-18.0) g/dL Hct (42-52) % MCV (80-100) fL MCH (25-34) pg MCHC (32-36) g/dL RDW Std Deviation (36.4-46.3) fL RDW Coeff of Gricel (11.5-14.5) % Plt Count (130-400) K/uL MPV (7.4-10.4) fL Immature Gran % (Auto) % Neut % (Auto) % Lymph % (Auto) % Mcpherson % (Auto) % Eos % (Auto) % Baso % (Auto) % Immature Gran # (Auto) (0.00-0.02) K/uL Neut # (Auto) (1.4-6.5) K/uL Lymph # (Auto) (1.2-3.4) K/uL [place] # (Auto) (0.11-0.59) K/uL Eos # (Auto) (0-0.5) K/uL Baso # (Auto) (0-0.2) K/uL PT (9.0-12.0) Seconds INR (0.9-1.1) Sodium 138 (136-145) mmol/L Potassium 4.6 (3.5-5.1) mmol/L Chloride 96 L (98-107) mmol/L Carbon Dioxide 20 L (21-32) mmol/L Anion Gap 22.0 H (3-11) BUN 10 (7-18) mg/dl Creatinine 0.97 (0.6-1.4) mg/dl Est Cr Clr Drug Dosing 175.5 ml/min Est GFR ( Amer) 119.2 Est GFR (Non-Af Amer) 102.9 BUN/Creatinine Ratio 10.3 (10-20) Glucose 461 H* (70-99) mg/dl Lactate Calcium 7.2 L (8.5-10.1) mg/dl Phosphorus (2.5-4.9) mg/dl Magnesium 1.9 (1.8-2.4) mg/dl Total Bilirubin 0.6 (0.2-1) mg/dl AST 20 (15-37) U/L ALT 36 (12-78) U/L Alkaline Phosphatase 96 (45-117) U/L Total Protein 6.8 (6.4-8.2) gm/dl Albumin 2.8 L (3.4-5.0) gm/dl Globulin 4.0 (2.5-4.0) gm/dl Albumin/Globulin Ratio 0.7 L (0.9-2) Lipase 105 (73-393) U/L Beta-Hydroxybutyric Acd (0.2-2.81) mg/dl Procalcitonin < 0.05 (0-0.5) ng/ml Urine Color Yellow Urine Appearance Clear (Clear) Urine pH 5.5 (4.5-7.5) Ur Specific [place] > 1.045 H (1.000-1.030) Urine Protein Negative (Negative) Urine Glucose (UA) 3+ H (Negative) Urine Ketones Trace H (Negative) Urine Blood Negative (Negative) Urine Nitrite Negative (Negative) Urine Bilirubin Negative (Negative) Urine Urobilinogen Negative (Negative) Ur Leukocyte Esterase Negative (Negative) 02/09/20 Range/Units 01:09 WBC (4.8-10.8) K/uL RBC (4.7-6.1) M/uL Hgb (14.0-18.0) g/dL Hct (42-52) % MCV (80-100) fL MCH (25-34) pg MCHC (32-36) g/dL RDW Std Deviation (36.4-46.3) fL RDW Coeff of Gricel (11.5-14.5) % Plt Count (130-400) K/uL MPV (7.4-10.4) fL Immature Gran % (Auto) % Neut % (Auto) % Lymph % (Auto) % [place] % (Auto) % Eos % (Auto) % Baso % (Auto) % Immature Gran # (Auto) (0.00-0.02) K/uL Neut # (Auto) (1.4-6.5) K/uL Lymph # (Auto) (1.2-3.4) K/uL [place] # (Auto) (0.11-0.59) K/uL Eos # (Auto) (0-0.5) K/uL Baso # (Auto) (0-0.2) K/uL PT (9.0-12.0) Seconds INR (0.9-1.1) Sodium (136-145) mmol/L Potassium (3.5-5.1) mmol/L Chloride (98-107) mmol/L Carbon Dioxide (21-32) mmol/L Anion Gap (3-11) BUN (7-18) mg/dl Creatinine (0.6-1.4) mg/dl Est Cr Clr Drug Dosing ml/min Est GFR ( Amer) Est GFR (Non-Af Amer) BUN/Creatinine Ratio (10-20) Glucose (70-99) mg/dl Lactate Calcium (8.5-10.1) mg/dl Phosphorus 3.1 (2.5-4.9) mg/dl Magnesium (1.8-2.4) mg/dl Total Bilirubin (0.2-1) mg/dl AST (15-37) U/L ALT (12-78) U/L Alkaline Phosphatase (45-117) U/L Total Protein (6.4-8.2) gm/dl Albumin (3.4-5.0) gm/dl Globulin (2.5-4.0) gm/dl Albumin/Globulin Ratio (0.9-2) Lipase (73-393) U/L Beta-Hydroxybutyric Acd 3.11 H (0.2-2.81) mg/dl Procalcitonin (0-0.5) ng/ml Urine Color Urine Appearance (Clear) Urine pH (4.5-7.5) Ur Specific [place] (1.000-1.030) Urine Protein (Negative) Urine Glucose (UA) (Negative) Urine Ketones (Negative) Urine Blood (Negative) Urine Nitrite (Negative) Urine Bilirubin (Negative) Urine Urobilinogen (Negative) Ur Leukocyte Esterase (Negative) Imaging Data Radiologist's Impression: CT abdomen and pelvis with contrast: Comparison: CT abdomen and pelvis 08/24/2018. Liver, gallbladder, pancreas, spleen, adrenal glands, and kidneys are unremarkable. Normal appendix. No bowel obstruction or inflammation. Urinary bladder and prostate are normal. There is a 1.7 x 4.2 cm inflammatory collection in the medial subcutaneous tissues of the right scrotum (series 2, image 28), concerning for phlegmonabscess. No soft tissue gas. The ischio rectal fossa are clear bilaterally. No acute osseous findings. Radiologist: Kylie Eli MD ECG Data Attestation: I personally reviewed and interpreted this ECG as follows: Indication: + tachycardia Rate (beats per minute): 99 Rhythm: + normal sinus ECG Intervals/blocks: + Normal QRS and + Normal QT ECG [place]: + Left axis deviation ECG ST segments: + Nonspecific ST abnormalities Comparison ECG Date: from (08/18/2018) Additional Comments: left axis new compared to prior Blood Pressure Blood Pressure Findings: Elevated blood pressure Blood Pressure Disposition: further management by hospitalist MDM Narrative Patient here well-appearing despite complaints. Patient with a known history of recurrent inguinal/scrotal abscesses as well as a history of noncompliance with his diabetic medication. Patient here did not appear septic. Despite worsening pain from his scrotal infection. Labs drawn and sent, patient sent for CT imaging to rule out Sara's gangrene. Patient noted to be tachycardic and hypertensive. Patient started on IV fluids. After blood work started resulting it was noted that the patient was also in DKA. Patient denied any prior history of DKA. I did discuss my concern for possible infection with the pharmacist prior to choosing antibiotics. Patient started on vancomycin and Zosyn. Insulin drip ordered as well. Patient made aware of all results and was in agreement with plan. No evidence to suggest patient requires urgent surgical intervention at this time. I do feel to reasonable begin with medical management and potentially consult surgery or urology for additional evaluation. Patient's other labs reassuring. Lactic acid could not be performed due to p atient's Lipemia per the lab report. I do not suspect bacteremia/sepsis at this time. An order was placed for continuous cardiac monitoring. The monitor shows a rate of 110 with sinus tachycardia rhythm. Impression & Plan DKA (diabetic ketoacidoses), COPD, mild, Scrotal abscess, Hyperglycemia, Tobacco abuse, Non-compliance, Obesity, Class III, BMI 40-49.9 (morbid obesity) Discharge Plan Visit Data *Final* Discharge Date/Time: 02/09/20 03:21 Chief Complaint: Infection Stated Complaint: INFECTION ON GROIN ED Provider: Shantelle Wiley Discharge Problem: DKA (diabetic ketoacidoses), COPD, mild, Scrotal abscess, Hyperglycemia, Tobacco abuse, Non-compliance, Obesity, Class III, BMI 40-49.9 (morbid obesity) Patient Disposition: Admitted As Inpatient Condition: Fair Discharge Instructions Interventions: ED Discharge Assessment Last Done: 02/09/20 03:21 Discharge Problem: DKA (diabetic ketoacidoses) Qualifiers: Diabetes mellitus type: other specified (including ISMAEL) Diabetes mellitus complication detail: without coma Qualified Code(s): E13.10 - Other specified diabetes mellitus with ketoacidosis without coma
[2020-02-08 23:48] LABS: Basophils # (auto) 0.02 K/uL (0-0.2); Basophils % (auto) 0.2 %; Eosinophils # (auto) 0.14 K/uL (0-0.5); Eosinophils % (auto) 1.6 %; Hematocrit (blood only) 45.4 % (42-52); Hemoglobin 16.2 g/dL (14.0-18.0); Immature Granulocytes # (auto) 0.02 K/uL (0.00-0.02); Immature Granulocytes % (auto) 0.2 %; Lymphocytes # (auto) 2.41 K/uL (1.2-3.4); Mean Corpuscular Hemoglobin 31.2 pg (25-34); Mean Corpuscular Hgb Conc 35.7 g/dL (32-36); Mean Corpuscular Volume 87.5 fL (80-100); Monocytes # (auto) 0.51 K/uL (0.11-0.59); Monocytes % (auto) 5.7 %; Neutrophils # (auto) 5.84 K/uL (1.4-6.5); Neutrophils % (auto) 65.3 %; Platelet Count 207 K/uL (130-400); RDW Coefficient of Variation 12.6 % (11.5-14.5); RDW Standard Deviation 40.2 fL (36.4-46.3); Red Blood Count 5.19 M/uL (4.7-6.1); White Blood Count 8.94 K/uL (4.8-10.8)
[2020-02-09 00:23] LABS: INR 0.9 (0.9-1.1); Prothrombin Time 9.7 Seconds (9.0-12.0)
[2020-02-09 00:36] LABS: Appearance Urine Clear (Clear); Bilirubin Urine Negative (Negative); Blood Urine Negative (Negative); Color Urine Yellow; Glucose Urine UA 3+ (Negative); Ketones Urine Trace (Negative); Leukocyte Esterase Urine Negative (Negative); Nitrite Urine Negative (Negative); Protein Urine Negative (Negative); Specific Gravity Urine > 1.045 (1.000-1.030); Urobilinogen Urine Negative (Negative); pH Urine 5.5 (4.5-7.5)
[2020-02-09 00:38] LABS: Albumin Level 2.8 gm/dl (3.4-5.0); Bilirubin,Total 0.6 mg/dl (0.2-1); Calcium 7.2 mg/dl (8.5-10.1); Creatinine Clr Calc Pharmacy 175.5 ml/min; Est GFR (African American) 119.2; Est GFR (Non-African American) 102.9; Magnesium 1.9 mg/dl (1.8-2.4); Potassium 4.6 mmol/L (3.5-5.1); Total Protein 6.8 gm/dl (6.4-8.2)
[2020-02-09 00:41] LABS: Albumin Globulin Ratio 0.7 (0.9-2); BUN Creatinine Ratio 10.3 (10-20)
[2020-02-09] MEDS ORDERED: OPTIRAY 320 125ml IV PRN (00:52)
[2020-02-09] MEDS ORDERED: PIPERACILLIN/TAZOBACTAM 4.5 GM/120 ML BAG IV ONE (00:54)
[2020-02-09] MEDS ORDERED: GLUCOSE 40% GEL 15 GM TUBE PO PRN (00:54)
[2020-02-09] MEDS ORDERED: VANCOMYCIN HCL 2,750 MG in SODIUM CHLORIDE 0.9% 500 ML IV ONE (00:54)
[2020-02-09] MEDS ORDERED: DEXTROSE 50% 50 ML SYRINGE IV PRN (00:54)
[2020-02-09] MEDS ORDERED: GLUCOSE 10 TABS/TUBE PO PRN (00:54)
[2020-02-09] MEDS ORDERED: ED DKA INSULIN DRIP ONE (00:54)
[2020-02-09] MEDS ORDERED: VANCOMYCIN CONSULT ACTIVE PRN (00:54)
[2020-02-09] MEDS ORDERED: DKA GOAL RANGE 150-250 mg/dl ONE ×2 (00:54→03:55)
[2020-02-09] MEDS ORDERED: CARBOHYDRATES FOR HYPOGLYCEMIA PO PRN (00:54)
[2020-02-09] MEDS ORDERED: PIPERACILL/TAZOBAC CONSULT ACTIVE PRN (00:54)
[2020-02-09] MEDS ORDERED: GLUCAGON FOR INJ 1 MG VIAL SQ PRN (00:54)
[2020-02-09] MEDS ORDERED: fentaNYL citrate 100 MCG/2 ML VIAL IV PRN ×2 (01:45→13:01)
[2020-02-09] MEDS ORDERED: ACETAMINOPHEN 1,000 MG/100 ML VIAL IV STA (01:45)
[2020-02-09] MEDS: INSULIN REGULAR 250 UNITS in SODIUM CHLORIDE 0.9% 247.5 ML IV SCH (02:01)
[2020-02-09 02:07] LABS: Beta-Hydroxybutyrate 3.11 mg/dl (0.2-2.81); Phosphorus 3.1 mg/dl (2.5-4.9)
--- NOTE | 2020-02-09 02:56 | History & Physical Report ---
Date of Service February 09, 2020 Assessment & Plan (1) COPD, mild: Annalee Crandallis a 34 year old man with a pmh of insulin dependent DMII that he has been noncompliant with who presents with DKA and a scrotal abscess DKA Patient with BSG 461 increased gap of 22, and elevated Beta hydroxybutyric acid in setting of noncompliant insulin dependent DMII Started patient on insulin drip goal 150-250 Will check BMP's [id number] until gap is closed and transition to subcutaneous insulin Potassium 4.6 will give 1/2 NSS with 20 meq K at 250 mls /hour Will need complete overhaul on diabetic knowledge, insight is significantly limited he seems resigned to his fate of being poorly controlled and an early ugly demise. A1C pending Will need to restart diabetes medications on discharge and have close follow up with PCP Scrotal Abscess Will refer to general surgery as they drained his previous abscess Started on IV vancomycin and zosyn Afebrile negative pro piotr negative white count CBC in am HTN Will restart lisinopril patient hypertensive 162/110 COPD Tried to educate patient on tobaccos cessation Understanding of ill health effects appears to be precontemplative to making a change F/E/N: 1/2 nSS +20 meq KCl 250 mls/hour DVT PPx: Lovenox Dispo: PCU for DKA management and general surgery evaluation for scrotal abscess, Will need wake up call and further education for his diabetic apathy Full Code (2) Obesity, Class III, BMI 40-49.9 (morbid obesity): (3) Type 2 diabetes mellitus, with long-term current use of insulin: (4) Hypertension: (5) Depression: History of Present Illness Chief Complaint: Scrotal Abscess Hyperglycemia/DKA Primary Care Provider: Doreen Clark MD Annalee Crandall is a 34 year old man with a pat medical history significant for type II DM poorly controlled, currently supposed to be on 160 units of toujeo BID, novolog sliding scale, metformin, canaliflozin and linisopril who is currently not taking any medication or checking any blood sugars and hasn't for at least three months who presents with a scrotal infection that has been symptomatic for the past month. He says he has had a mildly tender scrotal abscess that he has been expressing purulent fluid out of through a small break in the skin. The area is red and swollen. he had a very similar infection about one year ago in this hospital that was drained by general surgery Dr. King. he has been asymptomatic up until the beginning of the month when he developed similar symptoms. He is sexually active with just one partner his and has had no new partners recently. He has been noncompliant with all meds for three months and notes that the last time he developed an abscess he was noncompliant with his insulin. He tells me he has been dealing with polyuria polydipsia but has otherwise been well. He is a smoker and has had a chronic cough for years. This is unchanged. No fever, no chills, no sweats, no rigors, no sick contacts, recently travelled to [place]. On admission to ED patient was hypertensive but rest of vital signs WNL, patients labwork significant for BSG of 460 Na and K within normal limits, anion gap of 22, Elevated hydroxybutyric acid, Corrected Calcium 8.2 albumin 2.8, urinalysis negative apart from glucose. CT scan showing right scrotal phlegmon abscess. Patient is a tobacco smoker, chews tobacco and uses marijuana, does not drink alcohol does not use any other substances. would like to be a full code. Allergies Allergy/AdvReac Type Severity Reaction Status Date / Time cefaclor Allergy Unknown HAD Verified 02/09/20 01:20 REACTION BABY - DOES NOT REMEMBER EXACT REACTION Cephalosporins Allergy Unknown rxn as Verified 02/09/20 01:20 baby; has tolerated Augmentin 2017 Home Medications Home Medications Medication Instructions Recorded Confirmed Type No Known Home Medications 02/09/20 02/09/20 History Past Med/Surg History Medical History Abscess of right leg (Resolved) H/O WITH DRAINAGE Asthma A CHILD, "NO PROBLEMS NOW" Cellulitis of right thigh (Resolved) COPD (chronic obstructive pulmonary disease) PT DENIES Depression (Acute) Diverticulitis (Resolved) Dyslipidemia (Acute) History of anesthesia reaction WOKE UP DURING THE LITHOTRIPSY ([facility]) Hypertension (Acute) Kidney stone on left side (Resolved) Migraine (Resolved) Morbid obesity Neuropathy BILATERAL FEET Obesity, Class III, BMI 40-49.9 (morbid obesity) (Acute) Otitis media Pancreatic cyst (Acute) Pilonidal abscess (Resolved) Renal colic (Resolved) Sciatica Sinus congestion Tobacco abuse Type 2 diabetes mellitus, with long-term current use of insulin (Acute) Vitamin D deficiency (Acute) Surgical History (Updated 02/03/20 @ 14:01 by LYNDA Adam) History of ankle surgery RIGHT History of colonoscopy (06/2014) History of esophagogastroduodenoscopy (EGD) (06/2017) History of lithotripsy History of renal stent WITH REMOVAL OF STENT S/P surgical removal of pilonidal cyst Social History (Updated 10/22/19 @ 18:14 by Vinod Kraus) Preferred Language: Kinyarwanda Communication Ability: Effective Visual Impairment: No Limitations Hearing Ability: Normal 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 Beliefs That Will Affect Care: None marital status: Current Living Situation: Spouse Current Living Situation Comment: [facility] current occupational status: employed Other Information That Helps Us Care for You: No Feels Safe at Home: Yes Safety Concerns: Feels Safe At This Time Smoking Status: Current every day smoker Tobacco Type: cigarettes and smokeless tobacco ; Age Started Using Tobacco: 15 ; packs per day: 0.5 ; Cigarettes Per Day: 1/2 PPD X 15 YEARS ; Do You Dip or Chew Tobacco: Yes ; Second Hand Exposure: No ; Hx Alcohol Use: No Hx Substance Use: Yes substance use type: marijuana Substance Use Type Other:: medicinal Last Used Substance: Hours (ago) Childhood Exposure to Second-Hand Smoke: Yes (mother) Review of Systems Review of Systems: All systems reviewed & are unremarkable except as noted in HPI & below Constitutional: no fever, no chills, no fatigue, no weakness, no weight loss and no weight gain Eyes: no problem reported Ear, Nose, Mouth, Throat: no problem reported Respiratory: + cough (Chronic); no dyspnea, no dyspnea on exertion and no wheezing Cardiovascular: no chest pain, no dyspnea at rest, no dyspnea on exertion, no palpitations and no edema Gastrointestinal: no abdominal pain, no nausea, no vomiting, no constipation and no diarrhea/loose stools Genitourinary: + urinary frequency and + scrotal swelling; no dysuria, no difficulty urinating, no hematuria and no penile discharge Physical Exam Physical Exam: Constitutional: Obese 34 year old man lying comfortably in bed appearing older than stated age Eyes: Anicteric sclerae, EOMMI bilaterally, ENMT: Externally normal Neck: Supple no masses obese neck Respiratory: Slight expiratory wheeze, no increased work of breathing Cardiovascular: No m/r/s/g, regular rate regular rhythm, peripheral pulses intact, no lower limb edema GI: Abdomen soft/non tender, normal bowel sounds, no organomegaly Skin: Multiple tattoos all over trunk/neck, scrotal abscess red swollen tender area on perineal aspect of right scrotal skin. Exquisitely painful, not able to express anything at this time Results & Data Results & Data ([facility]) Vital Signs (Past 12 Hours) Vital Signs Temp Pulse Pulse Resp BP BP Pulse Ox 02/09/20 02:30 105 H 25 H 161/115 H 97 02/09/20 02:00 100 H 23 161/109 H 95 02/09/20 01:06 100 H 20 174/104 H 95 02/09/20 01:03 101 H 12 174/104 H 96 02/09/20 00:30 105 H 24 150/98 H 94 02/09/20 00:00 106 H 24 146/97 H 93 02/08/20 23:36 103 H 23 153/100 H 97 02/08/20 22:51 36.7 C 116 H 18 167/108 H 95 Supervising Physician Co-Signing Physician Notes Patient seen and exmined, chart reviewed, case discussed with Dr. Davis and I agree with his assessment and plan as documented above. Briefly, patient is a 34yo C male with DM, medication noncompliance, presenting with scrotal abscess. Patient has had similar before. Afebrile, tachycardic, NAD Resting comfortably, non-toxic in appearance HEENT - NC/AT, PERRL, EOMI, MMM, Neck supple Heart - +S1/S2, regular, tachy Lungs - Scattered end-expiratory wheezing Abd - +BS, soft, NT/ND Ext - no edema - firm area beneath scrotum, no crepitus/bullae/streaking Labs and images reviewed, Patient with anion gap, hyperglycemia 34yo C male with scrotal fluid collection, DKA -Admit to medical floor -IV antibiotics - Vanc/Zosyn -Insulin gtt, fluids, monitor labs for DKA -Surgical Consultation appreciated -Encourage medicaiton compliance -Remainder of plan as above Resident Activity Tracking Resident Involvement: Resident Care Provided Care Provided: Adult [facility] Medicine (1) Hypertension Hypertension type: essential hypertension Qualified Code(s): I10 - Essential (primary) hypertension
[2020-02-09] MEDS ORDERED: INSULIN REGULAR 250 UNITS in SODIUM CHLORIDE 0.9% 247.5 ML IV SCH (03:55)
[2020-02-09] MEDS ORDERED: POLYETHYLENE (MIRALAX) 17 GM PACK PO PRN (03:55)
[2020-02-09] MEDS ORDERED: SODIUM CHLORIDE 0.45 % 1,000 ML IV SCH (03:55)
[2020-02-09] MEDS ORDERED: ONDANSETRON INJ 2 MG/ML 2 ML VIAL IV PRN ×2 (03:55→13:01)
[2020-02-09] MEDS ORDERED: DC ALL PREVIOUSLY ORDERED DIABETES MEDS ONE (03:55)
[2020-02-09] MEDS ORDERED: INFLUENZA VIRUS QUAD VACCINE 0.5 ML SYR IM ONE (04:11)
[2020-02-09] MEDS ORDERED: INFLUENZA ADMINISTRATION CHARGE ONE (04:11)
[2020-02-09] MEDS ORDERED: PENDING 1/2NSS+20mEq KCL IVF ONE (04:15)
[2020-02-09] MEDS ORDERED: SODIUM CHLOR 0.45% + 20MEQ KCL 20 MEQ/1,000 ML BAG IV SCH (04:15)
[2020-02-09] MEDS ORDERED: PHARMACY GLYCEMIC MGMT CONSULT PRN (04:16)
[2020-02-09] MEDS ORDERED: ACETAMINOPHEN 325 MG TAB PO PRN (04:43)
[2020-02-09] MEDS ORDERED: PENDING D5 1/2NS+20mEq KCL IVF SCH (05:00)
[2020-02-09] MEDS: ACETAMINOPHEN 325 MG TAB PO PRN (05:35)
[2020-02-09 05:36] LABS: Calcium 8.8 mg/dl (8.5-10.1); Creatinine Clr Calc Pharmacy 262.1 ml/min; Est GFR (African American) 149.2; Est GFR (Non-African American) 128.7; Magnesium 1.9 mg/dl (1.8-2.4); Phosphorus 2.9 mg/dl (2.5-4.9)
--- NOTE | 2020-02-09 05:38 | Billing Data ---
Date of Service February 09, 2020 Coding Level of Care Code 97564 Initial Inpt Care Lvl 3
[2020-02-09] MEDS: PIPERACILLIN/TAZOBACTAM 4.5 GM in DEXTROSE 5% 100 ML IV SCH ×3 (05:57→22:39)
[2020-02-09] MEDS: INSULIN ASPART 100 UNITS/ML 3 ML PEN SC SCH ×3 (05:57→18:15)
[2020-02-09 06:05] LABS: Estimated Average Glucose 295 mg/dl; Hemoglobin A1C 11.9 % (4.5-5.6)
[2020-02-09] MEDS: MoRPHine SULFATE 2 MG/ML CARP IV PRN ×3 (06:20→19:50)
[2020-02-09 06:32] LABS: Potassium 3.4 mmol/L (3.5-5.1)
--- NOTE | 2020-02-09 07:19 | CT Scan Report ---
CT abd pelvis IV con only CLINICAL HISTORY: Suspected right inguinal/scrotal abscess. COMPARISON STUDY: December 30, 2018 TECHNIQUE: The patient was scanned in a dynamic helical fashion during intravenous administration of 118 cc of Optiray 320. A dose lowering technique was utilized adhering to the principles of ALARA. CT DOSE: 2648.08 mGy.cm FINDINGS: Lower chest: The heart is normal in size and configuration, without pericardial effusion. The lung ba ses and pleural spaces are clear. Liver: There is hepatic steatosis. No focal hepatic masses are visualized. The portal and hepatic vei ns appear patent. Gallbladder: Unremarkable. Spleen: Normal in size and attenuation. Pancreas: Unremarkable. Adrenal glands: Unremarkable. Kidneys: There is an 8 mm right renal hypodensities statistically representing a cyst. There is a sta ble 2 cm indeterminate focus of diminished enhancement involving the lower pole the left kidney. Bowel: There are no transition zones to indicate bowel obstruction. The appendix appears normal. Ther e is no acute diverticulitis. Peritoneum: There is no intraperitoneal free air or abdominal ascites. Vasculature: The abdominal aorta is normal in course and caliber. Adenopathy: There is a mildly prominent right common femoral lymph node, likely reactive. Pelvic viscera: There is a 37 x 17 mm fluid collection within the right perineum at the level of the superior scrotum with surrounding fat stranding. The findings are consistent with an abscess. Skeletal structures: No destructive lesions are visualized. There is a disc osteophyte complex at the L1-2 and L5-S1 levels. IMPRESSION: 1. No evidence of bowel obstruction. No evidence of free air 2. Normal appendix 3. Stable indeterminate 2 cm lesion involving the lower pole the left kidney 4. 37 x 17 mm fluid collection within the right perineum at the superior scrotal level, consistent wi th an abscess. ACT 112: Negative or not required by law. Electronically signed by: Indra Haley M.D. 02/09/2020 7:17 AM
[2020-02-09] MEDS ORDERED: INSULIN ASPART 100 UNITS/ML 3 ML PEN SC SCH (07:30)
[2020-02-09] MEDS: POTASSIUM CHLORIDE / WTR 10 MEQ/100 ML PLCT IV SCH ×4 (08:36→16:13)
[2020-02-09] MEDS: lisinopriL 10 MG TAB PO SCH (08:38)
[2020-02-09] MEDS: ENOXAPARIN INJ 40 MG/0.4 ML SYR SQ SCH (08:38)
--- NOTE | 2020-02-09 09:24 | Pharmacy Report ---
Glycemic Control Consultation - Date of Service February 09, 2020 - Scope Scope: Glycemic Pharmacist consulted for glycemic control and to write orders per [facility] inpatient glycemic control protocol. - Objective Weight: 153.7 kg Accuchecks BSG (last 24hrs): 02/08/20 02/09/20 02/09/20 23:30 03:11 04:15 Glucose 461 H* POC Glucose 305 H* 207 H 02/09/20 02/09/20 02/09/20 04:22 05:14 06:16 Glucose 213 H POC Glucose 210 H 186 H 02/09/20 02/09/20 02/09/20 07:18 07:52 08:29 Glucose Cancelled POC Glucose 166 H 187 H Laboratory Data (last 24hrs): 02/08/20 02/09/20 02/09/20 23:30 01:09 04:22 Potassium 4.6 3.4 L D Carbon Dioxide 20 L 18 L Anion Gap 22.0 H 21.0 H Creatinine 0.97 0.65 D Est Cr Clr Drug Dosing 175.5 262.1 Beta-Hydroxybutyric Acd 3.11 H 02/09/20 07:52 Potassium Cancelled Carbon Dioxide Cancelled Anion Gap Cancelled Creatinine Cancelled Est Cr Clr Drug Dosing Cancelled Beta-Hydroxybutyric Acd HbA1c: Hemoglobin A1c 11.9 % (4.5-5.6) H 02/09/20 01:09 - Recent Pertinent Medications Outpatient Anti-diabetic Regimen: * Patient reported: * Toujeo 160 units BID * Novolog 100 units TIDM * Metformin 1 g daily * Invokana?? * Patient reports not taking medications or checking BSGs for the past 2-3 months * A1c = 11.9% on 02/09/2020 The patient is currently receiving: * IV insulin infusion at 7.2 units/hr Risk Factors for Insulin Resistance: * Steroids: SoluMedrol 60 mg IV Q12H * Infection: Scrotal Abscess on Vancomycin & Zosyn * IVF: 1/2 NS + 20 mEq KCl at 125 mL/hr * Diet: NPO - Assessment & Plan Assessment & Plan: ASSESSMENT: * 34 yo male admitted secondary to scrotal abscess that has been symptomatic with pus draining from small break in the skin * Patient does have a h/o scrotal abscess previously drained at [facility]; other pertinent PMHx includes obesity, HTN, COPD. * Upon admission found to be in DKA secondary to medication non-compliance * BSG 461, AG 22, Beta-Hydroxybutyric acid 3.11, pH 7.41 * Patient was started on insulin infusion at 10 units/hr * BSGs trending down nicely: 305, 207, 210, 186, 166, 187 * Potassium 4.6 upon admission, down to 3.4 following insulin drip * Increased amount in IV fluids and 4 K-riders * Repeat labs pending - will continue insulin drip until criteria met: * BSG < 200 mg/dL, AG < 12 mEq/L, Bicarbonate >/= 15 mEq/L, pH > 7.3 PLAN FOR INPATIENT GLYCEMIC CONTROL: * Continue IV insulin infusion per DKA protocol * Goal Range 120 - 180 mg/dl * Basal Insulin: * Will give Lantus 50 units with evening meal followed by 50 units BID * Reeders to keep patient on insulin infusion overnight given current rate and patient being NPO. If transitioning is absolutely necessary would recommended no sooner than 2 hours following bedtime (2100) Lantus dose. * Please note that the plan above was derived based on current level of insulin resistance and hospital stress. These recommendations are appropriate for inpatient admission only. Plan of care upon discharge will need to be reassessed to avoid potential outpatient hypo/hyperglycemia. Thank you.
[2020-02-09 09:31] LABS: BUN Creatinine Ratio 12.6 (10-20); Blood Urea Nitrogen 8 mg/dl (7-18); Calcium 8.2 mg/dl (8.5-10.1); Carbon Dioxide 22 mmol/L (21-32); Chloride 107 mmol/L (98-107); Creatinine Clr Calc Pharmacy 283.9 ml/min; Est GFR (African American) > 150.0; Glucose 181 mg/dl (70-99); Magnesium 1.8 mg/dl (1.8-2.4); Phosphorus 3.6 mg/dl (2.5-4.9); Potassium 3.2 mmol/L (3.5-5.1); Sodium 141 mmol/L (136-145)
--- NOTE | 2020-02-09 09:55 | Surgery Consultation ---
Date of Consultation February 09, 2020 Assessment & Plan (1) Scrotal abscess: This patient has a right perineal/scrotal abscess. He will require I&D. I explained that to him. I explained the procedure and the possible complications and answered his questions. He signed a consent form. He has been n.p.o. Diabetic and DKA management as per internal medicine. History of Present Illness Reason for Consultation: Right groin abscess Requesting Physician: Tan Rice DO Attending Physician: Tan Rice DO History of Present Illness I been asked by Dr. Rice to see this 34-year-old male who was admitted with diabetes [id number]. He had DKA. He has a history of insulin-dependent diabetes and has not taken his insulin or his metformin for about 3 months. About a month ago he noted an area in the superior aspect of the scrotum extending into the perineal region that was draining a munoz to dark red-colored fluid. There was erythema and mild discomfort. He had a similar infection on the left side 1 year ago that required surgical intervention. Since the erythema on the right he has not had fever. He has had no nausea or vomiting. There is no generalized abdominal pain. His bowels are moving without melena or hematochezia. He has no dysuria or hematuria. Allergies Allergy/AdvReac Type Severity Reaction Status Date / Time cefaclor Allergy Unknown HAD Verified 02/09/20 01:20 REACTION BABY - DOES NOT REMEMBER EXACT REACTION Cephalosporins Allergy Unknown rxn as Verified 02/09/20 01:20 baby; has tolerated Augmentin 2016 Home Medications Home Medications Medication Instructions Recorded Confirmed Type No Known Home Medications 02/09/20 02/09/20 History Patient History Medical History Abscess of right leg (Resolved) H/O WITH DRAINAGE Asthma A CHILD, "NO PROBLEMS NOW" Cellulitis of right thigh (Resolved) COPD (chronic obstructive pulmonary disease) PT DENIES Depression (Acute) Diverticulitis (Resolved) Dyslipidemia (Acute) History of anesthesia reaction WOKE UP DURING THE LITHOTRIPSY ([facility]) Hypertension (Acute) Kidney stone on left side (Resolved) Migraine (Resolved) Morbid obesity Neuropathy BILATERAL FEET Obesity, Class III, BMI 40-49.9 (morbid obesity) (Acute) Otitis media Pancreatic cyst (Acute) Pilonidal abscess (Resolved) Renal colic (Resolved) Sciatica Sinus congestion Tobacco abuse Type 2 diabetes mellitus, with long-term current use of insulin (Acute) Vitamin D deficiency (Acute) Surgical History (Updated 02/03/20 @ 14:01 by LYNDA Adam) History of ankle surgery RIGHT History of colonoscopy (06/2014) History of esophagogastroduodenoscopy (EGD) (06/2017) History of lithotripsy History of renal stent WITH REMOVAL OF STENT S/P surgical removal of pilonidal cyst Social History (Updated 10/22/19 @ 18:14 by Vinod Kraus) Preferred Language: Belarusian Communication Ability: Effective Visual Impairment: No Limitations Hearing Ability: Normal 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 Beliefs That Will Affect Care: None marital status: Current Living Situation: Spouse Current Living Situation Comment: [facility] current occupational status: employed Other Information That Helps Us Care for You: No Feels Safe at Home: Yes Safety Concerns: Feels Safe At This Time Smoking Status: Current every day smoker Tobacco Type: cigarettes and smokeless tobacco ; Age Started Using Tobacco: 15 ; packs per day: 0.5 ; Cigarettes Per Day: 1/2 PPD X 15 YEARS ; Do You Dip or Chew Tobacco: Yes ; Second Hand Exposure: No ; Hx Alcohol Use: No Hx Substance Use: Yes substance use type: marijuana Substance Use Type Other:: medicinal Last Used Substance: Hours (ago) Childhood Exposure to Second-Hand Smoke: Yes (mother) Physical Exam Constitutional: no acute distress Respiratory: normal respiratory effort, lungs clear to auscultation Cardiovascular: Rate/Rhythm: regular rate and regular rhythm Gastrointestinal (Abdomen): Inspection/Auscultation: normal bowel sounds; abdomen not distended Percussion/Palpation: abdomen soft; abdomen nontender In the perineum but mostly towards the scrotum there is an area of erythema swelling and tenderness. I cannot express any drainage. Skin: no rashes, warm and dry Results & Data Vital Signs (Past 12 Hours) Vital Signs Temp Pulse Pulse Resp BP BP BP 02/09/20 07:41 36.4 C L 77 20 121/67 02/09/20 03:59 36.5 C 102 H 18 155/102 H 02/09/20 03:45 100 H 02/09/20 03:00 99 H 17 163/102 H 02/09/20 02:30 105 H 25 H 161/115 H 02/09/20 02:00 100 H 23 161/109 H 02/09/20 01:06 100 H 20 174/104 H 02/09/20 01:03 101 H 12 174/104 H 02/09/20 00:30 105 H 24 150/98 H 02/09/20 00:00 106 H 24 146/97 H 02/08/20 23:36 103 H 23 153/100 H 02/08/20 22:51 36.7 C 116 H 18 167/108 H Pulse Ox 02/09/20 07:41 96 02/09/20 03:59 96 02/09/20 03:45 02/09/20 03:00 95 02/09/20 02:30 97 02/09/20 02:00 95 02/09/20 01:06 95 02/09/20 01:03 96 02/09/20 00:30 94 02/09/20 00:00 93 02/08/20 23:36 97 02/08/20 22:51 95 Laboratory Results 02/09/20 02/09/20 02/09/20 Range/Units 09:20 08:30 08:29 WBC (4.8-10.8) K/uL RBC (4.7-6.1) M/uL Hgb (14.0-18.0) g/dL Hct (42-52) % MCV (80-100) fL MCH (25-34) pg MCHC (32-36) g/dL RDW Std Deviation (36.4-46.3) fL RDW Coeff of Gricel (11.5-14.5) % Plt Count (130-400) K/uL MPV (7.4-10.4) fL Immature Gran % (Auto) % Neut % (Auto) % Lymph % (Auto) % Dyer % (Auto) % Eos % (Auto) % Baso % (Auto) % Immature Gran # (Auto) (0.00-0.02) K/uL Neut # (Auto) (1.4-6.5) K/uL Lymph # (Auto) (1.2-3.4) K/uL Dyer # (Auto) (0.11-0.59) K/uL Eos # (Auto) (0-0.5) K/uL Baso # (Auto) (0-0.2) K/uL PT (9.0-12.0) Seconds INR (0.9-1.1) VBG pH (7.36-7.41) Sodium 141 (136-145) mmol/L Potassium 3.2 L (3.5-5.1) mmol/L Chloride 107 (98-107) mmol/L Carbon Dioxide 22 (21-32) mmol/L Anion Gap 12.0 H (3-11) BUN 8 (7-18) mg/dl Creatinine 0.60 (0.6-1.4) mg/dl Est Cr Clr Drug Dosing 283.9 ml/min Est GFR ( Amer) > 150.0 Est GFR (Non-Af Amer) 133.0 BUN/Creatinine Ratio 12.6 (10-20) Glucose 181 H (70-99) mg/dl POC Glucose 147 H 187 H (70-99) mg/dl Estimat Average Glucose mg/dl Hemoglobin A1c (4.5-5.6) % Lactate Calcium 8.2 L (8.5-10.1) mg/dl Phosphorus 3.6 (2.5-4.9) mg/dl Magnesium 1.8 (1.8-2.4) mg/dl Total Bilirubin (0.2-1) mg/dl AST (15-37) U/L ALT (12-78) U/L Alkaline Phosphatase (45-117) U/L Total Protein (6.4-8.2) gm/dl Albumin (3.4-5.0) gm/dl Globulin (2.5-4.0) gm/dl Albumin/Globulin Ratio (0.9-2) Lipase (73-393) U/L Beta-Hydroxybutyric Acd (0.2-2.81) mg/dl Procalcitonin (0-0.5) ng/ml Specimen Hemolysis Urine Color Urine Appearance (Clear) Urine pH (4.5-7.5) Ur Specific Rainbow (1.000-1.030) Urine Protein (Negative) Urine Glucose (UA) (Negative) Urine Ketones (Negative) Urine Blood (Negative) Urine Nitrite (Negative) Urine Bilirubin (Negative) Urine Urobilinogen (Negative) Ur Leukocyte Esterase (Negative) 02/09/20 02/09/2002/08/20 Range/Units 08:05 07:52 07:18 WBC (4.8-10.8) K/uL RBC (4.7-6.1) M/uL Hgb (14.0-18.0) g/dL Hct (42-52) % MCV (80-100) fL MCH (25-34) pg MCHC (32-36) g/dL RDW Std Deviation (36.4-46.3) fL RDW Coeff of Gricel (11.5-14.5) % Plt Count (130-400) K/uL MPV (7.4-10.4) fL Immature Gran % (Auto) % Neut % (Auto) % Lymph % (Auto) % Dyer % (Auto) % Eos % (Auto) % Baso % (Auto) % Immature Gran # (Auto) (0.00-0.02) K/uL Neut # (Auto) (1.4-6.5) K/uL Lymph # (Auto) (1.2-3.4) K/uL Dyer # (Auto) (0.11-0.59) K/uL Eos # (Auto) (0-0.5) K/uL Baso # (Auto) (0-0.2) K/uL PT (9.0-12.0) Seconds INR (0.9-1.1) VBG pH 7.38 (7.36-7.41) Sodium Cancelled (136-145) mmol/L Potassium Cancelled (3.5-5.1) mmol/L Chloride Cancelled (98-107) mmol/L Carbon Dioxide Cancelled (21-32) mmol/L Anion Gap Cancelled (3-11) BUN Cancelled (7-18) mg/dl Creatinine Cancelled (0.6-1.4) mg/dl Est Cr Clr Drug Dosing Cancelled ml/min Est GFR ( Amer) Cancelled Est GFR (Non-Af Amer) Cancelled BUN/Creatinine Ratio Cancelled (10-20) Glucose Cancelled (70-99) mg/dl POC Glucose 166 H (70-99) mg/dl Estimat Average Glucose mg/dl Hemoglobin A1c (4.5-5.6) % Lactate Calcium Cancelled (8.5-10.1) mg/dl Phosphorus Cancelled (2.5-4.9) mg/dl Magnesium Cancelled (1.8-2.4) mg/dl Total Bilirubin (0.2-1) mg/dl AST (15-37) U/L ALT (12-78) U/L Alkaline Phosphatase (45-117) U/L Total Protein (6.4-8.2) gm/dl Albumin (3.4-5.0) gm/dl Globulin (2.5-4.0) gm/dl Albumin/Globulin Ratio (0.9-2) Lipase (73-393) U/L Beta-Hydroxybutyric Acd (0.2-2.81) mg/dl Procalcitonin (0-0.5) ng/ml Specimen Hemolysis Urine Color Urine Appearance (Clear) Urine pH (4.5-7.5) Ur Specific Rainbow (1.000-1.030) Urine Protein (Negative) Urine Glucose (UA) (Negative) Urine Ketones (Negative) Urine Blood (Negative) Urine Nitrite (Negative) Urine Bilirubin (Negative) Urine Urobilinogen (Negative) Ur Leukocyte Esterase (Negative) 02/09/20 02/09/20 02/09/20 Range/Units 06:16 05:14 04:22 WBC (4.8-10.8) K/uL RBC (4.7-6.1) M/uL Hgb (14.0-18.0) g/dL Hct (42-52) % MCV (80-100) fL MCH (25-34) pg MCHC (32-36) g/dL RDW Std Deviation (36.4-46.3) fL RDW Coeff of Gricel (11.5-14.5) % Plt Count (130-400) K/uL MPV (7.4-10.4) fL Immature Gran % (Auto) % Neut % (Auto) % Lymph % (Auto) % Dyer % (Auto) % Eos % (Auto) % Baso % (Auto) % Immature Gran # (Auto) (0.00-0.02) K/uL Neut # (Auto) (1.4-6.5) K/uL Lymph # (Auto) (1.2-3.4) K/uL Dyer # (Auto) (0.11-0.59) K/uL Eos # (Auto) (0-0.5) K/uL Baso # (Auto) (0-0.2) K/uL PT (9.0-12.0) Seconds INR (0.9-1.1) VBG pH 7.41 (7.36-7.41) Sodium (136-145) mmol/L Potassium (3.5-5.1) mmol/L Chloride (98-107) mmol/L Carbon Dioxide (21-32) mmol/L Anion Gap (3-11) BUN (7-18) mg/dl Creatinine (0.6-1.4) mg/dl Est Cr Clr Drug Dosing ml/min Est GFR ( Amer) Est GFR (Non-Af Amer) BUN/Creatinine Ratio (10-20) Glucose (70-99) mg/dl POC Glucose 186 H 210 H (70-99) mg/dl Estimat Average Glucose mg/dl Hemoglobin A1c (4.5-5.6) % Lactate Calcium (8.5-10.1) mg/dl Phosphorus (2.5-4.9) mg/dl Magnesium (1.8-2.4) mg/dl Total Bilirubin (0.2-1) mg/dl AST (15-37) U/L ALT (12-78) U/L Alkaline Phosphatase (45-117) U/L Total Protein (6.4-8.2) gm/dl Albumin (3.4-5.0) gm/dl Globulin (2.5-4.0) gm/dl Albumin/Globulin Ratio (0.9-2) Lipase (73-393) U/L Beta-Hydroxybutyric Acd (0.2-2.81) mg/dl Procalcitonin (0-0.5) ng/ml Specimen Hemolysis Urine Color Urine Appearance (Clear) Urine pH (4.5-7.5) Ur Specific Rainbow (1.000-1.030) Urine Protein (Negative) Urine Glucose (UA) (Negative) Urine Ketones (Negative) Urine Blood (Negative) Urine Nitrite (Negative) Urine Bilirubin (Negative) Urine Urobilinogen (Negative) Ur Leukocyte Esterase (Negative) 02/09/20 02/09/20 02/09/20 Range/Units 04:22 04:15 03:11 WBC (4.8-10.8) K/uL RBC (4.7-6.1) M/uL Hgb (14.0-18.0) g/dL Hct (42-52) % MCV (80-100) fL MCH (25-34) pg MCHC (32-36) g/dL RDW Std Deviation (36.4-46.3) fL RDW Coeff of Gricel (11.5-14.5) % Plt Count (130-400) K/uL MPV (7.4-10.4) fL Immature Gran % (Auto) % Neut % (Auto) % Lymph % (Auto) % Dyer % (Auto) % Eos % (Auto) % Baso % (Auto) % Immature Gran # (Auto) (0.00-0.02) K/uL Neut # (Auto) (1.4-6.5) K/uL Lymph # (Auto) (1.2-3.4) K/uL Dyer # (Auto) (0.11-0.59) K/uL Eos # (Auto) (0-0.5) K/uL Baso # (Auto) (0-0.2) K/uL PT (9.0-12.0) Seconds INR (0.9-1.1) VBG pH (7.36-7.41) Sodium 141 (136-145) mmol/L Potassium 3.4 L D (3.5-5.1) mmol/L Chloride 102 (98-107) mmol/L Carbon Dioxide 18 L (21-32) mmol/L Anion Gap 21.0 H (3-11) BUN 10 (7-18) mg/dl Creatinine 0.65 D (0.6-1.4) mg/dl Est Cr Clr Drug Dosing 262.1 ml/min Est GFR ( Amer) 149.2 Est GFR (Non-Af Amer) 128.7 BUN/Creatinine Ratio 15.0 (10-20) Glucose 213 H (70-99) mg/dl POC Glucose 207 H 305 H* (70-99) mg/dl Estimat Average Glucose mg/dl Hemoglobin A1c (4.5-5.6) % Lactate Calcium 8.8 D (8.5-10.1) mg/dl Phosphorus 2.9 (2.5-4.9) mg/dl Magnesium 1.9 (1.8-2.4) mg/dl Total Bilirubin (0.2-1) mg/dl AST (15-37) U/L ALT (12-78) U/L Alkaline Phosphatase (45-117) U/L Total Protein (6.4-8.2) gm/dl Albumin (3.4-5.0) gm/dl Globulin (2.5-4.0) gm/dl Albumin/Globulin Ratio (0.9-2) Lipase (73-393) U/L Beta-Hydroxybutyric Acd (0.2-2.81) mg/dl Procalcitonin (0-0.5) ng/ml Specimen Hemolysis Urine Color Urine Appearance (Clear) Urine pH (4.5-7.5) Ur Specific Rainbow (1.000-1.030) Urine Protein (Negative) Urine Glucose (UA) (Negative) Urine Ketones (Negative) Urine Blood (Negative) Urine Nitrite (Negative) Urine Bilirubin (Negative) Urine Urobilinogen (Negative) Ur Leukocyte Esterase (Negative) 02/09/20 02/09/20 02/09/20 Range/Units 01:09 01:09 00:28 WBC (4.8-10.8) K/uL RBC (4.7-6.1) M/uL Hgb (14.0-18.0) g/dL Hct (42-52) % MCV (80-100) fL MCH (25-34) pg MCHC (32-36) g/dL RDW Std Deviation (36.4-46.3) fL RDW Coeff of Gricel (11.5-14.5) % Plt Count (130-400) K/uL MPV (7.4-10.4) fL Immature Gran % (Auto) % Neut % (Auto) % Lymph % (Auto) % Dyer % (Auto) % Eos % (Auto) % Baso % (Auto) % Immature Gran # (Auto) (0.00-0.02) K/uL Neut # (Auto) (1.4-6.5) K/uL Lymph # (Auto) (1.2-3.4) K/uL Dyer # (Auto) (0.11-0.59) K/uL Eos # (Auto) (0-0.5) K/uL Baso # (Auto) (0-0.2) K/uL PT (9.0-12.0) Seconds INR (0.9-1.1) VBG pH (7.36-7.41) Sodium (136-145) mmol/L Potassium (3.5-5.1) mmol/L Chloride (98-107) mmol/L Carbon Dioxide (21-32) mmol/L Anion Gap (3-11) BUN (7-18) mg/dl Creatinine (0.6-1.4) mg/dl Est Cr Clr Drug Dosing ml/min Est GFR ( Amer) Est GFR (Non-Af Amer) BUN/Creatinine Ratio (10-20) Glucose (70-99) mg/dl POC Glucose (70-99) mg/dl Estimat Average Glucose 295 mg/dl Hemoglobin A1c 11.9 H (4.5-5.6) % Lactate Calcium (8.5-10.1) mg/dl Phosphorus 3.1 (2.5-4.9) mg/dl Magnesium (1.8-2.4) mg/dl Total Bilirubin (0.2-1) mg/dl AST (15-37) U/L ALT (12-78) U/L Alkaline Phosphatase (45-117) U/L Total Protein (6.4-8.2) gm/dl Albumin (3.4-5.0) gm/dl Globulin (2.5-4.0) gm/dl Albumin/Globulin Ratio (0.9-2) Lipase (73-393) U/L Beta-Hydroxybutyric Acd 3.11 H (0.2-2.81) mg/dl Procalcitonin (0-0.5) ng/ml Specimen Hemolysis Urine Color Yellow Urine Appearance Clear (Clear) Urine pH 5.5 (4.5-7.5) Ur Specific Rainbow > 1.045 H (1.000-1.030) Urine Protein Negative (Negative) Urine Glucose (UA) 3+ H (Negative) Urine Ketones Trace H (Negative) Urine Blood Negative (Negative) Urine Nitrite Negative (Negative) Urine Bilirubin Negative (Negative) Urine Urobilinogen Negative (Negative) Ur Leukocyte Esterase Negative (Negative) 02/08/20 02/08/20 02/08/20 Range/Units 23:30 23:30 23:30 WBC (4.8-10.8) K/uL RBC (4.7-6.1) M/uL Hgb (14.0-18.0) g/dL Hct (42-52) % MCV (80-100) fL MCH (25-34) pg MCHC (32-36) g/dL RDW Std Deviation (36.4-46.3) fL RDW Coeff of Gricel (11.5-14.5) % Plt Count (130-400) K/uL MPV (7.4-10.4) fL Immature Gran % (Auto) % Neut % (Auto) % Lymph % (Auto) % Dyer % (Auto) % Eos % (Auto) % Baso % (Auto) % Immature Gran # (Auto) (0.00-0.02) K/uL Neut # (Auto) (1.4-6.5) K/uL Lymph # (Auto) (1.2-3.4) K/uL Dyer # (Auto) (0.11-0.59) K/uL Eos # (Auto) (0-0.5) K/uL Baso # (Auto) (0-0.2) K/uL PT 9.7 (9.0-12.0) Seconds INR 0.9 (0.9-1.1) VBG pH (7.36-7.41) Sodium 138 (136-145) mmol/L Potassium 4.6 (3.5-5.1) mmol/L Chloride 96 L (98-107) mmol/L Carbon Dioxide 20 L (21-32) mmol/L Anion Gap 22.0 H (3-11) BUN 10 (7-18) mg/dl Creatinine 0.97 (0.6-1.4) mg/dl Est Cr Clr Drug Dosing 175.5 ml/min Est GFR ( Amer) 119.2 Est GFR (Non-Af Amer) 102.9 BUN/Creatinine Ratio 10.3 (10-20) Glucose 461 H* (70-99) mg/dl POC Glucose (70-99) mg/dl Estimat Average Glucose mg/dl Hemoglobin A1c (4.5-5.6) % Lactate Calcium 7.2 L (8.5-10.1) mg/dl Phosphorus (2.5-4.9) mg/dl Magnesium 1.9 (1.8-2.4) mg/dl Total Bilirubin 0.6 (0.2-1) mg/dl AST 20 (15-37) U/L ALT 36 (12-78) U/L Alkaline Phosphatase 96 (45-117) U/L Total Protein 6.8 (6.4-8.2) gm/dl Albumin 2.8 L (3.4-5.0) gm/dl Globulin 4.0 (2.5-4.0) gm/dl Albumin/Globulin Ratio 0.7 L (0.9-2) Lipase 105 (73-393) U/L Beta-Hydroxybutyric Acd (0.2-2.81) mg/dl Procalcitonin < 0.05 (0-0.5) ng/ml Specimen Hemolysis Urine Color Urine Appearance (Clear) Urine pH (4.5-7.5) Ur Specific Rainbow (1.000-1.030) Urine Protein (Negative) Urine Glucose (UA) (Negative) Urine Ketones (Negative) Urine Blood (Negative) Urine Nitrite (Negative) Urine Bilirubin (Negative) Urine Urobilinogen (Negative) Ur Leukocyte Esterase (Negative) 02/08/20 02/08/20 Range/Units 23:30 23:30 WBC 8.94 (4.8-10.8) K/uL RBC 5.19 (4.7-6.1) M/uL Hgb 16.2 (14.0-18.0) g/dL Hct 45.4 (42-52) % MCV 87.5 (80-100) fL MCH 31.2 (25-34) pg MCHC 35.7 (32-36) g/dL RDW Std Deviation 40.2 (36.4-46.3) fL RDW Coeff of Gricel 12.6 (11.5-14.5) % Plt Count 207 (130-400) K/uL MPV 12.0 H (7.4-10.4) fL Immature Gran % (Auto) 0.2 % Neut % (Auto) 65.3 % Lymph % (Auto) 27.0 % Dyer % (Auto) 5.7 % Eos % (Auto) 1.6 % Baso % (Auto) 0.2 % Immature Gran # (Auto) 0.02 (0.00-0.02) K/uL Neut # (Auto) 5.84 (1.4-6.5) K/uL Lymph # (Auto) 2.41 (1.2-3.4) K/uL Dyer # (Auto) 0.51 (0.11-0.59) K/uL Eos # (Auto) 0.14 (0-0.5) K/uL Baso # (Auto) 0.02 (0-0.2) K/uL PT (9.0-12.0) Seconds INR (0.9-1.1) VBG pH (7.36-7.41) Sodium (136-145) mmol/L Potassium (3.5-5.1) mmol/L Chloride (98-107) mmol/L Carbon Dioxide (21-32) mmol/L Anion Gap (3-11) BUN (7-18) mg/dl Creatinine (0.6-1.4) mg/dl Est Cr Clr Drug Dosing ml/min Est GFR ( Amer) Est GFR (Non-Af Amer) BUN/Creatinine Ratio (10-20) Glucose (70-99) mg/dl POC Glucose (70-99) mg/dl Estimat Average Glucose mg/dl Hemoglobin A1c (4.5-5.6) % Lactate Cancelled Calcium (8.5-10.1) mg/dl Phosphorus (2.5-4.9) mg/dl Magnesium (1.8-2.4) mg/dl Total Bilirubin (0.2-1) mg/dl AST (15-37) U/L ALT (12-78) U/L Alkaline Phosphatase (45-117) U/L Total Protein (6.4-8.2) gm/dl Albumin (3.4-5.0) gm/dl Globulin (2.5-4.0) gm/dl Albumin/Globulin Ratio (0.9-2) Lipase (73-393) U/L Beta-Hydroxybutyric Acd (0.2-2.81) mg/dl Procalcitonin (0-0.5) ng/ml Specimen Hemolysis Urine Color Urine Appearance (Clear) Urine pH (4.5-7.5) Ur Specific Rainbow (1.000-1.030) Urine Protein (Negative) Urine Glucose (UA) (Negative) Urine Ketones (Negative) Urine Blood (Negative) Urine Nitrite (Negative) Urine Bilirubin (Negative) Urine Urobilinogen (Negative) Ur Leukocyte Esterase (Negative) Diagnostic Findings CT abd pelvis IV con only CLINICAL HISTORY: Suspected right inguinal/scrotal abscess. COMPARISON STUDY: December 30, 2018 TECHNIQUE: The patient was scanned in a dynamic helical fashion during intravenous administration of 118 cc of Optiray 320. A dose lowering technique was utilized adhering to the principles of ALARA. CT DOSE: 2648.08 mGy.cm FINDINGS: Lower chest: The heart is normal in size and configuration, without pericardial effusion. The lung bases and pleural spaces are clear. Liver: There is hepatic steatosis. No focal hepatic masses are visualized. The portal and hepatic veins appear patent. Gallbladder: Unremarkable. Spleen: Normal in size and attenuation. Pancreas: Unremarkable. Adrenal glands: Unremarkable. Kidneys: There is an 8 mm right renal hypodensities statistically representing a cyst. There is a stable 2 cm indeterminate focus of diminished enhancement involving the lower pole the left kidney. Bowel: There are no transition zones to indicate bowel obstruction. The appendix appears normal. There is no acute diverticulitis. Peritoneum: There is no intraperitoneal free air or abdominal ascites. Vasculature: The abdominal aorta is normal in course and caliber. Adenopathy: There is a mildly prominent right common femoral lymph node, likely reactive. Pelvic viscera: There is a 37 x 17 mm fluid collection within the right perineum at the level of the superior scrotum with surrounding fat stranding. The findings are consistent with an abscess. Skeletal structures: No destructive lesions are visualized. There is a disc osteophyte complex at the L1-2 and L5-S1 levels. IMPRESSION: 1. No evidence of bowel obstruction. No evidence of free air 2. Normal appendix 3. Stable indeterminate 2 cm lesion involving the lower pole the left kidney 4. 37 x 17 mm fluid collection within the right perineum at the superior scrotal level, consistent with an abscess.
--- NOTE | 2020-02-09 10:34 | Electrocardiogram Report ---
Test Reason : Blood Pressure : / mmHG Vent. Rate : 099 BPM Atrial Rate : 099 BPM P-R Int : 182 ms QRS Dur : 102 ms QT Int : 360 ms P-R-T Axes : 009 -84 032 degrees QTc Int : 462 ms Poor data quality, interpretation may be adversely affected Normal sinus rhythm Possible Left atrial enlargement Left axis deviation Abnormal ECG When compared with ECG of 18-AUG-2018 21:29, No significant change was found Confirmed by Robert Fuller ([id number]) on 02/09/2020 10:34:16 AM Referred By: REFERRED SELF Confirmed By:Robert Fuller
--- NOTE | 2020-02-09 10:45 | Pharmacy Report ---
Pharmacy Abx Initial Consult - Date of Service February 09, 2020 - Pharmacy Dosing Scope Date of Consult: 02/09/2020 Consultation requested by: Dr. Davis Pharmacy is consulted to initiate Vancomycin and Zosyn IV dosing therapy, order appropriate labs and adjust drug dose/frequency. - Subjective The patient is a 34 year old M admitted on 02/09/20 02:53. - Objective Height: 6 ft 4 in Weight: 153.7 kg Vital Signs (Past 12hrs): Vital Signs Temp Pulse Pulse Resp BP BP BP 02/09/20 07:41 36.4 C L 77 20 121/67 02/09/20 03:59 36.5 C 102 H 18 155/102 H 02/09/20 03:45 100 H 02/09/20 03:00 99 H 17 163/102 H 02/09/20 02:30 105 H 25 H 161/115 H 02/09/20 02:00 100 H 23 161/109 H 02/09/20 01:06 100 H 20 174/104 H 02/09/20 01:03 101 H 12 174/104 H 02/09/20 00:30 105 H 24 150/98 H 02/09/20 00:00 106 H 24 146/97 H 02/08/20 23:36 103 H 23 153/100 H 02/08/20 22:51 36.7 C 116 H 18 167/108 H Pulse Ox 02/09/20 07:41 96 02/09/20 03:59 96 02/09/20 03:45 02/09/20 03:00 95 02/09/20 02:30 97 02/09/20 02:00 95 02/09/20 01:06 95 02/09/20 01:03 96 02/09/20 00:30 94 02/09/20 00:00 93 02/08/20 23:36 97 02/08/20 22:51 95 Lab Results (24hrs): Laboratory Tests (24 Hours) 02/09/20 02/09/20 02/09/20 08:30 07:52 04:22 WBC Neut # (Auto) Creatinine 0.60 Cancelled 0.65 D Est Cr Clr Drug Dosing 283.9 Cancelled 262.1 Procalcitonin 02/08/20 02/08/20 02/08/20 23:30 23:30 23:30 WBC 8.94 Neut # (Auto) 5.84 Creatinine 0.97 Est Cr Clr Drug Dosing 175.5 Procalcitonin < 0.05 Micro Results: 02/09/20 01:18 Aerobic Blood Culture - Pending Blood Anaerobic Blood Culture - Pending 02/08/20 23:30 Aerobic Blood Culture - Pending Blood Anaerobic Blood Culture - Pending - Risk Factors for Resistance * Unknown - Assessment & Plan Assessment 34 year old M admitted secondary to scrotal abscess with drainage * PMHx includes T2DM, COPD, Obesity, Tobacco abuse, h/o scrotal abscess, medication non-compliance * Patient was admitted approximately one year ago for similar issue * Upon admission: patient was afebrile, WBCs 8.9K, SCr 0.97 trended down to 0.6 currently, PCT < 0.05 * Abscess noted to be draining munoz to red color, patient scheduled for I&D of abscess today * Previous tissue culture from December 2018 grew Group B beta-hemolytic Streptococcus sensitive to penicillins * Blood cultures x 2 pending at this time Plan IV Vancomycin and Zosyn for treatment of R Groin/Perineal Abscess Vancomycin IV * Estimated PK Parameters: Vd 0.54 L/kg, Jose 0.104 hr-1, t1/2 ~7 hrs * Loading dose: 2750 mg (17.9 mg/kg) * Maintenance dose: 2000 mg IV (13 mg/kg) every 12 hours - choosing conservative dosing to no h/o MRSA, limited systemic signs of severe infection, and likelihood of drug accumulation in a patient with BMI > 40 * Goal trough: 10 to 20 mcg/mL - given no history of MRSA * Trough/Random level ordered for 02/09 at 1130 - prior to the 3rd maintenance dose given likelihood for drug accumulation in obese patient and to ensure trough is great than 10 mcg/mL to prevent antibiotic resistance Piperacillin/tazobactam * 4.5 g bolus administered over 30 minutes, then 4.5 g IV extended infusion every 8 hours for CrCl greater than 20 mL/min * Aggressive dosing selected due to BMI 35 or more Pharmacy will continue to follow and will adjust dose/frequency as necessary. Thank you.
[2020-02-09] MEDS: VANCOMYCIN HCL 2,000 MG in SODIUM CHLORIDE 0.9% 500 ML IV SCH (11:32)
[2020-02-09] MEDS: POTASSIUM CHLORIDE 40 MEQ in D5W AND 1/2NSS 1,000 ML IV SCH ×2 (11:46→19:54)
--- NOTE | 2020-02-09 12:29 | Anesthesiology Consultation ---
Date of Service February 09, 2020 Assessment & Plan (1) Encounter for pre-operative examination: Chart Review Chart Review: Acceptable Risk for Surgery and Patient NOT seen in Pre Admission Testing Consults Requested none ASA ASA4 Proposed Anesthesia Anesthesia Type: General Risk / Benefits Reviewed With: PT / POA / Parent / Guardian, Accepts Plan and I nformed Consent Obtained Additional Notes Presented to the ED in DKA - anion gap improved to 12 today. Needs IandD for scrotal/perineal abscess. History Surgery Operation Date: 02/09/20 12:50 Proposed Procedures p Incision and Drainage Perirectal Abscess - Peter Frias MD Height/Weight Height: 6 ft 4 in Weight: 153.7 kg Allergies Allergy/AdvReac Type Severity Reaction Status Date / Time cefaclor Allergy Unknown HAD Verified 02/09/20 01:20 REACTION BABY - DOES NOT REMEMBER EXACT REACTION Cephalosporins Allergy Unknown rxn as Verified 02/09/20 01:20 baby; has tolerated Augmentin 2017 Medications Home Medications Medication Instructions Recorded Confirmed Last Taken No Known Home Medications 02/09/20 02/09/20 Unknown Active Medications Generic Name Dose Route Start Last Admin Trade Name Freq PRN Reason Stop Dose Admin Acetaminophen 650 mg 02/09/20 03:55 02/09/20 05:35 Tylenol PO 03/10/20 03:54 650 mg Q4H PRN Administration Mild Pain or Fever Enoxaparin Sodium 40 mg 02/09/20 09:00 02/09/20 08:38 Lovenox SQ 03/10/20 08:59 Not Given Q24H FELICIANO Insulin Human Regular 250 250 mls @ 5.8 mls/hr 02/09/20 01:00 02/09/20 12:24 units/ Sodium Chloride IV 03/10/20 00:59 5.8 units/hr .Q24H FELICIANO 5.8 mls/hr Titration Protocol 5.8 UNITS/HR Piperacillin Sod/Tazobactam 120 mls @ 30 mls/hr 02/09/20 06:00 02/09/20 09:55 Sod 4.5 gm/ Dextrose IV 02/16/20 05:59 Infused Q8H FELICIANO Infusion Protocol Vancomycin HCl 2,000 mg/ 540 mls @ 200 mls/hr 02/09/20 12:00 02/09/20 11:32 Sodium Chloride IV 02/16/20 11:59 200 mls/hr Q12H FELICIANO Administration Potassium Chloride 40 meq/ 1,020 mls @ 125 mls/hr 02/09/20 11:15 02/09/20 11:46 Dextrose/Sodium Chloride IV 03/10/20 11:14 125 mls/hr .Q8H10M FELICIANO Administration Insulin Aspart 0 units 02/09/20 06:00 02/09/20 11:29 Novolog Flexpen SC 03/10/20 05:59 Not Given Q6 FELICIANO Lisinopril 10 mg 02/09/20 09:00 02/09/20 08:38 Zestril PO 03/10/20 08:59 10 mg QAM FELICIANO Administration Morphine Sulfate 2 mg 02/09/20 04:43 02/09/20 06:20 Morphine Sulfate IV 02/23/20 04:42 2 mg Q3H PRN Administration Pain NPO Date Last Intake of Fluids: 02/09/20 Time Last Intake of Fluids: 05:00 Last Intake of Fluids Comment: Sip of water with pills Date Last Intake of Solids: 02/08/20 Time Last Intake of Solids: 20:30 Past Medical History Medical History Abscess of right leg (Resolved) H/O WITH DRAINAGE Asthma A CHILD, "NO PROBLEMS NOW" Cellulitis of right thigh (Resolved) COPD (chronic obstructive pulmonary disease) PT DENIES Depression (Acute) Diverticulitis (Resolved) Dyslipidemia (Acute) History of anesthesia reaction WOKE UP DURING THE LITHOTRIPSY ([facility]) Hypertension (Acute) Kidney stone on left side (Resolved) Migraine (Resolved) Morbid obesity Neuropathy BILATERAL FEET Obesity, Class III, BMI 40-49.9 (morbid obesity) (Acute) Otitis media Pancreatic cyst (Acute) Pilonidal abscess (Resolved) Renal colic (Resolved) Sciatica Sinus congestion Tobacco abuse Type 2 diabetes mellitus, with long-term current use of insulin (Acute) Vitamin D deficiency (Acute) Exercise / Class Metabolic Activity III < 4 Walking/Shop/Light housework Negative for chest pain or shortness of breath. Past Family History Family History Mother Diabetes Grandfather Diabetes Grandmother Diabetes Myocardial infarction Other Hypertension Denies family history of Ovarian cancer Prostate cancer Breast cancer Colorectal cancer Past Surgical History Surgical History History of ankle surgery RIGHT History of colonoscopy (06/2014) History of esophagogastroduodenoscopy (EGD) (06/2017) History of lithotripsy History of renal stent WITH REMOVAL OF STENT S/P surgical removal of pilonidal cyst Past Anesthesia History No Hx of Anesthesia Complications History of PONV No Hx of PONV Social History Smoking Status: Current every day smoker tobacco type: cigarettes and smokeless tobacco Smoking cigarettes per day: 1/2 PPD X 15 YEARS Do You Dip or Chew Tobacco: Yes Hx Alcohol Use: No Alcohol type: beer alcohol intake frequency: holidays/special occasions only Hx Substance Use: Yes substance use type: marijuana Substance Use Type Other:: medicinal Last Used Substance: Hours (ago) Review of Systems Patient denies active symptoms of GERD. Physical Exam Vital Signs Last Vital Signs Temp 36.5 C 02/09/20 11:33 Pulse 80 02/09/20 11:33 Resp 18 02/09/20 11:33 BP 159/81 H 02/09/20 11:33 Pulse Ox 98 02/09/20 11:33 Constitutional + morbidly obese ENMT Mouth: + poor dentition and + small oral opening; no TMJ abnormality Thyromental Distance: < 3.5 Finger Breadths Mallampati Class: III Mouth / Teeth: 1. Chipped 2. Chipped Neck normal visual inspection, + short neck, + thick neck and + facial hair; neck extension not limited Respiratory normal respiratory effort Auscultation: + wheezes Cardiovascular Rate/Rhythm: regular rate and regular rhythm Heart Sounds: no murmur Neurologic moves all extremities Psychiatric Orientation: alert and oriented x 3 Testing Laboratory Results 02/08/20 23:30 PT 9.7 Seconds (9.0-12.0) 02/08/20 23:30 INR 0.9 (0.9-1.1) 02/08/20 23:30 Hemoglobin A1c 11.9 % (4.5-5.6) H 02/09/20 01:09 Urine Color Yellow 02/09/20 00:28 Urine Appearance Clear (Clear) 02/09/20 00:28 Urine pH 5.5 (4.5-7.5) 02/09/20 00:28 Ur Specific [place] > 1.045 (1.000-1.030) H 02/09/20 00:28 Urine Protein Negative (Negative) 02/09/20 00:28 Urine Glucose (UA) 3+ (Negative) H 02/09/20 00:28 Urine Ketones Trace (Negative) H 02/09/20 00:28 Urine Nitrite Negative (Negative) 02/09/20 00:28 Ur Leukocyte Esterase Negative (Negative) 02/09/20 00:28 02/09/20 02/09/20 02/09/20 12:11 11:18 10:26 POC Glucose 177 H 169 H 150 H 02/09/20 02/09/20 02/09/20 09:20 08:29 07:18 POC Glucose 147 H 187 H 166 H 02/09/20 02/09/20 02/09/20 06:16 05:14 04:15 POC Glucose 186 H 210 H 207 H 02/09/20 03:11 POC Glucose 305 H* Electrocardiogram Date: 02/08/20 Findings: + NSR @ (99) Possible left atrial enlargement, left axis deviation
[2020-02-09] MEDS ORDERED: LIDOCAINE HCL 2% 2 ML VIAL/AMP(20MG/ML) INFIL ONE (12:47)
[2020-02-09] MEDS ORDERED: fentaNYL citrate 100 MCG/2 ML VIAL ONE ×2 (12:47→13:51)
[2020-02-09] MEDS ORDERED: SUCCINYLCHOLINE CHLORIDE 20 MG/ML 10 ML VIAL ONE (12:47)
[2020-02-09] MEDS ORDERED: ONDANSETRON INJ 2 MG/ML 2 ML VIAL ONE (12:47)
[2020-02-09] MEDS ORDERED: PROPOFOL IV EMULSION 10 MG/ML 20 ML VIAL IV ONE (12:47)
[2020-02-09] MEDS ORDERED: MIDAZOLAM HCL 1 MG/ML 2ML VIAL ONE (12:47)
[2020-02-09 12:49] LABS: BUN Creatinine Ratio 12.1 (10-20); Blood Urea Nitrogen 7 mg/dl (7-18); Calcium 8.5 mg/dl (8.5-10.1); Carbon Dioxide 23 mmol/L (21-32); Chloride 107 mmol/L (98-107); Creatinine Clr Calc Pharmacy 315.4 ml/min; Est GFR (African American) > 150.0; Est GFR (Non-African American) 138.9; Glucose 188 mg/dl (70-99); Magnesium 1.9 mg/dl (1.8-2.4); Phosphorus 3.5 mg/dl (2.5-4.9); Potassium 3.5 mmol/L (3.5-5.1); Sodium 139 mmol/L (136-145)
[2020-02-09] MEDS ORDERED: LIDOCAINE HCL 1% 20 ML VIAL ONE (12:52)
[2020-02-09] MEDS ORDERED: BUPIVACAINE 0.5 % 5 MG/1 ML MPF 30ML VIAL ONE (12:52)
[2020-02-09] MEDS ORDERED: GELATIN SPONGE 12-7MM ONE (12:52)
[2020-02-09] MEDS ORDERED: METHYLENE BLUE 0.5% 10 ML VIAL ONE (12:52)
[2020-02-09] MEDS ORDERED: ePHEDrine sulfate 50 MG/ML AMP IV PRN (13:01)
[2020-02-09] MEDS ORDERED: ATROPINE SULFATE 0.1 MG/ML 10ML SYR IV PRN (13:01)
[2020-02-09] MEDS ORDERED: HYDROmorphone INJ 1 MG/ML SYRINGE IV PRN (13:01)
[2020-02-09] MEDS ORDERED: ALBUT/IPRATROP 3MG/0.5MG NEB 3 ML VIAL NEB STA (13:01)
[2020-02-09] MEDS ORDERED: KETAMINE HCL INJ 50 MG/ML 10 ML VIAL ONE (13:38)
[2020-02-09] MEDS ORDERED: ACETAMINOPHEN 1000 MG/100 ML IV IV ONE (13:45)
--- NOTE | 2020-02-09 14:52 | History & Physical Bridge Note ---
Date of Service February 09, 2020 History & Physical Bridge Note I have examined the patient, reviewed the History & Physical and in the interval since the performance of the History & Physical I have noted the following changes of clinical significance: sugars improved, down to 150 this morning, d/w pharmacy, will change to D5 1/ NSS and increase the K to 40mEq as K dropped slightly discussed with patient about using his Trujeo at home, he says he just doesn't have motivation to use it, no issues with insurance he says he will be good for a while then misses a day which turns into two days and then he just stops trying we discussed the dangers of uncontrolled DM with renal failure, stroke, [place] -- told him that now is the time to get control of his disease he was sleepy and not interested much in discussing further plan for I&D of abscess later with general surgery patient wanted to know if he could go home afterwards told him that he definitely needs to stay over night to gauge control of sugars and for wound care he wants to leave by 02/10 because [birth year] his birthday
--- NOTE | 2020-02-09 15:33 | Anesthesiology Progress Note ---
Date of Service February 09, 2020 Anesthesia Post Procedure Vital Signs Vital Signs: Temp Pulse Pulse Pulse Resp BP BP 02/09/20 15:25 84 21 02/09/20 15:15 91 H 13 02/09/20 15:05 83 22 02/09/20 14:55 36.5 C 89 12 02/09/20 13:11 81 14 02/09/20 12:43 36.6 C 82 18 02/09/20 11:33 36.5 C 80 18 159/81 H 02/09/20 07:41 36.4 C L 77 20 121/67 02/09/20 03:59 36.5 C 102 H 18 02/09/20 03:45 100 H 02/09/20 03:00 99 H 17 163/102 H 02/09/20 02:30 105 H 25 H 161/115 H 02/09/20 02:00 100 H 23 161/109 H 02/09/20 01:06 100 H 20 02/09/20 01:03 101 H 12 174/104 H 02/09/20 00:30 105 H 24 150/98 H 02/09/20 00:00 106 H 24 146/97 H 02/08/20 23:36 103 H 23 153/100 H 02/08/20 22:51 36.7 C 116 H 18 167/108 H BP Pulse Ox 02/09/20 15:25 136/87 94 02/09/20 15:15 133/86 93 02/09/20 15:05 136/90 99 02/09/20 14:55 138/80 99 02/09/20 13:11 98 02/09/20 12:43 144/99 H 98 02/09/20 11:33 98 02/09/20 07:41 96 02/09/20 03:59 155/102 H 96 02/09/20 03:45 02/09/20 03:00 95 02/09/20 02:30 97 02/09/20 02:00 95 02/09/20 01:06 174/104 H 95 02/09/20 01:03 96 02/09/20 00:30 94 02/09/20 00:00 93 02/08/20 23:36 97 02/08/20 22:51 95 Pain Intensity Right Groin: Pain Intensity: 5 Transfer of Care Handoff Completed per policy Notes Mental Status: alert / awake / arousable and participated in evaluation Patient Amnestic to Procedure: Yes Nausea / Vomiting: adequately controlled Pain: adequately controlled Airway Patency, RR, SpO2: stable & adequate BP & HR: stable & adequate Hydration State: stable & adequate Anesthetic Complications: no major complications apparent and Pt Satisfied with anesthetic care
--- NOTE | 2020-02-09 16:00 | Post Operative Brief Note ---
Immediate Post Op Note v1 Date of Surgery February 09, 2020 Pre & Post Diagnosis Operation Date: 02/09/20 12:50 Pre-Op Diagnosis: PERINEAL ABSCESS Post-Op Diagnosis: PERINEAL ABSCESS I identified the patient and participated in the time-out.: Yes Procedure Operation Date: 02/09/20 12:50 Actual Procedures p Incision and Drainage Perineal Abscess(Not Applicable) - Peter Frias MD Surgeon Peter Frias MD Pediatric Assistant None Estimated Blood Loss 5 Findings Consistent with Post-Op Diagnosis Specimens Culture
--- NOTE | 2020-02-09 16:14 | Operative Report (OR) ---
DATE OF OPERATION: 02/09/2020 PREOPERATIVE DIAGNOSIS: Abscess, right perineal area. POSTOPERATIVE DIAGNOSIS: Abscess, right perineal area. PROCEDURE: Incision and drainage of right perineal abscess. SURGEON: Peter Frias MD. FINDINGS: The patient had a perineal abscess that was easily identified. It was approximately 5 cm long x 3 cm wide. There was purulent material within the abscess cavity and this was sent for culture. The abscess extended towards the wall of the superior aspect of the scrotum but not into the scrotum. It did not extend into the perirectal area. PROCEDURE AND TECHNIQUE: The patient was given a general anesthetic and the area was prepped and draped in the usual sterile fashion. The extent of the abscess was easily palpable. An 18-gauge needle was inserted and purulent material was aspirated. This was sent for culture. Incision was then made over the wall of the abscess into the wall of the abscess. The purulent material was removed using suction and the cavity was irrigated. There was no active bleeding and the cavity was packed. A dressing was placed. The estimated blood loss was 5 mL. Sponge, needle and instrument counts were correct prior to closure. The patient tolerated the surgical procedure without complications and was transferred to recovery. I attest to the content of the Intraoperative Record and any orders documented therein. Any exception s are noted below.
[2020-02-09] MEDS ORDERED: INSULIN GLARGINE SOLOSTAR 100 UNITS/ML 3 ML PEN SC SCH ×2 (16:30→21:00)
[2020-02-09 17:28] LABS: BUN Creatinine Ratio 7.8 (10-20); Calcium 8.5 mg/dl (8.5-10.1); Creatinine Clr Calc Pharmacy 262.1 ml/min; Est GFR (African American) 149.2; Est GFR (Non-African American) 128.7; Magnesium 1.6 mg/dl (1.8-2.4); Phosphorus 3.5 mg/dl (2.5-4.9); Potassium 3.9 mmol/L (3.5-5.1)
[2020-02-09 21:30] LABS: Calcium 8.7 mg/dl (8.5-10.1); Creatinine Clr Calc Pharmacy 246.9 ml/min; Est GFR (African American) 145.6; Est GFR (Non-African American) 125.6; Magnesium 1.7 mg/dl (1.8-2.4); Potassium 3.7 mmol/L (3.5-5.1)
[2020-02-09 21:44] LABS: Phosphorus 2.3 mg/dl (2.5-4.9)
[2020-02-10] MEDS: VANCOMYCIN HCL 2,000 MG in SODIUM CHLORIDE 0.9% 500 ML IV SCH ×2 (00:02→11:57)
[2020-02-10 00:30] LABS: Magnesium 1.9 mg/dl (1.8-2.4); Potassium 3.5 mmol/L (3.5-5.1)
[2020-02-10 00:31] LABS: BUN Creatinine Ratio 7.4 (10-20); Blood Urea Nitrogen 5 mg/dl (7-18); Calcium 7.6 mg/dl (8.5-10.1); Carbon Dioxide 26 mmol/L (21-32); Chloride 103 mmol/L (98-107); Creatinine Clr Calc Pharmacy 274.7 ml/min; Est GFR (African American) > 150.0; Est GFR (Non-African American) 131.3; Glucose 201 mg/dl (70-99); Phosphorus 2.2 mg/dl (2.5-4.9); Sodium 136 mmol/L (136-145)
[2020-02-10] MEDS: MoRPHine SULFATE 2 MG/ML CARP IV PRN ×6 (00:40→11:50)
[2020-02-10] MEDS: POTASSIUM CHLORIDE 40 MEQ in D5W AND 1/2NSS 1,000 ML IV SCH (03:59)
[2020-02-10] MEDS: PIPERACILLIN/TAZOBACTAM 4.5 GM in DEXTROSE 5% 100 ML IV SCH ×2 (06:35→13:00)
[2020-02-10] MEDS: INSULIN ASPART 100 UNITS/ML 3 ML PEN SC SCH ×2 (06:37)
[2020-02-10] MEDS: INSULIN REGULAR 250 UNITS in SODIUM CHLORIDE 0.9% 247.5 ML IV SCH (06:37)
[2020-02-10] MEDS: lisinopriL 10 MG TAB PO SCH (07:44)
[2020-02-10] MEDS: ENOXAPARIN INJ 40 MG/0.4 ML SYR SQ SCH (07:44)
[2020-02-10] MEDS ORDERED: INSULIN GLARGINE SOLOSTAR 100 UNITS/ML 3 ML PEN SC SCH (09:00)
[2020-02-10] MEDS ORDERED: [UNRECOGNIZED DRUG - REMARK] ONE (10:30)
[2020-02-10] MEDS ORDERED: INSULIN ASPART 100 UNITS/ML 3 ML PEN SC SCH (11:30)
[2020-02-10] MEDS ORDERED: VANCOMYCIN TROUGH ONE (11:30)
[2020-02-10] MEDS: ACETAMINOPHEN 325 MG TAB PO PRN (13:42)
--- NOTE | 2020-02-10 14:24 | Surgery Progress Note ---
Date of Service February 10, 2020 Assessment & Plan (1) Scrotal abscess: This abscesses of the perineum area. It is drained effectively. The packing was removed. He can be discharged home on antibiotics with follow-up with me as needed Subjective Status post I&D of abscess in the right perineal area Having much less pain There has been drainage Has not had any fever or chills Physical Exam Physical Exam: The wound in the perineal area has healthy-appearing granulation tissue at the base There is drainage but it does not appear purulent The surrounding erythema has resolved Results & Data Vital Signs (Past 12 Hours) Vital Signs Temp Pulse Resp BP Pulse Ox 02/10/20 11:01 36.5 C 82 19 151/109 H 97 02/10/20 08:10 36.8 C 80 20 147/93 H 98 02/10/20 03:06 36.3 C L 86 18 159/83 H 98
--- NOTE | 2020-02-10 14:26 | Discharge Summary ---
Date of Service February 10, 2020 Admission HPI Per Admitting Provider Annalee Crandall is a 34 year old man with a pat medical history significant for type II DM poorly controlled, currently supposed to be on 160 units of toujeo BID, novolog sliding scale, metformin, canaliflozin and linisopril who is currently not taking any medication or checking any blood sugars and hasn't for at least three months who presents with a scrotal infection that has been symptomatic for the past month. He says he has had a mildly tender scrotal abscess that he has been expressing purulent fluid out of through a small break in the skin. The area is red and swollen. he had a very similar infection about one year ago in this hospital that was drained by general surgery Dr. King. he has been asymptomatic up until the beginning of the month when he developed similar symptoms. He is sexually active with just one partner his and has had no new partners recently. He has been noncompliant with all meds for three months and notes that the last time he developed an abscess he was noncompliant with his insulin. He tells me he has been dealing with polyuria polydipsia but has otherwise been well. He is a smoker and has had a chronic cough for years. This is unchanged. No fever, no chills, no sweats, no rigors, no sick contacts, recently travelled to [place]. On admission to ED patient was hypertensive but rest of vital signs WNL, patients labwork significant for BSG of 460 Na and K within normal limits, anion gap of 22, Elevated hydroxybutyric acid, Corrected Calcium 8.2 albumin 2.8, urinalysis negative apart from glucose. CT scan showing right scrotal phlegmon abscess. Patient is a tobacco smoker, chews tobacco and uses marijuana, does not drink alcohol does not use any other substances. would like to be a full code. Principal Diagnosis Perirectal abscess Discharge Exam Constitutional WD/WN, vitals as above + obese Eyes PERRL, conjunctivae normal, anicteric sclerae ENMT external ear and nose normal, oropharynx normal Neck trachea midline, no thyromegaly Respiratory normal respiratory effort, lungs clear to auscultation Cardiovascular RRR, no murmur, no edema Gastrointestinal (Abdomen) normal bowel sounds, soft, nontender, no hepatosplenomegaly Rectal Exam: + abnormal visual inspection of rectum (perirectal abscess incised, drained, packing removed) Musculoskeletal no cyanosis or clubbing, extremities motor strength 5/5 Skin no rashes, warm and dry Neurologic patellar DTR's 2+ bilat, sensation intact and PERRL, EOMI, accommodation nl, no face palsy, no dysarthria Psychiatric A+Ox3, euthymic affect Lymphatic no cervical or axillary lymphadenopathy Discharge Data Allergies Allergy/AdvReac Type Severity Reaction Status Date / Time cefaclor Allergy Unknown HAD Verified 02/09/20 01:20 REACTION BABY - DOES NOT REMEMBER EXACT REACTION Cephalosporins Allergy Unknown rxn as Verified 02/09/20 01:20 baby; has tolerated Augmentin 2016 Consultations 02/09/20 01:45 ED Decision to Admit Stat 02/09/20 03:55 Consult General Surgery Routine Procedures Performed Operation Date: 02/09/20 12:50 Actual Procedures p Incision and Drainage Perirectal Abscess(Not Applicable) - Peter Frias MD Ordered Studies 02/08/20 23:20 CT Abd and Pelvis [CT abd pelvis IV con only] Urgent Hospital Course (1) Perirectal abscess: incised and drained by Dr. Frias on 02/08, tolerated well cultures grew Group B strep, sensitive to PCN he was treated with Zosyn initially, transition to Augmentin, will give 14 days total packing removed by surgery on 02/09, no need for further packing at the abscess very shallow patient has number for Dr. Frias, no need for follow up, will call if needed (2) DKA (diabetic ketoacidoses): mild DKA, quickly resolved with insulin drip, gap closed transitioned to Lantus 70 units BID with Novolog SS patient stable for discharge, electrolytes stable, renal function stable patient admits that he does not take his Toujeo, it has been a few months HbA1c is 11.9% he says that the issue is not insurance, he just does not take it discussed with him the dangers of not controlling DM he is at high risk of renal disease, [place], stroke renewed prescription for Toujeo 160units BID on discharge (3) COPD, mild: no wheezing, no respiratory distress (4) Obesity, Class III, BMI 40-49.9 (morbid obesity): encouraged weight loss (5) Type 2 diabetes mellitus, with long-term current use of insulin: see above (6) Hypertension: continue Lisinopril, renewed prescription (7) Depression: mood stable at this time Total Time Total Time Spent Total Time Spent (In Minutes): 33 minutes Discharge Plan Discharge Items Patient Disposition: Home - Self-Care Reason For Visit: Perirectal abscess Discharge Diagnosis: Perirectal abscess, status post incision and drainage DM type II with mild DKA Condition on Discharge: Fair Goals: complete 2 week course of antibiotics follow up with Dr. Frias in 10-12 days, only if needed please resume taking your Toujeo Activity: Per Instructions section Lifting: None Bathing Comment: may shower, DO NOT soak in tub Driving/Machine Use: No limitations Weightbearing: Full weightbearing Non-emergency contact: Primary Care Provider and Surgeon Call non-emergency contact if: you have any medication questions, your symptoms worsen and you have a fever Follow-up/Referrals: Doreen Clark MD [Primary Care Provider] - Peter Frias MD [Physician] - (Please, follow up at [facility] Office with Dr. Peter Frias. *A nurse from this office will contact you with appointment information. The office is located at [address] in [place]. If you have any questions, call the office at [phone].) Diet: Carb Consistent or DM2 Addtl Attending Provider Instructions: Medications: - AUGMENTIN: take twice a day for 14 days to treat perirectal abscess - TOUJEO: new prescription provided for 160 units twice a day, start this evening - LISINOPRIL: 10mg daily for blood pressure control, may need higher dosing Perirectal abscess I&D by Dr. Frias on 02/08 culture growing out Group B strep, prior cultures sensitive to penicillins will send home on Augmentin for 14 days Diabetes: cannot urge you strongly enough to resume taking Toujeo the longer your diabetes goes untreated, the more at risk you place yourself for renal failure, heart attacks, stroke please comply with low carbohydrate diet, take Toujeo as prescribed follow up with Dr. Robin Pending Studies at Discharge: Yes Studies:: wound culture, will call if antibiotics need changed Stand-Alone Forms: My [facility] [employer], Smoking Cessation Medications and DC Order Prescriptions: New Toujeo Max U-300 SoloStar 300 unit/mL (3 mL) insulin pen 160 units SQ BID Qty: 6 RF: 5 amoxicillin-pot clavulanate [Augmentin] 875-125 mg tablet 1 tab PO BID Qty: 28 RF: 0 lisinopril 20 mg tablet 20 mg PO DAILY Qty: 30 RF: 1 No Action No Known Home Medications RF: 0 Discharge Orders: Discharge Order (Routine); Ordered 02/10/20 Ordered By: Tan Willett/Other Patient Handouts: Diabetes Intermediate Complications, Diabetes Manage A1C Test Admission Data Admit Date/Time: 02/09/20 02:53 Attending Provider: Tan Rice Admit Provider: Kael Davis Primary Care Provider: Doreen Clark Other Providers: Zoë Hopson ; Kings King Other Interventions: Discharge Summary Assessment (RN) Last Done: 02/10/20 14:49 DC Date/Time DO NOT enter until pt leaves facility: 02/10/20 15:00 Coding Level of Care Code D/C Day Management >30 mins Diagnoses Perirectal abscess K61.1 DKA (diabetic ketoacidoses) E13.10 Diabetes mellitus complication detail: without coma Diabetes mellitus type: other specified (including ISMAEL) COPD, mild J44.9 Obesity, Class III, BMI 40-49.9 (morbid obesity) E66.01 Type 2 diabetes mellitus, with long-term current use of insulin E11.9; Z79.4 Hypertension I10 Hypertension type: essential hypertension Depression F32.9
[2020-02-10] MEDS ORDERED: INSULIN GLARGINE SOLOSTAR 100 UNITS/ML 3 ML PEN SC ONE (14:30)
--- NOTE | 2020-02-10 14:48 | Pharmacy Report ---
Pharmacy Glycemic Short Note 2 - Date of Service February 10, 2020 - Glycemic Short BSG Results (Last 24 hours): 02/09/20 02/09/20 02/09/20 14:58 16:23 16:35 Glucose 270 H POC Glucose 223 H 261 H 02/09/20 02/09/20 02/09/20 17:50 18:36 19:59 Glucose POC Glucose 256 H 249 H 242 H 02/09/20 02/09/20 02/09/20 20:08 20:53 22:05 Glucose 227 H POC Glucose 202 H 210 H 02/09/20 02/09/20 02/10/20 23:02 23:45 00:10 Glucose 201 H POC Glucose 158 H 137 H 02/10/20 02/10/20 02/10/20 01:12 01:55 03:03 Glucose POC Glucose 184 H 146 H 136 H 02/10/20 02/10/20 02/10/20 04:11 04:58 06:00 Glucose POC Glucose 139 H 133 H 139 H 02/10/20 02/10/20 02/10/20 07:05 08:15 10:08 Glucose POC Glucose 142 H 145 H 153 H 02/10/20 02/10/20 12:02 14:01 Glucose POC Glucose 145 H 159 H ASSESSMENT: * Anion gap has been closed since yesterday, removed dextrose from fluids in an attempt to transition off of insulin infusion. * Patient's insulin gtt has been running at 6.7 units/hr with BSGs consistently within goal range, this is within addition to 120 units of lantus on board (total estimated daily ~280 units), would estimate patient would need ~140 units/day of basal based on this, will keep 70 units BID, this would estimate a correction factor of 5 and carb ratio of 2. Set carb ratio of 3 instead of using drip calculator and post meal bsg was 159 (on drip). * Patient is very insulin resistant, will give additional 40 units of lantus to assist with transition, ideally would like patient to be on drip for an additional two hours after this additional dose is given, however patient may be discharged prior to this, continuing drip up to discharge but cut rate, drip has overlapped with basal insulin for > 6 hours. PLAN FOR INPATIENT GLYCEMIC CONTROL: * Hold outpatient oral diabetes medications * Insulin infusion running @ 6.7 units/hr --> manually decreased to 5 units/hr * Basal insulin * Lantus 70 units SQ BID, + additional 40 units lantus x 1 * Bolus insulin * NovoLog per scale ACHS or Q6hrs while NPO * Goal Range: Low 140 mg/dL - High 180mg/dL * Nutritional / Prandial insulin per carb ratio of 1 unit per 3 grams CHO consumed PLAN FOR DISCHARGE: * A1c 11.9%, per record patient has not been measuring BSGs/taking medications in the last 2 months. * Drip + lantus would estimate a total daily dose of 280 units/day. Patient is very insulin resistant, possible U500 candidate? Would have close follow-up with endocrinology
[2020-02-10] MEDS ORDERED: VANCOMYCIN HCL 2,500 MG in SODIUM CHLORIDE 0.9% 500 ML IV SCH ×2 (16:00→18:00)
--- NOTE | 2020-02-16 13:24 | Coding Query ---
CODING QUERY To promote full compliance with coding requirements relating to patient care, provider participation is requested in all cases of tender labor uncertainty. Please assist us with the question(s) below: Coding Question(s): The Discharge Summary documents Perirectal Abscess and the Operative Report documents Abscess right Perineal area with documentation of, "The abscess extended towards the wall of the superior aspect of the scrotum but not into the scrotum. It did not extend into the perirectal area.". Please clarify below, in your clinical opinion, due to conflicting documentation. ( x ) Abscess Right Perineal Area - Perineal Abscess ( ) Perirectal Abscess ( ) Other: Please Specify Physician's Response(s): Thank you Camryn Sánchez Principal Diagnosis: "that condition established after study, to be chiefly responsible for occasioning the admission of the patient to the hospital for care." Co-Existing Principal Diagnosis: "when two or more diagnoses equally meet the criteria for principal diagnosis as determined by the circumstances of admission, diagnostic work up, and/or therapy provided, and the Alphabetic Index, Tabular List, or another coding guideline does not provide sequencing direction, any one of the diagnoses may be sequenced first." "When the physician has documented what appears to be a current diagnosis in the body of the record, but has not included the diagnosis in the final diagnostic statement, the physician should be asked whether the diagnosis should be added." (Source [facility] 2 QTR90. p3-4) NACHO
== END 2020-02-10 15:00 | disposition home or self-care (01) | DRG 579 ==
LOC: ED 22:46 → 2S 02-09 02:53 → SUATTDRO 02-09 02:53 → 2S 02-09 03:21

== ENCOUNTER 2020-04-18 18:11 | Observation (INO) ==
[2020-04-18] MEDS ORDERED: NITROGLYCERIN SL 0.4 MG/TAB TAB SL PRN ×2 (18:25→23:05)
[2020-04-18] MEDS ORDERED: ASPIRIN CHEW 324 MG PO STA (18:25)
[2020-04-18] MEDS ORDERED: METOPROLOL TARTRATE 1 MG/ML VIAL IV STA ×2 (18:25→21:49)
[2020-04-18] MEDS ORDERED: LORazepam 1 MG/2 ML VIAL IV STA (18:28)
--- NOTE | 2020-04-18 18:35 | Emergency Department Note ---
Impression & Plan Chest pain, Hypertension, Acute hyperglycemia, Abnormal ECG ED Provider Note NAME: LILY WOOD AGE: 35 SEX: M : 1985 ARRIVES VIA: Walk-In INFORMANT: Patient, ED PROVIDER(S): Robert Neves DO CHIEF COMPLAINT: Chest pain HPI: The patient is a 35-year-old male who presented to the emergency department for an evaluation of chest pain. The patient describes right-sided chest pain which he describes as a "pressure". He states he started having the symptoms last . The pain has been waxing and waning but he has not had a pain- free day since the onset 3 days ago. The patient was seen in our facility for this pain. At that time his work-up was not positive for cardiac ischemia and he was told to follow-up with his primary care physician. He returns today because of ongoing symptoms. The patient has a history of hypertension as well as diabetes. He also has a history of remote cocaine use. He states he has not used cocaine in over a month. The patient states that he has been compliant with his outpatient medications. He denies having any lower extremity pain or swelling. He does not have a history of venous thromboembolic disease. He does continue to smoke. The patient states that he has never had a cardiac work-up in the past. He states his pain is mild to moderate at this time. It is worsened with deep breath. It is not affected by laying flat. It is somewhat increased with exertion. ROS: See above HPI for pertinent positives & negatives. A total of 10 systems reviewed and were otherwise negative. PAST MEDICAL HISTORY: See Below PAST SURGICAL HISTORY: See Below FAMILY HISTORY: See Below SOCIAL HISTORY: See Below HOME MEDICATIONS: See Below ALLERGIES: See Below VITALS: See Below PHYSICAL EXAMINATION: GENERAL: Patient is awake alert in no acute distress patient is resting comfortably and showing no signs of anxiety EYES: The conjunctivae are clear. The pupils are round and reactive. EARS, NOSE, MOUTH AND THROAT: The nose is without any evidence of any deformity. Mucous membranes are moist. NECK: The neck is nontender and supple. RESPIRATORY: Scattered rhonchi were noted throughout. There is no tachypnea or conversational dyspnea. CARDIOVASCULAR: Regular rate and rhythm noted there no murmurs rubs or gallops normal S1 normal S2. GASTROINTESTINAL: The abdomen is soft. Abdomen is nontender. MUSCULOSKELETAL/EXTREMITIES: There is no evidence of gross deformity full range of motion is noted in the hips and shoulders. SKIN: There is no obvious evidence of any rash. Pulses are symmetric in both wrists. NEUROLOGIC: Patient is awake alert and oriented x3. MEDICAL DECISION MAKING: The patient is a 35-year-old male who presented to the emergency department for an evaluation of chest pain. The patient was seen in our facility previously with similar complaints. At that time he was referred for an outpatient work-up but returns today because of ongoing symptoms. The patient has multiple risk factors for coronary syndrome. He was also found to have abnormalities on his EKG which could be consistent with ischemia. At this time his troponin was negative. He was treated with IV pain medication as well as aspirin and nitroglycerin. He was also treated with IV Lopressor because of elevated blood pressure. On chest x-ray his mediastinum was normal in appearance. His d-dimer is negative. I discussed patient's laboratory and radiographic studies with him. I also discussed the limitations of the emergency department work-up for chest pain with him. Ultimately I did feel that he was very high risk. For this reason I discussed his case with the on-call [facility] hospitalist. They have agreed to evaluate the patient in the emergency department for further management and disposition. The patient was treated with IV insulin as well. Triage Nursing notes reviewed. Prior medical records reviewed Vital Signs: reviewed and remarkable for elevated blood pressure. Differential diagnosis: Cardiac ischemia, aortic dissection, pulmonary embolism, pneumothorax, pneumonia , pericarditis, myocarditis, esophageal rupture, GERD, cholecystitis, pancreatitis, musculoskeletal, as well as other pathologies. ER treatment provided: See below Diagnostics interpreted by me: ECG: EKG was obtained in the emergency department. My interpretation is normal sinus rhythm at [address] segment abnormalities were noted in the high lateral leads with ST segment depressions noted in the apical leads. This was compared to a tracing from April 152019. There are changes which could be consistent with ischemia when compared to the previous tracing. EKG was obtained in the emergency department for a second time. My interpretation is normal sinus rhythm at 74 bpm. There is no ectopy. There was persistence of the anterior ST depressions with minimal ST abnormalities in the high lateral leads. There is also now ST depressions in the inferior leads. The patient has continued pain Cardiac Monitoring: An order was placed for continuous cardiac monitoring. The monitor shows a rate of 82 with sinus rhythm. Laboratory studies: As stated above and show below. Imaging studies: See below Consultation(s): I discussed this case with Dr. Aldana. He is agreed to evaluate the patient in the emergency department for further management and disposition. Past Med/Surg History Medical History Abscess of right leg (Resolved) H/O WITH DRAINAGE Asthma A CHILD, "NO PROBLEMS NOW" Cellulitis of right thigh (Resolved) COPD (chronic obstructive pulmonary disease) PT DENIES Depression (Acute) Diverticulitis (Resolved) Dyslipidemia (Acute) Encounter for pre-operative examination History of anesthesia reaction WOKE UP DURING THE LITHOTRIPSY ([facility]) Hyperglycemia (Inactive) Hypertension (Acute) Kidney stone on left side (Resolved) Migraine (Resolved) Morbid obesity Neuropathy BILATERAL FEET Obesity, Class III, BMI 40-49.9 (morbid obesity) (Acute) Otitis media Pancreatic cyst (Acute) Pilonidal abscess (Resolved) Renal colic (Resolved) Sciatica Sinus congestion Tobacco abuse Type 2 diabetes mellitus, with long-term current use of insulin (Acute) Vitamin D deficiency (Acute) Surgical History History of ankle surgery RIGHT History of colonoscopy (06/2014) History of esophagogastroduodenoscopy (EGD) (06/2017) History of lithotripsy History of renal stent WITH REMOVAL OF STENT S/P surgical removal of pilonidal cyst Family History Mother Diabetes Grandfather Diabetes Grandmother Diabetes Myocardial infarction Other Hypertension Denies family history of Ovarian cancer Prostate cancer Breast cancer Colorectal cancer Social History Preferred Language: Moldovan Communication Ability: Effective Visual Impairment: No Limitations Hearing Ability: Normal Operations General Agent Required: No Beliefs That Will Affect Care: None marital status: Current Living Situation: Spouse Current Living Situation Comment: [facility] current occupational status: employed Other Information That Helps Us Care for You: No Feels Safe at Home: Yes Safety Concerns: Feels Safe At This Time Smoking Status: Current every day smoker Tobacco Type: cigarettes ; Age Started Using Tobacco: 15 ; packs per day: 0.5 ; Cigarettes Per Day: 1/2 PPD X 15 YEARS ; Do You Dip or Chew Tobacco: Yes ; Second Hand Exposure: No ; Hx Alcohol Use: No Hx Substance Use: Yes substance use type: marijuana Substance Use Type Other:: medical marijuana-neuropathy Last Used Substance: Hours (ago) Childhood Exposure to Second-Hand Smoke: Yes (mother) Allergies Allergies Allergy/AdvReac Type Severity Reaction Status Date / Time cefaclor Allergy Unknown HAD Verified 04/18/20 19:22 REACTION BABY - DOES NOT REMEMBER EXACT REACTION Cephalosporins Allergy Unknown rxn as Verified 04/18/20 19:22 baby; has tolerated Augmentin 2016 Home Meds Home Medications Medication Instructions Recorded Confirmed albuterol sulfate 90 mcg/actuation 2 puffs INH .COMPLEX PRN gm 02/12/20 04/18/20 aerosol inhaler insulin aspart U-100 100 unit/mL See Rx Instructions SQ .COMPLEX 02/12/20 04/18/20 (3 mL) subcutaneous pen canagliflozin [Invokana] 300 mg PO HS 04/02/20 04/18/20 metformin 1,000 mg PO HS 04/02/20 04/18/20 acetaminophen [Tylenol Extra 1,000 mg PO Q6H PRN 04/18/20 04/18/20 Strength] Previous Rx's Medication Instructions Recorded blood sugar diagnostic #100 ea 02/12/20 pen needle, diabetic 32 gauge x #100 ea 03/18/20/32" Toujeo Max U-300 SoloStar 300 160 units SQ BID 30 Days #6 box NS 03/24/20 unit/mL (3 mL) subcutaneous insulin pen lisinopril 40 mg tablet 40 mg PO DAILY #30 tab 04/12/20 omeprazole 10 mg capsule,delayed 10 mg PO HS #30 cap 04/12/20 release sildenafil (pulm.hypertension) 20 See Rx Instructions PO .COMPLEX 04/12/20 mg tablet PRN 20 Days #30 tab simvastatin 40 mg tablet 40 mg PO HS #30 tab 04/12/20 varenicline 1 mg tablet 1 mg PO BID #60 tab 04/12/20 Results & Data (ED) Vital Signs Vital Signs - 24 hr 04/18/20 18:13 04/18/20 18:29 04/18/20 18:42 Temperature 36.5 C Temperature Source Oral Pulse Rate 85 81 Pulse Rate from SpO2 Sensor Respiratory Rate 20 Respiratory Effort / Characteristics Non-Labored Spontaneous Respiratory Depth Normal Respiratory Pattern Regular Blood Pressure 211/129 H 197/124 H Blood Pressure Mean 156 Blood Pressure Position Sitting Pulse Oximetry 98 97 Oxygen Delivery Method Room Air Room Air Sepsis Recent Fever Within 48 Hours No Sepsis New/Unexplained Change in Mental Status No Sepsis Action Taken by Nursing No Action Required 04/18/20 18:48 04/18/20 19:00 04/18/20 19:30 Temperature Temperature Source Pulse Rate 82 75 72 Pulse Rate from SpO2 Sensor 82 76 72 Respiratory Rate 22 18 24 Respiratory Effort / Characteristics Respiratory Depth Respiratory Pattern Blood Pressure 177/115 H 150/107 H 167/108 H Blood Pressure Mean 136 118 118 Blood Pressure Position Pulse Oximetry 95 96 96 Oxygen Delivery Method Room Air Room Air Room Air Sepsis Recent Fever Within 48 Hours Sepsis New/Unexplained Change in Mental Status Sepsis Action Taken by Nursing 04/18/20 20:03 04/18/20 20:30 04/18/20 21:00 Temperature Temperature Source Pulse Rate 85 79 85 Pulse Rate from SpO2 Sensor 83 80 84 Respiratory Rate 20 21 23 Respiratory Effort / Characteristics Respiratory Depth Respiratory Pattern Blood Pressure 172/115 H 172/116 H 190/119 H Blood Pressure Mean 120 131 131 Blood Pressure Position Pulse Oximetry 97 93 95 Oxygen Delivery Method Room Air Room Air Room Air Sepsis Recent Fever Within 48 Hours Sepsis New/Unexplained Change in Mental Status Sepsis Action Taken by Nursing 04/18/20 21:30 04/18/20 22:02 Temperature Temperature Source Pulse Rate 78 80 Pulse Rate from SpO2 Sensor 78 Respiratory Rate 22 Respiratory Effort / Characteristics Respiratory Depth Respiratory Pattern Blood Pressure 189/121 H 170/116 H Blood Pressure Mean 132 Blood Pressure Position Pulse Oximetry 96 Oxygen Delivery Method Room Air Sepsis Recent Fever Within 48 Hours Sepsis New/Unexplained Change in Mental Status Sepsis Action Taken by Assisted Medications Current Medication List: was personally reviewed by me Laboratory Data Attestation: I reviewed the patient's lab results. Result diagrams: 04/18/20 18:25 04/18/20 18:25 Lab Results 04/18/20 04/18/20 04/18/20 Range/Units 18:25 18:25 18:25 WBC 7.93 (4.8-10.8) K/uL RBC 5.89 (4.7-6.1) M/uL Hgb 17.0 (14.0-18.0) g/dL POC Hgb (14.0-18.0) g/dl Hct 50.6 (42-52) % POC Hct (42-52) % MCV 85.9 (80-100) fL MCH 28.9 (25-34) pg MCHC 33.6 (32-36) g/dL RDW Std Deviation 38.0 (36.4-46.3) fL RDW Coeff of Gricel 12.1 (11.5-14.5) % Plt Count 194 (130-400) K/uL MPV 11.9 H (7.4-10.4) fL Immature Gran % (Auto) 0.3 % Neut % (Auto) 62.8 % Lymph % (Auto) 28.5 % Floyd % (Auto) 6.4 % Eos % (Auto) 1.6 % Baso % (Auto) 0.4 % Neut # (Auto) 4.98 (1.4-6.5) K/uL Lymph # (Auto) 2.26 (1.2-3.4) K/uL Floyd # (Auto) 0.51 (0.11-0.59) K/uL Eos # (Auto) 0.13 (0-0.5) K/uL Baso # (Auto) 0.03 (0-0.2) K/uL Immature Gran # (Auto) 0.02 (0.00-0.02) K/uL Absolute Nucleated RBC 0.08 H (0-0) K/uL Nucleated RBC % (auto) 1.0 % PT 10.3 (9.0-12.0) Seconds INR 1.0 (0.9-1.1) APTT 26.8 (21.0-31.0) Seconds PTT Ratio 1.0 D-Dimer < 190 (0-500) ug/L FEU POC Sodium (135-144) mmol/L Sodium 135 L (136-145) mmol/L POC Potassium (3.3-5.0) mmol/L Potassium 4.1 (3.5-5.1) mmol/L POC Chloride (101-112) mmol/L Chloride 103 (98-107) mmol/L Carbon Dioxide 21 (21-32) mmol/L POC Total CO2 (24-31) mmol/L Anion Gap 11.0 (3-11) POC Anion Gap (16-25) mmol/L POC BUN (7-18) mg/dl BUN 12 (7-18) mg/dl Creatinine 0.88 (0.6-1.4) mg/dl POC Creatinine (0.6-1.3) mg/dl Est Cr Clr Drug Dosing 189.7 ml/min Est GFR ( Amer) 130.8 Est GFR (Non-Af Amer) 112.9 BUN/Creatinine Ratio 13.4 (10-20) Glucose 342 H* (70-99) mg/dl POC Glucose (70-99) mg/dl POC Glucose (other) (70-99) mg/dl Calcium 8.8 (8.5-10.1) mg/dl POC Ioniz Calcium Home (1.12-1.32) mmol/l Total Bilirubin 0.4 (0.2-1) mg/dl AST 14 L (15-37) U/L ALT 37 (12-78) U/L Alkaline Phosphatase 116 (45-117) U/L Troponin I < 0.015 (0-0.045) ng/ml Total Protein 8.3 H (6.4-8.2) gm/dl Albumin 3.6 (3.4-5.0) gm/dl Globulin 4.7 H (2.5-4.0) gm/dl Albumin/Globulin Ratio 0.8 L (0.9-2) Lipase 99 (73-393) U/L Beta-Hydroxybutyric Acd 4.19 H (0.2-2.81) mg/dl 04/18/20 04/18/20 Range/Units 18:37 21:45 WBC (4.8-10.8) K/uL RBC (4.7-6.1) M/uL Hgb (14.0-18.0) g/dL POC Hgb 16.7 (14.0-18.0) g/dl Hct (42-52) % POC Hct 49 (42-52) % MCV (80-100) fL MCH (25-34) pg MCHC (32-36) g/dL RDW Std Deviation (36.4-46.3) fL RDW Coeff of Gricel (11.5-14.5) % Plt Count (130-400) K/uL MPV (7.4-10.4) fL Immature Gran % (Auto) % Neut % (Auto) % Lymph % (Auto) % Floyd % (Auto) % Eos % (Auto) % Baso % (Auto) % Neut # (Auto) (1.4-6.5) K/uL Lymph # (Auto) (1.2-3.4) K/uL Floyd # (Auto) (0.11-0.59) K/uL Eos # (Auto) (0-0.5) K/uL Baso # (Auto) (0-0.2) K/uL Immature Gran # (Auto) (0.00-0.02) K/uL Absolute Nucleated RBC (0-0) K/uL Nucleated RBC % (auto) % PT (9.0-12.0) Seconds INR (0.9-1.1) APTT (21.0-31.0) Seconds PTT Ratio D-Dimer (0-500) ug/L FEU POC Sodium 135 (135-144) mmol/L Sodium (136-145) mmol/L POC Potassium 4.3 (3.3-5.0) mmol/L Potassium (3.5-5.1) mmol/L POC Chloride 101 (101-112) mmol/L Chloride (98-107) mmol/L Carbon Dioxide (21-32) mmol/L POC Total CO2 24 (24-31) mmol/L Anion Gap (3-11) POC Anion Gap 15.0 L (16-25) mmol/L POC BUN 13 (7-18) mg/dl BUN (7-18) mg/dl Creatinine (0.6-1.4) mg/dl POC Creatinine 0.6 (0.6-1.3) mg/dl Est Cr Clr Drug Dosing ml/min Est GFR ( Amer) Est GFR (Non-Af Amer) BUN/Creatinine Ratio (10-20) Glucose (70-99) mg/dl POC Glucose 297 H (70-99) mg/dl POC Glucose (other) 366 H* (70-99) mg/dl Calcium (8.5-10.1) mg/dl POC Ioniz Calcium Home 1.19 (1.12-1.32) mmol/l Total Bilirubin (0.2-1) mg/dl AST (15-37) U/L ALT (12-78) U/L Alkaline Phosphatase (45-117) U/L Troponin I (0-0.045) ng/ml Total Protein (6.4-8.2) gm/dl Albumin (3.4-5.0) gm/dl Globulin (2.5-4.0) gm/dl Albumin/Globulin Ratio (0.9-2) Lipase (73-393) U/L Beta-Hydroxybutyric Acd (0.2-2.81) mg/dl Administered Medications Heparin Sodium/Dextrose (Heparin Sodium/Dextrose) 25,000 units in 500 mls @ 40 mls/hr IV .[id number] [facility]; Protocol Stop: 05/19/20 00:14 Last Admin: 04/19/20 00:30 Dose: 2,000 units/hr, 40 mls/hr Documented by: [id number] Cosigned by: [id number] Insulin Aspart (Novolog Flexpen) 0 units SC ACHS [facility] Stop: 05/18/20 23:29 Last Admin: 04/18/20 23:45 Dose: 6 units Documented by: [id number] Cosigned by: [id number] Morphine Sulfate (Morphine Sulfate) 4 mg IV Q15M PRN PRN Reason: Pain Stop: 05/02/20 19:53 Last Admin: 04/19/20 00:06 Dose: 4 mg Documented by: [id number] Admin: 04/18/20 20:00 Dose: 4 mg Documented by: [id number] Nitroglycerin (Nitro-Bid 2%) 2 inch EXT Q6 [facility] Stop: 05/19/20 00:14 Last Admin: 04/19/20 00:30 Dose: 2 inch Documented by: [id number] Varenicline (Chantix) 1 mg PO BID [facility] Stop: 05/18/20 23:04 Last Admin: 04/18/20 23:56 Dose: Not Given Documented by: [id number] Discontinued Medications Aspirin (Aspirin) 324 mg PO NOW STA Stop: 04/18/20 18:26 Last Admin: 04/18/20 18:42 Dose: 324 mg Documented by: [id number] Diltiazem HCl (Cardizem) 10 mg IV NOW STA Stop: 04/18/20 22:45 Last Admin: 04/18/20 23:44 Dose: 10 mg Documented by: [id number] Cosigned by: [id number] Lorazepam (Ativan) 1 mg in 2 mls @ 2 mls/min IV NOW STA Stop: 04/18/20 18:29 Last Admin: 04/18/20 18:43 Dose: 2 mls/min Documented by: [id number] Heparin Sodium (Porcine) 9,000 (units/ Syringe) 9 mls @ 10 mls/min IV NOW ONE Stop: 04/19/20 00:31 Last Admin: 04/19/20 00:41 Dose: 10 mls/min Documented by: [id number] Cosigned by: [id number] Insulin Glargine (Lantus) 64 units SC ONE ONE Stop: 04/18/20 23:31 Last Admin: 04/18/20 23:45 Dose: 64 units Documented by: [id number] Cosigned by: [id number] Insulin Human Regular (Novolin R U-100 Per Unit) 5 units IV NOW STA Stop: 04/18/20 19:59 Last Admin: 04/18/20 20:08 Dose: 5 units Documented by: [id number] Cosigned by: [id number] Metoprolol Tartrate (Lopressor) 5 mg IV NOW STA Stop: 04/18/20 18:26 Last Admin: 04/18/20 18:42 Dose: 5 mg Documented by: [id number] Metoprolol Tartrate (Lopressor) 5 mg IV NOW STA Stop: 04/18/20 21:50 Last Admin: 04/18/20 22:02 Dose: 5 mg Documented by: [id number] Metoprolol Tartrate (Lopressor) 25 mg PO NOW STA Stop: 04/18/20 23:06 Last Admin: 04/18/20 23:55 Dose: 25 mg Documented by: [id number] Nitroglycerin (Nitrostat) 0.4 mg SL UD PRN PRN Reason: Chest Pain Stop: 05/18/20 18:24 Last Admin: 04/18/20 18:43 Dose: 0.4 mg Documented by: [id number] Nitroglycerin (Nitro-Bid 2%) 1 inch EXT NOW ONE Stop: 04/18/20 21:50 Last Admin: 04/18/20 22:04 Dose: 1 inch Documented by: [id number] Nitroglycerin (Nitro-Bid 2%) Confirm Administered Dose 36 inch .ROUTE .STK-MED ONE Stop: 04/19/20 00:19 Last Admin: 04/19/20 00:23 Dose: Not Given Documented by: [id number] Ondansetron HCl (Zofran) 4 mg IV NOW STA Stop: 04/18/20 19:55 Last Admin: 04/18/20 20:00 Dose: 4 mg Documented by: [id number] Imaging Data Radiologist's Impression: XR chest 1V portable HISTORY: 35 years-old Male Chest Pain acute atypical chest pain COMPARISON: Chest radiograph 04/15/2020 TECHNIQUE: Portable AP view of the chest FINDINGS: Cardiomediastinal and hilar silhouettes are unchanged. No pneumothorax, pleural effusion, airspace consolidation or overt pulmonary edema. Bones of the chest appear grossly intact. IMPRESSION: No acute process. ACT 112: Negative or not required by law. The above report was generated using voice recognition software. It may contain grammatical, syntax or spelling errors. Electronically signed by: Yung Arciniega M.D. 04/18/2020 7:01 PM Dictated: 04/18/201900 Transcribed: 04/18/201900 Blood Pressure Blood Pressure Findings: Elevated blood pressure Blood Pressure Disposition: Referred to patients primary care provider Discharge Plan Visit Data *Final* Discharge Date/Time: 04/18/20 22:43 Chief Complaint: Chest Pain Stated Complaint: CHEST PAIN ED Provider: Robert Neves Discharge Problem: Chest pain, Hypertension, Acute hyperglycemia, Abnormal ECG Patient Disposition: Admitted As Inpatient Condition: Good Discharge Instructions Interventions: ED Discharge Assessment Last Done: 04/18/20 22:43 Discharge Problem: Chest pain Qualifiers: Chest pain type: unspecified Qualified Code(s): R07.9 - Chest pain, unspecified Hypertension Qualifiers: Hypertension type: unspecified Qualified Code(s): I10 - Essential (primary) hypertension
[2020-04-18 18:41] LABS: Basophils # (auto) 0.03 K/uL (0-0.2); Basophils % (auto) 0.4 %; Eosinophils # (auto) 0.13 K/uL (0-0.5); Eosinophils % (auto) 1.6 %; Hematocrit (blood only) 50.6 % (42-52); Immature Granulocytes # (auto) 0.02 K/uL (0.00-0.02); Immature Granulocytes % (auto) 0.3 %; Lymphocytes # (auto) 2.26 K/uL (1.2-3.4); Lymphocytes % (auto) 28.5 %; Mean Corpuscular Hemoglobin 28.9 pg (25-34); Mean Corpuscular Hgb Conc 33.6 g/dL (32-36); Mean Corpuscular Volume 85.9 fL (80-100); Mean Platelet Volume 11.9 fL (7.4-10.4); Monocytes # (auto) 0.51 K/uL (0.11-0.59); Monocytes % (auto) 6.4 %; Neutrophils # (auto) 4.98 K/uL (1.4-6.5); Neutrophils % (auto) 62.8 %; Nucleated RBC # (auto) 0.08 K/uL (0-0); Platelet Count 194 K/uL (130-400); RDW Coefficient of Variation 12.1 % (11.5-14.5); Red Blood Count 5.89 M/uL (4.7-6.1); White Blood Count 7.93 K/uL (4.8-10.8)
[2020-04-18 18:52] LABS: D Dimer < 190 ug/L FEU (0-500); Partial Thromboplastin Time 26.8 Seconds (21.0-31.0); Prothrombin Time 10.3 Seconds (9.0-12.0)
[2020-04-18 18:56] LABS: iSTAT Creatinine 0.6 mg/dl (0.6-1.3); iSTAT Hemoglobin 16.7 g/dl (14.0-18.0); iSTAT Ionized Calcium 1.19 mmol/l (1.12-1.32); iSTAT Potassium 4.3 mmol/L (3.3-5.0)
--- NOTE | 2020-04-18 19:03 | XRay Report ---
XR chest 1V portable HISTORY: 35 years-old Male Chest Pain acute atypical chest pain COMPARISON: Chest radiograph 04/15/2020 TECHNIQUE: Portable AP view of the chest FINDINGS: Cardiomediastinal and hilar silhouettes are unchanged. No pneumothorax, pleural effusion, airspace co nsolidation or overt pulmonary edema. Bones of the chest appear grossly intact. IMPRESSION: No acute process. ACT 112: Negative or not required by law. The above report was generated using voice recognition software. It may contain grammatical, syntax o r spelling errors. Electronically signed by: Yung Arciniega M.D. 04/18/2020 7:01 PM
[2020-04-18 19:49] LABS: Alanine Aminotransferase 37 U/L (12-78); Albumin Level 3.6 gm/dl (3.4-5.0); Bilirubin,Total 0.4 mg/dl (0.2-1); Calcium 8.8 mg/dl (8.5-10.1); Chloride 103 mmol/L (98-107); Creatinine Clr Calc Pharmacy 189.7 ml/min; Est GFR (African American) 130.8; Est GFR (Non-African American) 112.9; Glucose 342 mg/dl (70-99)
[2020-04-18 19:50] LABS: Albumin Globulin Ratio 0.8 (0.9-2); Alkaline Phosphatase 116 U/L (45-117); Aspartate Aminotransferase 14 U/L (15-37); BUN Creatinine Ratio 13.4 (10-20); Beta-Hydroxybutyrate 4.19 mg/dl (0.2-2.81); Blood Urea Nitrogen 12 mg/dl (7-18); Carbon Dioxide 21 mmol/L (21-32); Globulin 4.7 gm/dl (2.5-4.0); Lipase 99 U/L (73-393); Potassium 4.1 mmol/L (3.5-5.1); Sodium 135 mmol/L (136-145); Total Protein 8.3 gm/dl (6.4-8.2); Troponin I < 0.015 ng/ml (0-0.045)
[2020-04-18] MEDS ORDERED: ONDANSETRON INJ 2 MG/ML 2 ML VIAL IV STA (19:54)
[2020-04-18] MEDS ORDERED: NovoLIN-R INSULIN PER UNIT CHARGE IV STA (19:58)
[2020-04-18] MEDS: MoRPHine SULFATE 4 MG/ML 1 ML CARP\\VIAL IV PRN (20:00)
[2020-04-18] MEDS ORDERED: NITROGLYCERIN 2% OINTMENT 30GM TUBE EXT ONE (21:49)
--- NOTE | 2020-04-18 22:21 | History & Physical Report ---
Date of Service April 18, 2020 Assessment & Plan (1) Precordial chest pain: Precordial chest pain/hypertension/bifascicular block- The patient will be admitted to telemetry for serial cardiac enzymes, serial EKG's, cardiac rhythm monitoring and a 2-D echocardiogram with Dopplers. Multiple risk factors: Medical noncompliance with persistently elevated blood pressure and blood sugars, hypertension, diabetes mellitus, obesity, tobacco abuse, hyperlipidemia. Would have low threshold for beginning heparin if patient does not have improvement in symptoms with treatment and/or develops elevated troponin or further EKG changes. Aspirin 81 mg daily. Nitropaste 1 inch anterior chest wall 6 hours Metoprolol succinate 25 mg p.o. now and every morning Lopressor 5 mg IV now and every 4 hours as needed systolic blood pressure greater than 150. Cardizem 10 mg IV given 30 minutes after initial Lopressor dosing. Consult cardiology Present on Admission?: Yes (2) Bifascicular block: See above Present on Admission?: Yes (3) Hypertension: See above Present on Admission?: Yes (4) Type 2 diabetes mellitus, with long-term current use of insulin: Hold Enbrel, and metformin. Reduce insulin Toujeo from 160 units subcu twice daily to 80 units subcu twice daily. Placed on Accu-Cheks before meals and at bedtime with NovoLog coverage per scale Check hemoglobin A1c Present on Admission?: Yes (5) Dyslipidemia: Continue simvastatin 40 mg at bedtime. Check a fasting lipid panel Present on Admission?: Yes (6) COPD, mild: Continue albuterol HFA as needed Present on Admission?: Yes (7) Depression: Patient noted to have depression, is not on any specific treatment at this time. Present on Admission?: Yes (8) Tobacco abuse: Continue varenicline 1 mg p.o. twice daily Present on Admission?: Yes (9) Obesity, Class III, BMI 40-49.9 (morbid obesity): Noted as risk factor for vascular disease Present on Admission?: Yes History of Present Illness Chief Complaint: The patient presents to the emergency department with complaint of chest pain from sternum to right upper chest area, with some radiation into the right side of his neck, off and on since 3 days ago, and has not completely returned to baseline. Primary Care Provider: Doreen Clark MD The patient is a 35-year-old male with a past medical history including uncontrolled hypertension, uncontrolled diabetes mellitus, diabetic neuropathy, erectile dysfunction, perirectal abscess, DKA, scrotal abscess, tobacco abuse, depression, COPD, dyslipidemia, morbid obesity BMI 40-49.9, pancreatic cyst and vitamin D deficiency. He initially presented to the emergency department on 04/15/2020 with complaint of chest pain, and underwent work-up including laboratories and EKG, which were noted to be normal. He has had pain persistently since that time, however it has been waxing and waning, but with an increase in intensity over the past 24 hours, he presents to the emergency department for reassessment. He does also complain of chronic low back pain. He has not had any recent travels or sick exposures. Allergies Allergy/AdvReac Type Severity Reaction Status Date / Time cefaclor Allergy Unknown HAD Verified 04/18/20 19:22 REACTION BABY - DOES NOT REMEMBER EXACT REACTION Cephalosporins Allergy Unknown rxn as Verified 04/18/20 19:22 baby; has tolerated Augmentin 2016 Home Medications Home Medications Medication Instructions Recorded Confirmed Type albuterol sulfate 90 mcg/actuation 2 puffs INH .COMPLEX PRN gm 02/12/20 04/18/20 History aerosol inhaler blood sugar diagnostic #100 ea 02/12/20 04/18/20 Rx insulin aspart U-100 100 unit/mL See Rx Instructions SQ .COMPLEX 02/12/20 04/18/20 History (3 mL) subcutaneous pen pen needle, diabetic 32 gauge x #100 ea 03/18/20 04/18/20 Rx 5/32" Toujeo Max U-300 SoloStar 300 160 units SQ BID 30 Days #6 box NS 03/24/20 04/18/20 Rx unit/mL (3 mL) subcutaneous insulin pen canagliflozin [Invokana] 300 mg PO HS 04/02/20 04/18/20 History metformin 1,000 mg PO HS 04/02/20 04/18/20 History lisinopril 40 mg tablet 40 mg PO DAILY #30 tab 04/12/20 04/18/20 Rx omeprazole 10 mg capsule,delayed 10 mg PO HS #30 cap 04/12/20 04/18/20 Rx release sildenafil (pulm.hypertension) 20 See Rx Instructions PO .COMPLEX 04/12/20 04/18/20 Rx mg tablet PRN 20 Days #30 tab simvastatin 40 mg tablet 40 mg PO HS #30 tab 04/12/20 04/18/20 Rx varenicline 1 mg tablet 1 mg PO BID #60 tab 04/12/20 04/18/20 Rx acetaminophen [Tylenol Extra 1,000 mg PO Q6H PRN 04/18/20 04/18/20 History Strength] Past Med/Surg History Medical History Abscess of right leg (Resolved) H/O WITH DRAINAGE Asthma A CHILD, "NO PROBLEMS NOW" Cellulitis of right thigh (Resolved) COPD (chronic obstructive pulmonary disease) PT DENIES Depression (Acute) Diverticulitis (Resolved) Dyslipidemia (Acute) Encounter for pre-operative examination History of anesthesia reaction WOKE UP DURING THE LITHOTRIPSY ([facility]) Hyperglycemia (Inactive) Hypertension (Acute) Kidney stone on left side (Resolved) Migraine (Resolved) Morbid obesity Neuropathy BILATERAL FEET Obesity, Class III, BMI 40-49.9 (morbid obesity) (Acute) Otitis media Pancreatic cyst (Acute) Pilonidal abscess (Resolved) Renal colic (Resolved) Sciatica Sinus congestion Tobacco abuse Type 2 diabetes mellitus, with long-term current use of insulin (Acute) Vitamin D deficiency (Acute) Surgical History History of ankle surgery RIGHT History of colonoscopy (06/2014) History of esophagogastroduodenoscopy (EGD) (06/2017) History of lithotripsy History of renal stent WITH REMOVAL OF STENT S/P surgical removal of pilonidal cyst Family History Mother Diabetes Grandfather Diabetes Grandmother Diabetes Myocardial infarction Other Hypertension Denies family history of Ovarian cancer Prostate cancer Breast cancer Colorectal cancer Social History Preferred Language: Micronesian Communication Ability: Effective Visual Impairment: No Limitations Hearing Ability: Normal 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 Beliefs That Will Affect Care: None marital status: Current Living Situation: Spouse Current Living Situation Comment: [facility] current occupational status: employed Other Information That Helps Us Care for You: No Feels Safe at Home: Yes Safety Concerns: Feels Safe At This Time Smoking Status: Current every day smoker Tobacco Type: cigarettes ; Age Started Using Tobacco: 15 ; packs per day: 0.5 ; Cigarettes Per Day: 1/2 PPD X 15 YEARS ; Do You Dip or Chew Tobacco: Yes ; Second Hand Exposure: No ; Hx Alcohol Use: No Hx Substance Use: Yes substance use type: marijuana Substance Use Type Other:: medical marijuana-neuropathy Last Used Substance: Hours (ago) Childhood Exposure to Second-Hand Smoke: Yes (mother) Review of Systems Review of Systems: The patient denies palpitations, cough, lower extremity swelling, sore throat, fevers, chills, sweats, nausea, vomiting, diarrhea , constipation, abdominal pain, pelvic pain, blood in urine or stool, dysuria, urinary frequency or urgency, lightheadedness, dizziness, headache, memory loss, loss of consciousness, rash, abnormal bruising or bleeding, imbalance, focal or generalized weakness, numbness or tingling in arms or legs, generalized arthralgias or myalgias, neck pain, or night sweats. The review of systems is otherwise negative other than for that already noted above, and at least 10 systems have been reviewed. Physical Exam Physical Exam: The patient is awake, alert and oriented 3, normocephalic and atraumatic, lying in bed and in no acute distress. HEENT--PERRL, EOMI, mucous membranes and oropharynx normal. Neck--supple. No JVD. No bruits. Thyroid normal, trachea midline, no adenopathy. Heart--normal S1 and S2. No murmurs, rubs or gallops. Lungs--clear bilaterally, no respiratory distress, no accessory muscle use. Abdomen--normal bowel sounds and soft. Nontender. Nondistended, no hernias or masses, no organomegaly. Extremities--no cyanosis or clubbing. No edema. Dermatologic--normal skin turgor, normal color, no abnormal lymph nodes, no rash. Neurologic--cranial nerves II through XII grossly intact. Rheumatologic--normal range of motion. Psychiatric--normal affect. Results & Data Results & Data ([facility]) Vital Signs (Past 12 Hours) Vital Signs Temp Pulse Resp BP Pulse Ox 04/18/20 22:02 80 170/116 H 04/18/20 21:00 85 23 190/119 H 95 04/18/20 20:30 79 21 172/116 H 93 04/18/20 20:03 85 20 172/115 H 97 04/18/20 19:30 72 24 167/108 H 96 04/18/20 19:00 75 18 150/107 H 96 04/18/20 18:48 82 22 177/115 H 95 04/18/20 18:42 81 197/124 H 04/18/20 18:29 97 04/18/20 18:13 97.7 F 85 20 211/129 H 98 Laboratory Results Laboratory Results WBC 7.93 K/uL (4.8-10.8) 04/18/20 18:25 RBC 5.89 M/uL (4.7-6.1) 04/18/20 18:25 Hgb 17.0 g/dL (14.0-18.0) 04/18/20 18:25 POC Hgb 16.7 g/dl (14.0-18.0) 04/18/20 18:37 Hct 50.6 % (42-52) 04/18/20 18:25 POC Hct 49 % (42-52) 04/18/20 18:37 MCV 85.9 fL (80-100) 04/18/20 18:25 MCH 28.9 pg (25-34) 04/18/20 18:25 MCHC 33.6 g/dL (32-36) 04/18/20 18:25 RDW Std Deviation 38.0 fL (36.4-46.3) 04/18/20 18:25 RDW Coeff of Gricel 12.1 % (11.5-14.5) 04/18/20 18:25 Plt Count 194 K/uL (130-400) 04/18/20 18:25 MPV 11.9 fL (7.4-10.4) H 04/18/20 18:25 Immature Gran % (Auto) 0.3 % 04/18/20 18:25 Neut % (Auto) 62.8 % 04/18/20 18:25 Lymph % (Auto) 28.5 % 04/18/20 18:25 Greenlee % (Auto) 6.4 % 04/18/20 18:25 Eos % (Auto) 1.6 % 04/18/20 18:25 Baso % (Auto) 0.4 % 04/18/20 18:25 Neut # (Auto) 4.98 K/uL (1.4-6.5) 04/18/20 18:25 Lymph # (Auto) 2.26 K/uL (1.2-3.4) 04/18/20 18:25 Greenlee # (Auto) 0.51 K/uL (0.11-0.59) 04/18/20 18:25 Eos # (Auto) 0.13 K/uL (0-0.5) 04/18/20 18:25 Baso # (Auto) 0.03 K/uL (0-0.2) 04/18/20 18:25 Immature Gran # (Auto) 0.02 K/uL (0.00-0.02) 04/18/20 18: Absolute Nucleated RBC 0.08 K/uL (0-0) H 04/18/20 18: Nucleated RBC % (auto) 1.0 % 04/18/20 18: PT 10.3 Seconds (9.0-12.0) 04/18/20 18: INR 1.0 (0.9-1.1) 04/18/20 18: APTT 26.8 Seconds (21.0-31.0) 04/18/20 18: PTT Ratio 1.0 04/18/20 18: D-Dimer < 190 ug/L FEU (0-500) 04/18/20 18:25 POC Sodium 135 mmol/L (135-144) 04/18/20 18:37 Sodium 135 mmol/L (136-145) L 04/18/20 18:25 POC Potassium 4.3 mmol/L (3.3-5.0) 04/18/20 18:37 Potassium 4.1 mmol/L (3.5-5.1) 04/18/20 18:25 POC Chloride 101 mmol/L (101-112) 04/18/20 18:37 Chloride 103 mmol/L (98-107) 04/18/20 18:25 Carbon Dioxide 21 mmol/L (21-32) 04/18/20 18:25 POC Total CO2 24 mmol/L (24-31) 04/18/20 18:37 Anion Gap 11.0 (3-11) 04/18/20 18:25 POC Anion Gap 15.0 mmol/L (16-25) L 04/18/20 18:37 POC BUN 13 mg/dl (7-18) 04/18/20 18:37 BUN 12 mg/dl (7-18) 04/18/20 18:25 Creatinine 0.88 mg/dl (0.6-1.4) 04/18/20 18:25 POC Creatinine 0.6 mg/dl (0.6-1.3) 04/18/20 18:37 Est Cr Clr Drug Dosing 189.7 ml/min 04/18/20 18:25 Est GFR ( Amer) 130.8 04/18/20 18:25 Est GFR (Non-Af Amer) 112.9 04/18/20 18:25 BUN/Creatinine Ratio 13.4 (10-20) 04/18/20 18:25 Glucose 342 mg/dl (70-99) H* 04/18/20 18:25 POC Glucose 293 mg/dl (70-99) H 04/18/20 23:41 POC Glucose (other) 366 mg/dl (70-99) H* 04/18/20 18:37 Calcium 8.8 mg/dl (8.5-10.1) 04/18/20 18:25 POC Ioniz Calcium Home 1.19 mmol/l (1.12-1.32) 04/18/20 18:37 Total Bilirubin 0.4 mg/dl (0.2-1) 04/18/20 18:25 AST 14 U/L (15-37) L 04/18/20 18:25 ALT 37 U/L (12-78) 04/18/20 18:25 Alkaline Phosphatase 116 U/L (45-117) 04/18/20 18:25 Troponin I 1.870 ng/ml (0-0.045) H* 04/18/20 23:15 Total Protein 8.3 gm/dl (6.4-8.2) H 04/18/20 18:25 Albumin 3.6 gm/dl (3.4-5.0) 04/18/20 18:25 Globulin 4.7 gm/dl (2.5-4.0) H 04/18/20 18:25 Albumin/Globulin Ratio 0.8 (0.9-2) L 04/18/20 18:25 Lipase 99 U/L (73-393) 04/18/20 18:25 Beta-Hydroxybutyric Acd 4.19 mg/dl (0.2-2.81) H 04/18/20 18:25 Diagnostic Findings [place], [place] [phone] XRay Report Patient: LILY WOOD Date: 04/18/20 MR#: [id number]: Ruben ABBASI Acct ID:[id number]: Date: 1985City Zip: [place] [address] Age: 35Location: ED Sex: M Room/Bed: Att Phy:Diagnosis: CHEST PAIN Radha Phy: Doreen Clark MDService Date: 04/18/20 Fam Phy:Interpreting Phy: Herbert Arciniega Admit Phy: Ordering Phy: Robert Neves DO cc: ~ XR chest 1V portable HISTORY: 35 years-old Male Chest Pain acute atypical chest pain COMPARISON: Chest radiograph 04/15/2020 TECHNIQUE: Portable AP view of the chest FINDINGS: Cardiomediastinal and hilar silhouettes are unchanged. No pneumothorax, pleural effusion, airspace consolidation or overt pulmonary edema. Bones of the chest appear grossly intact. IMPRESSION: No acute process. ACT 112: Negative or not required by law. The above report was generated using voice recognition software. It may contain grammatical, syntax or spelling errors. Electronically signed by: Yung Arciniega M.D. 04/18/2020 7:01 PM Dictated: 04/18/201900 Transcribed: 04/18/201900 Code Status & VTE Plan Code Status Full code VTE Prophylaxis Plan VTE Prophylaxis will be ordered: Yes PG Care Time/CCT Total # of Minutes Spent Total Time Spent with Patient: Total time spent is greater than 50% in coordination of care (as documented) at patient's floor/unit and/or counseling patient: Coding Level of Care Code 02757 Initial Inpt Care Lvl 3 Diagnoses Precordial chest pain R07.2 Bifascicular block I45.2 Hypertension I10 Hypertension type: unspecified Type 2 diabetes mellitus, with long-term current use of insulin E11.9; Z79.4 Dyslipidemia E78.5 COPD, mild J44.9 Depression F32.9 Tobacco abuse Z72.0 Obesity, Class III, BMI 40-49.9 (morbid obesity) E66.01 (1) Hypertension Hypertension type: unspecified Qualified Code(s): I10 - Essential (primary) hypertension
[2020-04-18] MEDS ORDERED: dilTIAZem HCl 5 MG/ML 5 ML VIAL IV STA (22:44)
[2020-04-18] MEDS ORDERED: ACETAMINOPHEN 500 MG TAB PO PRN (23:05)
[2020-04-18] MEDS ORDERED: MAGNESIUM HYDROXIDE SUSP 30 ML UDC PO PRN (23:05)
[2020-04-18] MEDS ORDERED: GLUCOSE 40% GEL 15 GM TUBE PO PRN ×2 (23:05→23:30)
[2020-04-18] MEDS ORDERED: GLUCOSE 10 TABS/TUBE PO PRN ×2 (23:05→23:30)
[2020-04-18] MEDS ORDERED: ALBUTEROL HFA 8 GM INHALER INH PRN (23:05)
[2020-04-18] MEDS ORDERED: METOPROLOL TARTRATE 25 MG TAB PO STA (23:05)
[2020-04-18] MEDS ORDERED: ALUMINUM/MAGNESIUM SUSP 30 ML UDC PO PRN (23:05)
[2020-04-18] MEDS ORDERED: CARBOHYDRATES FOR HYPOGLYCEMIA PO PRN ×2 (23:05→23:30)
[2020-04-18] MEDS ORDERED: DEXTROSE 50% 50 ML SYRINGE IV PRN ×2 (23:05→23:30)
[2020-04-18] MEDS ORDERED: ONDANSETRON INJ 2 MG/ML 2 ML VIAL IV PRN (23:05)
[2020-04-18] MEDS ORDERED: GLUCAGON FOR INJ 1 MG VIAL SQ PRN ×2 (23:05→23:30)
[2020-04-18] MEDS ORDERED: INSULIN GLARGINE 100 UNIT/ML VIAL SC ONE (23:30)
[2020-04-18] MEDS ORDERED: INSULIN GLARGINE SOLOSTAR 100 UNITS/ML 3 ML PEN SC ONE (23:30)
[2020-04-18] MEDS: INSULIN ASPART 100 UNITS/ML 3 ML PEN SC SCH (23:45)
[2020-04-18] MEDS: VARENICLINE 1 MG TAB PO SCH (23:56)
[2020-04-19] MEDS: MoRPHine SULFATE 4 MG/ML 1 ML CARP\\VIAL IV PRN (00:06)
[2020-04-19] MEDS ORDERED: NITROGLYCERIN 2% OINTMENT 30GM TUBE ONE (00:18)
[2020-04-19] MEDS ORDERED: HEPARIN IV BOLUS 9,000 UNITS in SYRINGE 0 ML IV ONE (00:30)
[2020-04-19] MEDS: NITROGLYCERIN 2% OINTMENT 30GM TUBE EXT SCH ×4 (00:30→18:30)
[2020-04-19] MEDS: HEPARIN SODIUM/DEXTROSE 25,000 UNITS/500 ML BAG IV SCH ×2 (00:30→15:22)
[2020-04-19] MEDS ORDERED: METOPROLOL SUCC 50MG EXT REL TAB PO STA (01:12)
[2020-04-19] MEDS ORDERED: METOPROLOL TARTRATE 25 MG TAB PO ONE (01:26)
[2020-04-19] MEDS: METOPROLOL TARTRATE 1 MG/ML VIAL IV PRN ×2 (01:28→16:03)
[2020-04-19] MEDS ORDERED: NITROGLYCERIN 2% OINTMENT 30GM TUBE EXT SCH (04:00)
[2020-04-19] MEDS ORDERED: INSULIN ASPART 100 UNITS/ML 3 ML PEN SC STA (04:59)
[2020-04-19] MEDS ORDERED: PERFLUTREN LIPID MICROSPHERE (DEFINITY) IV ONE (06:50)
[2020-04-19 07:17] LABS: Basophils # (auto) 0.01 K/uL (0-0.2); Basophils % (auto) 0.1 %; Eosinophils # (auto) 0.15 K/uL (0-0.5); Eosinophils % (auto) 1.9 %; Hematocrit (blood only) 44.1 % (42-52); Hemoglobin 15.2 g/dL (14.0-18.0); Immature Granulocytes # (auto) 0.01 K/uL (0.00-0.02); Immature Granulocytes % (auto) 0.1 %; Lymphocytes # (auto) 1.87 K/uL (1.2-3.4); Lymphocytes % (auto) 23.2 %; Mean Corpuscular Hgb Conc 34.5 g/dL (32-36); Mean Corpuscular Volume 84.2 fL (80-100); Mean Platelet Volume 11.6 fL (7.4-10.4); Monocytes # (auto) 0.66 K/uL (0.11-0.59); Monocytes % (auto) 8.2 %; Neutrophils # (auto) 5.37 K/uL (1.4-6.5); Neutrophils % (auto) 66.5 %; Platelet Count 170 K/uL (130-400); RDW Coefficient of Variation 12.3 % (11.5-14.5); RDW Standard Deviation 37.3 fL (36.4-46.3); Red Blood Count 5.24 M/uL (4.7-6.1); White Blood Count 8.07 K/uL (4.8-10.8)
[2020-04-19 07:28] LABS: Partial Thromboplastin Ratio 1.3; Partial Thromboplastin Time 36.8 Seconds (21.0-31.0); Prothrombin Time 10.7 Seconds (9.0-12.0)
[2020-04-19 07:30] LABS: Estimated Average Glucose 266 mg/dl; Hemoglobin A1C 10.9 % (4.5-5.6)
[2020-04-19 08:04] LABS: Albumin Globulin Ratio 0.8 (0.9-2); Bilirubin,Total 0.5 mg/dl (0.2-1); Calcium 8.4 mg/dl (8.5-10.1); Creatinine Clr Calc Pharmacy 256.5 ml/min; Est GFR (African American) 148.2; Est GFR (Non-African American) 127.8; Globulin 3.9 gm/dl (2.5-4.0); Magnesium 1.9 mg/dl (1.8-2.4); Potassium 3.8 mmol/L (3.5-5.1); Total Protein 6.9 gm/dl (6.4-8.2)
[2020-04-19] MEDS ORDERED: HEPARIN IV BOLUS 9,000 UNITS in SYRINGE 0 ML IV STA (08:08)
[2020-04-19] MEDS ORDERED: PHARMACY GLYCEMIC MGMT CONSULT PRN (08:26)
[2020-04-19] MEDS: INSULIN ASPART 100 UNITS/ML 3 ML PEN SC SCH ×4 (08:50→20:51)
[2020-04-19] MEDS: ASPIRIN 81 MG ECTAB PO SCH (08:51)
[2020-04-19] MEDS: lisinopriL 40 MG TAB PO SCH (08:51)
[2020-04-19] MEDS: VARENICLINE 1 MG TAB PO SCH ×2 (08:51→20:39)
--- NOTE | 2020-04-19 08:56 | XCELERA ---
[id number]
[2020-04-19] MEDS ORDERED: METOPROLOL TARTRATE 25 MG TAB PO SCH (09:00)
[2020-04-19] MEDS ORDERED: INSULIN GLARGINE 100 UNIT/ML VIAL SC SCH (09:00)
[2020-04-19] MEDS: INSULIN GLARGINE 100 UNIT/ML VIAL SC SCH ×3 (09:50→20:52)
[2020-04-19] MEDS: ACETAMINOPHEN 325 MG TAB PO PRN (09:55)
--- NOTE | 2020-04-19 10:32 | Pre Anesthesia Assessment ---
Date of Service April 19, 2020 Pre Sedation Assessment Vital Signs Temp Pulse Pulse Resp BP BP BP 04/19/20 07:47 36.8 C 83 19 146/81 H 04/19/20 07:26 77 04/19/20 04:01 36.5 C 78 20 168/93 H 04/19/20 02:46 36.7 C 78 18 145/95 H 04/19/20 01:36 87 04/19/20 01:28 89 166/108 H 04/19/20 00:08 82 18 162/116 H 04/18/20 23:00 36.4 C L 88 20 184/146 H 04/18/20 22:36 84 20 179/116 H 04/18/20 22:02 80 170/116 H 04/18/20 21:30 78 22 189/121 H 04/18/20 21:00 85 23 190/119 H 04/18/20 20:30 79 21 172/116 H 04/18/20 20:03 85 20 172/115 H 04/18/20 19:30 72 24 167/108 H 04/18/20 19:00 75 18 150/107 H 04/18/20 18:48 82 22 177/115 H 04/18/20 18:42 81 197/124 H 04/18/20 18:29 04/18/20 18:13 36.5 C 85 20 211/129 H Pulse Ox 04/19/20 07:47 91 04/19/20 07:26 04/19/20 04:01 97 04/19/20 02:46 99 04/19/20 01:36 04/19/20 01:28 04/19/20 00:08 99 04/18/20 23:00 98 04/18/20 22:36 98 04/18/20 22:02 04/18/20 21:30 96 04/18/20 21:00 95 04/18/20 20:30 93 04/18/20 20:03 97 04/18/20 19:30 96 04/18/20 19:00 96 04/18/20 18:48 95 04/18/20 18:42 04/18/20 18:29 97 04/18/20 18:13 98 Cardiovascular RRR, no murmur, no edema Respiratory normal respiratory effort, lungs clear to auscultation Pre-Sedation Airway Assessment Smoking Status: Current every day smoker Mallampati Class: II ASA: ASA3 NPO Status Date of Last Intake of Fluids: 04/19/20 Time of Last Intake of Fluids: 08:00 Date of Last Intake of Solid Food: 04/18/20 Time of Last Intake of Solid Foods: 05:00 Procedure Planning Contraindications for Sedation: none Current Medications Reviewed: Yes Notes The planned sedation has been discussed with the patient. Informed Consent was obtained. I have identified the patient, determined the appropriateness of sedation and have assessed the patient immediately prior to the procedure. All medicine(s) and interventions are by my order.
[2020-04-19] MEDS ORDERED: fentaNYL citrate 100 MCG/2 ML VIAL ONE ×3 (10:37→13:24)
[2020-04-19] MEDS ORDERED: HEPARIN (PORCINE) 1000 UNIT/ML 10 ML (CATH LAB USE ONLY) ONE ×2 (10:37→12:46)
[2020-04-19] MEDS ORDERED: NiCARDipine HCL INJ 2.5 MG/ML 10 ML AMP ONE (10:37)
[2020-04-19] MEDS ORDERED: NITROGLYCERIN/D5W 100MCG/ML 20ML SYR ONE (10:38)
[2020-04-19] MEDS ORDERED: MIDAZOLAM HCL 1 MG/ML 2ML VIAL ONE ×4 (10:38→13:11)
--- NOTE | 2020-04-19 10:48 | Cardiology Consultation ---
Date of Consultation April 19, 2020 Assessment & Plan (1) Non-ST elevation (NSTEMI) myocardial infarction: (2) Hypertension: (3) Tobacco abuse: (4) Dyslipidemia: ASSESSMENT/PLAN: 1. NSTEMI: Presentation consistent with acute coronary syndrome/NSTEMI. He continues to have atypical chest discomfort while his more significant anginal symptoms have subsided. Recommend cardiac catheterization. Risks and benefits were discussed with him. He was made aware that CT surgery is not available at this facility and he was agreeable to proceed. Agree with heparin drip. He has received aspirin. We discussed the importance of compliance with medical therapy, especially if he receives coronary stent. Continue beta-dolly. Continue KRISTOFER-inhibitor. Recommend high-intensity statin therapy in place of simvastatin, especially if CAD is noted on catheterization. 2. Hypertension: Blood pressure has been elevated, currently mildly. Titrate beta-dolly. Continue KRISTOFER-inhibitor. Optimize blood pressure control. 3. Dyslipidemia: If he is found have CAD during cardiac catheterization, recommend high-intensity statin therapy in place of simvastatin. 4. Tobacco abuse: We discussed the importance of smoking cessation. Highly recommended that he quit smoking. 5. Disposition: Cardiology will continue to follow. Patient care has been discussed with Dr. Rice of the primary hospitalist service. Highly complex medical issues. Thank you for allowing me to participate in the care of your patient. Please call for any other questions or concerns. Sincerely, George Da Silva M.D. History of Present Illness Reason for Consultation: NSTEMI Requesting Physician: Dr. Cash Rice Attending Physician: Tan Rice, History of Present Illness Mr. Crandall is a pleasant 35-year-old gentleman with a history significant for poorly controlled type 2 diabetes, hypertension, dyslipidemia, and medical noncompliance. Cardiology was consulted for NSTEMI. He was admitted on 04/18/2020 with chest discomfort and initially had a troponin that was undetectable. He was seen in the emergency department on 04/15/2020 with similar symptoms, once again with undetectable troponin levels. He states that on 04/15/2020, he developed a substernal chest discomfort that radiated to the right side of his chest. It was intermittent. He describes the pain as a crushing pain or tightness. He denies further radiation of the pain. There is difficulty catching his breath at times during the pain but denies significant shortness of breath. He denies diaphoresis. He thought it may have been a muscle cramp. On 04/16/2020 and 04/17/2020, he did not have significant pain but then once again yesterday at approximately 1300, when he woke up for the day, he noted pain which then resolved. At approximately 1500, the pain worsened, prompting him to seek medical attention. He believes that that episode lasted until he fell asleep last night. He does not have any of the substernal crushing pain but does have a right-sided crampy pain that persists this morning. He denies leg pain, melena, hematochezia, hematuria, fever, chills, syncope, near-syncope, palpitations, orthopnea. He admits that he is not compliant with medications on a consistent basis. He has not been taking his diabetic regimen regularly more recently. He has smoked since the age of 15 and continues to do so. Review of systems: As above. Review of systems otherwise negative/unremarkable. Family history: No known premature CAD. Social history: Currently smoking 1 pack of cigarettes per day. He started smoking at the age of 15 and has smoked up to 2+ packs per day. No significant alcohol. He uses medical marijuana for diabeticNeuropathy. He denies illicit drug use. He lives at home with his and 4 children. He currently works as a accounts receivable collector but is going back to school to operate heavy equipment. He is unaccompanied in his hospital room. Allergies Allergy/AdvReac Type Severity Reaction Status Date / Time cefaclor Allergy Unknown HAD Verified 04/18/20 19:22 REACTION BABY - DOES NOT REMEMBER EXACT REACTION Cephalosporins Allergy Unknown rxn as Verified 04/18/20 19:22 baby; has tolerated Augmentin 2016 Home Medications Home Medications Medication Instructions Recorded Confirmed Type albuterol sulfate 90 mcg/actuation 2 puffs INH .COMPLEX PRN gm 02/12/20 04/18/20 History aerosol inhaler blood sugar diagnostic #100 ea 02/12/20 04/18/20 Rx insulin aspart U-100 100 unit/mL See Rx Instructions SQ .COMPLEX 02/12/20 04/18/20 History (3 mL) subcutaneous pen pen needle, diabetic 32 gauge x #100 ea 03/18/20 04/18/20 Rx " Toujeo Max U-300 SoloStar 300 160 units SQ BID 30 Days #6 box NS 03/24/20 04/18/20 Rx unit/mL (3 mL) subcutaneous insulin pen canagliflozin [Invokana] 300 mg PO HS 04/02/20 04/18/20 History metformin 1,000 mg PO HS 04/02/20 04/18/20 History lisinopril 40 mg tablet 40 mg PO DAILY #30 tab 04/12/20 04/18/20 Rx omeprazole 10 mg capsule,delayed 10 mg PO HS #30 cap 04/12/20 04/18/20 Rx release sildenafil (pulm.hypertension) 20 See Rx Instructions PO .COMPLEX 04/12/20 04/18/20 Rx mg tablet PRN 20 Days #30 tab simvastatin 40 mg tablet 40 mg PO HS #30 tab 04/12/20 04/18/20 Rx varenicline 1 mg tablet 1 mg PO BID #60 tab 04/12/20 04/18/20 Rx acetaminophen [Tylenol Extra 1,000 mg PO Q6H PRN 04/18/20 04/18/20 History Strength] Patient History Medical History Abscess of right leg (Resolved) H/O WITH DRAINAGE Asthma A CHILD, "NO PROBLEMS NOW" Cellulitis of right thigh (Resolved) COPD (chronic obstructive pulmonary disease) PT DENIES Depression (Acute) Diverticulitis (Resolved) Dyslipidemia (Acute) Encounter for pre-operative examination History of anesthesia reaction WOKE UP DURING THE LITHOTRIPSY ([facility]) Hyperglycemia (Inactive) Hypertension (Acute) Kidney stone on left side (Resolved) Migraine (Resolved) Morbid obesity Neuropathy BILATERAL FEET Obesity, Class III, BMI 40-49.9 (morbid obesity) (Acute) Otitis media Pancreatic cyst (Acute) Pilonidal abscess (Resolved) Renal colic (Resolved) Sciatica Sinus congestion Tobacco abuse Type 2 diabetes mellitus, with long-term current use of insulin (Acute) Vitamin D deficiency (Acute) Surgical History History of ankle surgery RIGHT History of colonoscopy (06/2014) History of esophagogastroduodenoscopy (EGD) (06/2017) History of lithotripsy History of renal stent WITH REMOVAL OF STENT S/P surgical removal of pilonidal cyst Family History Mother Diabetes Grandfather Diabetes Grandmother Diabetes Myocardial infarction Other Hypertension Denies family history of Ovarian cancer Prostate cancer Breast cancer Colorectal cancer Social History Preferred Language: Hungarian Communication Ability: Effective Visual Impairment: No Limitations Hearing Ability: Normal Horse Doctor Required: No Beliefs That Will Affect Care: None marital status: Current Living Situation: Spouse Current Living Situation Comment: [facility] current occupational status: employed Other Information That Helps Us Care for You: No Feels Safe at Home: Yes Safety Concerns: Feels Safe At This Time Smoking Status: Current every day smoker Tobacco Type: cigarettes ; Age Started Using Tobacco: 15 ; packs per day: 0.5 ; Cigarettes Per Day: 1/2 PPD X 15 YEARS ; Do You Dip or Chew Tobacco: Yes ; Second Hand Exposure: No ; Hx Alcohol Use: No Hx Substance Use: Yes substance use type: marijuana Substance Use Type Other:: medical marijuana-neuropathy Last Used Substance: Hours (ago) Childhood Exposure to Second-Hand Smoke: Yes (mother) Physical Exam Physical Exam: Gen.: No acute distress. Alert and oriented. HEENT: Anicteric sclera. Neck: No JVD. No bruits. Normal carotid upstrokes bilaterally. Cardiac: PMI was nonpalpable. No ventricular heave. Regular rate and rhythm. Normal S1-S2. No murmurs, rubs, or gallops. Pulmonary: Clear to auscultation bilaterally without wheezes, rales, or rhonchi. Abdomen: Soft, nontender, nondistended, with normoactive bowel sounds. No bruits noted. Extremities: 2+ radial pulses bilaterally. 2+ posterior tibialis pulses bilaterally. No edema or cyanosis. No palpable cords. Psychiatric: Affect appears appropriate. Chest: Focal right-sided tenderness on palpation. Results & Data ([facility]) Vital Signs (Past 12 Hours) Vital Signs Temp Pulse Pulse Resp BP BP BP 04/19/20 07:47 36.8 C 83 19 146/81 H 04/19/20 07:26 77 04/19/20 04:01 36.5 C 78 20 168/93 H 07/06/20 02:46 36.7 C 78 18 145/95 H 04/19/20 01:36 87 04/19/20 01:28 89 166/108 H 04/19/20 00:08 82 18 162/116 H 04/18/20 23:00 36.4 C L 88 20 184/146 H 04/18/20 22:36 84 20 179/116 H Pulse Ox 04/19/20 07:47 91 04/19/20 07:26 04/19/20 04:01 97 04/19/20 02:46 99 04/19/20 01:36 04/19/20 01:28 04/19/20 00:08 99 04/18/20 23:00 98 04/18/20 22:36 98 Laboratory Results Laboratory Results - last 24 hr 04/18/20 04/18/20 04/18/20 18:25 18:25 18:25 WBC 7.93 RBC 5.89 Hgb 17.0 POC Hgb Hct 50.6 POC Hct MCV 85.9 MCH 28.9 MCHC 33.6 RDW Std Deviation 38.0 RDW Coeff of Gricel 12.1 Plt Count 194 MPV 11.9 H Immature Gran % (Auto) 0.3 Neut % (Auto) 62.8 Lymph % (Auto) 28.5 [place] % (Auto) 6.4 Eos % (Auto) 1.6 Baso % (Auto) 0.4 Neut # (Auto) 4.98 Lymph # (Auto) 2.26 [place] # (Auto) 0.51 Eos # (Auto) 0.13 Baso # (Auto) 0.03 Immature Gran # (Auto) 0.02 Absolute Nucleated RBC 0.08 H Nucleated RBC % (auto) 1.0 PT 10.3 INR 1.0 APTT 26.8 PTT Ratio 1.0 D-Dimer < 190 POC Sodium Sodium 135 L POC Potassium Potassium 4.1 POC Chloride Chloride 103 Carbon Dioxide 21 POC Total CO2 Anion Gap 11.0 POC Anion Gap POC BUN BUN 12 Creatinine 0.88 POC Creatinine Est Cr Clr Drug Dosing 189.7 Est GFR ( Amer) 130.8 Est GFR (Non-Af Amer) 112.9 BUN/Creatinine Ratio 13.4 Glucose 342 H* POC Glucose POC Glucose (other) Estimat Average Glucose Hemoglobin A1c Calcium 8.8 POC Ioniz Calcium Home Magnesium Total Bilirubin 0.4 AST 14 L ALT 37 Alkaline Phosphatase 116 Troponin I < 0.015 Total Protein 8.3 H Albumin 3.6 Globulin 4.7 H Albumin/Globulin Ratio 0.8 L Lipase 99 Beta-Hydroxybutyric Acd 4.19 H Specimen Hemolysis 04/18/20 04/18/20 04/18/20 18:37 21:45 23:15 WBC RBC Hgb POC Hgb 16.7 Hct POC Hct 49 MCV MCH MCHC RDW Std Deviation RDW Coeff of Gricel Plt Count MPV Immature Gran % (Auto) Neut % (Auto) Lymph % (Auto) [place] % (Auto) Eos % (Auto) Baso % (Auto) Neut # (Auto) Lymph # (Auto) [place] # (Auto) Eos # (Auto) Baso # (Auto) Immature Gran # (Auto) Absolute Nucleated RBC Nucleated RBC % (auto) PT INR APTT PTT Ratio D-Dimer POC Sodium 135 Sodium POC Potassium 4.3 Potassium POC Chloride 101 Chloride Carbon Dioxide POC Total CO2 24 Anion Gap POC Anion Gap 15.0 L POC BUN 13 BUN Creatinine POC Creatinine 0.6 Est Cr Clr Drug Dosing Est GFR ( Amer) Est GFR (Non-Af Amer) BUN/Creatinine Ratio Glucose POC Glucose 297 H POC Glucose (other) 366 H* Estimat Average Glucose Hemoglobin A1c Calcium POC Ioniz Calcium Home 1.19 Magnesium Total Bilirubin AST ALT Alkaline Phosphatase Troponin I 1.870 H* Total Protein Albumin Globulin Albumin/Globulin Ratio Lipase Beta-Hydroxybutyric Acd Specimen Hemolysis 04/18/20 04/18/20 04/19/20 23:39 23:41 04:03 WBC RBC Hgb POC Hgb Hct POC Hct MCV MCH MCHC RDW Std Deviation RDW Coeff of Gricel Plt Count MPV Immature Gran % (Auto) Neut % (Auto) Lymph % (Auto) [place] % (Auto) Eos % (Auto) Baso % (Auto) Neut # (Auto) Lymph # (Auto) [place] # (Auto) Eos # (Auto) Baso # (Auto) Immature Gran # (Auto) Absolute Nucleated RBC Nucleated RBC % (auto) PT INR APTT PTT Ratio D-Dimer POC Sodium Sodium POC Potassium Potassium POC Chloride Chloride Carbon Dioxide POC Total CO2 Anion Gap POC Anion Gap POC BUN BUN Creatinine POC Creatinine Est Cr Clr Drug Dosing Est GFR ( Amer) Est GFR (Non-Af Amer) BUN/Creatinine Ratio Glucose POC Glucose 307 H* 293 H 274 H POC Glucose (other) Estimat Average Glucose Hemoglobin A1c Calcium POC Ioniz Calcium Home Magnesium Total Bilirubin AST ALT Alkaline Phosphatase Troponin I Total Protein Albumin Globulin Albumin/Globulin Ratio Lipase Beta-Hydroxybutyric Acd Specimen Hemolysis 04/19/20 04/19/20 04/19/20 06:50 07:00 07:00 WBC 8.07 RBC 5.24 Hgb 15.2 POC Hgb Hct 44.1 POC Hct MCV 84.2 MCH 29.0 MCHC 34.5 RDW Std Deviation 37.3 RDW Coeff of Gricel 12.3 Plt Count 170 MPV 11.6 H Immature Gran % (Auto) 0.1 Neut % (Auto) 66.5 Lymph % (Auto) 23.2 [place] % (Auto) 8.2 Eos % (Auto) 1.9 Baso % (Auto) 0.1 Neut # (Auto) 5.37 Lymph # (Auto) 1.87 [place] # (Auto) 0.66 H Eos # (Auto) 0.15 Baso # (Auto) 0.01 Immature Gran # (Auto) 0.01 Absolute Nucleated RBC Nucleated RBC % (auto) PT 10.7 INR 1.0 APTT 36.8 H PTT Ratio 1.3 D-Dimer POC Sodium Sodium POC Potassium Potassium POC Chloride Chloride Carbon Dioxide POC Total CO2 Anion Gap POC Anion Gap POC BUN BUN Creatinine POC Creatinine Est Cr Clr Drug Dosing Est GFR ( Amer) Est GFR (Non-Af Amer) BUN/Creatinine Ratio Glucose POC Glucose 269 H POC Glucose (other) Estimat Average Glucose Hemoglobin A1c Calcium POC Ioniz Calcium Home Magnesium Total Bilirubin AST ALT Alkaline Phosphatase Troponin I Total Protein Albumin Globulin Albumin/Globulin Ratio Lipase Beta-Hydroxybutyric Acd Specimen Hemolysis 04/19/20 04/19/20 04/19/20 07:00 07:00 07:00 WBC RBC Hgb POC Hgb Hct POC Hct MCV MCH MCHC RDW Std Deviation RDW Coeff of Gricel Plt Count MPV Immature Gran % (Auto) Neut % (Auto) Lymph % (Auto) [place] % (Auto) Eos % (Auto) Baso % (Auto) Neut # (Auto) Lymph # (Auto) [place] # (Auto) Eos # (Auto) Baso # (Auto) Immature Gran # (Auto) Absolute Nucleated RBC Nucleated RBC % (auto) PT INR APTT PTT Ratio D-Dimer POC Sodium Sodium 134 L POC Potassium Potassium 3.8 POC Chloride Chloride 102 Carbon Dioxide 23 POC Total CO2 Anion Gap 9.0 POC Anion Gap POC BUN BUN 8 Creatinine 0.65 POC Creatinine Est Cr Clr Drug Dosing 256.5 Est GFR ( Amer) 148.2 Est GFR (Non-Af Amer) 127.8 BUN/Creatinine Ratio 12.0 Glucose 290 H POC Glucose POC Glucose (other) Estimat Average Glucose 266 Hemoglobin A1c 10.9 H Calcium 8.4 L POC Ioniz Calcium Home Magnesium 1.9 Total Bilirubin 0.5 AST 108 H ALT 43 Alkaline Phosphatase 101 Troponin I 11.300 H* Total Protein 6.9 Albumin 3.0 L Globulin 3.9 Albumin/Globulin Ratio 0.8 L Lipase Beta-Hydroxybutyric Acd Specimen Hemolysis 04/19/20 07:00 WBC RBC Hgb POC Hgb Hct POC Hct MCV MCH MCHC RDW Std Deviation RDW Coeff of Gricel Plt Count MPV Immature Gran % (Auto) Neut % (Auto) Lymph % (Auto) [place] % (Auto) Eos % (Auto) Baso % (Auto) Neut # (Auto) Lymph # (Auto) [place] # (Auto) Eos # (Auto) Baso # (Auto) Immature Gran # (Auto) Absolute Nucleated RBC Nucleated RBC % (auto) PT INR APTT Cancelled PTT Ratio Cancelled D-Dimer POC Sodium Sodium POC Potassium Potassium POC Chloride Chloride Carbon Dioxide POC Total CO2 Anion Gap POC Anion Gap POC BUN BUN Creatinine POC Creatinine Est Cr Clr Drug Dosing Est GFR ( Amer) Est GFR (Non-Af Amer) BUN/Creatinine Ratio Glucose POC Glucose POC Glucose (other) Estimat Average Glucose Hemoglobin A1c Calcium POC Ioniz Calcium Home Magnesium Total Bilirubin AST ALT Alkaline Phosphatase Troponin I Total Protein Albumin Globulin Albumin/Globulin Ratio Lipase Beta-Hydroxybutyric Acd Specimen Hemolysis Diagnostic Findings Telemetry personally reviewed: Sinus rhythm. No arrhythmia. Echo 04/19/2020 images reviewed: Top-normal LV size with low-normal systolic function. EF 50-55%. Severe hypokinesis to akinesis involving the inferolateral wall. Moderate LVH. No significant valvular abnormalities. ECGs personally reviewed: ECG 04/18/2020 at 6:19 p.m.: Sinus rhythm 78 bpm. Incomplete RBBB. Nonspecific ST /T wave abnormality. ECG 04/18/2020 at 7:04 p.m.: Sinus rhythm 74 bpm. Incomplete RBBB. Nonspecific ST/T-wave abnormality. ECG 04/19/2020 at 0805 a.m.: Sinus rhythm 79 bpm. Anterolateral T-wave inversion. ECG 04/19/2020 at 6:14 a.m.: Sinus rhythm 76 bpm. Incomplete RBBB. Nonspecific T-wave abnormality. Chest x-ray 04/18/2020: No acute process per Radiology. Medications Administered Current Inpatient Medications Acetaminophen (Tylenol) 650 mg PO Q4H PRN PRN Reason: Pain or Fever Stop: 05/18/20 23:04 Last Admin: 04/19/20 09:55 Dose: 650 mg Documented by: Al Hydrox/Mg Hydrox/Simethicone (Maalox) 15 ml PO Q4H PRN PRN Reason: Dyspepsia Stop: 05/18/20 23:04 Albuterol (Ventolin Hfa) 2 puffs INH Q4H PRN PRN Reason: Shortness Of Breath Stop: 05/18/20 23:04 Aspirin (Ecotrin Ectab) 81 mg PO [facility] Stop: 05/19/20 08:59 Last Admin: 04/19/20 08:51 Dose: 81 mg Documented by: Dextrose (Dextrose 50%) 25 - 50 ml IV UD PRN; Protocol PRN Reason: Hypoglycemia Protocol Stop: 05/18/20 23:04 Glucagon (Glucagen) 1 mg SQ UD PRN; Protocol PRN Reason: Hypoglycemia Protocol Stop: 05/18/20 23:04 Glucose (Dex4 Glucose) 4 - 8 tabs PO UD PRN; Protocol PRN Reason: Hypoglycemia Protocol Stop: 05/18/20 23:04 Glucose (Glucose 40%) 15 - 30 gm PO UD PRN; Protocol PRN Reason: Hypoglycemia Protocol Stop: 05/18/20 23:04 Heparin Sodium/Dextrose (Heparin Sodium/Dextrose) 25,000 units in 500 mls @ 49 mls/hr IV .[id number] [facility]; Protocol Stop: 05/19/20 00:14 Last Titration: 04/19/20 08:09 Dose: 2,450 units/hr, 49 mls/hr Documented by: Insulin Aspart (Novolog Flexpen) 0 units SC [facility] Stop: 05/18/20 23:29 Last Admin: 04/19/20 08:50 Dose: 6 units Documented by: Insulin Glargine (Lantus) 50 units SC DAILY@0900,0901 [facility] Stop: 05/19/20 08:59 Last Admin: 04/19/20 10:11 Dose: 50 units Documented by: Lisinopril (Zestril) 40 mg PO DAILY [facility] Stop: 05/19/20 08:59 Last Admin: 04/19/20 08:51 Dose: 40 mg Documented by: Magnesium Hydroxide (Milk Of Magnesia) 30 ml PO Q12H PRN PRN Reason: Constipation Stop: 05/18/20 23:04 Metoprolol Tartrate (Lopressor) 5 mg IV Q4 PRN PRN Reason: Blood Pressure - High Stop: 05/18/20 23:04 Last Admin: 04/19/20 01:28 Dose: 5 mg Documented by: Metoprolol Tartrate (Lopressor) 25 mg PO QAM [facility] Stop: 05/19/20 08:59 Last Admin: 04/19/20 08:54 Dose: 25 mg Documented by: Miscellaneous (Carbohydrates For Hypoglycemia) 15 - 30 gm PO UD PRN PRN Reason: Hypoglycemia Protocol Stop: 05/18/20 23:04 Miscellaneous Information (Consult Glycemic Management Pharmacy) 1 ea N/A UD PRN PRN Reason: Consult Stop: 05/19/20 08:25 Morphine Sulfate (Morphine Sulfate) 4 mg IV Q15M PRN PRN Reason: Pain Stop: 05/02/20 19:53 Last Admin: 04/19/20 00:06 Dose: 4 mg Documented by: Nitroglycerin (Nitrostat) 0.4 mg SL UD PRN PRN Reason: Chest Pain Stop: 05/18/20 23:04 Nitroglycerin (Nitro-Bid 2%) 2 inch EXT Q6 [facility] Stop: 05/19/20 00:14 Last Admin: 04/19/20 05:08 Dose: 2 inch Documented by: Ondansetron HCl (Zofran) 4 mg IV Q6H PRN PRN Reason: Nausea Stop: 05/18/20 23:04 Pantoprazole Sodium (Protonix) 40 mg PO HS [facility] Stop: 05/19/20 20:59 Simvastatin (Zocor) 40 mg PO HS [facility] Stop: 05/19/20 20:59 Varenicline (Chantix) 1 mg PO BID [facility] Stop: 05/18/20 23:04 Last Admin: 04/19/20 08:51 Dose: Not Given Documented by: PG Care Time/CCT Total # of Minutes Spent Total Time Spent with Patient: Total time spent is greater than 50% in coordination of care (as documented) at patient's floor/unit and/or counseling patient: Coding Level of Care Code 67253 Inpt Consult Level 5 Diagnoses Non-ST elevation (NSTEMI) myocardial infarction I21.4 Hypertension I10 Hypertension type: unspecified Tobacco abuse Z72.0 Dyslipidemia E78.5 (1) Hypertension Hypertension type: unspecified Qualified Code(s): I10 - Essential (primary) hypertension
--- NOTE | 2020-04-19 11:52 | Cardiac Catheterization ---
[facility] Data: Riveting Machine Operator Cardiac Status Clinical evaluation leading to the procedure CAD Presenation: Non STEMI Anginal Classification: CCS IV Heart Failure: No Cardiogenic Shock within 24 Hours: No Cardiac Arrest within 24 Hours: No Imaging Studies Past 6 Months: Yes Stress Studies Past 6 Months: No Standard Exercise Test: No Stress Echocardiogram: No Stress Testing w/SPECT MPI: No Cardiac CTA: No Coronary Anatomy Dominant: Right Left Ventricular Angiography EF (%): n/a Diagnostic Physicians Name: Stevo Da Silva MD Status: Elective Closure Device Percutaneous Entry Location: Radial Closure Device: Radial Band (following PCI) Recommendations: PCI without planned CABG Cardiac Cath Procedure Full Procedure Date April 19, 2020 Pre-Procedure Diagnosis Pre-Procedure Diagnosis: Non STEMI (Presented with angina and found to have inferolateral wall motion on echo with elevated troponin. Angina subsided but has atypical right sided chest pain.) AUC Score AUC Score: 9 Post-Procedure Diagnosis Post-Procedure Diagnosis: Severe CAD and Normal Intracardiac Pressures Procedure(s) Performed Procedure(s) Performed: Coronary Angiography and Left Heart Cath Air Route Controller Stevo Da Silva MD Trade Promotion Analyst(s) Juancarlos Barahona Estimated Blood Loss Estimated Blood Loss: < 25 ml Medication(s) Medication(s): Fentanyl, Heparin, Lidocaine 1%, Nicardipine and Versed Summary of Findings Procedures: 1. Coronary angiography 2. Left heart catheterization 3. Moderate sedation Coronary angiography: 1. Left main coronary artery: LMCA is large in caliber without significant CAD. 2. Left anterior descending: LAD is a large-caliber vessel that extends to the apex. Mid LAD 10%. Medium caliber D1 and medium to large caliber D2 without significant CAD. 3. Circumflex: Early mid circumflex 100% occlusion with CHIN 0 flow. 4. Right coronary artery: The RCA is large and dominant. Proximal RCA 10%. Mid RCA 30%. Distal RCA sequential 40%, 40%, and 40 to 50% stenotic areas. Large PL branch. Early mid PL 30%. Mid PL 80 to 90% with CHIN-3 flow. Ostial PDA 30%. Proximal PDA 10 to 20%. Mid PDA 30%. 5. Ramus intermedius: Very large caliber. Proximal ramus 10 to 20%. Left heart catheterization: 1. Left ventriculography was not performed. 2. No significant aortic stenosis. Peak to peak gradient across aortic valve was 0. 3. Normal LVEDP; 11 mmHg. Moderate sedation: 1. Sedation start time: 11:19 AM 2. Sedation end time: 11:35 AM Impression: 1. Severe CAD, including occluded mid circumflex which is likely the culprit vessel. 2. Severe mid PL branch CAD. 3. Otherwise, mild or moderate nonobstructive CAD within the RCA, ramus, and mid LAD. 4. Normal left-sided filling pressure. 5. No aortic stenosis. Plan: 1. Interventional cardiology, Dr. Saxena, was asked to review images with consideration of performing PCI in circumflex, and possibly PL branch. 2. Optimize medical therapy. 3. Smoking cessation. Hemodynamics Rest Ao:: 130/94 Final Ao: 134/89 LV: 136/5/11 Recommendations Recommendations: PCI without planned CABG Specimens Specimens: None Radiation Exposure (mGy) 1103 mGy. Fluoro time 2.3 min. 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 Any exceptions are noted below. [facility] Card Cath Procedure Codes Cardiac Catheterization Procedure 1: Cardiovascular Cath Procedures: 14244 Coronaries and LHC (+/-LV) Moderate Sedation Procedure 1: Sedation/Anesthesia: 57441 Mod Sedation by the same physician;Init15 Min Child Age 5 & Up Procedure 2: Sedation/Anesthesia: 03114 Mod Sedation by the same physician; Ea [id number] Minutes PG Care Time/CCT Total # of Minutes Spent Total Time Spent with Patient: Total time spent is greater than 50% in coordination of care (as documented) at patient's floor/unit and/or counseling patient:
[2020-04-19] MEDS ORDERED: CLOPIDOGREL BISULFATE 300 MG TAB ONE (13:47)
--- NOTE | 2020-04-19 14:25 | Post Anesthesia Assessment ---
Date of Service April 19, 2020 Post Sedation Assessment Vital Signs Temp Pulse Pulse Resp BP BP BP 04/19/20 14:09 87 18 147/107 H 04/19/20 13:55 85 18 139/102 H 04/19/20 10:50 95 H 18 153/100 H 04/19/20 07:47 98.2 F 83 19 146/81 H 04/19/20 07:26 77 04/19/20 04:01 97.7 F 78 20 168/93 H 04/19/20 02:46 98.1 F 78 18 145/95 H 04/19/20 01:36 87 04/19/20 01:28 89 166/108 H 04/19/20 00:08 82 18 162/116 H 04/18/20 23:00 97.5 F L 88 20 184/146 H 04/18/20 22:36 84 20 179/116 H 04/18/20 22:02 80 170/116 H 04/18/20 21:30 78 22 189/121 H 04/18/20 21:00 85 23 190/119 H 04/18/20 20:30 79 21 172/116 H 04/18/20 20:03 85 20 172/115 H 04/18/20 19:30 72 24 167/108 H 04/18/20 19:00 75 18 150/107 H 04/18/20 18:48 82 22 177/115 H 04/18/20 18:42 81 197/124 H 04/18/20 18:29 04/18/20 18:13 97.7 F 85 20 211/129 H Pulse Ox 04/19/20 14:09 94 04/19/20 13:55 94 04/19/20 10:50 95 04/19/20 07:47 91 04/19/20 07:26 04/19/20 04:01 97 04/19/20 02:46 99 04/19/20 01:36 04/19/20 01:28 04/19/20 00:08 99 04/18/20 23:00 98 04/18/20 22:36 98 04/18/20 22:02 04/18/20 21:30 96 04/18/20 21:00 95 04/18/20 20:30 93 04/18/20 20:03 97 07/05/20 19:30 96 04/18/20 19:00 96 04/18/20 18:48 95 04/18/20 18:42 04/18/20 18:29 97 04/18/20 18:13 98 Recovery Score Activity: Moves 4 extremities Respiration: Deep Breath/Cough Circulation: +/-20% PreAnes Value Consciousness: Fully Awake Oxygen Saturation: > 92% On Room Air Post Anesthesia Score: 10 Discharge Sedation Level of Care: Fast Track Phase II Post Sedation Plan On clinical assessment, the patient appears to have tolerated the sedation without complications. Patient is recovering as anticipated. Patient will continue to be monitored by nursing and may be discharged when sedation discharge criteria are met per below protocol. Upon Completions of procedure up to 15 minutes continue every 5 minute vital signs and the P.A.R. score; then discharge to a Phase I or Fast Track to Phase II per the following guidelines: * Discharge Patient to appropriate Phase II area if PAR is 8 or greater or return to pre- procedure baseline. The post - procedure orders will be as directed. * If PAR score is less than 8 or not return to pre-procedure baseline then patient will follow Phase I monitoring till PAR is reached for Phase II. The Phase I may be done in procedure room or may call to secure a Phase I area. * If naloxone or flumazenil are used for reversal, hold in Phase I for continued monitoring from when last reversal dose was given for a minimum of 60 minutes or longer pending the nurse and/or physician discretion of patient condition before discharge to Phase II. Please call the Sedation Physician to re-evaluate and complete post-note for discharge to Phase II area. Do NOT discharge from procedure sedation or Phase 1 until post- sedation evaluation note is complete by procedure /sedation MD Sedation Discharge Instructions to be given to the patient at discharge to home.
--- NOTE | 2020-04-19 14:28 | Pharmacy Report ---
Glycemic Control Consultation - Date of Service April 19, 2020 - Scope Scope: Glycemic Pharmacist consulted for glycemic control and to write orders per [facility] inpatient glycemic control protocol. - Objective Weight: 150.3 kg Accuchecks BSG (last 24hrs): 04/18/20 04/18/20 04/18/20 18:25 18:37 21:45 Glucose 342 H* POC Glucose 297 H POC Glucose (other) 366 H* 04/18/20 04/18/20 04/19/20 23:39 23:41 04:03 Glucose POC Glucose 307 H* 293 H 274 H POC Glucose (other) 04/19/20 04/19/20 06:50 07:00 Glucose 290 H POC Glucose 269 H POC Glucose (other) Laboratory Data (last 24hrs): 04/18/20 04/19/20 18:25 07:00 Potassium 4.1 3.8 Carbon Dioxide 21 23 Anion Gap 11.0 9.0 Creatinine 0.88 0.65 Est Cr Clr Drug Dosing 189.7 256.5 Beta-Hydroxybutyric Acd 4.19 H HbA1c: Hemoglobin A1c 10.9 % (4.5-5.6) H 04/19/20 07:00 - Recent Pertinent Medications Outpatient Anti-diabetic Regimen: * Invokana 300 mg HS, Novolog SS, Metformin 1000 mg, Toujeo 160 units BID * A1c = 10.9% 04/19/2020 The patient is currently receiving: * Basal insulin: Lantus 80 units every 12 hours * Correctional Insulin: Novolog Correction per scale ACHS Goal Range: Low 100 mg/dL - High 150 mg/dL Correction Factor: 25 mg/dL/unit * Prandial insulin: Per carb ratio of 1 unit per 10 grams CHO consumed * Oral Agents: Risk Factors for Insulin Resistance: * Steroids: * Infection: * Pressors: * IVF: Heparin gtt @49 ml/hr * Recent Surgery * Diet: T2DM - Assessment & Plan Assessment & Plan: ASSESSMENT: * 35 yo male admitted with NSTEMI, POD #0 cardiac cath with stent placement, currently on heparin drip @49 ml/hr * BSGs elevated on admission 342, down to 269 this AM with 64 units of lantus given last PM along with 6 units of subq insulin after 5 units IV regular given in the ED * Patient has high insulin requirements outpatient, although uncertain of compl iance and previous admission requirements over 280 units (drip + lantus) * A1c has improved from 11.9% in January 2020 to 10.9%. * Will give reduced lantus dose this AM and set scale for PM * Will tighten novolog parameters, carb ratio down to weight based stress of 3 dosing * Given patient's current NSTEMI, good glycemic control desirable, can consider initiating insulin drip if BSGs continue to be elevated PLAN FOR INPATIENT GLYCEMIC CONTROL: * Holding outpatient oral diabetes medications * Basal insulin * Lantus 100 units SQ this AM, Scale for PM up to additional 100 units * Bolus insulin * NovoLog per scale ACHS or Q6hrs while NPO * Goal Range: Low 120 mg/dL - High 160 mg/dL * Correction Factor: 20 mg/dL/unit * Nutritional / Prandial insulin per carb ratio of 1 unit per 4 grams CHO consumed * Please note that the plan above was derived based on current level of insulin resistance and hospital stress. These recommendations are appropriate for inpatient admission only. Plan of care upon discharge will need to be reassessed to avoid potential outpatient hypo/hyperglycemia. Thank you.
--- NOTE | 2020-04-19 14:29 | Cardiac Catheterization ---
ACC Data: Dealer Sales Rep Cardiac Status Clinical evaluation leading to the procedure CAD Presenation: Non STEMI Anginal Classification: CCS IV Heart Failure: No Cardiogenic Shock within 24 Hours: No Cardiac Arrest within 24 Hours: No Imaging Studies Past 6 Months: Yes Stress Studies Past 6 Months: No Diagnostic Physicians Name: Zechariah Saxena MD Status: Urgent Closure Device Percutaneous Entry Location: Radial Closure Device: Radial Band Recommendations: PCI without planned CABG PCI Indication: PCI for high risk Non-DEEPAK Lesion Segment Name: mid circumflex Culprit Artery: Yes Stenosis Prior to Rx (%): 100 Chronic Total Occlusion: No IVUS: No FFR: No Pre-Procedure CHIN Flow: 0 Previously Treated Lesion: No Lesion Complexity: Non-High/Non-C Lesion Length (mm): 120 Thrombus Present: Yes Bifurcation Lesion: No Guidewire Across Lesion: Stenosis Post-Procedure (%): 0 Post-Procedure CHIN Flow: 3 Devices(s) Deployed: Yes Yes Lesion #2 Segment Name: proximal R-PLB Culprit Artery: No Stenosis Prior to Rx (%): 90 Chronic Total Occlusion: No IVUS: No FFR: No Pre-Procedure CHIN Flow: 3 Previously Treated Lesion: No Lesion Complexity: Non-High/Non-C Lesion Length (mm): 18 Thrombus Present: Yes Bifurcation Lesion: No Guidewire Across Lesion: Yes Stenosis Post-Procedure (%): 0 Post-Procedure CHIN Flow: 3 Devices(s) Deployed: Yes Intraprocedure Events Significant Disection: No Perforation: No Cardiac Cath Procedure Full Procedure Date April 19, 2020 Pre-Procedure Diagnosis Pre-Procedure Diagnosis: Non STEMI (Presented with angina and found to have inferolateral wall motion on echo with elevated troponin. Angina subsided but has atypical right sided chest pain.) AUC Score AUC Score: 9 Post-Procedure Diagnosis Post-Procedure Diagnosis: Severe CAD and Successful PCI Procedure(s) Performed Procedure(s) Performed: Drug Eluting Stent Expert Medical Writer Zechariah Saxena MD Market Development Director(s) Juancarlos Barahona Estimated Blood Loss Estimated Blood Loss: < 25 ml Medication(s) Medication(s): Clopidogrel, Fentanyl, Heparin, Lidocaine 1%, Nicardipine, Nitroglycerin and Versed Summary of Findings Indication: High risk NSTEMI Access: 6 Fr right radial artery Catheters: EBU 3.5 guide, JR4 guide Findings: For full details of patient's coronary angiography please see cath report dictated by Dr. Da Silva. Briefly, patient found to have severe 2 vessel disease including an acutely occluded mid circumflex and a 90% stenosis in his distal right PLB. Decision to proceed with multi vessel PCI. -- PCI -- Antithrombotic therapy: Heparin, clopidogrel Procedure: Left main cannulated with EBU 3.5 guide Splitter Head 50 wire passed across mid circumflex 100% occlusion Mid circumflex lesion predilated with 2.5 compliant balloon Dilated lesion stented with 2.5 x 22 mm [place] Stent post-dilated with 3.0 noncompliant balloon IC vasodilators administered for spasm Patient noted to have residual stenosis/haziness at distal edge of initial stent Attempted to place a second stent but difficulty delivering stent to residual stenosis Eventually with the aid of a guideliner and repeat angioplasty of distal stenosis with 2.5 balloon was able to deliver a 2.25 x 12 mm [place] which was deployed overlapping proximally with initial stent. Stent postdilated with stent balloon Post procedure CHIN 3 flow, stents well expanded with minimal residual stenosis and no apparent cardiac complications. RCA then cannulated with JR4 guide Splitter Head 50 wire passed across right PLB stenosis into distal vessel Proximal right PLB dilated with 2.5 balloon Proximal right PLB stented with 2.75 x 26 mm Itz Stent postdilated with stent balloon IC vasodilators administered for spasm Post procedure CHIN 3 flow, stents well expanded with minimal residual stenosis and no apparent cardiac complications. Arterial Closure: TR band Summary: 1. Successful PCI of mid to distal circumflex with 2 overlapping drug-eluting stents (2.5 x 22, 2.25 x 12 Itz; postdilated proximally with 3.0 NC balloon). 2. Successful PCI of distal right PLB with single drug-eluting stent (2.75 x 26 mm [place]). Recommendations: To PCU for continued monitoring Loaded with clopidogrel 600 mg in shift lab technician Continue dual-antiplatelet therapy for at least 1 year Continue statin, and ASCVD risk factor modification Consult cardiac Rehab Hemodynamics Rest Ao:: 134/89/110 Final Ao: 167/109/129 LV: -- Recommendations Recommendations: PCI without planned CABG Specimens Specimens: None Radiation Exposure (mGy) 2692 Contrast (mls) 300 total Fluids (cc crystalloids) Fluids (cc crystalloids): 200 Drains Drains: none Anesthesia moderate Procedural Complication(s) None Disposition PCU I attest to the content of the Intraoperative Record and any orders documented therein. Any exceptions are noted below. [facility] Card Cath Procedure Codes Moderate Sedation Procedure 1: Sedation/Anesthesia: 17303 Mod Sedation by a different physician ;Init15 Min Child Age 5&Up Procedure 2: Sedation/Anesthesia: 68666 Mod Sedation by a different physician;Ea Additional 15 Minutes Stenting Procedure 1: Cardiovascular Stent Procedures: 03206 Perc transluminal revascularization of acute sub/total occl, aMI Procedure 2: Cardiovascular Stent Procedures: 31687 Ea addl branch of a major coronary artery PG Care Time/CCT Total # of Minutes Spent Total Time Spent with Patient: Total time spent is greater than 50% in coordination of care (as documented) at patient's floor/unit and/or counseling patient:
[2020-04-19 15:26] LABS: Partial Thromboplastin Ratio 4.7
[2020-04-19 15:29] LABS: Partial Thromboplastin Time 132.3 Seconds (21.0-31.0)
--- NOTE | 2020-04-19 17:16 | Hospitalist Progress Note ---
Date of Service April 19, 2020 Assessment & Plan (1) Non-ST elevation (NSTEMI) myocardial infarction: presented with angina, right sided chest pain troponin elevated at 1, increased to 11 echo with inferior wall motion abnormality left heart cath on 04/19 with 100% occlusion in circumflex and severe stenosis in distal right PLB two overlapping ALICIA placed in circumflex and one ALICIA placed in PLB dual antiplatelet therapy no longer needs heparin Metoprolol 50mg bid observe overnight, discuss discharge plan with cardiology tomorrow (2) Bifascicular block: continue metoprolol (3) Hypertension: continue lisinopril 40mg added metoprolol, dose increased to 50mg BID follow bp (4) Type 2 diabetes mellitus, with long-term current use of insulin: Hold Enbrel, and metformin. HbA1c elevated at 10.9% consulted glycemic management, Basal and bolus regimen ordered will ask engraver letter to see talked with patient about need for diabetes control, at risk for future ME and stroke will come up with plan tomorrow (5) Dyslipidemia: increase Lipitor to 80mg due to NSTEMI and severe CAD (6) COPD, mild: Continue albuterol HFA as needed (7) Depression: Patient noted to have depression, is not on any specific treatment at this time. (8) Tobacco abuse: Continue varenicline 1 mg p.o. twice daily (9) Obesity, Class III, BMI 40-49.9 (morbid obesity): Noted as risk factor for vascular disease encourate weight loss Admission and Anticipated Discharge Date Admission Date: April 18, 2020 Subjective patient doing well after three stents placed only c/o some pain in right wrist and some atypical right sided chest pain had some liquids, no nausea he denies any dyspnea reviewed labs, troponin up to 11 this morning, consulted cardiology, recommended left heart cath sugars elevated despite coverage this morning, requested glycemic management consult discussed with Dr. Da Silva and Dr Saxena this morning updated patient's significant other at the bedside discussed that the need for glucose control is even more important poor glycemic management has lead to early coronary disease he will continue to be at high risk for CAD and future ME, stroke unless he gets serious about his diabetes Review of Systems Review of Systems: All systems reviewed & are unremarkable except as noted in HPI & below Constitutional: + fatigue; no fever and no weakness Respiratory: no cough and no dyspnea Cardiovascular: + chest pain; no edema Gastrointestinal: no abdominal pain, no nausea, no vomiting, no constipation and no diarrhea/loose stools Physical Exam Constitutional: well developed and + obese; no acute distress Eyes: PERRL, conjunctivae normal, anicteric sclerae ENMT: external ear and nose normal, oropharynx normal Neck: trachea midline, no thyromegaly Respiratory: normal respiratory effort, lungs clear to auscultation Cardiovascular: RRR, no murmur, no edema Gastrointestinal (Abdomen): normal bowel sounds, soft, nontender, no hepatosplenomegaly Musculoskeletal: no cyanosis or clubbing, extremities motor strength 5/5 Skin: no rashes, warm and dry Neurologic: patellar DTR's 2+ bilat, sensation intact and PERRL, EOMI, accommodation nl, no face palsy, no dysarthria Psychiatric: A+Ox3, euthymic affect Lymphatic: no cervical or axillary lymphadenopathy Results & Data Results & Data ([facility]) Vital Signs (Past 12 Hours) Vital Signs Temp Pulse Pulse Resp BP BP BP 04/19/20 16:03 99 H 161/105 H 04/19/20 16:00 37 C 95 H 18 160/111 H 04/19/20 15:45 90 18 156/100 H 04/19/20 15:30 36.4 C L 16 157/97 H 04/19/20 15:29 36.4 C L 04/19/20 14:30 90 15 161/101 H 04/19/20 14:09 87 18 147/107 H 04/19/20 13:55 85 18 139/102 H 04/19/20 10:50 95 H 18 153/100 H 04/19/20 07:47 36.8 C 83 19 146/81 H 04/19/20 07:26 77 Pulse Ox 04/19/20 16:03 04/19/20 16:00 95 04/19/20 15:45 98 04/19/20 15:30 92 04/19/20 15:29 04/19/20 14:30 94 04/19/20 14:09 94 04/19/20 13:55 94 04/19/20 10:50 95 04/19/20 07:47 91 04/19/20 07:26 Laboratory Results Laboratory Results - last 24 hr 04/18/20 04/18/20 04/18/20 23:15 23:39 23:41 WBC RBC Hgb Hct MCV MCH MCHC RDW Std Deviation RDW Coeff of Gricel Plt Count MPV Immature Gran % (Auto) Neut % (Auto) Lymph % (Auto) Summers % (Auto) Eos % (Auto) Baso % (Auto) Neut # (Auto) Lymph # (Auto) Summers # (Auto) Eos # (Auto) Baso # (Auto) Immature Gran # (Auto) PT INR APTT PTT Ratio Activ Coag Time Kaolin Sodium Potassium Chloride Carbon Dioxide Anion Gap BUN Creatinine Est Cr Clr Drug Dosing Est GFR ( Amer) Est GFR (Non-Af Amer) BUN/Creatinine Ratio Glucose POC Glucose 307 H* 293 H Estimat Average Glucose Hemoglobin A1c Calcium Magnesium Total Bilirubin AST ALT Alkaline Phosphatase Troponin I 1.870 H* Total Protein Albumin Globulin Albumin/Globulin Ratio Specimen Hemolysis 04/19/20 04/19/20 04/19/20 04:03 06:50 07:00 WBC 8.07 RBC 5.24 Hgb 15.2 Hct 44.1 MCV 84.2 MCH 29.0 MCHC 34.5 RDW Std Deviation 37.3 RDW Coeff of Gricel 12.3 Plt Count 170 MPV 11.6 H Immature Gran % (Auto) 0.1 Neut % (Auto) 66.5 Lymph % (Auto) 23.2 Summers % (Auto) 8.2 Eos % (Auto) 1.9 Baso % (Auto) 0.1 Neut # (Auto) 5.37 Lymph # (Auto) 1.87 Summers # (Auto) 0.66 H Eos # (Auto) 0.15 Baso # (Auto) 0.01 Immature Gran # (Auto) 0.01 PT INR APTT PTT Ratio Activ Coag Time Kaolin Sodium Potassium Chloride Carbon Dioxide Anion Gap BUN Creatinine Est Cr Clr Drug Dosing Est GFR ( Amer) Est GFR (Non-Af Amer) BUN/Creatinine Ratio Glucose POC Glucose 274 H 269 H Estimat Average Glucose Hemoglobin A1c Calcium Magnesium Total Bilirubin AST ALT Alkaline Phosphatase Troponin I Total Protein Albumin Globulin Albumin/Globulin Ratio Specimen Hemolysis 04/19/20 04/19/20 04/19/20 07:00 07:00 07:00 WBC RBC Hgb Hct MCV MCH MCHC RDW Std Deviation RDW Coeff of Gricel Plt Count MPV Immature Gran % (Auto) Neut % (Auto) Lymph % (Auto) Summers % (Auto) Eos % (Auto) Baso % (Auto) Neut # (Auto) Lymph # (Auto) Summers # (Auto) Eos # (Auto) Baso # (Auto) Immature Gran # (Auto) PT 10.7 INR 1.0 APTT 36.8 H PTT Ratio 1.3 Activ Coag Time Kaolin Sodium 134 L Potassium 3.8 Chloride 102 Carbon Dioxide 23 Anion Gap 9.0 BUN 8 Creatinine 0.65 Est Cr Clr Drug Dosing 256.5 Est GFR ( Amer) 148.2 Est GFR (Non-Af Amer) 127.8 BUN/Creatinine Ratio 12.0 Glucose 290 H POC Glucose Estimat Average Glucose 266 Hemoglobin A1c 10.9 H Calcium 8.4 L Magnesium 1.9 Total Bilirubin 0.5 AST 108 H ALT 43 Alkaline Phosphatase 101 Troponin I Total Protein 6.9 Albumin 3.0 L Globulin 3.9 Albumin/Globulin Ratio 0.8 L Specimen Hemolysis 04/19/20 04/19/20 04/19/20 07:00 07:00 11:25 WBC RBC Hgb Hct MCV MCH MCHC RDW Std Deviation RDW Coeff of Gricel Plt Count MPV Immature Gran % (Auto) Neut % (Auto) Lymph % (Auto) Summers % (Auto) Eos % (Auto) Baso % (Auto) Neut # (Auto) Lymph # (Auto) Summers # (Auto) Eos # (Auto) Baso # (Auto) Immature Gran # (Auto) PT INR APTT Cancelled PTT Ratio Cancelled Activ Coag Time Kaolin 164 H Sodium Potassium Chloride Carbon Dioxide Anion Gap BUN Creatinine Est Cr Clr Drug Dosing Est GFR ( Amer) Est GFR (Non-Af Amer) BUN/Creatinine Ratio Glucose POC Glucose Estimat Average Glucose Hemoglobin A1c Calcium Magnesium Total Bilirubin AST ALT Alkaline Phosphatase Troponin I 11.300 H* Total Protein Albumin Globulin Albumin/Globulin Ratio Specimen Hemolysis 04/19/20 04/19/20 04/19/20 12:39 13:32 14:47 WBC RBC Hgb Hct MCV MCH MCHC RDW Std Deviation RDW Coeff of Gricel Plt Count MPV Immature Gran % (Auto) Neut % (Auto) Lymph % (Auto) Summers % (Auto) Eos % (Auto) Baso % (Auto) Neut # (Auto) Lymph # (Auto) Summers # (Auto) Eos # (Auto) Baso # (Auto) Immature Gran # (Auto) PT INR APTT PTT Ratio Activ Coag Time Kaolin 246 H 219 H Sodium Potassium Chloride Carbon Dioxide Anion Gap BUN Creatinine Est Cr Clr Drug Dosing Est GFR ( Amer) Est GFR (Non-Af Amer) BUN/Creatinine Ratio Glucose POC Glucose 239 H Estimat Average Glucose Hemoglobin A1c Calcium Magnesium Total Bilirubin AST ALT Alkaline Phosphatase Troponin I Total Protein Albumin Globulin Albumin/Globulin Ratio Specimen Hemolysis 04/19/20 04/19/20 04/19/20 14:59 14:59 16:22 WBC RBC Hgb Hct MCV MCH MCHC RDW Std Deviation RDW Coeff of Gricel Plt Count MPV Immature Gran % (Auto) Neut % (Auto) Lymph % (Auto) Summers % (Auto) Eos % (Auto) Baso % (Auto) Neut # (Auto) Lymph # (Auto) Summers # (Auto) Eos # (Auto) Baso # (Auto) Immature Gran # (Auto) PT INR APTT 132.3 H* PTT Ratio 4.7 Activ Coag Time Kaolin Sodium Potassium Chloride Carbon Dioxide Anion Gap BUN Creatinine Est Cr Clr Drug Dosing Est GFR ( Amer) Est GFR (Non-Af Amer) BUN/Creatinine Ratio Glucose POC Glucose 270 H Estimat Average Glucose Hemoglobin A1c Calcium Magnesium Total Bilirubin AST ALT Alkaline Phosphatase Troponin I 138.000 H* Total Protein Albumin Globulin Albumin/Globulin Ratio Specimen Hemolysis 04/19/20 04/19/20 18:09 20:36 WBC RBC Hgb Hct MCV MCH MCHC RDW Std Deviation RDW Coeff of Gricel Plt Count MPV Immature Gran % (Auto) Neut % (Auto) Lymph % (Auto) Summers % (Auto) Eos % (Auto) Baso % (Auto) Neut # (Auto) Lymph # (Auto) Summers # (Auto) Eos # (Auto) Baso # (Auto) Immature Gran # (Auto) PT INR APTT PTT Ratio Activ Coag Time Kaolin Sodium Potassium Chloride Carbon Dioxide Anion Gap BUN Creatinine Est Cr Clr Drug Dosing Est GFR ( Amer) Est GFR (Non-Af Amer) BUN/Creatinine Ratio Glucose POC Glucose 232 H 297 H Estimat Average Glucose Hemoglobin A1c Calcium Magnesium Total Bilirubin AST ALT Alkaline Phosphatase Troponin I Total Protein Albumin Globulin Albumin/Globulin Ratio Specimen Hemolysis Medications Administered Current Inpatient Medications Acetaminophen (Tylenol) 650 mg PO Q4H PRN PRN Reason: Pain or Fever Stop: 05/18/20 23:04 Last Admin: 04/19/20 09:55 Dose: 650 mg Documented by: Al Hydrox/Mg Hydrox/Simethicone (Maalox) 15 ml PO Q4H PRN PRN Reason: Dyspepsia Stop: 05/18/20 23:04 Albuterol (Ventolin Hfa) 2 puffs INH Q4H PRN PRN Reason: Shortness Of Breath Stop: 05/18/20 23:04 Aspirin (Ecotrin Ectab) 81 mg PO QAM [facility] Stop: 05/19/20 08:59 Last Admin: 04/19/20 08:51 Dose: 81 mg Documented by: Atorvastatin Calcium (Lipitor) 80 mg PO HS [facility] Stop: 05/19/20 20:59 Last Admin: 04/19/20 20:45 Dose: 80 mg Documented by: Clopidog[facility] ([facility]) [facility] [place] [place] 05/20/20 08:59 Dextrose (Dextrose 50%) 25 - 50 ml IV UD PRN; Protocol PRN Reason: Hypoglycemia Protocol Stop: 05/18/20 23:04 Glucagon (Glucagen) 1 mg SQ UD PRN; Protocol PRN Reason: Hypoglycemia Protocol Stop: 05/18/20 23:04 Glucose (Dex4 Glucose) 4 - 8 tabs PO UD PRN; Protocol PRN Reason: Hypoglycemia Protocol Stop: 05/18/20 23:04 Glucose (Glucose 40%) 15 - 30 gm PO UD PRN; Protocol PRN Reason: Hypoglycemia Protocol Stop: 05/18/20 23:04 Insulin Aspart (Novolog Flexpen) 0 units SC ACHS [facility] Stop: 05/18/20 23:29 Last Admin: 04/19/20 20:51 Dose: 10 units Documented by: Insulin Aspart (Novolog Flexpen) 0 units SC 0000,0400 [facility] Stop: 04/20/20 04:01 Insulin Glargine (Lantus) 0 units SC BID [facility]; Protocol Stop: 05/19/20 08:59 Last Admin: 04/19/20 20:52 Dose: 120 units Documented by: Lisinopril (Zestril) 40 mg PO DAILY [facility] Stop: 05/19/20 08:59 Last Admin: 04/19/20 08:51 Dose: 40 mg Documented by: Magnesium Hydroxide (Milk Of Magnesia) 30 ml PO Q12H PRN PRN Reason: Constipation Stop: 05/18/20 23:04 Metoprolol Tartrate (Lopressor) 5 mg IV Q4 PRN PRN Reason: Blood Pressure - High Stop: 05/18/20 23:04 Last Admin: 04/19/20 16:03 Dose: 5 mg Documented by: Metoprolol Tartrate (Lopressor) 50 mg PO BID [facility] Stop: 05/19/20 20:59 Last Admin: 04/19/20 18:29 Dose: 50 mg Documented by: Miscellaneous (Carbohydrates For Hypoglycemia) 15 - 30 gm PO UD PRN PRN Reason: Hypoglycemia Protocol Stop: 05/18/20 23:04 Miscellaneous Information (Consult Glycemic Management Pharmacy) 1 ea N/A UD PRN PRN Reason: Consult Stop: 05/19/20 08:25 Morphine Sulfate (Morphine Sulfate) 4 mg IV Q15M PRN PRN Reason: Pain Stop: 05/02/20 19:53 Last Admin: 04/19/20 00:06 Dose: 4 mg Documented by: Nitroglycerin (Nitrostat) 0.4 mg SL UD PRN PRN Reason: Chest Pain Stop: 05/18/20 23:04 Nitroglycerin (Nitro-Bid 2%) 2 inch EXT Q6 FELICIANO Stop: 05/19/20 00:14 Last Admin: 04/19/20 18:30 Dose: Not Given Documented by: Ondansetron HCl (Zofran) 4 mg IV Q6H PRN PRN Reason: Nausea Stop: 05/18/20 23:04 Pantoprazole Sodium (Protonix) 40 mg PO HS [facility] Stop: 05/19/20 20:59 Last Admin: 04/19/20 20:45 Dose: 40 mg Documented by: Varenicline (Chantix) 1 mg PO BID [facility] Stop: 05/18/20 23:04 Last Admin: 04/19/20 20:39 Dose: Not Given Documented by: PG Care Time/CCT Total # of Minutes Spent Total Time Spent with Patient: Total time spent is greater than 50% in coordination of care (as documented) at patient's floor/unit and/or counseling patient: Coding Level of Care Code 99201 Subseq Hosp Care Lvl 3 Diagnoses Non-ST elevation (NSTEMI) myocardial infarction I21.4 Bifascicular block I45.2 Hypertension I10 Hypertension type: unspecified Type 2 diabetes mellitus, with long-term current use of insulin E11.9; Z79.4 Dyslipidemia E78.5 COPD, mild J44.9 Depression F32.9 Tobacco abuse Z72.0 Obesity, Class III, BMI 40-49.9 (morbid obesity) E66.01 (1) Hypertension Hypertension type: unspecified Qualified Code(s): I10 - Essential (primary) hypertension
[2020-04-19] MEDS: METOPROLOL TARTRATE 50 MG TAB PO SCH (18:29)
[2020-04-19] MEDS: PANTOprazole 40 MG TAB PO SCH (20:45)
[2020-04-19] MEDS: ATORVASTATIN 40 MG TAB PO SCH (20:45)
[2020-04-19] MEDS ORDERED: SIMVASTATIN 40 MG TAB PO SCH (21:00)
[2020-04-20] MEDS: NITROGLYCERIN 2% OINTMENT 30GM TUBE EXT SCH ×5 (00:05→23:34)
[2020-04-20] MEDS: ACETAMINOPHEN 325 MG TAB PO PRN ×2 (00:05→11:33)
[2020-04-20] MEDS: INSULIN ASPART 100 UNITS/ML 3 ML PEN SC SCH ×7 (00:05→23:51)
--- NOTE | 2020-04-20 06:02 | Electrocardiogram Report ---
Test Reason : Blood Pressure : / mmHG Vent. Rate : 078 BPM Atrial Rate : 078 BPM P-R Int : 188 ms QRS Dur : 118 ms QT Int : 390 ms P-R-T Axes : 026 -64 -07 degrees QTc Int : 444 ms Normal sinus rhythm Left axis deviation Incomplete right bundle branch block Nonspecific T wave abnormality Abnormal ECG When compared with ECG of 15-APR-2020 22:13, No significant change was found Confirmed by Stevo Da Silva ([id number] on 04/20/2020 6:01:41 AM Referred By: Doreen Clark Confirmed By:Stevo Da Silva
--- NOTE | 2020-04-20 06:03 | Electrocardiogram Report ---
Test Reason : Blood Pressure : / mmHG Vent. Rate : 074 BPM Atrial Rate : 074 BPM P-R Int : 208 ms QRS Dur : 116 ms QT Int : 396 ms P-R-T Axes : 021 -56 -01 degrees QTc Int : 439 ms Normal sinus rhythm Left axis deviation Nonspecific ST and T wave abnormality Incomplete right bundle branch block Abnormal ECG When compared with ECG of 18-APR-2020 18:19, No significant change was found Confirmed by Stevo Da Silva ([id number] on 04/20/2020 6:03:12 AM Referred By: Doreen Clark Confirmed By:Stevo Da Silva
--- NOTE | 2020-04-20 06:11 | Electrocardiogram Report ---
Test Reason : Blood Pressure : / mmHG Vent. Rate : 076 BPM Atrial Rate : 076 BPM P-R Int : 206 ms QRS Dur : 118 ms QT Int : 408 ms P-R-T Axes : 021 242 -01 degrees QTc Int : 459 ms Normal sinus rhythm Right superior axis deviation Incomplete right bundle branch block Nonspecific T wave abnormality Abnormal ECG When compared with ECG of 18-APR-2020 19:04, Questionable change in QRS axis Confirmed by Stevo Da Silva ([id number]) on 04/20/2020 6:10:56 AM Referred By: Doreen Clark Confirmed By:Stevo Da Silva
--- NOTE | 2020-04-20 06:17 | Electrocardiogram Report ---
Test Reason : Blood Pressure : / mmHG Vent. Rate : 079 BPM Atrial Rate : 079 BPM P-R Int : 182 ms QRS Dur : 122 ms QT Int : 400 ms P-R-T Axes : 030 -86 -04 degrees QTc Int : 458 ms Normal sinus rhythm Left axis deviation T wave abnormality, consider anterior ischemia Abnormal ECG When compared with ECG of 19-APR-2020 06:14, Incomplete right bundle branch block is no longer Present T wave inversion now evident in Anterior leads Confirmed by Stevo Da Silva ([id number] on 04/20/2020 6:16:45 AM Referred By: Doreen Clark Confirmed By:Stevo Da Silva
[2020-04-20 06:21] LABS: Basophils # (auto) 0.03 K/uL (0-0.2); Basophils % (auto) 0.3 %; Eosinophils % (auto) 2.1 %; Hematocrit (blood only) 46.3 % (42-52); Hemoglobin 15.6 g/dL (14.0-18.0); Immature Granulocytes # (auto) 0.02 K/uL (0.00-0.02); Immature Granulocytes % (auto) 0.2 %; Lymphocytes % (auto) 21.8 %; Mean Corpuscular Hemoglobin 29.1 pg (25-34); Mean Corpuscular Hgb Conc 33.7 g/dL (32-36); Mean Corpuscular Volume 86.4 fL (80-100); Mean Platelet Volume 11.3 fL (7.4-10.4); Monocytes # (auto) 1.19 K/uL (0.11-0.59); Monocytes % (auto) 12.3 %; Neutrophils % (auto) 63.3 %; Platelet Count 189 K/uL (130-400); RDW Coefficient of Variation 12.5 % (11.5-14.5); RDW Standard Deviation 39.8 fL (36.4-46.3); Red Blood Count 5.36 M/uL (4.7-6.1); White Blood Count 9.64 K/uL (4.8-10.8)
[2020-04-20 07:03] LABS: Alanine Aminotransferase 39 U/L (12-78); Aspartate Aminotransferase 69 U/L (15-37); BUN Creatinine Ratio 10.5 (10-20); Blood Urea Nitrogen 7 mg/dl (7-18); Calcium 8.8 mg/dl (8.5-10.1); Carbon Dioxide 26 mmol/L (21-32); Chloride 104 mmol/L (98-107); Creatinine Clr Calc Pharmacy 262.8 ml/min; Est GFR (African American) > 150.0; Est GFR (Non-African American) 129.5; Glucose 212 mg/dl (70-99); Potassium 3.3 mmol/L (3.5-5.1); Sodium 137 mmol/L (136-145)
[2020-04-20 07:06] LABS: Albumin Globulin Ratio 0.7 (0.9-2); Alkaline Phosphatase 101 U/L (45-117); Bilirubin,Total 0.7 mg/dl (0.2-1); Globulin 4.2 gm/dl (2.5-4.0); Total Protein 7.2 gm/dl (6.4-8.2)
[2020-04-20] MEDS: INSULIN GLARGINE 100 UNIT/ML VIAL SC SCH ×2 (08:08→20:34)
[2020-04-20] MEDS: lisinopriL 40 MG TAB PO SCH (08:09)
[2020-04-20] MEDS: VARENICLINE 1 MG TAB PO SCH ×3 (08:09→20:28)
[2020-04-20] MEDS: METOPROLOL TARTRATE 50 MG TAB PO SCH (08:09)
[2020-04-20] MEDS: ASPIRIN 81 MG ECTAB PO SCH (08:09)
[2020-04-20] MEDS: CLOPIDOGREL BISULFATE 75 MG TAB PO SCH (08:09)
[2020-04-20] MEDS: POTASSIUM CHLORIDE 10 MEQ TABCR PO SCH ×2 (08:36→20:18)
--- NOTE | 2020-04-20 11:58 | Cardiology Progress Note ---
Date of Service April 20, 2020 Assessment & Plan (1) Non-ST elevation (NSTEMI) myocardial infarction: (2) Hypertension: (3) Tobacco abuse: (4) Dyslipidemia: ASSESSMENT/PLAN: 1. CAD s/p PCI (Cx and PL) / NSTEMI: No further angina following PCI. Continue aspirin 81 mg daily indefinitely. Continue Plavix 75 mg daily preferentially for at least 1 year. Continue beta-dolly. Continue KRISTOFER-inhibitor. Continue high-intensity statin therapy. Cardiac rehab recommended. 2. Hypertension: Blood pressure has improved. Most recent blood pressure reading is elevated but before that, has had some normal blood pressure readings. Metoprolol was increased last evening. Further adjustment of antihypertensive agents can be done as necessary. On discharge, recommend metoprolol succinate to improve compliance. Continue KRISTOFER-inhibitor. 3. Dyslipidemia: Simvastatin has been replaced with high-intensity statin therapy. 4. Tobacco abuse: Stop smoking. 5. Disposition: Cardiac rehab on discharge. He will likely be discharged tomorrow morning. Patient care discussed with Dr. Rice with a primary hospitalist service. (5) CAD (coronary artery disease): (6) S/P coronary artery stent placement: Admission and Anticipated Discharge Date Admission Date: April 18, 2020 Subjective He feels much better today. He has not had any further chest pain. He denies shortness of breath, syncope, near-syncope, palpitations, edema, or bleeding. He does not have any particular issues with his right wrist other than some soreness, which has improved. He has ambulated in his room without symptoms. He has not yet ambulated in the hallway. He is tolerating medications. Review of systems: As above. Physical Exam Physical Exam: Gen.: No acute distress. Alert and oriented. HEENT: Anicteric sclera. Neck: No JVD. Cardiac: No ventricular heave. Regular rate and rhythm. Normal S1-S2. No murmurs, rubs, or gallops. Pulmonary: Clear to auscultation bilaterally without wheezes, rales, or rhonchi. Abdomen: Soft, nontender, nondistended, with normoactive bowel sounds. No bruits noted. Extremities: 2+ radial pulses bilaterally. Right radial cath site is clean, dry, and intact without erythema or discharge. No edema or cyanosis. Psychiatric: Affect appears appropriate. Results & Data ([facility]) Vital Signs (Past 12 Hours) Vital Signs Temp Pulse Pulse Resp BP BP Pulse Ox 04/20/20 11:00 36.5 C 113 H 19 165/71 H 95 04/20/20 08:00 92 H 04/20/20 07:03 36.9 C 96 H 20 118/74 93 04/20/20 03:30 36.4 C L 109 H 18 133/93 96 04/20/20 00:12 98 H Laboratory Results Laboratory Results - last 24 hr 04/19/20 04/19/20 04/19/20 11:25 12:39 13:32 WBC RBC Hgb Hct MCV MCH MCHC RDW Std Deviation RDW Coeff of Gricel Plt Count MPV Immature Gran % (Auto) Neut % (Auto) Lymph % (Auto) Todd % (Auto) Eos % (Auto) Baso % (Auto) Neut # (Auto) Lymph # (Auto) Todd # (Auto) Eos # (Auto) Baso # (Auto) Immature Gran # (Auto) APTT PTT Ratio Activ Coag Time Kaolin 164 H 246 H 219 H Sodium Potassium Chloride Carbon Dioxide Anion Gap BUN Creatinine Est Cr Clr Drug Dosing Est GFR ( Amer) Est GFR (Non-Af Amer) BUN/Creatinine Ratio Glucose POC Glucose Calcium Magnesium Total Bilirubin AST ALT Alkaline Phosphatase Troponin I Total Protein Albumin Globulin Albumin/Globulin Ratio 04/19/20 04/19/20 04/19/20 14:47 14:59 14:59 WBC RBC Hgb Hct MCV MCH MCHC RDW Std Deviation RDW Coeff of Gricel Plt Count MPV Immature Gran % (Auto) Neut % (Auto) Lymph % (Auto) Todd % (Auto) Eos % (Auto) Baso % (Auto) Neut # (Auto) Lymph # (Auto) Todd # (Auto) Eos # (Auto) Baso # (Auto) Immature Gran # (Auto) APTT 132.3 H* PTT Ratio 4.7 Activ Coag Time Kaolin Sodium Potassium Chloride Carbon Dioxide Anion Gap BUN Creatinine Est Cr Clr Drug Dosing Est GFR ( Amer) Est GFR (Non-Af Amer) BUN/Creatinine Ratio Glucose POC Glucose 239 H Calcium Magnesium Total Bilirubin AST ALT Alkaline Phosphatase Troponin I 138.000 H* Total Protein Albumin Globulin Albumin/Globulin Ratio 04/19/20 04/19/20 04/19/20 16:22 18:09 20:36 WBC RBC Hgb Hct MCV MCH MCHC RDW Std Deviation RDW Coeff of Gricel Plt Count MPV Immature Gran % (Auto) Neut % (Auto) Lymph % (Auto) Todd % (Auto) Eos % (Auto) Baso % (Auto) Neut # (Auto) Lymph # (Auto) Todd # (Auto) Eos # (Auto) Baso # (Auto) Immature Gran # (Auto) APTT PTT Ratio Activ Coag Time Kaolin Sodium Potassium Chloride Carbon Dioxide Anion Gap BUN Creatinine Est Cr Clr Drug Dosing Est GFR ( Amer) Est GFR (Non-Af Amer) BUN/Creatinine Ratio Glucose POC Glucose 270 H 232 H 297 H Calcium Magnesium Total Bilirubin AST ALT Alkaline Phosphatase Troponin I Total Protein Albumin Globulin Albumin/Globulin Ratio 04/19/20 04/20/20 04/20/20 23:59 03:39 06:04 WBC 9.64 RBC 5.36 Hgb 15.6 Hct 46.3 MCV 86.4 MCH 29.1 MCHC 33.7 RDW Std Deviation 39.8 RDW Coeff of Gricel 12.5 Plt Count 189 MPV 11.3 H Immature Gran % (Auto) 0.2 Neut % (Auto) 63.3 Lymph % (Auto) 21.8 Todd % (Auto) 12.3 Eos % (Auto) 2.1 Baso % (Auto) 0.3 Neut # (Auto) 6.10 Lymph # (Auto) 2.10 Todd # (Auto) 1.19 H Eos # (Auto) 0.20 Baso # (Auto) 0.03 Immature Gran # (Auto) 0.02 APTT PTT Ratio Activ Coag Time Kaolin Sodium Potassium Chloride Carbon Dioxide Anion Gap BUN Creatinine Est Cr Clr Drug Dosing Est GFR ( Amer) Est GFR (Non-Af Amer) BUN/Creatinine Ratio Glucose POC Glucose 213 H 181 H Calcium Magnesium Total Bilirubin AST ALT Alkaline Phosphatase Troponin I Total Protein Albumin Globulin Albumin/Globulin Ratio 04/20/20 04/20/20 04/20/20 06:04 06:04 07:22 WBC RBC Hgb Hct MCV MCH MCHC RDW Std Deviation RDW Coeff of Gricel Plt Count MPV Immature Gran % (Auto) Neut % (Auto) Lymph % (Auto) Todd % (Auto) Eos % (Auto) Baso % (Auto) Neut # (Auto) Lymph # (Auto) Todd # (Auto) Eos # (Auto) Baso # (Auto) Immature Gran # (Auto) APTT PTT Ratio Activ Coag Time Kaolin Sodium 137 Potassium 3.3 L Chloride 104 Carbon Dioxide 26 Anion Gap 8.0 BUN 7 Creatinine 0.63 Est Cr Clr Drug Dosing 262.8 Est GFR ( Amer) > 150.0 Est GFR (Non-Af Amer) 129.5 BUN/Creatinine Ratio 10.5 Glucose 212 H POC Glucose 249 H Calcium 8.8 Magnesium 2.0 Total Bilirubin 0.7 AST 69 H ALT 39 Alkaline Phosphatase 101 Troponin I 17.300 H* Total Protein 7.2 Albumin 3.0 L Globulin 4.2 H Albumin/Globulin Ratio 0.7 L 04/20/20 11:20 WBC RBC Hgb Hct MCV MCH MCHC RDW Std Deviation RDW Coeff of Gricel Plt Count MPV Immature Gran % (Auto) Neut % (Auto) Lymph % (Auto) Todd % (Auto) Eos % (Auto) Baso % (Auto) Neut # (Auto) Lymph # (Auto) Todd # (Auto) Eos # (Auto) Baso # (Auto) Immature Gran # (Auto) APTT PTT Ratio Activ Coag Time Kaolin Sodium Potassium Chloride Carbon Dioxide Anion Gap BUN Creatinine Est Cr Clr Drug Dosing Est GFR ( Amer) Est GFR (Non-Af Amer) BUN/Creatinine Ratio Glucose POC Glucose 194 H Calcium Magnesium Total Bilirubin AST ALT Alkaline Phosphatase Troponin I Total Protein Albumin Globulin Albumin/Globulin Ratio Diagnostic Findings Telemetry personally reviewed: Sinus rhythm. Sinus tachycardia well out of bed. No arrhythmia noted. ECG personally reviewed: ECG sinus rhythm 99 bpm. Incomplete RBBB. Nonspecific T-wave abnormality. Cardiac catheterization 04/19/2020: Mid LAD 10%. Mid circumflex 100%. Large dominant RCA. Proximal RCA 10%. Mid RCA 30%. Distal RCA sequential 40%, 40%, and 40-50%. Early mid PL 30%. Mid PL 80-90%. Ostial PDA 30%. Proximal PDA 10-20%. Mid PDA 30%. Proximal ramus 10-20%. LVEDP 11. No aortic stenosis. PCI of mid to distal circumflex with 2.5 x 22 and 2.25 x 12 natasha (post dilated proximally with a [address] PCI 2.75 x 26 mm natasha. Medications Administered Current Inpatient Medications Acetaminophen (Tylenol) 650 mg PO Q4H PRN PRN Reason: Pain or Fever Stop: 05/18/20 23:04 Last Admin: 04/20/20 11:33 Dose: 650 mg Documented by: Al Hydrox/Mg Hydrox/Simethicone (Maalox) 15 ml PO Q4H PRN PRN Reason: Dyspepsia Stop: 05/18/20 23:04 Albuterol (Ventolin Hfa) 2 puffs INH Q4H PRN PRN Reason: Shortness Of Breath Stop: 05/18/20 23:04 Aspirin (Ecotrin Ectab) 81 mg PO QAM [facility] Stop: 05/19/20 08:59 Last Admin: 04/20/20 08:09 Dose: 81 mg Documented by: Atorvastatin Calcium (Lipitor) 80 mg PO HS [facility] Stop: 05/19/20 20:59 Last Admin: 04/19/20 20:45 Dose: 80 mg Documented by: Clopidogrel [facility] ([facility]avix) [facility] Stop: 05/20/20 08:59 Last Admin: 04/20/20 08:09 Dose: 75 mg Documented by: Dextrose (Dextrose 50%) 25 - 50 ml IV UD PRN; Protocol PRN Reason: Hypoglycemia Protocol Stop: 05/18/20 23:04 Glucagon (Glucagen) 1 mg SQ UD PRN; Protocol PRN Reason: Hypoglycemia Protocol Stop: 05/18/20 23:04 Glucose (Dex4 Glucose) 4 - 8 tabs PO UD PRN; Protocol PRN Reason: Hypoglycemia Protocol Stop: 05/18/20 23:04 Glucose (Glucose 40%) 15 - 30 gm PO UD PRN; Protocol PRN Reason: Hypoglycemia Protocol Stop: 05/18/20 23:04 Insulin Aspart (Novolog Flexpen) 0 units SC ACHS [facility] Stop: 05/18/20 23:29 Last Admin: 04/20/20 08:08 Dose: 29 units Documented by: Insulin Glargine (Lantus) 0 units SC BID [facility]; Protocol Stop: 05/19/20 08:59 Last Admin: 04/20/20 08:08 Dose: 120 units Documented by: Lisinopril (Zestril) 40 mg PO DAILY [facility] Stop: 05/19/20 08:59 Last Admin: 04/20/20 08:09 Dose: 40 mg Documented by: Magnesium Hydroxide (Milk Of Magnesia) 30 ml PO Q12H PRN PRN Reason: Constipation Stop: 05/18/20 23:04 Metoprolol Tartrate (Lopressor) 5 mg IV Q4 PRN PRN Reason: Blood Pressure - High Stop: 05/18/20 23:04 Last Admin: 04/19/20 16:03 Dose: 5 mg Documented by: Metoprolol Tartrate (Lopressor) 50 mg PO BID [facility] Stop: 05/19/20 20:59 Last Admin: 04/20/20 08:09 Dose: 50 mg Documented by: Miscellaneous (Carbohydrates For Hypoglycemia) 15 - 30 gm PO UD PRN PRN Reason: Hypoglycemia Protocol Stop: 05/18/20 23:04 Miscellaneous Information (Consult Glycemic Management Pharmacy) 1 ea N/A UD PRN PRN Reason: Consult Stop: 05/19/20 08:25 Morphine Sulfate (Morphine Sulfate) 4 mg IV Q15M PRN PRN Reason: Pain Stop: 05/02/20 19:53 Last Admin: 04/19/20 00:06 Dose: 4 mg Documented by: Nitroglycerin (Nitrostat) 0.4 mg SL UD PRN PRN Reason: Chest Pain Stop: 05/18/20 23:04 Nitroglycerin (Nitro-Bid 2%) 2 inch EXT Q6 [facility] Stop: 05/19/20 00:14 Last Admin: 04/20/20 05:47 Dose: 2 inch Documented by: Ondansetron HCl (Zofran) 4 mg IV Q6H PRN PRN Reason: Nausea Stop: 05/18/20 23:04 Pantoprazole Sodium (Protonix) 40 mg PO HS [facility] Stop: 05/19/20 20:59 Last Admin: 04/19/20 20:45 Dose: 40 mg Documented by: Potassium Chloride (Klor-Con M10) 10 meq PO BID [facility] Stop: 05/20/20 08:59 Last Admin: 04/20/20 08:36 Dose: 10 meq Documented by: Varenicline (Chantix) 1 mg PO BID [facility] Stop: 05/18/20 23:04 Last Admin: 04/20/20 08:15 Dose: Not Given Documented by: PG Care Time/CCT Total # of Minutes Spent Total Time Spent with Patient: Total time spent is greater than 50% in coordination of care (as documented) at patient's floor/unit and/or counseling patient: Coding Level of Care Code 22945 Subseq Hosp Care Lvl 3 Diagnoses Non-ST elevation (NSTEMI) myocardial infarction I21.4 Hypertension I10 Hypertension type: unspecified Tobacco abuse Z72.0 Dyslipidemia E78.5 CAD (coronary artery disease) I25.10 S/P coronary artery stent placement Z95.5 (1) Hypertension Hypertension type: unspecified Qualified Code(s): I10 - Essential (primary) hypertension
--- NOTE | 2020-04-20 15:33 | Pharmacy Report ---
Pharmacy Glycemic Short Note 2 - Date of Service April 20, 2020 - Glycemic Short BSG Results (Last 24 hours): 04/19/20 04/19/20 04/19/20 16:22 18:09 20:36 Glucose POC Glucose 270 H 232 H 297 H 04/19/20 04/20/20 04/20/20 23:59 03:39 06:04 Glucose 212 H POC Glucose 213 H 181 H 04/20/20 04/20/20 07:22 11:20 Glucose POC Glucose 249 H 194 H OUTPATIENT ANTIDIABETIC REGIMEN: * Invokana 300 mg Hs, Novolog SS, metformin 1000 mg, Toujeo 160 units BID ASSESSMENT: * Mr. Crandall's BSG elevated yesterday, ranging 213-297 mg/dL * Patient received 220 units of Basal, 58 units of correctional/prandial * T2DM diet ordered (patient NPO for cath yesterday) * Fasting still elevated this AM 249, but improved from previous, lantus being titrated up * Lunch BSG improved today, parameters were tightened this AM. PLAN FOR INPATIENT GLYCEMIC CONTROL: * Hold outpatient oral diabetes medications * Basal insulin * Lantus 80-120 units SQ BID * Bolus insulin * NovoLog per scale ACHS or Q6hrs while NPO * Goal Range: Low 120 mg/dL - High 160mg/dL * Correction Factor: 10 mg/dL/unit * Nutritional / Prandial insulin per carb ratio of 1 unit per 3 grams CHO consumed
[2020-04-20] MEDS ORDERED: METOPROLOL TARTRATE 25 MG TAB PO STA (15:38)
--- NOTE | 2020-04-20 15:43 | Hospitalist Progress Note ---
Date of Service April 20, 2020 Assessment & Plan (1) Non-ST elevation (NSTEMI) myocardial infarction: presented with angina, right sided chest pain troponin elevated at 1, increased to 11, peaked at over 100, down to 17 today echo with inferior wall motion abnormality left heart cath on 04/19 with 100% occlusion in circumflex and severe stenosis in distal right PLB two overlapping ALICIA placed in circumflex and one ALICIA placed in PLB dual antiplatelet therapy for one year no longer needs heparin Metoprolol 50mg bid -- increase to 75mg BID due to sinus tachycardia likely for d/c tomorrow mid to late morning (2) Bifascicular block: continue metoprolol, increase dose to 75mg BID (3) Hypertension: continue lisinopril 40mg increase metoprolol to 75mg BID follow bp -- stable today (4) Type 2 diabetes mellitus, with long-term current use of insulin: Hold Enbrel, and metformin. HbA1c elevated at 10.9% consulted glycemic management, Basal and bolus regimen ordered will ask adult educator to see, looking into insulin pump for better control talked with patient about need for diabetes control, at risk for future DC and stroke will come up with plan on discharge likely to speak with Dr. Small this week (5) Dyslipidemia: increase Lipitor to 80mg due to NSTEMI and severe CAD (6) COPD, mild: Continue albuterol HFA as needed (7) Depression: Patient noted to have depression, is not on any specific treatment at this time. (8) Tobacco abuse: Continue varenicline 1 mg p.o. twice daily (9) Obesity, Class III, BMI 40-49.9 (morbid obesity): Noted as risk factor for vascular disease encourate weight loss (10) Sinus tachycardia: unclear etiology, no symptoms such as chest pain, dyspnea will increase metoprolol to 75mg BID from 50mg BID, gave extra metoprolol 25mg in afternoon Admission and Anticipated Discharge Date Admission Date: April 18, 2020 Subjective patient feeling fine, no chest pain, no dyspnea K low at 3.3, Cr normal, CBC normal discussed discharge plan with adult educator, patient wants to look into getting insulin pump, going to talk with Dr. Small on he says he is committed to taking his medications, wants to stop smoking, eat better, exercise says he wants a copy of his EKG with DC to put on a cup to remind him everyday of his heart discussed case with Dr. Da Silva, will plan to discharge tomorrow morning HR slightly up this afternoon in the 100-120 range, sinus on monitor, happened with activity gave extra Lopressor 25mg and will increase Lopressor to 75mg BID Review of Systems Review of Systems: All systems reviewed & are unremarkable except as noted in HPI & below Constitutional: no fever, no fatigue and no weakness Respiratory: no cough and no dyspnea Cardiovascular: no chest pain, no palpitations, no syncope and no edema Gastrointestinal: no abdominal pain, no nausea, no vomiting, no constipation and no diarrhea/loose stools Physical Exam Constitutional: well developed and + obese; no acute distress Eyes: PERRL, conjunctivae normal, anicteric sclerae ENMT: external ear and nose normal, oropharynx normal Neck: trachea midline, no thyromegaly Respiratory: normal respiratory effort, lungs clear to auscultation Cardiovascular: Rate/Rhythm: regular rhythm and + tachycardic Heart Sounds: normal S1 and normal S2; no murmur Vessels: no JVD Extremities: normal capillary refill; no edema Gastrointestinal (Abdomen): normal bowel sounds, soft, nontender, no hepatosplenomegaly Musculoskeletal: no cyanosis or clubbing, extremities motor strength 5/5 Skin: no rashes, warm and dry Neurologic: patellar DTR's 2+ bilat, sensation intact and PERRL, EOMI, accommodation nl, no face palsy, no dysarthria Psychiatric: A+Ox3, euthymic affect Lymphatic: no cervical or axillary lymphadenopathy Results & Data Results & Data ([facility]) Vital Signs (Past 12 Hours) Vital Signs Temp Pulse Pulse Resp BP BP Pulse Ox 04/20/20 15:05 36.6 C 108 H 18 123/69 95 04/20/20 14:51 124/77 04/20/20 11:00 36.5 C 113 H 19 165/71 H 95 04/20/20 08:00 92 H 04/20/20 07:03 36.9 C 96 H 20 118/74 93 Laboratory Results Laboratory Results - last 24 hr 04/19/20 04/19/20 04/19/20 14:59 16:22 18:09 WBC RBC Hgb Hct MCV MCH MCHC RDW Std Deviation RDW Coeff of Gricel Plt Count MPV Immature Gran % (Auto) Neut % (Auto) Lymph % (Auto) Posey % (Auto) Eos % (Auto) Baso % (Auto) Neut # (Auto) Lymph # (Auto) Posey # (Auto) Eos # (Auto) Baso # (Auto) Immature Gran # (Auto) Sodium Potassium Chloride Carbon Dioxide Anion Gap BUN Creatinine Est Cr Clr Drug Dosing Est GFR ( Amer) Est GFR (Non-Af Amer) BUN/Creatinine Ratio Glucose POC Glucose 270 H 232 H Calcium Magnesium Total Bilirubin AST ALT Alkaline Phosphatase Troponin I 138.000 H* Total Protein Albumin Globulin Albumin/Globulin Ratio 04/19/20 04/19/20 04/20/20 20:36 23:59 03:39 WBC RBC Hgb Hct MCV MCH MCHC RDW Std Deviation RDW Coeff of Gricel Plt Count MPV Immature Gran % (Auto) Neut % (Auto) Lymph % (Auto) Posey % (Auto) Eos % (Auto) Baso % (Auto) Neut # (Auto) Lymph # (Auto) Posey # (Auto) Eos # (Auto) Baso # (Auto) Immature Gran # (Auto) Sodium Potassium Chloride Carbon Dioxide Anion Gap BUN Creatinine Est Cr Clr Drug Dosing Est GFR ( Amer) Est GFR (Non-Af Amer) BUN/Creatinine Ratio Glucose POC Glucose 297 H 213 H 181 H Calcium Magnesium Total Bilirubin AST ALT Alkaline Phosphatase Troponin I Total Protein Albumin Globulin Albumin/Globulin Ratio 04/20/20 04/20/20 04/20/20 06:04 06:04 06:04 WBC 9.64 RBC 5.36 Hgb 15.6 Hct 46.3 MCV 86.4 MCH 29.1 MCHC 33.7 RDW Std Deviation 39.8 RDW Coeff of Gricel 12.5 Plt Count 189 MPV 11.3 H Immature Gran % (Auto) 0.2 Neut % (Auto) 63.3 Lymph % (Auto) 21.8 Posey % (Auto) 12.3 Eos % (Auto) 2.1 Baso % (Auto) 0.3 Neut # (Auto) 6.10 Lymph # (Auto) 2.10 Posey # (Auto) 1.19 H Eos # (Auto) 0.20 Baso # (Auto) 0.03 Immature Gran # (Auto) 0.02 Sodium 137 Potassium 3.3 L Chloride 104 Carbon Dioxide 26 Anion Gap 8.0 BUN 7 Creatinine 0.63 Est Cr Clr Drug Dosing 262.8 Est GFR ( Amer) > 150.0 Est GFR (Non-Af Amer) 129.5 BUN/Creatinine Ratio 10.5 Glucose 212 H POC Glucose Calcium 8.8 Magnesium 2.0 Total Bilirubin 0.7 AST 69 H ALT 39 Alkaline Phosphatase 101 Troponin I 17.300 H* Total Protein 7.2 Albumin 3.0 L Globulin 4.2 H Albumin/Globulin Ratio 0.7 L 04/20/20 04/20/20 07:22 11:20 WBC RBC Hgb Hct MCV MCH MCHC RDW Std Deviation RDW Coeff of Gricel Plt Count MPV Immature Gran % (Auto) Neut % (Auto) Lymph % (Auto) Posey % (Auto) Eos % (Auto) Baso % (Auto) Neut # (Auto) Lymph # (Auto) Posey # (Auto) Eos # (Auto) Baso # (Auto) Immature Gran # (Auto) Sodium Potassium Chloride Carbon Dioxide Anion Gap BUN Creatinine Est Cr Clr Drug Dosing Est GFR ( Amer) Est GFR (Non-Af Amer) BUN/Creatinine Ratio Glucose POC Glucose 249 H 194 H Calcium Magnesium Total Bilirubin AST ALT Alkaline Phosphatase Troponin I Total Protein Albumin Globulin Albumin/Globulin Ratio Medications Administered Current Inpatient Medications Acetaminophen (Tylenol) 650 mg PO Q4H PRN PRN Reason: Pain or Fever Stop: 05/18/20 23:04 Last Admin: 04/20/20 11:33 Dose: 650 mg Documented by: Al Hydrox/Mg Hydrox/Simethicone (Maalox) 15 ml PO Q4H PRN PRN Reason: Dyspepsia Stop: 05/18/20 23:04 Albuterol (Ventolin Hfa) 2 puffs INH Q4H PRN PRN Reason: Shortness Of Breath Stop: 05/18/20 23:04 Aspirin (Ecotrin Ectab) [facility] [place] Stop: 05/19/20 08:59 Last Admin: 04/20/20 08:09 Dose: 81 mg Documented by: Atorvastatin Calcium (Lipitor) 80 [facility] PO [facility] Stop: 05/19/20 20:59 Last Admin: 04/19/20 20:45 Dose: 80 mg Documented by: Clopidogrel Bisulfate (Plavix) [facility] [place] Stop: 05/20/20 08:59 Last Admin: 04/20/20 08:09 Dose: 75 mg Documented by: Dextrose (Dextrose 50%) 25 - 50 ml IV UD PRN; Protocol PRN Reason: Hypoglycemia Protocol Stop: 05/18/20 23:04 Glucagon (Glucagen) 1 mg SQ UD PRN; Protocol PRN Reason: Hypoglycemia Protocol Stop: 05/18/20 23:04 Glucose (Dex4 Glucose) 4 - 8 tabs PO UD PRN; Protocol PRN Reason: Hypoglycemia Protocol Stop: 05/18/20 23:04 Glucose (Glucose 40%) 15 - 30 gm PO UD PRN; Protocol PRN Reason: Hypoglycemia Protocol Stop: 05/18/20 23:04 Insulin Aspart (Novolog Flexpen) 0 units SC ACHS [facility] Stop: 05/18/20 23:29 Last Admin: 04/20/20 12:31 Dose: 12 units Documented by: Insulin Glargine (Lantus) 0 units SC BID [facility]; Protocol Stop: 05/19/20 08:59 Last Admin: 04/20/20 08:08 Dose: 120 units Documented by: Lisinopril (Zestril) 40 mg PO DAILY [facility] Stop: 05/19/20 08:59 Last Admin: 04/20/20 08:09 Dose: 40 mg Documented by: Magnesium Hydroxide (Milk Of Magnesia) 30 ml PO Q12H PRN PRN Reason: Constipation Stop: 05/18/20 23:04 Metoprolol Tartrate (Lopressor) 5 mg IV Q4 PRN PRN Reason: Blood Pressure - High Stop: 05/18/20 23:04 Last Admin: 04/19/20 16:03 Dose: 5 mg Documented by: Metoprolol Tartrate (Lopressor) 75 mg PO BID [facility] Stop: 05/20/20 20:59 Metoprolol Tartrate (Lopressor) 25 mg PO NOW STA Stop: 04/20/20 15:39 Miscellaneous (Carbohydrates For Hypoglycemia) 15 - 30 gm PO UD PRN PRN Reason: Hypoglycemia Protocol Stop: 05/18/20 23:04 Miscellaneous Information (Consult Glycemic Management Pharmacy) 1 ea N/A UD PRN PRN Reason: Consult Stop: 05/19/20 08:25 Morphine Sulfate (Morphine Sulfate) 4 mg IV Q15M PRN PRN Reason: Pain Stop: 05/02/20 19:53 Last Admin: 04/19/20 00:06 Dose: 4 mg Documented by: Nitroglycerin (Nitrostat) 0.4 mg SL UD PRN PRN Reason: Chest Pain Stop: 05/18/20 23:04 Nitroglycerin (Nitro-Bid 2%) 2 inch EXT Q6 [facility] Stop: 05/19/20 00:14 Last Admin: 04/20/20 12:35 Dose: 2 inch Documented by: Ondansetron HCl (Zofran) 4 mg IV Q6H PRN PRN Reason: Nausea Stop: 05/18/20 23:04 Pantoprazole Sodium (Protonix) 40 mg PO HS [facility] Stop: 05/19/20 20:59 Last Admin: 04/19/20 20:45 Dose: 40 mg Documented by: Potassium Chloride (Klor-Con M10) 10 meq PO BID [facility] Stop: 05/20/20 08:59 Last Admin: 04/20/20 08:36 Dose: 10 meq Documented by: Varenicline (Chantix) 1 mg PO BID [facility] Stop: 05/18/20 23:04 Last Admin: 04/20/20 08:15 Dose: Not Given Documented by: PG Care Time/CCT Total # of Minutes Spent Total Time Spent with Patient: Total time spent is greater than 50% in coordination of care (as documented) at patient's floor/unit and/or counseling patient: Coding Level of Care Code 93436 Subseq Hosp Care Lvl 3 Diagnoses Non-ST elevation (NSTEMI) myocardial infarction I21.4 Bifascicular block I45.2 Hypertension I10 Hypertension type: unspecified Type 2 diabetes mellitus, with long-term current use of insulin E11.9; Z79.4 Dyslipidemia E78.5 COPD, mild J44.9 Depression F32.9 Tobacco abuse Z72.0 Obesity, Class III, BMI 40-49.9 (morbid obesity) E66.01 Sinus tachycardia R00.0 (1) Hypertension Hypertension type: unspecified Qualified Code(s): I10 - Essential (primary) hypertension
[2020-04-20] MEDS: ATORVASTATIN 40 MG TAB PO SCH (20:18)
[2020-04-20] MEDS: PANTOprazole 40 MG TAB PO SCH (20:18)
[2020-04-20] MEDS ORDERED: METOPROLOL TARTRATE 50 MG TAB PO SCH (21:00)
[2020-04-21] MEDS: INSULIN ASPART 100 UNITS/ML 3 ML PEN SC SCH ×2 (04:09→08:07)
[2020-04-21] MEDS: NITROGLYCERIN 2% OINTMENT 30GM TUBE EXT SCH (06:29)
--- NOTE | 2020-04-21 06:33 | Electrocardiogram Report ---
Test Reason : Blood Pressure : / mmHG Vent. Rate : 099 BPM Atrial Rate : 099 BPM P-R Int : 162 ms QRS Dur : 118 ms QT Int : 366 ms P-R-T Axes : 057 264 018 degrees QTc Int : 469 ms Normal sinus rhythm Right superior axis deviation Incomplete right bundle branch block Nonspecific T wave abnormality Abnormal ECG When compared with ECG of 19-APR-2020 08:05, T wave inversion no longer evident in Anterior leads Confirmed by Stevo Da Silva ([id number]) on 04/21/2020 6:33:28 AM Referred By: Doreen Clark Confirmed By:Stevo Da Silva
[2020-04-21 07:09] LABS: Basophils # (auto) 0.02 K/uL (0-0.2); Basophils % (auto) 0.2 %; Eosinophils # (auto) 0.18 K/uL (0-0.5); Eosinophils % (auto) 1.7 %; Hematocrit (blood only) 45.9 % (42-52); Hemoglobin 15.5 g/dL (14.0-18.0); Immature Granulocytes # (auto) 0.02 K/uL (0.00-0.02); Immature Granulocytes % (auto) 0.2 %; Lymphocytes # (auto) 2.63 K/uL (1.2-3.4); Lymphocytes % (auto) 25.3 %; Mean Corpuscular Hemoglobin 29.1 pg (25-34); Mean Corpuscular Hgb Conc 33.8 g/dL (32-36); Mean Corpuscular Volume 86.1 fL (80-100); Mean Platelet Volume 11.8 fL (7.4-10.4); Monocytes # (auto) 1.13 K/uL (0.11-0.59); Monocytes % (auto) 10.9 %; Neutrophils # (auto) 6.42 K/uL (1.4-6.5); Neutrophils % (auto) 61.7 %; Platelet Count 221 K/uL (130-400); RDW Coefficient of Variation 12.7 % (11.5-14.5); RDW Standard Deviation 40.4 fL (36.4-46.3); Red Blood Count 5.33 M/uL (4.7-6.1)
[2020-04-21 07:42] LABS: Albumin Level 2.9 gm/dl (3.4-5.0); BUN Creatinine Ratio 13.6 (10-20); Calcium 9.1 mg/dl (8.5-10.1); Est GFR (African American) 142.9; Est GFR (Non-African American) 123.3
[2020-04-21 07:52] LABS: Albumin Globulin Ratio 0.7 (0.9-2); Bilirubin,Total 0.8 mg/dl (0.2-1); Globulin 4.4 gm/dl (2.5-4.0); Thyroid Stimulating Hormone 0.859 uIu/ml (0.300-4.500); Total Protein 7.3 gm/dl (6.4-8.2)
[2020-04-21] MEDS: ASPIRIN 81 MG ECTAB PO SCH (08:04)
[2020-04-21] MEDS: lisinopriL 40 MG TAB PO SCH (08:04)
[2020-04-21] MEDS: CLOPIDOGREL BISULFATE 75 MG TAB PO SCH (08:04)
[2020-04-21] MEDS: VARENICLINE 1 MG TAB PO SCH (08:05)
[2020-04-21] MEDS: INSULIN GLARGINE 100 UNIT/ML VIAL SC SCH (08:06)
[2020-04-21] MEDS ORDERED: METOPROLOL SUCC 50MG EXT REL TAB PO SCH (09:00)
[2020-04-21] MEDS ORDERED: POTASSIUM CHLORIDE 20 MEQ TABCR PO SCH (09:00)
--- NOTE | 2020-04-21 09:33 | Cardiology Progress Note ---
Date of Service April 21, 2020 Assessment & Plan (1) Non-ST elevation (NSTEMI) myocardial infarction: (2) Hypertension: (3) Tobacco abuse: (4) Dyslipidemia: ASSESSMENT/PLAN: 1. CAD s/p PCI (Cx and PL) / NSTEMI: No angina or heart failure symptoms. Continue aspirin 81 mg daily indefinitely. Continue Plavix 75 mg daily preferentially for at least 1 year. Continue beta-dolly as tolerated. Continue KRISTOFER-inhibitor. Continue high-intensity statin therapy. Cardiac rehab recommended. 2. Hypertension: Blood pressure is now well controlled. Metoprolol succinate started this morning in place of metoprolol tartrate to help improve compliance as he has had issues with noncompliance. If he develops shortness of breath or worsening wheezing compared to his baseline, may need to reduce or replace beta- dolly. Continue KRISTOFER-inhibitor. 3. Dyslipidemia: Simvastatin has been replaced with high-intensity statin therapy. Continue high-intensity statin therapy. Lipid profile added to his labs today. 4. Tobacco abuse: Stop smoking. 5. Disposition: Cardiac rehab on discharge. Can be discharged home from a cardiac standpoint if no contraindications or events later this morning. Follow up with me next week on April 28 at 0815AM. (5) CAD (coronary artery disease): (6) S/P coronary artery stent placement: Admission and Anticipated Discharge Date Admission Date: April 18, 2020 Subjective He would like to go home. He denies chest pain, shortness of breath, syncope, near-syncope, palpitations, edema, or bleeding. He admits that he does wheeze from time to time. He was diagnosed with childhood asthma and has since been diagnosed with COPD. He feels much better now than when he presented to the hospital both in terms of shortness of breath and chest discomfort. Review of systems: As above. Physical Exam Physical Exam: Gen.: No acute distress. Alert and oriented. HEENT: Anicteric sclera. Neck: No JVD. Cardiac: No ventricular heave. Regular. No ectopy. Normal S1-S2. No murmurs, rubs, or gallops. Pulmonary: Mild expiratory wheezing, otherwise clear. Abdomen: Soft, nontender, nondistended, with normoactive bowel sounds. No bruits noted. Extremities: 2+ radial pulses bilaterally. Right radial cath site is clean, dry, and intact without erythema or discharge. No edema or cyanosis. Psychiatric: Affect appears appropriate. Results & Data ([facility]) Vital Signs (Past 12 Hours) Vital Signs Temp Pulse Pulse Resp BP BP Pulse Ox 04/21/20 07:15 37.0 C 95 H 19 109/78 96 04/21/20 03:57 37.0 C 98 H 18 109/70 97 04/21/20 00:00 36.9 C 104 H 19 115/74 95 04/20/20 23:30 04/20/20 23:00 109 H Pulse Ox 04/21/20 07:15 04/21/20 03:57 04/21/20 00:00 04/20/20 23:30 95 04/20/20 23:00 Intake & Output 04/19/20 04/20/20 04/21/20 04/22/20 06:59 06:59 06:59 06:59 Intake Total 350 / 350 1350.000 / 1350.000 470 / 470 Output Total Balance 350 / 350 1349.000 / 1349.000 470 / 470 Weight 150.3 kg 148.3 kg 148.1 kg Laboratory Results Laboratory Results - last 24 hr 04/20/20 04/20/20 04/20/20 11:20 16:02 20:26 WBC RBC Hgb Hct MCV MCH MCHC RDW Std Deviation RDW Coeff of Gricel Plt Count MPV Immature Gran % (Auto) Neut % (Auto) Lymph % (Auto) Kimble % (Auto) Eos % (Auto) Baso % (Auto) Neut # (Auto) Lymph # (Auto) Kimble # (Auto) Eos # (Auto) Baso # (Auto) Immature Gran # (Auto) Sodium Potassium Chloride Carbon Dioxide Anion Gap BUN Creatinine Est Cr Clr Drug Dosing Est GFR ( Amer) Est GFR (Non-Af Amer) BUN/Creatinine Ratio Glucose POC Glucose 194 H 237 H 181 H Calcium Magnesium Total Bilirubin AST ALT Alkaline Phosphatase Total Protein Albumin Globulin Albumin/Globulin Ratio TSH 04/20/20 04/21/20 04/21/20 23:42 04:07 06:43 WBC 10.40 RBC 5.33 Hgb 15.5 Hct 45.9 MCV 86.1 MCH 29.1 MCHC 33.8 RDW Std Deviation 40.4 RDW Coeff of Gricel 12.7 Plt Count 221 MPV 11.8 H Immature Gran % (Auto) 0.2 Neut % (Auto) 61.7 Lymph % (Auto) 25.3 Kimble % (Auto) 10.9 Eos % (Auto) 1.7 Baso % (Auto) 0.2 Neut # (Auto) 6.42 Lymph # (Auto) 2.63 Kimble # (Auto) 1.13 H Eos # (Auto) 0.18 Baso # (Auto) 0.02 Immature Gran # (Auto) 0.02 Sodium Potassium Chloride Carbon Dioxide Anion Gap BUN Creatinine Est Cr Clr Drug Dosing Est GFR ( Amer) Est GFR (Non-Af Amer) BUN/Creatinine Ratio Glucose POC Glucose 208 H 110 H Calcium Magnesium Total Bilirubin AST ALT Alkaline Phosphatase Total Protein Albumin Globulin Albumin/Globulin Ratio TSH 04/21/20 04/21/20 06:43 07:15 WBC RBC Hgb Hct MCV MCH MCHC RDW Std Deviation RDW Coeff of Gricel Plt Count MPV Immature Gran % (Auto) Neut % (Auto) Lymph % (Auto) Kimble % (Auto) Eos % (Auto) Baso % (Auto) Neut # (Auto) Lymph # (Auto) Kimble # (Auto) Eos # (Auto) Baso # (Auto) Immature Gran # (Auto) Sodium 140 Potassium 3.0 L Chloride 106 Carbon Dioxide 27 Anion Gap 7.0 BUN 10 Creatinine 0.71 Est Cr Clr Drug Dosing 233.0 Est GFR ( Amer) 142.9 Est GFR (Non-Af Amer) 123.3 BUN/Creatinine Ratio 13.6 Glucose 117 H POC Glucose 132 H Calcium 9.1 Magnesium 2.0 Total Bilirubin 0.8 AST 34 ALT 33 Alkaline Phosphatase 97 Total Protein 7.3 Albumin 2.9 L Globulin 4.4 H Albumin/Globulin Ratio 0.7 L TSH 0.859 Diagnostic Findings Telemetry personally reviewed: Sinus rhythm. ECG personally reviewed: ECG 04/21/2020: Sinus rhythm 98 bpm. Incomplete right bundle branch block. Anterior ST depression. Minor ST elevation in lateral leads, likely evolution of his DC (completely asymptomatic). Limited echo performed this morning on 04/21/2020: Images personally reviewed. Preliminary review demonstrated normal left ventricular systolic function. Inferolateral wall motion abnormality, similar to prior echo earlier this hospitalization. No pericardial effusion noted. Medications Administered Current Inpatient Medications Acetaminophen (Tylenol) 650 mg PO Q4H PRN PRN Reason: Pain or Fever Stop: 05/18/20 23:04 Last Admin: 04/20/20 11:33 Dose: 650 mg Documented by: Al Hydrox/Mg Hydrox/Simethicone (Maalox) 15 ml PO Q4H PRN PRN Reason: Dyspepsia Stop: 05/18/20 23:04 Albuterol (Ventolin Hfa) 2 puffs INH Q4H PRN PRN Reason: Shortness Of Breath Stop: 05/18/20 23:04 Aspirin ([facility]) [facility] Stop: 05/19/20 08:59 Last Admin: 04/21/20 08:04 Dose: 81 mg Documented by: Atorvastatin Calcium (Lipitor) 80 mg PO [facility] Stop: 05/19/20 20:59 Last Admin: 04/20/20 20:18 Dose: 80 mg Documented by: Clopidogrel Bisulfate (Plavix) 75 [facility] PO [facility] Stop: 05/20/20 08:59 Last Admin: 04/21/20 08:04 Dose: 75 mg Documented by: Dextrose (Dextrose 50%) 25 - 50 ml IV UD PRN; Protocol PRN Reason: Hypoglycemia Protocol Stop: 05/18/20 23:04 Glucagon (Glucagen) 1 mg SQ UD PRN; Protocol PRN Reason: Hypoglycemia Protocol Stop: 05/18/20 23:04 Glucose (Dex4 Glucose) 4 - 8 tabs PO UD PRN; Protocol PRN Reason: Hypoglycemia Protocol Stop: 05/18/20 23:04 Glucose (Glucose 40%) 15 - 30 gm PO UD PRN; Protocol PRN Reason: Hypoglycemia Protocol Stop: 05/18/20 23:04 Insulin Aspart (Novolog Flexpen) 0 units SC ACHS [facility] Stop: 05/18/20 23:29 Last Admin: 04/21/20 08:07 Dose: 33 units Documented by: Insulin Glargine (Lantus) 0 units SC BID [facility]; Protocol Stop: 05/19/20 08:59 Last Admin: 04/21/20 08:06 Dose: 100 units Documented by: Lisinopril (Zestril) 40 mg PO DAILY [facility] Stop: 05/19/20 08:59 Last Admin: 04/21/20 08:04 Dose: 40 mg Documented by: Magnesium Hydroxide (Milk Of Magnesia) 30 ml PO Q12H PRN PRN Reason: Constipation Stop: 05/18/20 23:04 Metoprolol Succinate (Toprol Xl) 150 mg PO QAM [facility] Stop: 05/21/20 08:59 Last Admin: 04/21/20 08:03 Dose: 150 mg Documented by: Metoprolol Tartrate (Lopressor) 5 mg IV Q4 PRN PRN Reason: Blood Pressure - High Stop: 05/18/20 23:04 Last Admin: 04/19/20 16:03 Dose: 5 mg Documented by: Miscellaneous (Carbohydrates For Hypoglycemia) 15 - 30 gm PO UD PRN PRN Reason: Hypoglycemia Protocol Stop: 05/18/20 23:04 Miscellaneous Information (Consult Glycemic Management Pharmacy) 1 ea N/A UD PRN PRN Reason: Consult Stop: 05/19/20 08:25 Morphine Sulfate (Morphine Sulfate) 4 mg IV Q15M PRN PRN Reason: Pain Stop: 05/02/20 19:53 Last Admin: 04/19/20 00:06 Dose: 4 mg Documented by: Nitroglycerin (Nitrostat) 0.4 mg SL UD PRN PRN Reason: Chest Pain Stop: 05/18/20 23:04 Nitroglycerin (Nitro-Bid 2%) 2 inch EXT Q6 [facility] Stop: 05/19/20 00:14 Last Admin: 04/21/20 06:29 Dose: 2 inch Documented by: Ondansetron HCl (Zofran) 4 mg IV Q6H PRN PRN Reason: Nausea Stop: 05/18/20 23:04 Pantoprazole Sodium (Protonix) 40 mg PO HS [facility] Stop: 05/19/20 20:59 Last Admin: 04/20/20 20:18 Dose: 40 mg Documented by: Potassium Chloride (Klor-Con M20) 20 meq PO BID [facility] Stop: 05/21/20 08:59 Last Admin: 04/21/20 09:26 Dose: 20 meq Documented by: Varenicline (Chantix) 1 mg PO BID [facility] Stop: 05/18/20 23:04 Last Admin: 04/21/20 08:05 Dose: Not Given Documented by: PG Care Time/CCT Total # of Minutes Spent Total Time Spent with Patient: Total time spent is greater than 50% in coordination of care (as documented) at patient's floor/unit and/or counseling patient: Coding Level of Care Code 26590 Subseq Hosp Care Lvl 3 Diagnoses Non-ST elevation (NSTEMI) myocardial infarction I21.4 Hypertension I10 Hypertension type: unspecified Tobacco abuse Z72.0 Dyslipidemia E78.5 CAD (coronary artery disease) I25.10 S/P coronary artery stent placement Z95.5 (1) Hypertension Hypertension type: unspecified Qualified Code(s): I10 - Essential (primary) hypertension
--- NOTE | 2020-04-21 09:54 | Discharge Summary ---
Date of Service April 21, 2020 Admission HPI Per Admitting Provider The patient is a 35-year-old male with a past medical history including uncontrolled hypertension, uncontrolled diabetes mellitus, diabetic neuropathy, erectile dysfunction, perirectal abscess, DKA, scrotal abscess, tobacco abuse, depression, COPD, dyslipidemia, morbid obesity BMI 40-49.9, pancreatic cyst and vitamin D deficiency. He initially presented to the emergency department on 04/15/2020 with complaint of chest pain, and underwent work-up including laboratories and EKG, which were noted to be normal. He has had pain persistently since that time, however it has been waxing and waning, but with an increase in intensity over the past 24 hours, he presents to the emergency department for reassessment. He does also complain of chronic low back pain. He has not had any recent travels or sick exposures. Principal Diagnosis NSTEMI Discharge Exam Constitutional well developed and + obese; no acute distress Eyes PERRL, conjunctivae normal, anicteric sclerae ENMT external ear and nose normal, oropharynx normal Neck trachea midline, no thyromegaly Respiratory normal respiratory effort, lungs clear to auscultation Cardiovascular RRR, no murmur, no edema Rate/Rhythm: regular rhythm and + tachycardic Heart Sounds: normal S1 and normal S2; no murmur Vessels: no JVD Extremities: normal capillary refill; no edema Gastrointestinal (Abdomen) normal bowel sounds, soft, nontender, no hepatosplenomegaly Musculoskeletal no cyanosis or clubbing, extremities motor strength 5/5 Skin no rashes, warm and dry Neurologic patellar DTR's 2+ bilat, sensation intact and PERRL, EOMI, accommodation nl, no face palsy, no dysarthria Psychiatric A+Ox3, euthymic affect Lymphatic no cervical or axillary lymphadenopathy Discharge Data Allergies Allergy/AdvReac Type Severity Reaction Status Date / Time cefaclor Allergy Unknown HAD Verified 04/18/20 19:22 REACTION BABY - DOES NOT REMEMBER EXACT REACTION Cephalosporins Allergy Unknown rxn as Verified 04/18/20 19:22 baby; has tolerated Augmentin 2017 Consultations 04/18/20 20:12 ED Decision to Admit Stat 04/18/20 23:05 Consult Case Management - Discharge Planning Routine 04/19/20 08:12 Consult Cardiology Routine Procedures Performed Operation Date: 04/19/20 15:00 Actual Procedures s Drug Eluting Stent each ADDTL Vessel - Ric Saxena MD p Cath, Left with Cors and Vent - Stevo Da Silva MD s Drug Eluting Stent SGl Vessel - Ric Saxena MD s Cineradiography w/Routine Exam - Ric Saxena MD Ordered Studies 04/19/20 10:30 CL Cath Imgs for PACS use only Routine Hospital Course (1) Non-ST elevation (NSTEMI) myocardial infarction: presented with angina, right sided chest pain troponin elevated at 1, increased to 11, peaked at over 100, down to 17 the next day echo with inferior wall motion abnormality left heart cath on 04/19 with 100% occlusion in circumflex and severe stenosis in distal right PLB two overlapping ALICIA placed in circumflex and one ALICIA placed in PLB dual antiplatelet therapy for one year, aspirin and Plavix Toprol added, initially on 50mg BID, increased to 150mg daily on discharge Atorvastatin 80mg daily repeat echo prior to discharge was actually a little better in terms of EF and wall motion (2) Bifascicular block: continue metoprolol, increase dose to 150mg daily (3) Hypertension: continue lisinopril 40mg Toprol 150mg daily follow bp -- stable today (4) Type 2 diabetes mellitus, with long-term current use of insulin: Hold Enbrel, and metformin while admitted HbA1c elevated at 10.9%, down from 11.9% a month ago consulted glycemic management, Basal and bolus regimen ordered while inpatient outreach educator visited patient, looking into insulin pump for better control talked with patient about need for diabetes control, at risk for future LA and stroke will come up with plan on discharge likely to speak with Dr. Small this week about options he seems motivated to improve his control, understands now that he has CAD and will be at risk for future LA and stroke (5) Dyslipidemia: increased Lipitor to 80mg due to NSTEMI and severe CAD (6) COPD, mild: Continue albuterol HFA as needed (7) Depression: Patient noted to have depression, is not on any specific treatment at this time. (8) Tobacco abuse: Continue varenicline 1 mg p.o. twice daily stressed over and over the importance of quitting tobacco products, nicotine increases risk of atherosclerosis (9) Obesity, Class III, BMI 40-49.9 (morbid obesity): Noted as risk factor for vascular disease encourage weight loss, reasonable target is 10-20% weight (10) Sinus tachycardia: unclear etiology, no symptoms such as chest pain, dyspnea discharge on Toprol 150mg daily Total Time Total Time Spent Total Time Spent (In Minutes): 36 minutes Total Time Includes: Examination of the Patient, Discharge Planning, Medication Reconciliation, Communication With Other Providers (Dr. Da Silva) and Other (updated his at the bedside) Discharge Plan Discharge Items Patient Disposition: Home - Self-Care Reason For Visit: ATYPICAL CHEST PAIN Discharge Diagnosis: NSTEMI, inferolateral wall LA Dyslipidemia DM type II, poorly controlled tobacco abuse Condition on Discharge: Good Goals: medical management of coronary disease need better glycemic control, follow up with Dr. Small follow up with cardiology Activity: Per Instructions section Lifting: None Bathing: No limitations Exercise/Sports: Gradually increase as tolerated Driving/Machine Use: No limitations Weightbearing: Full weightbearing Non-emergency contact: Primary Care Provider and Geotechnicial Properties Technician Call non-emergency contact if: you have any medication questions and your symptoms worsen Follow-up/Referrals: Dhiraj Small MD [Physician] - (one month, can be with PA or LOCOMOTIVE CRANE OPERATOR) Stevo Da Silva MD [Physician] - (2 weeks) Doreen Clark MD [Primary Care Provider] - (one week) Diet: Carb Consistent or DM2 and Heart Healthy Addtl Attending Provider Instructions: Medications: - ASPIRIN: 81 mg daily, need to take this every day to keep stent open, prevent future heart attack - PLAVIX: 75mg daily, need to take this every day to keep stent open, will need to take for one year - LIPITOR: new statin medication, proven to stabilize plaques and prevent future heart attacks, take this every day - TOPROL: 150mg daily, this will reduce strain on heart, take every morning - NITRO: take as needed for chest pain/pressure - POTASSIUM: slightly low, take 20mEq daily for 7 days - OMEPRAZOLE: stop taking this medication as it interacts with Plavix, if you have reflux symptoms then you can discuss using Protonix with your PCP - SILDENAFIL: stop taking this medication as it will cause blood pressure to drop Acute heart attack, inferolateral wall LA treated with emergent heart cath, total of three stents placed all the medications that you have been started on are intended to prevent further heart attack, prevent further plaque build up most important thing you can do is achieve better glucose control, stop smoking, lose weight follow up with cardiac rehab follow up with Dr. Da Silva in 2-3 weeks DM type II, poorly controlled HbA1c is 10.9%, down a little from a month ago continue to follow strict diabetic diet you NEED to take your insulin as prescribed expect a phone call from Dr. Samll tomorrow to discuss options, maybe insulin pump? Pending Studies at Discharge: No Stand-Alone Forms: My [facility] [place], Smoking Cessation Medications and DC Order Prescriptions: New atorvastatin 40 mg Tablet 80 mg PO HS 30 Days Qty: 60 RF: 3 metoprolol succinate 50 mg Tablet Extended Release 24 Hr 150 mg PO QAM 30 Days Qty: 90 RF: 3 clopidogrel 75 mg Tablet 75 mg PO QAM 30 Days Qty: 30 RF: 3 nitroglycerin [Nitrostat] 0.4 mg Tablet, Sublingual 0.4 mg sublingual UD PRN (Reason: chest pain) Qty: 60 RF: 0 aspirin 81 mg Tablet,Delayed Release (Dr/Ec) 81 mg PO QAM 30 Days Qty: 30 RF: 3 potassium chloride [Klor-Con M20] 20 mEq Tablet,Er Particles/Crystals 20 meq PO DAILY 7 Days Qty: 7 RF: 0 Continued (DME) blood sugar diagnostic [Art-ExchangeTouch Verio test strips] Strip See Rx Instructions .ROUTE .MEDSUPPLY Qty: 100 RF: 1 Toujeo Max U-300 SoloStar 300 unit/mL (3 mL) insulin pen 160 units SQ BID 30 Days Qty: 6 RF: 5 lisinopril 40 mg tablet 40 mg PO DAILY Qty: 30 RF: 5 Chantix 1 mg tablet 1 mg PO BID Qty: 60 RF: 5 albuterol sulfate [Proventil HFA] 90 mcg/actuation HFA aerosol inhaler 2 puffs INH .COMPLEX PRN (Reason: Shortness Of Breath) RF: 0 insulin aspart U-100 [Novolog Flexpen U-100 Insulin] 100 unit/mL (3 mL) insulin pen See Rx Instructions SQ .COMPLEX RF: 0 (DME) pen needle, diabetic [BD Ultra-Fine Melinda Pen Needle] 32 gauge x 5/32" needle See Rx Instructions .ROUTE .MEDSUPPLY Qty: 100 RF: 2 acetaminophen [Tylenol Extra Strength] 500 mg Tablet 1,000 mg PO Q6H PRN (Reason: Pain) RF: 0 metformin 1,000 mg tablet 1,000 mg PO HS RF: 0 Invokana 300 mg tablet 300 mg PO HS RF: 0 Discontinued omeprazole 10 mg capsule,delayed release(DR/EC) 10 mg PO HS Qty: 30 RF: 5 sildenafil (pulm.hypertension) 20 mg tablet See Rx Instructions PO .COMPLEX PRN (Reason: sexual activity) 20 Days Qty: 30 RF: 5 simvastatin 40 mg tablet 40 mg PO HS Qty: 30 RF: 5 Discharge Orders: Discharge Order (Routine); Ordered 04/21/20 Ordered By: Tan Rice Admission Data Admit Date/Time: 04/18/20 22:03 Attending Provider: Tan Rice Admit Provider: Jimbo Godinez Primary Care Provider: Doreen Clark Other Providers: Jimbo Godinez ; Stevo Da Silva. Other Interventions: Discharge Summary Assessment (RN) Last Done: 04/21/20 09:53 DC Date/Time DO NOT enter until pt leaves facility: 04/21/20 10:20 Coding Level of Care Code D/C Day Management >30 mins Diagnoses Non-ST elevation (NSTEMI) myocardial infarction I21.4 Bifascicular block I45.2 Hypertension I10 Hypertension type: unspecified Type 2 diabetes mellitus, with long-term current use of insulin E11.9; Z79.4 Dyslipidemia E78.5 COPD, mild J44.9 Depression F32.9 Tobacco abuse Z72.0 Obesity, Class III, BMI 40-49.9 (morbid obesity) E66.01 Sinus tachycardia R00.0
[2020-04-21 10:04] LABS: Chol HDL Ratio 8; Cholesterol 220 mg/dl (0-200); HDL Cholesterol 27 mg/dl; Triglycerides 618 mg/dl (0-150)
--- NOTE | 2020-04-21 19:06 | XCELERA ---
[id number]
--- NOTE | 2020-04-21 22:54 | Electrocardiogram Report ---
Test Reason : Blood Pressure : / mmHG Vent. Rate : 098 BPM Atrial Rate : 098 BPM P-R Int : 164 ms QRS Dur : 118 ms QT Int : 388 ms P-R-T Axes : 054 -85 019 degrees QTc Int : 495 ms Normal sinus rhythm Left axis deviation Incomplete right bundle branch block ST depression, consider subendocardial injury Prolonged QT Abnormal ECG When compared with ECG of 20-APR-2020 06:36, ST now depressed in Anterior leads Confirmed by Stevo Da Silva ([id number]) on 04/21/2020 10:53:52 PM Referred By: Doreen Clark Confirmed By:Stevo Da Silva
== END 2020-04-21 10:20 | disposition home or self-care (01) ==
LOC: ED 18:11 → INTOOBSV 22:03 → 2S 22:03 → SUATTDRO 22:03 → 2S 22:43

== ENCOUNTER 2022-04-30 23:59 | Observation (INO) ==
[2022-05-01] MEDS ORDERED: SODIUM CHLORIDE 0.9% 1000ML 1,000 ML IV SCH (00:15)
--- NOTE | 2022-05-01 00:45 | Emergency Department Note ---
History of Present Illness General Chief complaint: Skin Problem Stated complaint: CYST Time Seen by Provider: 05/01/22 00:07 History of Present Illness Maximum Pain Intensity: 8 This is a 37-year-old male presenting to the emergency department for evaluation of abscess near his right side testicle. The patient is a diabetic and states that his insulin prescription ran out and he has not gotten any refills through his primary care physician office. He has a history of coronary artery disease with stent placement. The patient has not had distinct fever or chills. He has had pain for about a week, but 5 days ago he thought the area was draining. Patient states it "filled back up ". He rates his discomfort an 8/10 that worsens with movement. He does not report any abdominal pain. He feels that he is able to use the bathroom as normal. Home Medications Medication Instructions Recorded Confirmed Type acetaminophen 500 mg tablet 1,000 mg PO Q6H PRN Pain 04/18/20 05/01/22 History (Tylenol Extra Strength) aspirin 81 mg tablet,delayed 81 mg PO QAM 30 days #30 tabs 04/21/20 05/01/22 Rx release nitroglycerin 0.4 mg sublingual 0.4 mg sublingual UD PRN chest 04/21/20 05/01/22 Rx tablet (Nitrostat) pain #60 tabs blood sugar diagnostic (OneTouch 06/07/20 02/09/22 History Verio test strips) metoprolol succinate 200 mg 200 mg PO QAM #90 tabs 03/04/21 05/01/22 Rx tablet,extended release 24 hr clopidogrel 75 mg tablet 75 mg PO QAM 30 days #30 tabs 05/03/21 05/01/22 Rx pen needle, diabetic 32 gauge x #200 ea 12/05/21 02/09/22 Rx 5/32" (BD Ultra-Fine Melinda Pen Needle) Diabetic Shoes #1 ea 02/09/22 02/09/22 Rx atorvastatin 80 mg tablet 80 mg PO QAM 05/01/22 05/01/22 History Allergies Allergy/AdvReac Type Severity Reaction Status Date / Time cefaclor Allergy Unknown HAD Verified 05/01/22 00:46 REACTION BABY - DOES NOT REMEMBER EXACT REACTION Cephalosporins Allergy Unknown rxn as Verified 05/01/22 00:46 baby; has tolerated Augmentin 2017 Past Med/Surg History Medical History Asthma A CHILD, "NO PROBLEMS NOW" Attention deficit disorder Bifascicular block CAD (coronary artery disease) Candidiasis Cellulitis of right thigh Chronic anticoagulation Depression Diabetes type 2, uncontrolled Diabetic peripheral neuropathy associated with type 2 diabetes mellitus Diverticulitis DKA (diabetic ketoacidoses) Dysesthesia Dyslipidemia Former smoker History of anesthesia reaction WOKE UP DURING THE LITHOTRIPSY ([facility]) Hypertension Kidney stone on left side Lumbar radicular pain Migraine Non-ST elevation (NSTEMI) myocardial infarction Obesity, Class III, BMI 40-49.9 (morbid obesity) Otitis media Pain of left lateral upper thigh Pancreatic cyst Perirectal abscess Right acute otitis media Sciatica Scrotal abscess Vitamin D deficiency Surgical History History of ankle surgery RIGHT History of colonoscopy (06/2014) History of esophagogastroduodenoscopy (EGD) (06/2017) History of lithotripsy History of renal stent WITH REMOVAL OF STENT S/P coronary artery stent placement S/P surgical removal of pilonidal cyst Stented coronary artery 04/18/20-PCI of mid to distal circumflex with 2 overlapping ALICIA. PCI of dis porfirio right PLB with ALICIA Family History Mother Diabetes Grandfather Diabetes Grandmother Diabetes Myocardial infarction Other Hypertension Denies family history of Ovarian cancer Prostate cancer Breast cancer Colorectal cancer Social History Smoking Status: Former smoker Tobacco Type: Cigarettes Age Started Using Tobacco: 15; packs per day: 0.5; Years Smoked: 20; Cigarettes Per Day: 1/2 PPD X 15 YEARS; Second Hand Exposure: No; Hx Alcohol Use: No Hx Substance Use: No Preferred Language: Eritrean Communication Ability: Effective Visual Impairment: No Limitations Hearing Ability: Normal Sap Pi Developer Required: No Beliefs That Will Affect Care: None marital status: Current Living Situation: Spouse Current Living Situation Comment: [facility] KIDS current occupational status: employed current occupation: Student at [employer] How many Children do You have: 4 Feels Safe at Home: Yes Childhood Exposure to Second-Hand Smoke: Yes (mother) caffeine: Yes during the past year weight has: decreased > 10 lbs Dental Care, Regularly: Yes Physical Activity Frequency: Daily Seatbelt Use: never Sunscreen Use: Yes Assistive Devices: Glasses Review of Systems A total of 10 systems reviewed and were otherwise negative Physical Exam Vital Signs Vital Signs - 24 hr 05/01/22 00:01 05/01/22 01:22 05/01/22 02:04 Temperature 36.9 C Temperature Source Temporal Artery Scan Pulse Rate 113 H Pulse Rate [Apical] 90 88 Pulse Rhythm Regular Pulse Strength Normal Respiratory Rate 18 18 16 Respiratory Effort / Characteristics Non-Labored Spontaneous Non-Labored Spontaneous Non-Labored Spontaneous Respiratory Depth Normal Normal Normal Respiratory Pattern Regular Regular Regular Blood Pressure 142/86 H Blood Pressure [Left Arm] 145/79 H 153/89 H Blood Pressure Mean 104 Blood Pressure Mean [Left Arm] 101 110 Blood Pressure Position Sitting Blood Pressure Position [Left Arm] Sitting Pulse Oximetry 97 95 95 Oxygen Delivery Method Room Air Room Air Room Air Sepsis Recent Fever Within 48 Hours No Sepsis New/Unexplained Change in Mental Status N/A Sepsis Action Taken by Nursing No Action Required 05/01/22 03:00 Temperature Temperature Source Pulse Rate Pulse Rate [Apical] 88 Pulse Rhythm Pulse Strength Respiratory Rate 18 Respiratory Effort / Characteristics Non-Labored Spontaneous Respiratory Depth Normal Respiratory Pattern Blood Pressure Blood Pressure [Left Arm] 154/98 H Blood Pressure Mean Blood Pressure Mean [Left Arm] 116 Blood Pressure Position Blood Pressure Position [Left Arm] Pulse Oximetry 96 Oxygen Delivery Method Room Air Sepsis Recent Fever Within 48 Hours Sepsis New/Unexplained Change in Mental Status Sepsis Action Taken by Nursing VITALS: Vitals are noted on the nurse's note and reviewed by myself. Vital signs stable. GENERAL: Obese white male who is cooperative and resting comfortably in the ER bed. HEAD: Normocephalic atraumatic. NECK: Supple without nuchal rigidity. No lymphadenopathy. No thyromegaly. Cervical spine is nontender. HEART: Regular rate and rhythm without murmurs gallops or rubs. LUNGS: Clear to auscultation bilaterally without wheezes, rales or rhonchi. No retractions or accessory muscle use. ABDOMEN: Positive normal bowel sounds x 4. Soft, nontender, without masses or organomegaly. No guarding or rebound tenderness. : There is a palpable area in the right side perineum consistent with abscess. No active drainage or discharge noted. No crepitus. MUSCULOSKELETAL: No muscle atrophy, erythema, or edema noted. Full range of motion in all extremities. Course Administered Medications Vancomycin HCl 2,750 mg/ (Sodium Chloride) 555 mls @ 200 mls/hr IV NOW ONE Stop: 05/01/22 06:06 Last Admin: 05/01/22 04:34 Dose: 200 mls/hr Documented By: PARVIZ Oxycodone HCl (Oxycodone Hcl Ir 5 Mg Tab (Immediate Release)) 10 mg PO Q4H PRN PRN Reason: SEVERE Pain (7,8,9,10) Stop: 05/15/22 05:01 Last Admin: 05/01/22 05:17 Dose: 10 mg Documented By: MELANIA Discontinued Medications Sodium Chloride (Nss 1000ml) 1,000 mls @ 999 mls/hr IV .Q1H1M FELICIANO Stop: 05/01/22 01:15 Last Infusion: 05/01/22 01:46 Dose: 0 mls/hr Documented By: Admin: 05/01/22 00:45 Dose: 999 mls/hr Documented By: FRANCIS Piperacillin Sod/Tazobactam Sod (Zosyn) 4.5 gm in 120 mls @ 240 mls/hr IV NOW ONE Stop: 05/01/22 03:49 Last Infusion: 05/01/22 04:03 Dose: 0 mls/hr Documented By: Admin: 05/01/22 03:32 Dose: 240 mls/hr Documented By: PARVIZ Clindamycin Phosphate (Cleocin/D5w) 600 mg in 50 mls @ 100 mls/hr IV NOW ONE Stop: 05/01/22 03:49 Last Infusion: 05/01/22 04:34 Dose: 0 mls/hr Documented By: Admin: 05/01/22 04:04 Dose: 100 mls/hr Documented By: PARVIZ Insulin Human Regular (Novolin-R Insulin Per Unit Charge) 10 units IV NOW STA Stop: 05/01/22 03:21 Last Admin: 05/01/22 03:30 Dose: 10 units Documented By: PARVIZ Co-signed By: IJEOMA Ioversol (Optiray 320 125ml) 125 ml IV ONCE ONE Stop: 05/01/22 01:48 Last Admin: 05/01/22 01:48 Dose: 118 ml Documented By: YONG Medical Decision Making Differential Diagnosis Differential diagnosis includes: Etiologies such Fornier's, cellulitis, abscess, osteomyelitis, MRSA infection, DVT, necrotizing fasciitis, dermatitis, drug eruption, as well as others were entertained Laboratory Data Result diagrams: 05/01/22 00:35 05/01/22 00:35 Lab Results 05/01/22 05/01/22 05/01/22 Range/Units 00:35 00:35 00:35 WBC 7.31 (4.8-10.8) K/ul RBC 5.05 (4.63-6.08) M/uL Hgb 14.7 (14.0-18.0) g/dl Hct 42.7 (40.1-51.0) % MCV 84.6 (80.0-100.0) fL MCH 29.1 (25.0-34.0) pg MCHC 34.4 (32.0-36.0) g/dL RDW Std Deviation 35.9 L (36.4-46.3) fL RDW Coeff of Gricel 11.9 (11.5-14.5) % Plt Count 195 (130-400) K/uL MPV 11.3 (9.4-12.4) fL Immature Gran % (Auto) 0.3 % Neut % (Auto) 73.3 % Lymph % (Auto) 15.7 % Candler % (Auto) 9.0 % Eos % (Auto) 1.4 % Baso % (Auto) 0.3 % Neut # (Auto) 5.36 (1.4-6.5) K/uL Lymph # (Auto) 1.15 L (1.2-3.4) K/uL Candler # (Auto) 0.66 (0.24-0.82) K/uL Eos # (Auto) 0.10 (0-0.50) K/uL Baso # (Auto) 0.02 (0-0.2) K/uL Immature Gran # (Auto) 0.02 (0.00-0.02) K/uL Sodium 132 L (136-145) mmol/L Potassium 3.8 (3.5-5.1) mmol/L Chloride 100 (98-107) mmol/L Carbon Dioxide 23 (21-32) mmol/L Anion Gap 9 (3-11) BUN 9 (6-23) mg/dl Creatinine 0.55 L (0.6-1.4) mg/dl Est Cr Clr Drug Dosing 287.8 ml/min Est GFR ( Amer) > 150.0 ml/min Est GFR (Non-Af Amer) 135.0 ml/min BUN/Creatinine Ratio 16.4 (10-20) Glucose 455 H* (70-99(Fasting)) mg/dl POC Glucose (70-99) mg/dl Lactate 1.6 (0.4-2.0) mmol/L Calcium 8.4 L (8.5-10.1) mg/dl Total Bilirubin 0.7 (0.2-1.0) mg/dl AST 11 L (13-39) U/L ALT 15 (7-52) U/L Alkaline Phosphatase 85 (34-104) U/L Total Protein 6.7 (6.0-8.3) gm/dl Albumin 3.7 (3.4-5.0) gm/dl Globulin 3.0 (2.5-4.0) gm/dl Albumin/Globulin Ratio 1.2 (0.9-2) SARS-CoV-2, RNA, NAAT (NEGATIVE) 05/01/22 05/01/22 Range/Units 00:35 03:30 WBC (4.8-10.8) K/ul RBC (4.63-6.08) M/uL Hgb (14.0-18.0) g/dl Hct (40.1-51.0) % MCV (80.0-100.0) fL MCH (25.0-34.0) pg MCHC (32.0-36.0) g/dL RDW Std Deviation (36.4-46.3) fL RDW Coeff of Gricel (11.5-14.5) % Plt Count (130-400) K/uL MPV (9.4-12.4) fL Immature Gran % (Auto) % Neut % (Auto) % Lymph % (Auto) % Candler % (Auto) % Eos % (Auto) % Baso % (Auto) % Neut # (Auto) (1.4-6.5) K/uL Lymph # (Auto) (1.2-3.4) K/uL Candler # (Auto) (0.24-0.82) K/uL Eos # (Auto) (0-0.50) K/uL Baso # (Auto) (0-0.2) K/uL Immature Gran # (Auto) (0.00-0.02) K/uL Sodium (136-145) mmol/L Potassium (3.5-5.1) mmol/L Chloride (98-107) mmol/L Carbon Dioxide (21-32) mmol/L Anion Gap (3-11) BUN (6-23) mg/dl Creatinine (0.6-1.4) mg/dl Est Cr Clr Drug Dosing ml/min Est GFR ( Amer) ml/min Est GFR (Non-Af Amer) ml/min BUN/Creatinine Ratio (10-20) Glucose (70-99(Fasting)) mg/dl POC Glucose 394 H* (70-99) mg/dl Lactate (0.4-2.0) mmol/L Calcium (8.5-10.1) mg/dl Total Bilirubin (0.2-1.0) mg/dl AST (13-39) U/L ALT (7-52) U/L Alkaline Phosphatase (34-104) U/L Total Protein (6.0-8.3) gm/dl Albumin (3.4-5.0) gm/dl Globulin (2.5-4.0) gm/dl Albumin/Globulin Ratio (0.9-2) SARS-CoV-2, RNA, NAAT NEGATIVE (NEGATIVE) Imaging Data Radiologist's Impression: Preliminary Findings Only See Final Report For Complete Findings CT PELVIS: Rim-enhancing fluid collection noted at the midline peritoneum measuring 2.8 x 1.5 x 2.1 cm (series 2; images 69-72). Findings are most consistent with a subcutaneous abscess. No prior imaging including this area is available for review to evaluate stability in size. No tracking subcutaneous emphysema. No extension superiorly to involve the pelvic floor. Radiologist:Vinod Gruber MD Study ready at 02:01 and initial results transmitted at 03:07 MDM Narrative Physical exam and history were performed. Nursing notes, EMR, and Medication List were personally reviewed. Patient appears to have abscess in the perineum space on physical exam. The patient is an uncontrolled diabetic and morbidly obese. This infection is quite concerning due to his size and comorbidities. IV access was established and labs were obtained. Patient was given IV vancomycin, IV Zosyn, and IV clindamycin. He was sent to CT scan for further evaluation of his symptoms. Patient's blood work is as above and was reviewed. He does not have a significantly elevated white blood cell count, gross anemia, or significant electrolyte imbalance. His blood sugar is well over 400. Lactic acid is negative with blood cultures pending. COVID is negative. CT scan does show a large abscess without air or tracking. Overall the patient does not appear well for discharge home. He has required surgical intervention for similar abscesses in the past. He is at risk for Sara's. He was given IV insulin. The case was discussed with the on-call hospitalist team who agreed to evaluate the patient here in the ER. Please see their dictation for further patient course, plan, disposition. The chart was completed utilizing [employer] Speech Voice Recognition Software. Grammatical errors, random word insertions, pronoun errors, and incomplete sentences are an occasional consequence of this system due to software limitations, ambient noise, and hardware issues. Any formal questions or concerns about the content, text, or information contained within the body of this dictation should be directly addressed to the provider for clarification. . Impression & Plan Abscess of perineum, Hyperglycemia Discharge Plan Visit Data Chief Complaint: Skin Problem Stated Complaint: CYST ED Provider: Peter Horowitz ED Midlevel Provider: Dalton Love Discharge Problem: Abscess of perineum, Hyperglycemia Patient Disposition: Admitted As Inpatient Discharge Instructions Interventions: ED Discharge Assessment Last Done: 05/01/22 04:43
[2022-05-01 00:51] LABS: Basophils # (auto) 0.02 K/uL (0-0.2); Basophils % (auto) 0.3 %; Eosinophils % (auto) 1.4 %; Hematocrit (blood only) 42.7 % (40.1-51.0); Hemoglobin 14.7 g/dl (14.0-18.0); Immature Granulocytes # (auto) 0.02 K/uL (0.00-0.02); Immature Granulocytes % (auto) 0.3 %; Lymphocytes # (auto) 1.15 K/uL (1.2-3.4); Lymphocytes % (auto) 15.7 %; Mean Corpuscular Hemoglobin 29.1 pg (25.0-34.0); Mean Corpuscular Hgb Conc 34.4 g/dL (32.0-36.0); Mean Corpuscular Volume 84.6 fL (80.0-100.0); Mean Platelet Volume 11.3 fL (9.4-12.4); Monocytes # (auto) 0.66 K/uL (0.24-0.82); Neutrophils # (auto) 5.36 K/uL (1.4-6.5); Neutrophils % (auto) 73.3 %; Platelet Count 195 K/uL (130-400); RDW Coefficient of Variation 11.9 % (11.5-14.5); RDW Standard Deviation 35.9 fL (36.4-46.3); Red Blood Count 5.05 M/uL (4.63-6.08); White Blood Count 7.31 K/ul (4.8-10.8)
[2022-05-01 01:32] LABS: Alanine Aminotransferase 15 U/L (7-52); Albumin Globulin Ratio 1.2 (0.9-2); Albumin Level 3.7 gm/dl (3.4-5.0); Alkaline Phosphatase 85 U/L (34-104); Anion Gap 9 (3-11); Aspartate Aminotransferase 11 U/L (13-39); BUN Creatinine Ratio 16.4 (10-20); Bilirubin,Total 0.7 mg/dl (0.2-1.0); Blood Urea Nitrogen 9 mg/dl (6-23); Calcium 8.4 mg/dl (8.5-10.1); Carbon Dioxide 23 mmol/L (21-32); Chloride 100 mmol/L (98-107); Creatinine Clr Calc Pharmacy 287.8 ml/min; Est GFR (African American) > 150.0 ml/min; Glucose 455 mg/dl (70-99(Fasting)); Potassium 3.8 mmol/L (3.5-5.1); Sodium 132 mmol/L (136-145); Total Protein 6.7 gm/dl (6.0-8.3)
[2022-05-01] MEDS ORDERED: OPTIRAY 320 125ml IV ONE (01:47)
[2022-05-01] MEDS ORDERED: VANCOMYCIN CONSULT ACTIVE PRN (03:20)
[2022-05-01] MEDS ORDERED: CLINDAMYCIN/D5W 600 MG/50 ML BAG IV ONE (03:20)
[2022-05-01] MEDS ORDERED: NovoLIN-R INSULIN PER UNIT CHARGE IV STA (03:20)
[2022-05-01] MEDS ORDERED: VANCOMYCIN HCL 2,750 MG in SODIUM CHLORIDE 0.9% 500 ML IV ONE (03:20)
[2022-05-01] MEDS ORDERED: PIPERACILLIN/TAZOBACTAM 4.5 GM/120 ML BAG IV ONE (03:20)
--- NOTE | 2022-05-01 04:00 | History & Physical Report ---
Date of Service May 01, 2022 Assessment & Plan (1) Abscess: Plan: 37yo male with DM, HTN, HLP and CAD presenting with perineal abscess. Patient afebrile, HD stable, non-toxic in appearance. No signs/symptoms of systemic infection. -Observation to medical -Warm compresses to perineal area -Zosyn -General Surgery consultation appreciated -Tylenol and Oxy-IR as needed for pain control -Zofran as needed for nausea -Diabetes control as below (2) Diabetes type 2, uncontrolled: Plan: Patient with poorly controlled DM. He has not been taking his insulin for the last month due to running out of his medication. Elevated blood sugar in ER - no anion gap or evidence of DKA. Patient follows with Endocrinology - last seen on 12/05/21. Was to be started on U-500 -Insulin 10u IV given in ER -Lantus 10u BID, ISS -Goal blood sugar 100 - 180 -Glycemic management consultation appreciated. (3) CAD (coronary artery disease): Plan: Patient with CAD s/p NSTEMI on 04/19/2020. He had catheterization with PCI of mid to distal circumflex with 2 overlapping stents. He follows with Cardiology. Last seen 08/18/21. He denies chest pain, palpitation or dyspnea. He has been trying to eat healthier and get more physical activity. -Continue ASA and Plavix -Continue Atorvastatin -Continue Metoprolol (4) Hypertension: Plan: Blood pressure mildly elevated at 146/89 -Continue Metoprolol -Monitor (5) Dyslipidemia: Plan: Chronic. -Continue Atorvastatin History of Present Illness Chief Complaint: scrotal abscess Primary Care Provider: LYNDA Gan Raz is a pleasant 37yo male with history of CAD s/p NSTEMI with stent placement x 2 in 04/2020, HTN, HLP, DM and recurrent scrotal/perineal abscesses presenting with perineal abscess. Patient noted a fullness in the perineum appx 1 week ago. He states the abscess was spontaneously draining and improving. This AM when he woke up the abscess had increased in size and was exquisitely painful and no longer draining. He denies scrotal pain, abdominal pain, nausea, vomiting, fevers, chills, malaise. No complaint of chest pain, SOB, palpitations. No additional complaints at this time. In the ER patient is afebrile, HD stable, non-toxic in appearance. Blood sugar is elevated at 455 with no anion gap or evidence of DKA. Patient reports running out of his insulin approximately one month ago. He has been unable to get his prescription filled. He does not check his blood sugars at home. Reports that even while he was taking his insulin his sugars were rarely under 300. He follows with Endocrinology and is trying to schedule followup with them. Patient has lost a considerable amount of weight since his last hospitalization. 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 He reports that he feels much more energy since losing weight. ER Course: Vancomycin, Clindamycin, Zosyn, Insulin 10u IV Allergies Allergy/AdvReac Type Severity Reaction Status Date / Time cefaclor Allergy Unknown HAD Verified 05/01/22 00:46 REACTION BABY - DOES NOT REMEMBER EXACT REACTION Cephalosporins Allergy Unknown rxn as Verified 05/01/22 00:46 baby; has tolerated Augmentin 2016 Home Medications Medication Instructions Recorded Confirmed Type acetaminophen 500 mg tablet 1,000 mg PO Q6H PRN Pain 04/18/20 05/01/22 History (Tylenol Extra Strength) aspirin 81 mg tablet,delayed 81 mg PO QAM 30 days #30 tabs 04/21/20 05/01/22 Rx release nitroglycerin 0.4 mg sublingual 0.4 mg sublingual UD PRN chest 04/21/20 05/01/22 Rx tablet (Nitrostat) pain #60 tabs blood sugar diagnostic (OneTouch 06/07/20 02/09/22 History Verio test strips) metoprolol succinate 200 mg 200 mg PO QAM #90 tabs 03/04/21 05/01/22 Rx tablet,extended release 24 hr clopidogrel 75 mg tablet 75 mg PO QAM 30 days #30 tabs 05/03/21 05/01/22 Rx pen needle, diabetic 32 gauge x #200 ea 12/05/21 02/09/22 Rx 5/32" (BD Ultra-Fine Melinda Pen Needle) Diabetic Shoes #1 ea 02/09/22 02/09/22 Rx atorvastatin 80 mg tablet 80 mg PO QAM 05/01/22 05/01/22 History Past Med/Surg History Medical History Asthma A CHILD, "NO PROBLEMS NOW" Attention deficit disorder Bifascicular block CAD (coronary artery disease) Candidiasis Cellulitis of right thigh Chronic anticoagulation Depression Diabetes type 2, uncontrolled Diabetic peripheral neuropathy associated with type 2 diabetes mellitus Diverticulitis DKA (diabetic ketoacidoses) Dysesthesia Dyslipidemia Former smoker History of anesthesia reaction WOKE UP DURING THE LITHOTRIPSY ([facility]) Hypertension Kidney stone on left side Lumbar radicular pain Migraine Non-ST elevation (NSTEMI) myocardial infarction Obesity, Class III, BMI 40-49.9 (morbid obesity) Otitis media Pain of left lateral upper thigh Pancreatic cyst Perirectal abscess Right acute otitis media Sciatica Scrotal abscess Vitamin D deficiency Surgical History History of ankle surgery RIGHT History of colonoscopy (06/2014) History of esophagogastroduodenoscopy (EGD) (06/2017) History of lithotripsy History of renal stent WITH REMOVAL OF STENT S/P coronary artery stent placement S/P surgical removal of pilonidal cyst Stented coronary artery 04/18/20-PCI of mid to distal circumflex with 2 overlapping ALICIA. PCI of distal right PLB with ALICIA Family History Mother Diabetes Grandfather Diabetes Grandmother Diabetes Myocardial infarction Other Hypertension Denies family history of Ovarian cancer Prostate cancer Breast cancer Colorectal cancer Social History Smoking Status: Former smoker Tobacco Type: Cigarettes Age Started Using Tobacco: 15; packs per day: 0.5; Years Smoked: 20; Cigarettes Per Day: 1/2 PPD X 15 YEARS; Second Hand Exposure: No; Hx Alcohol Use: No Hx Substance Use: No Preferred Language: Lebanese Communication Ability: Effective Visual Impairment: No Limitations Hearing Ability: Normal Elevator Dispatcher Required: No Beliefs That Will Affect Care: None marital status: Current Living Situation: Spouse and Family Current Living Situation Comment: [facility] KIDS current occupational status: employed current occupation: Student at [employer] How many Children do You have: 4 Feels Safe at Home: Yes Childhood Exposure to Second-Hand Smoke: Yes (mother) caffeine: Yes during the past year weight has: decreased > 10 lbs Dental Care, Regularly: Yes Physical Activity Frequency: Daily Seatbelt Use: never Sunscreen Use: Yes Assistive Devices: Glasses Review of Systems Review of Systems: All systems reviewed & are unremarkable except as noted in HPI & below Physical Exam Physical Exam: General: patient resting comfortably, NAD, non-toxic in appearance, AA&O x 4 Skin: warm, dry, intact, no rashes or lesions HEENT: NC/AT, PERRL, EOMI, anicteric sclera, conjunctiva without injection, external ear normal to inspection and nontender, nares patent, moist mucus membranes, dentition intact, no oropharyngeal lesions, neck supple, trachea midline, no LAD, no thyromegaly, no JVD Heart: +S1/S2, regular, no m/r/g Lungs: equal air entry bilaterally, no rales/rhonchi/wheezes Abd: +BS, soft, NT/ND, no masses/organomegaly/ascites Firm abscess near of right side of perineum, no drainage, no crepitus/bullae or streaking Ext: warm, 2+ pulses in UE/LE bilaterally, no clubbing/cyanosis or edema Neuro: nonfocal, patient AA&O x 4, speech intact, no facial droop, moving all extremities on command with equal strength 5/5 Results & Data Results & Data ([facility]) Vital Signs (Past 12 Hours) Vital Signs Temp Pulse Pulse Resp BP BP Pulse Ox 05/01/22 03:00 88 18 154/98 H 96 05/01/22 02:04 88 16 153/89 H 95 05/01/22 01:22 90 18 145/79 H 95 05/01/22 00:01 36.9 C 113 H 18 142/86 H 97 O2 Del Method 05/01/22 03:00 Room Air 05/01/22 02:04 Room Air 05/01/22 01:22 Room Air 05/01/22 00:01 Room Air Laboratory Results Laboratory Results WBC 7.31 K/ul (4.8-10.8) 05/01/22 00:35 RBC 5.05 M/uL (4.63-6.08) 05/01/22 00:35 Hgb 14.7 g/dl (14.0-18.0) 05/01/22 00:35 Hct 42.7 % (40.1-51.0) 05/01/22 00:35 MCV 84.6 fL (80.0-100.0) 05/01/22 00:35 MCH 29.1 pg (25.0-34.0) 05/01/22 00:35 MCHC 34.4 g/dL (32.0-36.0) 05/01/22 00:35 RDW Std Deviation 35.9 fL (36.4-46.3) L 05/01/22 00:35 RDW Coeff of Gricel 11.9 % (11.5-14.5) 05/01/22 00:35 Plt Count 195 K/uL (130-400) 05/01/22 00:35 MPV 11.3 fL (9.4-12.4) 05/01/22 00:35 Immature Gran % (Auto) 0.3 % 05/01/22 00:35 Neut % (Auto) 73.3 % 05/01/22 00:35 Lymph % (Auto) 15.7 % 05/01/22 00:35 Reynolds % (Auto) 9.0 % 05/01/22 00:35 Eos % (Auto) 1.4 % 05/01/22 00:35 Baso % (Auto) 0.3 % 05/01/22 00:35 Neut # (Auto) 5.36 K/uL (1.4-6.5) 05/01/22 00:35 Lymph # (Auto) 1.15 K/uL (1.2-3.4) L 05/01/22 00:35 Reynolds # (Auto) 0.66 K/uL (0.24-0.82) 05/01/22 00:35 Eos # (Auto) 0.10 K/uL (0-0.50) 05/01/22 00:35 Baso # (Auto) 0.02 K/uL (0-0.2) 05/01/22 00:35 Immature Gran # (Auto) 0.02 K/uL (0.00-0.02) 05/01/22 00:35 Sodium 132 mmol/L (136-145) L 05/01/22 00:35 Potassium 3.8 mmol/L (3.5-5.1) 05/01/22 00:35 Chloride 100 mmol/L (98-107) 05/01/22 00:35 Carbon Dioxide 23 mmol/L (21-32) 05/01/22 00:35 Anion Gap 9 (3-11) 05/01/22 00:35 BUN 9 mg/dl (6-23) 05/01/22 00:35 Creatinine 0.55 mg/dl (0.6-1.4) L 05/01/22 00:35 Est Cr Clr Drug Dosing 287.8 ml/min 05/01/22 00:35 Est GFR ( Amer) > 150.0 ml/min 05/01/22 00:35 Est GFR (Non-Af Amer) 135.0 ml/min 05/01/22 00:35 BUN/Creatinine Ratio 16.4 (10-20) 05/01/22 00:35 Glucose 455 mg/dl (70-99(Fasting)) H* 05/01/22 00:35 POC Glucose 394 mg/dl (70-99) H* 05/01/22 03:30 Lactate 1.6 mmol/L (0.4-2.0) 05/01/22 00:35 Calcium 8.4 mg/dl (8.5-10.1) L 05/01/22 00:35 Total Bilirubin 0.7 mg/dl (0.2-1.0) 05/01/22 00:35 AST 11 U/L (13-39) L 05/01/22 00:35 ALT 15 U/L (7-52) 05/01/22 00:35 Alkaline Phosphatase 85 U/L (34-104) 05/01/22 00:35 Total Protein 6.7 gm/dl (6.0-8.3) 05/01/22 00:35 Albumin 3.7 gm/dl (3.4-5.0) 05/01/22 00:35 Globulin 3.0 gm/dl (2.5-4.0) 05/01/22 00:35 Albumin/Globulin Ratio 1.2 (0.9-2) 05/01/22 00:35 SARS-CoV-2, RNA, NAAT NEGATIVE (NEGATIVE) 05/01/22 00:[address] Pelvis - per STAT rad - rim-enhancing fluid collection noted at the midline peritoneum measuring 2.8 x 1.5 x 2.1 cm. Findings are most consistent with a subcutaneous abscess. No prior imaging including this area is available for review to evaluate stability in size. No tracking subcutaneous emphysema. No extension superiorly to involve the pelvic floor. PG Care Time/CCT Total # of Minutes Spent Total Time Spent with Patient: Total time spent is greater than 50% in coordination of care (as documented) at patient's floor/unit and/or counseling patient: Coding Level of Care Code INT OBSERVATION CARE 70M LVL 3 Diagnoses Abscess L02.91 Diabetes type 2, uncontrolled E11.65 CAD (coronary artery disease) I25.10 Hypertension I10 Hypertension type: unspecified Dyslipidemia E78.5 (1) Hypertension Hypertension type: unspecified Qualified Code(s): I10 - Essential (primary) hypertension
[2022-05-01] MEDS ORDERED: CARBOHYDRATES FOR HYPOGLYCEMIA PO PRN (05:02)
[2022-05-01] MEDS ORDERED: ONDANSETRON INJ 2 MG/ML 2 ML VIAL IV PRN ×2 (05:02→10:18)
[2022-05-01] MEDS ORDERED: PHARMACY GLYCEMIC MGMT CONSULT PRN (05:02)
[2022-05-01] MEDS ORDERED: GLUCOSE 40% GEL 15 GM TUBE PO PRN (05:02)
[2022-05-01] MEDS ORDERED: ACETAMINOPHEN 500 MG TAB PO PRN (05:02)
[2022-05-01] MEDS ORDERED: GLUCOSE 10 TAB/TUBE PO PRN (05:02)
[2022-05-01] MEDS ORDERED: oxyCODONE HCL IR 5 MG TAB (IMMEDIATE RELEASE) PO PRN (05:02)
[2022-05-01] MEDS ORDERED: DEXTROSE 50% 50 ML SYRINGE IV PRN (05:02)
[2022-05-01] MEDS ORDERED: GLUCAGON FOR INJ 1 MG VIAL SQ PRN (05:02)
[2022-05-01] MEDS ORDERED: DOCUSATE SODIUM 100 MG CAP PO PRN (05:02)
[2022-05-01] MEDS: oxyCODONE HCL IR 5 MG TAB (IMMEDIATE RELEASE) PO PRN ×2 (05:17→14:35)
[2022-05-01] MEDS: INSULIN ASPART PER UNIT SC SCH ×2 (06:25→12:25)
[2022-05-01] MEDS ORDERED: Nursing to Pharmacy Communication SCH (06:30)
[2022-05-01] MEDS ORDERED: INSULIN ASPART PER UNIT SC SCH ×2 (07:30→16:30)
--- NOTE | 2022-05-01 07:52 | Hospitalist Progress Note ---
Date of Service May 01, 2022 Assessment & Plan (1) Abscess: (2) Diabetes type 2, uncontrolled: (3) CAD (coronary artery disease): (4) Hypertension: (5) Dyslipidemia: Plan Annalee Crandall is a pleasant 37yo male with history of CAD s/p NSTEMI with stent placement x 2 in 04/2020, HTN, HLP, DM and recurrent scrotal/perineal abscesses presenting with perineal abscess. Patient noted a fullness in the perineum appx 1 week ago. He states the abscess was spontaneously draining and improving. This AM when he woke up the abscess had increased in size and was exquisitely painful and no longer draining. He denies scrotal pain, abdominal pain, nausea, vomiting, fevers, chills, wong ise. No complaint of chest pain, SOB, palpitations. No additional complaints at this time. In the ER patient is afebrile, HD stable, non-toxic in appearance. Blood sugar is elevated at 455 with no anion gap or evidence of DKA. Patient reports running out of his insulin approximately one month ago. He has been unable to get his prescription filled. He does not check his blood sugars at home. Reports that even while he was taking his insulin his sugars were rarely under 300. He follows with Endocrinology and is trying to schedule followup with them. Patient has lost a considerable amount of weight since his last hospitalization. 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 He reports that he feels much more energy since losing weight. #Perianal abscess 37yo male with DM, HTN, HLP and CAD presenting with perineal abscess. Patient afebrile, HD stable, non-toxic in appearance. No signs/symptoms of systemic infection. Observation to medical [] Warm compresses to perineal area [] Zosyn [] General Surgery consult - appreciate recs [] Tylenol and Oxy-IR PRN [] Zofran PRN [] Diabetes control as below #Uncontrolled DM2 Patient with poorly controlled DM. He has not been taking his insulin for the last month due to running out of his medication. Elevated blood sugar in ER - no anion gap or evidence of DKA. Patient follows with Endocrinology - last seen on 12/05/21. Was to be started on U-500 [] Insulin 10u IV given in ER [] Lantus 10u BID, ISS [] Goal blood sugar 100 - 180 [] Glycemic management consultation appreciated. #CAD hx NSTEMI Patient with CAD s/p NSTEMI on 04/19/2020. He had catheterization with PCI of mid to distal circumflex with 2 overlapping stents. He follows with Cardiology. Last seen 08/18/21. He denies chest pain, palpitation or dyspnea. He has been trying to eat healthier and get more physical activity. [] Continue ASA and Plavix [] Continue Atorvastatin [] Continue Metoprolol #HTN Blood pressure mildly elevated at 146/89 [] Continue Metoprolol [] Monitor #Dyslipidemia [] Continue home med - Atorvastatin Admission and Anticipated Discharge Date Admission Date: May 01, 2022 Review of Systems Review of Systems: See subjective/HPI Physical Exam Physical Exam: General: patient resting comfortably, NAD, non-toxic in appearance, AA&O x 4 Skin: warm, dry, intact, no rashes or lesions HEENT: NC/AT, PERRL, EOMI, anicteric sclera, conjunctiva without injection, external ear normal to inspection and nontender, nares patent, moist mucus membranes, dentition intact, no oropharyngeal lesions, neck supple, trachea midline, no LAD, no thyromegaly, no JVD Heart: +S1/S2, regular, no m/r/g Lungs: equal air entry bilaterally, no rales/rhonchi/wheezes Abd: +BS, soft, NT/ND, no masses/organomegaly/ascites Firm abscess near of right side of perineum, no drainage, no crepitus/bullae or streaking Ext: warm, 2+ pulses in UE/LE bilaterally, no clubbing/cyanosis or edema Neuro: nonfocal, patient AA&O x 4, speech intact, no facial droop, moving all extremities on command with equal strength 5/5 Results & Data Results & Data ([facility]) Vital Signs (Past 12 Hours) Vital Signs Temp Pulse Pulse Pulse Resp BP BP 05/01/22 07:00 36.4 C L 81 14 114/71 05/01/22 05:26 05/01/22 05:26 36.5 C 84 20 154/97 H 05/01/22 04:00 85 20 146/89 H 05/01/22 03:00 88 18 154/98 H 05/01/22 02:04 88 16 153/89 H 05/01/22 01:22 90 18 145/79 H 05/01/22 00:01 36.9 C 113 H 18 142/86 H Pulse Ox O2 Del Method 05/01/22 07:00 95 Room Air 05/01/22 05:26 Room Air 05/01/22 05:26 96 Room Air 05/01/22 04:00 95 05/01/22 03:00 96 Room Air 05/01/22 02:04 95 Room Air 05/01/22 01:22 95 Room Air 05/01/22 00:01 97 Room Air Laboratory Results 05/01/22 05/01/22 05/01/22 Range/Units 11:48 11:17 09:58 WBC (4.8-10.8) K/ul RBC (4.63-6.08) M/uL Hgb (14.0-18.0) g/dl Hct (40.1-51.0) % MCV (80.0-100.0) fL MCH (25.0-34.0) pg MCHC (32.0-36.0) g/dL RDW Std Deviation (36.4-46.3) fL RDW Coeff of Gricel (11.5-14.5) % Plt Count (130-400) K/uL MPV (9.4-12.4) fL Immature Gran % (Auto) % Neut % (Auto) % Lymph % (Auto) % Rich % (Auto) % Eos % (Auto) % Baso % (Auto) % Neut # (Auto) (1.4-6.5) K/uL Lymph # (Auto) (1.2-3.4) K/uL Rich # (Auto) (0.24-0.82) K/uL Eos # (Auto) (0-0.50) K/uL Baso # (Auto) (0-0.2) K/uL Immature Gran # (Auto) (0.00-0.02) K/uL Sodium (136-145) mmol/L Potassium (3.5-5.1) mmol/L Chloride (98-107) mmol/L Carbon Dioxide (21-32) mmol/L Anion Gap (3-11) BUN (6-23) mg/dl Creatinine (0.6-1.4) mg/dl Est Cr Clr Drug Dosing ml/min Est GFR ( Amer) ml/min Est GFR (Non-Af Amer) ml/min BUN/Creatinine Ratio (10-20) Glucose (70-99(Fasting)) mg/dl POC Glucose 205 H 215 H 188 H (70-99) mg/dl Lactate (0.4-2.0) mmol/L Calcium (8.5-10.1) mg/dl Total Bilirubin (0.2-1.0) mg/dl AST (13-39) U/L ALT (7-52) U/L Alkaline Phosphatase (34-104) U/L Total Protein (6.0-8.3) gm/dl Albumin (3.4-5.0) gm/dl Globulin (2.5-4.0) gm/dl Albumin/Globulin Ratio (0.9-2) SARS-CoV-2, RNA, NAAT (NEGATIVE) 05/01/22 05/01/22 05/01/22 Range/Units 05:53 04:31 03:30 WBC (4.8-10.8) K/ul RBC (4.63-6.08) M/uL Hgb (14.0-18.0) g/dl Hct (40.1-51.0) % MCV (80.0-100.0) fL MCH (25.0-34.0) pg MCHC (32.0-36.0) g/dL RDW Std Deviation (36.4-46.3) fL RDW Coeff of Gricel (11.5-14.5) % Plt Count (130-400) K/uL MPV (9.4-12.4) fL Immature Gran % (Auto) % Neut % (Auto) % Lymph % (Auto) % Rich % (Auto) % Eos % (Auto) % Baso % (Auto) % Neut # (Auto) (1.4-6.5) K/uL Lymph # (Auto) (1.2-3.4) K/uL Rich # (Auto) (0.24-0.82) K/uL Eos # (Auto) (0-0.50) K/uL Baso # (Auto) (0-0.2) K/uL Immature Gran # (Auto) (0.00-0.02) K/uL Sodium (136-145) mmol/L Potassium (3.5-5.1) mmol/L Chloride (98-107) mmol/L Carbon Dioxide (21-32) mmol/L Anion Gap (3-11) BUN (6-23) mg/dl Creatinine (0.6-1.4) mg/dl Est Cr Clr Drug Dosing ml/min Est GFR ( Amer) ml/min Est GFR (Non-Af Amer) ml/min BUN/Creatinine Ratio (10-20) Glucose (70-99(Fasting)) mg/dl POC Glucose 280 H 336 H* 394 H* (70-99) mg/dl Lactate (0.4-2.0) mmol/L Calcium (8.5-10.1) mg/dl Total Bilirubin (0.2-1.0) mg/dl AST (13-39) U/L ALT (7-52) U/L Alkaline Phosphatase (34-104) U/L Total Protein (6.0-8.3) gm/dl Albumin (3.4-5.0) gm/dl Globulin (2.5-4.0) gm/dl Albumin/Globulin Ratio (0.9-2) SARS-CoV-2, RNA, NAAT (NEGATIVE) 05/01/22 05/01/22 05/01/22 Range/Units 00:35 00:35 00:35 WBC (4.8-10.8) K/ul RBC (4.63-6.08) M/uL Hgb (14.0-18.0) g/dl Hct (40.1-51.0) % MCV (80.0-100.0) fL MCH (25.0-34.0) pg MCHC (32.0-36.0) g/dL RDW Std Deviation (36.4-46.3) fL RDW Coeff of Gricel (11.5-14.5) % Plt Count (130-400) K/uL MPV (9.4-12.4) fL Immature Gran % (Auto) % Neut % (Auto) % Lymph % (Auto) % Rich % (Auto) % Eos % (Auto) % Baso % (Auto) % Neut # (Auto) (1.4-6.5) K/uL Lymph # (Auto) (1.2-3.4) K/uL Rich # (Auto) (0.24-0.82) K/uL Eos # (Auto) (0-0.50) K/uL Baso # (Auto) (0-0.2) K/uL Immature Gran # (Auto) (0.00-0.02) K/uL Sodium 132 L (136-145) mmol/L Potassium 3.8 (3.5-5.1) mmol/L Chloride 100 (98-107) mmol/L Carbon Dioxide 23 (21-32) mmol/L Anion Gap 9 (3-11) BUN 9 (6-23) mg/dl Creatinine 0.55 L (0.6-1.4) mg/dl Est Cr Clr Drug Dosing 287.8 ml/min Est GFR ( Amer) > 150.0 ml/min Est GFR (Non-Af Amer) 135.0 ml/min BUN/Creatinine Ratio 16.4 (10-20) Glucose 455 H* (70-99(Fasting)) mg/dl POC Glucose (70-99) mg/dl Lactate 1.6 (0.4-2.0) mmol/L Calcium 8.4 L (8.5-10.1) mg/dl Total Bilirubin 0.7 (0.2-1.0) mg/dl AST 11 L (13-39) U/L ALT 15 (7-52) U/L Alkaline Phosphatase 85 (34-104) U/L Total Protein 6.7 (6.0-8.3) gm/dl Albumin 3.7 (3.4-5.0) gm/dl Globulin 3.0 (2.5-4.0) gm/dl Albumin/Globulin Ratio 1.2 (0.9-2) SARS-CoV-2, RNA, NAAT NEGATIVE (NEGATIVE) 05/01/22 Range/Units 00:35 WBC 7.31 (4.8-10.8) K/ul RBC 5.05 (4.63-6.08) M/uL Hgb 14.7 (14.0-18.0) g/dl Hct 42.7 (40.1-51.0) % MCV 84.6 (80.0-100.0) fL MCH 29.1 (25.0-34.0) pg MCHC 34.4 (32.0-36.0) g/dL RDW Std Deviation 35.9 L (36.4-46.3) fL RDW Coeff of Gricel 11.9 (11.5-14.5) % Plt Count 195 (130-400) K/uL MPV 11.3 (9.4-12.4) fL Immature Gran % (Auto) 0.3 % Neut % (Auto) 73.3 % Lymph % (Auto) 15.7 % Rich % (Auto) 9.0 % Eos % (Auto) 1.4 % Baso % (Auto) 0.3 % Neut # (Auto) 5.36 (1.4-6.5) K/uL Lymph # (Auto) 1.15 L (1.2-3.4) K/uL Rich # (Auto) 0.66 (0.24-0.82) K/uL Eos # (Auto) 0.10 (0-0.50) K/uL Baso # (Auto) 0.02 (0-0.2) K/uL Immature Gran # (Auto) 0.02 (0.00-0.02) K/uL Sodium (136-145) mmol/L Potassium (3.5-5.1) mmol/L Chloride (98-107) mmol/L Carbon Dioxide (21-32) mmol/L Anion Gap (3-11) BUN (6-23) mg/dl Creatinine (0.6-1.4) mg/dl Est Cr Clr Drug Dosing ml/min Est GFR ( Amer) ml/min Est GFR (Non-Af Amer) ml/min BUN/Creatinine Ratio (10-20) Glucose (70-99(Fasting)) mg/dl POC Glucose (70-99) mg/dl Lactate (0.4-2.0) mmol/L Calcium (8.5-10.1) mg/dl Total Bilirubin (0.2-1.0) mg/dl AST (13-39) U/L ALT (7-52) U/L Alkaline Phosphatase (34-104) U/L Total Protein (6.0-8.3) gm/dl Albumin (3.4-5.0) gm/dl Globulin (2.5-4.0) gm/dl Albumin/Globulin Ratio (0.9-2) SARS-CoV-2, RNA, NAAT (NEGATIVE) (1) Hypertension Hypertension type: unspecified Qualified Code(s): I10 - Essential (primary) hypertension
--- NOTE | 2022-05-01 07:53 | CT Scan Report ---
CT pelvis w/IV con only HISTORY: Right side. Perineum abscess. TECHNIQUE: Multiaxial CT images the pelvis were performed following the intravenous demonstration of 118 cc of Optiray 320 and reformatted in the sagittal and coronal plane. COMPARISON STUDY: Abdomen and pelvis CT 04/02/2020. FINDINGS: Best seen image 350 there is a 3.1 x 2.0 cm rim-enhancing subcutaneous fluid collection at the midline perineum consistent with an abscess. There is surrounding subcutaneous edema/fat strandin g and skin thickening. No subcutaneous gas identified. No associated fistula. No perirectal abscess. There are trace bilateral hydroceles noted. No pelvic lymphadenopathy. No pelvic free fluid. The blad wen is unremarkable. The prostate gland is normal in size. The visualized loops of bowel show no evid ence for obstruction. A few colonic diverticula. Minimal fat stranding at the proximal sigmoid colon could represent an early acute diverticulitis. The appendix is partially visualized and appears unrem arkable. No fractures within the visualized osseous structures. IMPRESSION: 1. A 3.1 x 2.0 cm subcutaneous abscess at the midline perineum. No fistula identified. 2. Minimal fat stranding adjacent to the proximal sigmoid colon. This may represent a developing acut e diverticulitis. ACT 112: Negative or not required by law. Electronically signed by: Jermaine Bustos M.D. 05/01/2022 7:52 AM
[2022-05-01] MEDS: PIPERACILLIN/TAZOBACTAM 4.5 GM in DEXTROSE 5% 100 ML IV SCH ×2 (08:05→16:55)
[2022-05-01] MEDS ORDERED: LANTUS PER UNIT CHARGE SQ SCH ×2 (09:00→21:00)
[2022-05-01] MEDS ORDERED: CLOPIDOGREL BISULFATE 75 MG TAB PO SCH (09:00)
[2022-05-01] MEDS ORDERED: ATORVASTATIN 40 MG TAB PO SCH (09:00)
[2022-05-01] MEDS ORDERED: ASPIRIN 81 MG ECTAB PO SCH (09:00)
[2022-05-01] MEDS ORDERED: METOPROLOL SUCC 50MG EXT REL TAB PO SCH (09:00)
--- NOTE | 2022-05-01 10:10 | History & Physical Report ---
Date of Service May 01, 2022 Assessment & Plan (1) Abscess of perineum: Plan 37-year-old gentleman with perineal abscess. I discussed with him the risks and benefits of incision and drainage of the abscess under sedation in the operating room. All his questions were answered, he is agreeable to proceed. We will taken to the operating room at the earliest convenience. Consent has been obtained. Admission and Anticipated Discharge Date Admission Date: May 01, 2022 History of Present Illness Primary Care Provider: LYNDA Gan 37-year-old gentleman presents with perineal abscess. He states that he has a history of these and gets them approximately twice a year. For a week he noted a lump in his perineum and he was draining purulent fluid. The other day, the drainage stops. The next day he states the lump was 3 times the size that it had been and was causing significant pain. He came to the emergency department and was noted to have elevated sugars. He has apparently stopped taking his insulin. He has a CT scan which demonstrates a 3 to 4 cm abscess in his perineum. Allergies Allergy/AdvReac Type Severity Reaction Status Date / Time cefaclor Allergy Unknown HAD Verified 05/01/22 00:46 REACTION BABY - DOES NOT REMEMBER EXACT REACTION Cephalosporins Allergy Unknown rxn as Verified 05/01/22 00:46 baby; has tolerated Augmentin 2016 Home Medications Medication Instructions Recorded Confirmed Type acetaminophen 500 mg tablet 1,000 mg PO Q6H PRN Pain 04/18/20 05/01/22 History (Tylenol Extra Strength) aspirin 81 mg tablet,delayed 81 mg PO QAM 30 days #30 tabs 04/21/20 05/01/22 Rx release nitroglycerin 0.4 mg sublingual 0.4 mg sublingual UD PRN chest 04/21/20 05/01/22 Rx tablet (Nitrostat) pain #60 tabs blood sugar diagnostic (OneTouch 06/07/20 02/09/22 History Verio test strips) metoprolol succinate 200 mg 200 mg PO QAM #90 tabs 03/04/21 05/01/22 Rx tablet,extended release 24 hr clopidogrel 75 mg tablet 75 mg PO QAM 30 days #30 tabs 05/03/21 05/01/22 Rx pen needle, diabetic 32 gauge x #200 ea 12/05/21 02/09/22 Rx 5/32" (BD Ultra-Fine Melinda Pen Needle) Diabetic Shoes #1 ea 02/09/22 02/09/22 Rx atorvastatin 80 mg tablet 80 mg PO QAM 05/01/22 05/01/22 History Past Med/Surg History Medical History Asthma A CHILD, "NO PROBLEMS NOW" Attention deficit disorder Bifascicular block CAD (coronary artery disease) Candidiasis Cellulitis of right thigh Chronic anticoagulation Depression Diabetes type 2, uncontrolled Diabetic peripheral neuropathy associated with type 2 diabetes mellitus Diverticulitis DKA (diabetic ketoacidoses) Dysesthesia Dyslipidemia Former smoker History of anesthesia reaction WOKE UP DURING THE LITHOTRIPSY ([facility]) Hypertension Kidney stone on left side Lumbar radicular pain Migraine Non-ST elevation (NSTEMI) myocardial infarction Obesity, Class III, BMI 40-49.9 (morbid obesity) Otitis media Pain of left lateral upper thigh Pancreatic cyst Perirectal abscess Right acute otitis media Sciatica Scrotal abscess Vitamin D deficiency Surgical History History of ankle surgery RIGHT History of colonoscopy (06/2014) History of esophagogastroduodenoscopy (EGD) (06/2017) History of lithotripsy History of renal stent WITH REMOVAL OF STENT S/P coronary artery stent placement S/P surgical removal of pilonidal cyst Stented coronary artery 04/18/20-PCI of mid to distal circumflex with 2 overlapping ALICIA. PCI of distal right PLB with ALICIA Family History Mother Diabetes Grandfather Diabetes Grandmother Diabetes Myocardial infarction Other Hypertension Denies family history of Ovarian cancer Prostate cancer Breast cancer Colorectal cancer Social History Smoking Status: Former smoker Tobacco Type: Cigarettes Age Started Using Tobacco: 15; packs per day: 0.5; Years Smoked: 20; Cigarettes Per Day: 1/2 PPD X 15 YEARS; Second Hand Exposure: No; Hx Alcohol Use: No Hx Substance Use: No Preferred Language: Mexican Communication Ability: Effective Visual Impairment: No Limitations Hearing Ability: Normal Land Agent Required: No Beliefs That Will Affect Care: None marital status: Current Living Situation: Spouse Current Living Situation Comment: [facility] current occupational status: employed current occupation: Student at [employer] How many Children do You have: 4 Feels Safe at Home: Yes Childhood Exposure to Second-Hand Smoke: Yes (mother) caffeine: Yes during the past year weight has: decreased > 10 lbs Dental Care, Regularly: Yes Physical Activity Frequency: Daily Seatbelt Use: never Sunscreen Use: Yes Assistive Devices: Glasses Review of Systems Review of Systems: All systems reviewed & are unremarkable except as noted in HPI & below Physical Exam Constitutional: WD/WN, vitals as above Eyes: PERRL, conjunctivae normal, anicteric sclerae Neck: trachea midline, no thyromegaly Respiratory: normal respiratory effort; no respiratory distress and no labored breathing Cardiovascular: Rate/Rhythm: regular rate and regular rhythm Musculoskeletal: Extremities: no cyanosis and no clubbing Skin: no rashes, warm and dry Perineum with 5 cm area of erythema, induration, tenderness Psychiatric: A+Ox3, euthymic affect Results & Data Results & Data ([facility]) Vital Signs (Past 12 Hours) Vital Signs Temp Pulse Pulse Pulse Resp BP BP 05/01/22 09:23 05/01/22 07:00 36.4 C L 81 14 114/71 05/01/22 05:26 05/01/22 05:26 36.5 C 84 20 154/97 H 05/01/22 04:00 85 20 146/89 H 05/01/22 03:00 88 18 154/98 H 05/01/22 02:04 88 16 153/89 H 05/01/22 01:22 90 18 145/79 H 05/01/22 00:01 36.9 C 113 H 18 142/86 H Pulse Ox O2 Del Method 05/01/22 09:23 Room Air 05/01/22 07:00 95 Room Air 05/01/22 05:26 Room Air 05/01/22 05:26 96 Room Air 05/01/22 04:00 95 05/01/22 03:00 96 Room Air 05/01/22 02:04 95 Room Air 05/01/22 01:22 95 Room Air 05/01/22 00:01 97 Room Air
[2022-05-01] MEDS ORDERED: PROMETHAZINE HCL 12.5 MG in SODIUM CHLORIDE 0.9% 50 ML IV PRN (10:18)
[2022-05-01] MEDS ORDERED: ePHEDrine sulfate 50 MG/ML AMP IV PRN (10:18)
[2022-05-01] MEDS ORDERED: NALOXONE HCL 0.4 MG/1 ML VIAL/CARP IV PRN (10:18)
[2022-05-01] MEDS ORDERED: fentaNYL citrate 100 MCG/2 ML VIAL IV PRN (10:18)
[2022-05-01] MEDS ORDERED: ATROPINE SULFATE 0.1 MG/ML 10ML SYR IV PRN (10:18)
[2022-05-01] MEDS ORDERED: LABETALOL HCL IV 5 MG/ML 20ML IV PRN (10:18)
[2022-05-01] MEDS ORDERED: HYDROmorphone INJ 1 MG/ML SYRINGE IV PRN (10:18)
[2022-05-01] MEDS ORDERED: FLUMAZENIL 0.1 MG/1 ML 10 ML VIAL IV PRN (10:18)
--- NOTE | 2022-05-01 10:18 | Anesthesiology Consultation ---
Date of Service May 01, 2022 Assessment & Plan Chart Review Chart Review: Acceptable Risk for Surgery and Patient NOT seen in Pre Admission Testing Consults Requested none ASA ASA4 Proposed Anesthesia Anesthesia Type: MAC Risk / Benefits Reviewed With: PT / POA / Parent / Guardian, Accepts Plan and Informed Consent Obtained Additional Comments: covid test neg. History Surgery Operation Date: 05/01/22 10:40 Proposed Procedures p Incision and Drainage Perineal Abscess - Chuy Paz MD Height/Weight Height: 6 ft 4 in Weight: 140.2 kg Allergies Allergy/AdvReac Type Severity Reaction Status Date / Time cefaclor Allergy Unknown HAD Verified 05/01/22 00:46 REACTION BABY - DOES NOT REMEMBER EXACT REACTION Cephalosporins Allergy Unknown rxn as Verified 05/01/22 00:46 baby; has tolerated Augmentin 2017 Medications Home Medications Medication Instructions Recorded Confirmed Last Taken acetaminophen 500 mg tablet 1,000 mg PO Q6H PRN Pain 04/18/20 05/01/22 Unknown (Tylenol Extra Strength) aspirin 81 mg tablet,delayed 81 mg PO QAM 30 days #30 tabs 04/21/20 05/01/22 04/30/22 release nitroglycerin 0.4 mg sublingual 0.4 mg sublingual UD PRN chest 04/21/20 05/01/22 Unknown tablet (Nitrostat) pain #60 tabs blood sugar diagnostic (OneTouch 06/07/20 02/09/22 Unknown Verio test strips) metoprolol succinate 200 mg 200 mg PO QAM #90 tabs 03/04/21 05/01/22 04/30/22 tablet,extended release 24 hr clopidogrel 75 mg tablet 75 mg PO QAM 30 days #30 tabs 05/03/21 05/01/22 04/30/22 pen needle, diabetic 32 gauge x #200 ea 12/05/21 02/09/22 Unknown 5/32" (BD Ultra-Fine Melinda Pen Needle) Diabetic Shoes #1 ea 02/09/22 02/09/22 Unknown atorvastatin 80 mg tablet 80 mg PO QAM 05/01/22 05/01/22 04/30/22 Active Medications Generic Name Dose Route Start Last Admin Trade Name Freq PRN Reason Stop Dose Admin Aspirin 81 mg 05/01/22 09:00 05/01/22 08:05 Aspirin 81 Mg Ectab PO 05/31/22 08:59 81 mg QAM FELICIANO Administration Atorvastatin Calcium 80 mg 05/01/22 09:00 05/01/22 08:05 Atorvastatin 40 Mg Tab PO 05/31/22 08:59 80 mg QAM FELICAINO Administration Clopidogrel Bisulfate 75 mg 05/01/22 09:00 05/01/22 08:05 Clopidogrel Bisulfate 75 Mg Tab PO 05/31/22 08:59 75 mg QAM FELICIANO Administration Piperacillin Sod/Tazobactam 120 mls @ 30 mls/hr 05/01/22 08:00 05/01/22 08:05 Sod 4.5 gm/ Dextrose IV 05/11/22 07:59 30 mls/hr Q8H FELICIANO Administration Protocol Insulin Aspart 0 units 05/01/22 06:00 05/01/22 06:25 Insulin Aspart Per Unit SC 05/31/22 05:59 18 units Q6 FELICIANO Administration Insulin Glargine 70 units 05/01/22 09:00 05/01/22 08:05 Lantus Per Unit Charge SQ 05/31/22 08:59 70 units BID FELICIANO Administration Metoprolol Succinate 200 mg 05/01/22 09:00 05/01/22 08:06 Metoprolol Succ 50mg Ext Rel Tab PO 05/31/22 08:59 200 mg QAM FELICIANO Administration Oxycodone HCl 10 mg 05/01/22 05:02 05/01/22 05:17 Oxycodone Hcl Ir 5 Mg Tab (Immediate Release) PO 05/15/22 05:01 10 mg Q4H PRN Administration SEVERE Pain (7,8,9,10) NPO Date Last Intake of Fluids: 04/30/22 Time Last Intake of Fluids: 23:00 Date Last Intake of Solids: 04/30/22 Time Last Intake of Solids: 23:00 Past Medical History Medical History Asthma A CHILD, "NO PROBLEMS NOW" Attention deficit disorder Bifascicular block CAD (coronary artery disease) Candidiasis Cellulitis of right thigh Chronic anticoagulation Depression Diabetes type 2, uncontrolled Diabetic peripheral neuropathy associated with type 2 diabetes mellitus Diverticulitis DKA (diabetic ketoacidoses) Dysesthesia Dyslipidemia Former smoker History of anesthesia reaction WOKE UP DURING THE LITHOTRIPSY ([facility]) Hypertension Kidney stone on left side Lumbar radicular pain Migraine Non-ST elevation (NSTEMI) myocardial infarction Obesity, Class III, BMI 40-49.9 (morbid obesity) Otitis media Pain of left lateral upper thigh Pancreatic cyst Perirectal abscess Right acute otitis media Sciatica Scrotal abscess Vitamin D deficiency Exercise / Class Metabolic Activity II 4-5 Yardwork/Stairs/Walk up hill Past Family History Family History Mother Diabetes Grandfather Diabetes Grandmother Diabetes Myocardial infarction Other Hypertension Denies family history of Ovarian cancer Prostate cancer Breast cancer Colorectal cancer Past Surgical History Surgical History History of ankle surgery RIGHT History of colonoscopy (06/2014) History of esophagogastroduodenoscopy (EGD) (06/2017) History of lithotripsy History of renal stent WITH REMOVAL OF STENT S/P coronary artery stent placement S/P surgical removal of pilonidal cyst Stented coronary artery 04/18/20-PCI of mid to distal circumflex with 2 overlapping ALICIA. PCI of distal right PLB with ALICIA Past Anesthesia History No Hx of Anesthesia Complications and No Family Hx of Anesthesia Complications History of PONV No Hx of PONV and No Hx of Motion Sickness Social History Smoking Status: Former smoker tobacco type: smokeless tobacco Smoking cigarettes per day: 1/2 PPD X 15 YEARS Do You Dip or Chew Tobacco: Yes Hx Alcohol Use: No Alcohol type: beer alcohol intake frequency: holidays/special occasions only Hx Substance Use: No substance use type: does not use Substance Use Type Other:: medical marijuana-neuropathy Last Used Substance: Hours (ago) Physical Exam Vital Signs Last Vital Signs Temp 36.6 C 05/01/22 10:04 Pulse 83 05/01/22 10:04 Resp 20 05/01/22 10:04 BP 123/92 05/01/22 10:04 Pulse Ox 96 05/01/22 10:04 O2 Del Method 05/01/22 10:04 Constitutional + morbidly obese ENMT Mouth: + dentition abnormality and + poor dentition Thyromental Distance: > or= 3.5 Finger Breadths Mallampati Class: II Neck normal visual inspection, trachea midline and + facial hair; neck extension not limited Respiratory normal respiratory effort Auscultation: lungs clear to auscultation bilaterally Cardiovascular Rate/Rhythm: regular rate and regular rhythm Heart Sounds: no murmur Vessels: no carotid bruit Musculoskeletal Spine: normal cervical ROM and no pain with cervical ROM Extremities: full ROM of extremities Neurologic moves all extremities Motor/Sensory: + sensory deficit (diabetic PN feet) Psychiatric Orientation: alert and oriented x 3 Testing Laboratory Results 05/01/22 00:35 05/01/22 00:35 05/01/22 05/01/22 05/01/22 09:58 05:53 04:31 POC Glucose 188 H 280 H 336 H* 05/01/22 03:30 POC Glucose 394 H*
[2022-05-01] MEDS ORDERED: BUPIVACAINE/EPINEPHRINE 0.25% 1:200,000 30 ML VIAL ONE (10:25)
[2022-05-01] MEDS ORDERED: fentaNYL citrate 100 MCG/2 ML VIAL ONE (10:41)
[2022-05-01] MEDS ORDERED: MIDAZOLAM HCL 1 MG/ML 2ML VIAL ONE (10:41)
[2022-05-01] MEDS ORDERED: LIDOCAINE 1%/EPINEPHRINE 1:100,000 50 ML VIAL ONE (10:49)
[2022-05-01] MEDS ORDERED: PROPOFOL IV EMULSION 10 MG/ML 20 ML VIAL IV ONE (10:56)
--- NOTE | 2022-05-01 11:04 | Post Operative Brief Note ---
Immediate Post Op Note v1 Date of Surgery May 01, 2022 Pre & Post Diagnosis Operation Date: 05/01/22 10:40 Pre-Op Diagnosis: perineal abscess Post-Op Diagnosis: perineal abscess I identified the patient and participated in the time-out.: Yes Procedure Operation Date: 05/01/22 10:40 Actual Procedures p Incision and Drainage Perineal Abscess(Not Applicable) - Chuy Paz MD Surgeon Chuy Paz MD Windows Server Administrator none Estimated Blood Loss 5 Findings Consistent with Post-Op Diagnosis Drains Brice Drain (1/4 inch)
--- NOTE | 2022-05-01 11:23 | Operative Report ---
Post Operative Report Pre & Post Diagnosis Operation Date: 05/01/22 10:40 Pre-Op Diagnosis: perineal abscess Post-Op Diagnosis: perineal abscess I identified the patient and participated in the time-out.: Yes Procedure Operation Date: 05/01/22 10:40 Actual Procedures p Incision and Drainage Perineal Abscess(Not Applicable) - Chuy Paz MD Surgeon Chuy Paz MD Shuttle Route Vehicle Operator none Estimated Blood Loss 5 Findings Consistent with Post-Op Diagnosis Specimens Cultures, aerobic and anaerobic Anesthesia Type MAC Complications No immediate complications Description of Procedure Patient was taken to the operating room, placed supine on the operating table. A timeout was performed, antibiotics were being given. After adequate anesthesia and analgesia was obtained, he was placed in lithotomy position and was prepped and draped in normal sterile fashion. Local anesthetic was injected into and around the area of the abscess. A 15 blade scalpel was used to incise into the abscess with a large amount of purulent return. Cultures were taken. All the purulent fluid was drained. The wound was copiously irrigated and suctioned free. A Brussels drain was placed into the wound and sewn in place with 3-0 nylon suture. Dressings were applied. He tolerated the procedure without complication, was transferred in stable condition to the PACU. All instrument, needle, and sponge counts were correct at the end of the case. I attest to the content of the Intraoperative Record and any orders documented therein. Any exceptions are noted below.
--- NOTE | 2022-05-01 11:29 | Anesthesiology Progress Note ---
Date of Service May 01, 2022 Anesthesia Post Procedure Vital Signs Vital Signs: Temp Pulse Pulse Pulse Resp BP BP 05/01/22 11:25 74 17 149/80 H 05/01/22 11:15 81 12 140/84 05/01/22 11:08 36.2 C L 77 16 139/73 05/01/22 10:04 36.6 C 83 20 05/01/22 09:23 05/01/22 07:00 36.4 C L 81 14 114/71 05/01/22 05:26 05/01/22 05:26 36.5 C 84 20 154/97 H 05/01/22 04:00 85 20 146/89 H 05/01/22 03:00 88 18 154/98 H 05/01/22 02:04 88 16 153/89 H 05/01/22 01:22 90 18 145/79 H 05/01/22 00:01 36.9 C 113 H 18 142/86 H BP Pulse Ox O2 Del Method 05/01/22 11:25 97 Room Air 05/01/22 11:15 98 Room Air 05/01/22 11:08 97 Room Air 05/01/22 10:04 123/92 96 Room Air 05/01/22 09:23 Room Air 05/01/22 07:00 95 Room Air 05/01/22 05:26 Room Air 05/01/22 05:26 96 Room Air 05/01/22 04:00 95 05/01/22 03:00 96 Room Air 05/01/22 02:04 95 Room Air 05/01/22 01:22 95 Room Air 05/01/22 00:01 97 Room Air Pain Intensity Scrotal: Pain Intensity: 8 Transfer of Care Handoff Completed per policy Notes Mental Status: alert / awake / arousable Patient Amnestic to Procedure: Yes Nausea / Vomiting: adequately controlled Pain: adequately controlled Airway Patency, RR, SpO2: stable & adequate BP & HR: stable & adequate Hydration State: stable & adequate Anesthetic Complications: no major complications apparent
--- NOTE | 2022-05-01 13:43 | Pharmacy Report ---
Pharmacy Glycemic Short Note 2 - Date of Service May 01, 2022 - Glycemic Short BSG Results (Last 24 hours): 05/01/22 05/01/22 05/01/22 00:35 03:30 04:31 Glucose 455 H* POC Glucose 394 H* 336 H* 05/01/22 05/01/22 05/01/22 05:53 09:58 11:17 Glucose POC Glucose 280 H 188 H 215 H 05/01/22 11:48 Glucose POC Glucose 205 H OUTPATIENT ANTIDIABETIC REGIMEN: * Unknown. No insulin x1 month 2nd running out of medications * Sees Dr. Small - very high doses of insulin reported (? >300 units/day). U-500 was being considered * HbA1c outdated - ordered for tomorrow ASSESSMENT: * 37 yo M with perineal abscess admitted with severe hyperglycemia, non-DKA nor HHS. Etilogy likely 2nd infection and missed insulin as an outpatient. * Previous admission reviewed - was receiving 100 units of Lantus BID at the end of that admission with a CHO ratio of 2 * Will resume close to previous, although slightly reduced down for now 2nd lack of sufficient data to determine best regimen at this time * Patient may require an insulin drip if BSG's again become persistently >300 mg/dL but OK to use basal/bolus for now PLAN FOR INPATIENT GLYCEMIC CONTROL: * Basal insulin * Lantus 70-90 units SQ BID, depending on BSG * Bolus insulin * NovoLog per scale ACHS or Q6hrs while NPO * Goal Range: Low 110 mg/dL - High 140 mg/dL * Correction Factor: 8 mg/dL/unit * Nutritional / Prandial insulin per carb ratio of 1 unit per 2.5 grams CHO consumed
[2022-05-01] MEDS ORDERED: VANCOMYCIN HCL 1,500 MG in SODIUM CHLORIDE 0.9% 500 ML IV SCH (14:00)
--- NOTE | 2022-05-01 17:22 | Discharge Summary ---
Date of Service May 01, 2022 Admission HPI Per Admitting Provider 37-year-old gentleman presents with perineal abscess. He states that he has a history of these and gets them approximately twice a year. For a week he noted a lump in his perineum and he was draining purulent fluid. The other day, the drainage stops. The next day he states the lump was 3 times the size that it had been and was causing significant pain. He came to the emergency department and was noted to have elevated sugars. He has apparently stopped taking his insulin. He has a CT scan which demonstrates a 3 to 4 cm abscess in his perineum. Admission Exam Per Admitting Provider Constitutional: WD/WN, vitals as above Eyes: PERRL, conjunctivae normal, anicteric sclerae Neck: trachea midline, no thyromegaly Respiratory: normal respiratory effort; no respiratory distress and no labored breathing Cardiovascular: Rate/Rhythm: regular rate and regular rhythm Musculoskeletal: Extremities: no cyanosis and no clubbing Skin: no rashes, warm and dry Perineum with 5 cm area of erythema, induration, tenderness Psychiatric: A+Ox3, euthymic affect Principal Diagnosis Perianal abscess Discharge Exam Constitutional: WD/WN, vitals as above Eyes: PERRL, conjunctivae normal, anicteric sclerae Neck: trachea midline, no thyromegaly Respiratory: normal respiratory effort; no respiratory distress and no labored breathing Cardiovascular: Rate/Rhythm: regular rate and regular rhythm Musculoskeletal: Extremities: no cyanosis and no clubbing Skin: no rashes, warm and dry Perineum with 5 cm area of erythema, induration, tenderness Psychiatric: A+Ox3, euthymic affect Discharge Data Allergies Allergy/AdvReac Type Severity Reaction Status Date / Time cefaclor Allergy Unknown HAD Verified 05/01/22 00:46 REACTION BABY - DOES NOT REMEMBER EXACT REACTION Cephalosporins Allergy Unknown rxn as Verified 05/01/22 00:46 baby; has tolerated Augmentin 2017 Consultations 05/01/22 03:22 ED Decision to Admit Stat 05/01/22 05:02 Consult General Surgery Routine Procedures Performed Operation Date: 05/01/22 10:40 Actual Procedures p Incision and Drainage Perineal Abscess(Not Applicable) - Chuy Paz MD Ordered Studies 05/01/22 00:15 CT pelvis w/IV con only Urgent Hospital Course (1) Abscess: (2) Diabetes type 2, uncontrolled: (3) CAD (coronary artery disease): (4) Hypertension: (5) Dyslipidemia: Sachin Crandall is a pleasant 37 y/o male with history of CAD s/p NSTEMI with stent placement x 2 in 04/2020, HTN, HLP, DM and recurrent scrotal/perineal absce sses presenting with perineal abscess.Patient noted a fullness in the perineum appx 1 week ago.He states the abscess was spontaneously draining and improving.This AM when he woke up the abscess had increased in size and was exquisitely painful and no longer draining, so he came to the hospital for further evaluation. #Perianal abscess Patient has a perineal abscess. Patient afebrile, HD stable, non-toxic in appearance. No signs/symptoms of systemic infection. He gets infections like this usually around twice a years - typically treated with antibiotics. No scrotal pain, abdominal pain, n/v/f/c, CP, SOB, palpitations. Patient was started on Zosyn and Gen Surg was consulted. They recommended I&D, which was performed 05/01. Patient's pain was well controlled following the procedure and he was cleared for discharge by surgery. Patient was discharged with 10 tabs of 5 mg oxycodone for breakthrough and 13 days of Augmentin 875 BID.. #Uncontrolled IDDM2 Blood sugar is elevated at 455 with no anion gap or evidence of DKA.Patient reports running out of his insulin approximately one month ago.He has been unable to get his prescription filled. He has a dexcom that he uses to check his sugars. Reports that even while he was taking his insulin his sugars were rarely under 300. 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 Last saw them 12/05/21 and was to start on U-500 (80 units with breakfast/40 units with supper). Restart home med on discharge per glycemic management consultation. Follow up endocrinology 07/03/22. #CAD hx NSTEMI Patient with CAD s/p NSTEMI on 04/19/2020. He had catheterization with PCI of mid to distal circumflex with 2 overlapping stents. He follows with Cardiology. Last seen 08/18/21. He denies chest pain, palpitation or dyspnea. He has been trying to eat healthier and get more physical activity. Continued ASA and Plavix, atorbastatin, and metoprolol. #HTN Blood pressure mildly elevated at 146/89. Continued metoprolol. #Dyslipidemia Continued home med - Atorvastatin Total Time Total Time Spent Total Time Spent (In Minutes): >30 Discharge Plan Discharge Items Patient Disposition: Home - Self-Care Reason For Visit: PERINEAL ABSCESS Discharge Diagnosis: Perineal abscess Activity: Per Instructions section Non-emergency contact: Primary Care Provider Call non-emergency contact if: your symptoms worsen, your temperature is above 101 and your wound has increased redness Follow-up/Referrals: Dhiraj Small MD [Physician] - 07/03/22 10:00 am Yaa Bedoya CRNP [Primary Care Provider] - (hospital discharge f/u within 1 week of leaving hospital) Diet: Carb Consistent or DM2 Addtl Attending Provider Instructions: You were seen here for a perianal abscess. You were put on antibiotics, the abscess was drained, and you were sent home with 12 days of Augmentin. Your sugar levels have an impact on many aspects of your health. High sugars can lead to immune suppression and wound formation. It can also lead to clogged arteries. You have made some amazing changes to your diet and exercise levels! We also discussed specific goals for how to get your diabetes until control. Before your next visit to endocrinology you're going to take your blood sugar 2 hours after meals to see what foods spike your sugars and start to limit/eliminate those. You're also going to try and increase the number of days that you exercise. End Goal is 7 days a week, but don't expect yourself to always be perfect. It was great being a part of your care team! Pending Studies at Discharge: No Stand-Alone Forms: My [facility] Privatext, Smoking Cessation Medications and DC Order Prescriptions: New Humulin R U-500 (Conc) Insulin 500 unit/mL solution See Rx Instructions .ROUTE .COMPLEX Qty: 20 3RF Rx Instructions: Take 80u with breakfast and 40u with dinner. oxycodone 5 mg tablet 5 mg PO Q8H PRN (Reason: pain) Qty: 10 0RF amoxicillin-pot clavulanate 875-125 mg tablet 1 tab PO BID Qty: 26 0RF Continued metoprolol succinate 200 mg tablet extended release 24 hr 200 mg PO QAM Qty: 90 3RF clopidogrel 75 mg tablet 75 mg PO QAM 30 Days Qty: 30 11RF (DME) Diabetic Shoes Misc See Rx Instructions .Route Qty: 1 0RF Rx Instructions: As directed (DME) blood sugar diagnostic [OneTouch Verio test strips] Strip See Rx Instructions .ROUTE .MEDSUPPLY Rx Instructions: Test 1 times daily acetaminophen [Tylenol Extra Strength] 500 mg Tablet 1,000 mg PO Q6H PRN (Reason: Pain) nitroglycerin [Nitrostat] 0.4 mg Tablet, Sublingual 0.4 mg sublingual UD PRN (Reason: chest pain) Qty: 60 0RF aspirin 81 mg Tablet,Delayed Release (Dr/Ec) 81 mg PO QAM 30 Days Qty: 30 3RF atorvastatin 80 mg tablet 80 mg PO QAM (DME) pen needle, diabetic [BD Ultra-Fine Melinda Pen Needle] 32 gauge x 5/32" needle See Rx Instructions .ROUTE .MEDSUPPLY Qty: 200 3RF Rx Instructions: use 2 times daily Discharge Orders: Discharge Order (Routine); Ordered 05/01/22 Ordered By: Sisi Ventura Admission Data Admit Date/Time: 05/01/22 03:56 Attending Provider: Donny Humphries Admit Provider: Zoë Hopson Primary Care Provider: Yaa Bedoya Other Providers: Zoë Hopson ; Nicolás Mike Other Interventions: Discharge Summary Assessment (RN) Last Done: 05/01/22 17:53 Supervising Physician Co-Signing Physician Notes I personally examined the patient and verified all ross points of history and exam, discussed case, and agree with decision making with Dr Ventura. Feeling better. Pain controlled. Very much wants to go home. Vitals noted, in general he is awake and alert pleasant no distress. HEENT normocephalic atraumatic mucous membranes moist. Breathing unlabored no accessory muscle use good effort. Skin shows no rashes no pallor or icterus. Neuro without focal deficits. Perirectal abscessstatus postdrainage by surgery. Safe/stable for home. Finish a course of Augmentin. Discussed role of uncontrolled diabetes and infection. Uncontrolled type 2 [id number] pending, I suspect it will be quite high given that he notes that he is no strangers seeing sugars of 3 50-4 50 or even higher. However, at the same time you showed quite significant positive lifestyle change losing the better part of 140 pounds since his heart attack, he is exercising probably 4 days a weekpredominantly kayaking, and is hoping to do more. He was instructed on postprandial glucose monitoring to learn from the impact of simple carbohydrates on his metabolism and start to avoid themhe is very willing to do this. In discussing insulins, he notes that he would actually rather make ongoing massive lifestyle changes then utilize basal bolus insulinto that end we will continue the you 500 as prescribed by endocrine, close outpatient follow-up. Stable for home, greater than 30 minutes. Resident Activity Tracking Resident Involvement: Resident Care Provided Care Provided: Adult Hospital Medicine
--- NOTE | 2022-05-01 18:48 | Billing Data ---
Date of Service May 01, 2022 Coding Level of Care Code D/C DAY MANAGEMENT >30 MINS
[2022-05-02] MEDS ORDERED: INSULIN ASPART PER UNIT SC SCH
== END 2022-05-01 18:03 | disposition home or self-care (01) ==
LOC: ED 23:59 → SUATTDRO 05-01 03:56 → 3W 05-01 03:56 → INTOOBSV 05-01 03:56 → 3W 05-01 04:43